=== PATIENT | female | born 1940 | race Caucasian/White ===

== ENCOUNTER → 2016-04-17 | Day surgery (SDC) | payer MEDICARE, MEDICAID ==
--- NOTE | 2016-03-28 07:34 | HP ---
PREOP HISTORY AND PHYSICAL: DATE OF ADMISSION/SURGERY: 04/17/16 - [facility] DATE OF OFFICE VISIT: 03/23/16 ATTENDING SURGEON: Dr. Andersen. PROCEDURE: Left wrist carpal tunnel release. CHIEF COMPLAINT: Left wrist numbness and tingling. HISTORY OF PRESENT ILLNESS: Ute is a 75-year-old female who presents to the clinic for numbness and tingling at the left wrist and fingers due to carpal tunnel syndrome. She also has carpal tunnel syndrome on the right that was recently fixed by Dr. Andersen. The patient has failed conservative treatment such as use of braces at night. She has elected to undergo a left wrist carpal tunnel release with Dr. Andersen. PAST MEDICAL HISTORY: 1. Left breast cancer. 2. Hypertension. 3. Hyperlipidemia. 4. Asthma. 5. GERD. 6. Diverticulitis. PAST SURGICAL HISTORY: Cholecystectomy, left mastectomy with lymph node removal , and D and C. MEDICATIONS: 1. Amlodipine 5 mg. 2. Ondansetron 4 mg. 3. Atorvastatin calcium 10 mg. 4. Letrozole 2.5 mg. 5. Lisinopril 10 mg. 6. Omeprazole 20 mg. 7. Advair Diskus 100/50 mcg per dose, inhaled 1 dose by mouth twice a day. 8. Furosemide 20 mg. 9. Prochlorperazine maleate 10 mg. ALLERGIES: CODEINE, VALIUM, LEVAQUIN, COUMADIN, and CONTRAST DYE. FAMILY HISTORY: Heart disease, colon cancer, and prostate cancer. SOCIAL HISTORY: Retired. Denies smoking history. Rare alcohol use. Denies illegal drug use. REVIEW OF SYSTEMS: A 14-point review of systems was reviewed with the patient. Positive for intermittent light-headedness, GERD, hypertension, nausea, edema , and history of blood clots, otherwise negative. PHYSICAL EXAMINATION GENERAL: A well-developed, well-nourished, 75-year-old female, in no acute distress. VITAL SIGNS: Height 58, weight 166, respiratory rate 18, BMI 34.7. HEENT: Normocephalic, atraumatic. PERRLA. NECK: Supple. Throat, clear. PULMONARY: Lungs are clear to auscultation bilaterally. No wheezing, rhonchi, or rales. CARDIO: Regular rate and rhythm. S1 and S2. No murmurs, rubs, or gallops. No edema. ABDOMEN: Positive bowel sounds. Soft and nontender. NEURO: Alert and oriented x3. Cranial nerves grossly intact. Sensation intact to light touch. MUSCULOSKELETAL: Left wrist skin is intact. No swelling. Able to flex and extend the digits. Sensation intact to light touch distally. Negative Tinel's and Phalen's. +5/5 dry transfer man strength, +2 radial pulse. DIAGNOSTIC STUDIES: X-rays revealed degenerative changes at the basilar joint of the thumb; otherwise, normal. EMG revealed evidence of left carpal tunnel syndrome. IMPRESSION: Left wrist carpal tunnel syndrome. PLAN: The patient is scheduled to undergo a left wrist carpal tunnel release with Dr. Andersen on 04/17/16. Complications and risks of the surgery were reviewed with the patient and the patient understood. The patient was instructed to see her primary care provider for preoperative clearance. The patient will follow up with Dr. Andersen in 10 to 14 days post-operative for followup and suture removal. Pain medications for postoperative pain management will be sent on the day of surgery. MICHELE SALINAS [id number]/[facility] [place] #: [id number] GABE
[~2016-04-17] MED LIST: Buffered Lidocaine 1% SYR 3ML* 3 ML/SYR SYRINGE INTRADERM ONE; Buffered Lidocaine 1% SYR 3ML* 3 ML/SYR SYRINGE ONE; Dexamethasone IV* 4 MG/ML 1 ML (4 MG) ONE; Famotidine IV* 10 MG/ML 2 ML (20 mg) IV ONE; Famotidine IV* 10 MG/ML 2 ML (20 mg) ONE; KETAMINE HCL* 50 MG/ML 10 ML VIAL ONE; Lidocaine 1% INJ* 10 MG/ML 30 ML SDV ONE; Lidocaine 2% PF * 5 ML VIAL ONE; Midazolam* 1 MG/ML 2 ML VIAL (2 MG) ONE; Ondansetron INJ* 2 MG/ML VIAL IV ONE; Ondansetron INJ* 2 MG/ML VIAL ONE; Propofol* 10 MG/ML 20 ML BTL IV PUSH ONE; Scopolamine 1.5 mg* PATCH ONE; Scopolamine PATCH Remove* 1 NOTE MISC PATCH OFF SCH; ceFAZolin 2 GM PREMIX (*) 2 GM/50 ML BAG IVPB ONE; fentaNYL* 50 MCG/ML 2 ML VIAL (100 MCG VIAL) ONE
[2016-04-17 09:33] VITALS: BP 118/51
--- NOTE | 2016-04-17 19:36 | OP ---
DATE OF OPERATION: 04/17/16 [facility] DATE OF : 44 SURGEON: Daly Andersen MD SALES REPRESENTATIVE UNIFORMS: MICHELE Patel. Etl Analyst was needed for the entirety of the case to help with positioning, retraction, and closure. ANESTHESIOLOGIST: Dr. Gandhi. ANESTHESIA: Local MAC. PRE-OP DIAGNOSIS: Left carpal tunnel syndrome. POST-OP DIAGNOSIS: Left carpal tunnel syndrome. OPERATIVE PROCEDURE: Left open carpal tunnel release. COMPLICATIONS: None. ESTIMATED BLOOD LOSS: Minimal. TOURNIQUET TIME: 14 minutes at 250 mmHg. INDICATIONS: Ute Pulido is a pleasant 75-year-old female with carpal tunnel syndrome that was bilateral. She had a previous right-sided carpal tunnel release approximately 2 to 3 months ago, which she tolerated without difficulty. She is interested in getting it done on her left side. She has EMG studies that confirmed the diagnosis as well as clinical symptoms. Risks and benefits were discussed at length. She has elected to proceed with surgery. DESCRIPTION OF PROCEDURE: The patient was greeted in the preoperative area by the attending surgeon. Correct extremity was marked and consent was confirmed. The patient was brought back to the operating suite. She was placed in the supine position, left on her OR stretcher. Hand table was brought up to the stretcher. A non-sterile tourniquet was placed high in the forearm. She does have history of breast cancer. We did discuss that this is a temporary tourniquet and that it should not interfere with her blood flow or her lymphedema. After a minute of surgical pause, the incision area was injected with approximately 10 cc of 1% lidocaine plain after which she underwent monitored anesthesia care. The left arm was then prepped and draped in the usual sterile fashion. The surgery was done under loupe magnification. After a surgical pause confirming the side, site of the procedure, administration of antibiotics, the Esmarch was used to exsanguinate the limb. The tourniquet was inflated to 250 mmHg. An incision centered over the carpal tunnel in line with 4th ray was then made that cheated somewhat ulnarly. The soft tissues were carefully dissected and the palmar fascia was dissected to expose carpal tunnel. A 15-blade was used to carefully release the tunnel. This was a very thick ligament. The carpal tunnel was then released beginning distally and then gradually carried proximally. Once it was confirmed to be released with a freer device, the carpal tunnel was inspected to make sure that there were no masses and no metastatic lesions that were present there. The wounds were then copiously irrigated. The skin was closed with 3-0 nylon. Sterile dressings were applied as well as volar splint. The tourniquet was deflated for a total time of 14 minutes. All extremities were pink and well perfused. She was then awoke from anesthesia and transferred to the PACU in stable condition. POST-OPERATIVE PLAN: She will be in the splint for approximately 10 to 14 days. She will be allowed to work on hand range of motion as well as her elbow. She will be discharged on pain medication. DVT prophylaxis considered but deferred due to no previous personal or family history. I will see the patient back in 10 to 14 days. [id number]/[facility] #: [id number] MTDD
== END | disposition home or self-care (01) ==
LOC: OREAST 07:04
PROVIDERS: ATTEND Orthopaedic Surgery
DX: G56.02 Carpal tunnel syndrome, left upper limb (principal); I10 Essential (primary) hypertension; J45.909 Unspecified asthma, uncomplicated; Z85.3 Personal history of malignant neoplasm of breast
CPT/HCPCS: A9270-GY; J0690; J1100; J2250; J2405; J2704; J3010

== ENCOUNTER 2016-08-28 07:23 | Day surgery (SDC) | payer MEDICARE, MEDICAID ==
--- NOTE | 2016-08-24 21:35 | HP ---
HISTORY AND PHYSICAL: DATE OF PLANNED ADMISSION AND SURGERY: 08/28/16 HISTORY OF PRESENT ILLNESS: Ms. Pulido is a 75-year-old white female who is admitted with a right renal calculus for shockwave lithotripsy and possible cystoscopy and placement of right ureteral stent. Ms. Pulido was followed in my office because of right renal calculus disease. The right renal calculus measured 5 mm 18 months ago and on recent evaluation had increased in size to 1 cm. It was asymptomatic, not associated with any flank pain or hematuria. Because of the increasing size of the stone and the unlikelihood that the stone will pass spontaneously if it drops into the ureter, the above procedure was advised and accepted. The patient was supposed to have this procedure scheduled earlier, but had to be canceled twice because of concern regarding cardiac disease and because of recurrent diarrhea and trish incontinence. Both of those conditions were worked up and no significant abnormalities were noted. PAST MEDICAL HISTORY AND SYSTEM REVIEW: The patient gives history of left breast carcinoma in 2011. This was treated with mastectomy followed by hormone therapy. She has done well without evidence of recurrent disease. She has history of pulmonary embolism in May 2012. She was on anticoagulation and this has been discontinued. She has hypertension, on treatment. She was recently worked up because of intermittent chest pain and had a cardiac work-up at [facility] including a dobutamine stress test and it was noted to have a low probability for significant coronary artery disease. The patient was cleared for her procedure by her him clerk. I am including a copy of the consultation note. The patient has had recurrent nausea and diarrhea with stool incontinence. She was worked up by Dr. Avalos and she had a negative colonoscopy and a negative workup. MEDICATIONS: The patient is maintained on the following medications: 1. Amlodipine 5 mg daily. 2. Lipitor 10 mg daily. 3. Calcium supplement. 4. Advair inhaler. 5. Furosemide 20 mg daily. 6. Lisinopril 10 mg daily. 7. Zofran 4 mg as needed. ALLERGIES: She reports being allergic or having intolerance to LEVAQUIN (GI symptoms), CODEINE, COUMADIN (skin rash and skin necrosis). IV CONTRAST which gave her GI symptoms and VALIUM which made her vomit. SOCIAL HISTORY: The patient is a nonsmoker. PHYSICAL EXAMINATION GENERAL: Slim white female, looks older than her age. VITAL SIGNS: Blood pressure 100/60, pulse of 70. LUNGS: Clear without any wheezing. HEART: Regular and rhythmic. No murmurs. ABDOMEN: Soft. No masses, no tenderness and no CVA tenderness. EXTREMITIES: No edema. IMPRESSION: Enlarging non-obstructing right renal calculus. Plan is for shockwave lithotripsy of the right renal calculus with possible cystoscopy and placement of right ureteral stent depending upon the adequate fragmentation of the stone. I discussed the above plans in detail with the patient. Some of the potential complications including hematuria, postoperative renal colic. All her questions were answered. She was asked to discontinue the preoperative aspirin before the procedure. CC: Dr. Hadley* [id number]/[facility] #: [id number] GABE
[~2016-08-28 07:23] MED LIST changes: -Buffered Lidocaine 1% SYR 3ML* 3 ML/SYR SYRINGE INTRADERM ONE; -Buffered Lidocaine 1% SYR 3ML* 3 ML/SYR SYRINGE ONE; +Buffered Lidocaine 1% SYRIN* 5 ML/SYR SYRINGE INTRADERM ONE; -Dexamethasone IV* 4 MG/ML 1 ML (4 MG) ONE; -Famotidine IV* 10 MG/ML 2 ML (20 mg) ONE; -KETAMINE HCL* 50 MG/ML 10 ML VIAL ONE; -Lidocaine 1% INJ* 10 MG/ML 30 ML SDV ONE; -Lidocaine 2% PF * 5 ML VIAL ONE; +Metoclopramide TAB* 10 MG PO ONE; -Midazolam* 1 MG/ML 2 ML VIAL (2 MG) ONE; -Ondansetron INJ* 2 MG/ML VIAL IV ONE; -Ondansetron INJ* 2 MG/ML VIAL ONE; -Propofol* 10 MG/ML 20 ML BTL IV PUSH ONE; -Scopolamine 1.5 mg* PATCH ONE; -Scopolamine PATCH Remove* 1 NOTE MISC PATCH OFF SCH; -ceFAZolin 2 GM PREMIX (*) 2 GM/50 ML BAG IVPB ONE; -fentaNYL* 50 MCG/ML 2 ML VIAL (100 MCG VIAL) ONE
[2016-08-28] MEDS ORDERED: Famotidine IV* 10 MG/ML 2 ML (20 mg) ONE (07:36)
[2016-08-28] MEDS ORDERED: cefTRIAXone(*) 2 GM ADDV.VIAL IVPB ONE (07:36)
[2016-08-28] MEDS ORDERED: Metoclopramide TAB* 10 MG ONE (07:36)
--- NOTE | 2016-08-28 08:17 | RAD ---
Indication: RIGHT nephrolithiasis; lithotripsy planned. Comparison: May 25, 2016 Technique: Supine view of the abdomen. Report: Unremarkable bowel gas pattern. Moderate stool in the colon without significant rectal distension. Typical partial obscuration of the renal fossa and course of the ureters by bowel contents 0.8 cm maximum dimension stone at the level of the upper pole of the RIGHT kidney is grossly unchanged. No definitive additional renal stones or suspicious calcifications along the course of the ureters. Pelvic phleboliths noted. Gallbladder fossa and LEFT superior pelvic surgical clips. 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 Unremarkable soft tissue contours. IMPRESSION: No significant change in RIGHT nephrolithiasis.
[2016-08-28] MEDS ORDERED: Midazolam* 1 MG/ML 5 ML VIAL (5 MG) ONE (08:22)
[2016-08-28] MEDS ORDERED: KETAMINE HCL* 50 MG/ML 10 ML VIAL ONE (08:22)
[2016-08-28] MEDS ORDERED: Ondansetron INJ* 2 MG/ML VIAL ONE (08:22)
[2016-08-28] MEDS ORDERED: Lidocaine 2% PF * 5 ML VIAL ONE (08:22)
[2016-08-28] MEDS ORDERED: Dexamethasone IV* 4 MG/ML 1 ML (4 MG) ONE (08:22)
[2016-08-28] MEDS ORDERED: Propofol* 10 MG/ML 20 ML BTL IV PUSH ONE ×2 (08:22→09:48)
[2016-08-28] MEDS ORDERED: fentaNYL* 50 MCG/ML 2 ML VIAL (100 MCG VIAL) ONE ×2 (08:22→10:18)
[2016-08-28] MEDS ORDERED: Ketorolac INJ* 30 MG/ML 1 ML VIAL ONE (08:22)
[2016-08-28] MEDS ORDERED: Iohexol 180 (CONTRAST) 10 ML SDV IV ONE (09:11)
[2016-08-28] MEDS ORDERED: DiMENhydriNATE IV* 50 MG/ML VIAL IV PUSH PRN (09:26)
[2016-08-28] MEDS ORDERED: fentaNYL* 50 MCG/ML 2 ML VIAL (100 MCG VIAL) IV PRN (09:26)
[2016-08-28] MEDS ORDERED: Phenylephrine IV* 40 MCG/ML 10 ML SYRINGE ONE (09:49)
[2016-08-28] MEDS ORDERED: EPHEDrine (Pressors)* 50 MG/ML VIAL ONE (10:01)
[2016-08-28 11:58] VITALS: BP 142/72
--- NOTE | 2016-08-29 06:22 | OP ---
DATE OF OPERATION: 08/28/16 [facility] DATE OF : 44 SURGEON: Josef Mattehws MD ANESTHESIOLOGIST: Dr. Devin Damico. ANESTHESIA: General. PRE-OP DIAGNOSIS: Right renal calculus (1 cm). POST-OP DIAGNOSIS: Right renal calculus (1 cm). OPERATIVE PROCEDURES: 1. Shockwave lithotripsy of right renal calculus. 2. Cystoscopy and placement of right ureteral stent (6-Maltese). INDICATION FOR PROCEDURE: Mrs. Pulido is a 75-year-old white female who is a know stone former and who was noted to have an enlarging nonobstructing right renal calculus going from 5 mm to 10 mm over an 18-months' period. Her metabolic workup was negative. Because of the increasing size of the stone and unlikelihood that it will pass spontaneously, the above procedure was advised and accepted. PATHOLOGY: Preoperative KUB confirmed the presence of a triangular 1-cm calculus located in the upper pole infundibulum of the right kidney. No other abnormal calcifications were noted. At cystoscopy, the bladder and mucosa looked normal. There were no suspicious bladder lesions seen. Right retrograde pyelography showed no hydronephrosis and no extravasation. DESCRIPTION OF PROCEDURE: After successful general anesthesia, the patient was placed in the supine position on the shockwave lithotripsy table. The right renal calculus was visualized in both of the PA and the oblique x-rays views and the position of the generator and of the patient were adjusted to have the stone of this in the focus of the shockwaves. A total of 1800 shocks were then delivered at the right of 90 shocks per minute. A 3 minutes break was taken after the initial 300 shocks. The proper positioning and fragmentation of the stone were monitored periodically. At the completion of the treatment, there seemed to be very good fragmentation of the stone with a change in its density, its shape, taking the shape of the infundibulum. Because of the size of the stone and to decrease the chances of having postoperative renal colic, a decision was made to proceed with ureteral stent placement. The patient was placed in the lithotomy position and prepped and draped for a cystoscopy. Cystoscopy was performed. The bladder was inspected, and the above findings were noted. A flexible tip guidewire was then introduced into the right orifice and positioned in the area of the renal pelvis. Retrograde pyelography was performed. A size 6- Maltese stent was then placed with the proximal end coiling in the renal pelvis and the distal end coiling inside the bladder. The patient tolerated the procedure well and left the operating room in good condition. The plan is to evaluate the patient in the office next week, and the stent will be removed. CC: Dr. Hadley * [id number]/[facility] #: [id number] MTDCristian
== END 2016-08-28 12:10 | disposition home or self-care (01) ==
LOC: OR 07:23
PROVIDERS: ATTEND Urology
DX: N20.0 Calculus of kidney (principal); I10 Essential (primary) hypertension; Z85.3 Personal history of malignant neoplasm of breast; Z86.711 Personal history of pulmonary embolism; J45.909 Unspecified asthma, uncomplicated
CPT/HCPCS: 74000; A9270-GY; C1876; J0696; J1100; J1885; J2250; J2405; J2704; J3010

== ENCOUNTER 2017-03-18 12:20 | Emergency (ER) | payer MEDICARE, MEDICAID ==
[2017-03-18 12:44] VITALS: BP 134/50
--- NOTE | 2017-03-18 13:24 | UC ---
Throat Pain/Nasal Carlos HPI - HPI Summary HPI Summary: Has been having congestion, cough, and frontal SANTOS with pressure on and off "since January." Most recent round started about 9 days ago. Denies fever or trouble breathing. Also has chronic swelling in legs, and is having periods of acute pain for minutes - 1 hour at a time, several times per day, starting about a week ago. Pain is in posterior thighs down to mid calves. Has had pain like it before, but this is more severe. No recent injuries. - History of Current Complaint Chief Complaint: UCGeneralIllness Stated Complaint: LEG PAIN CONGESTION Time Seen by Provider: 03/18/17 12:52 Hx Obtained From: Patient ?: No Onset/Duration: Gradual Onset, Lasting Days Severity: Moderate Cough: Productive Associated Signs & Symptoms: Positive: Sinus Discomfort, Nasal Discharge. Negative: Fever, Vomiting, Rash - Allergies/Home Medications Allergies/Adverse Reactions: Allergies Allergy/AdvReac Type Severity Reaction Status Date / Time Levofloxacin [From Levaquin] Allergy Severe "I GET Verified 03/18/17 12:44 REAL SICK" Codeine Allergy Mild Nausea Verified 03/18/17 12:44 Diazepam [From Valium] Allergy Unknown Unknown Verified 03/18/17 12:44 Reaction Details Warfarin [From Coumadin] Allergy Unknown caused Verified 03/18/17 12:44 bleeding IV DYE CONTRAST Allergy Severe "PEED OUT Uncoded 03/18/17 12:44 ORANGE AFTER HAVING THIS" PMH/Surg Hx/FS Hx/Imm Hx Cardiovascular History: Hypertension Other Cardiovascular History: peripheral edema Respiratory History: Asthma Cancer History: Breast Cancer Other History Of: Negative For: Anticoagulant Therapy - Surgical History Surgical History: Yes Surgery Procedure, Year, and Place: 3 SINUS SURGERIES IN THE 1970s. 1992- cholecystectomy,. D&C- IN THE PAST. 2011- LEFT MASTECTOMY. carpel tunnel & 04/25 - Family History Known Family History: Positive: Cardiac Disease, Hypertension Negative: Blood Disorder - Social History Occupation: Retired Lives: Alone Alcohol Use: Rare Alcohol Amount: 1 PER WEEK Substance Use Type: None Smoking Status (MU): Never Smoked Tobacco - Immunization History Most Recent Influenza Vaccination: 02/2016 Most Recent Tetanus Shot: unknown Review of Systems Constitutional: Negative Skin: Negative Eyes: Negative ENT: Sore Throat, Nasal Discharge Respiratory: Cough Cardiovascular: Negative Gastrointestinal: Negative Genitourinary: Negative Motor: Negative Neurovascular: Negative Musculoskeletal: Myalgia Neurological: Negative Psychological: Negative Is Patient Immunocompromised?: No All Other Systems Reviewed And Are Negative: Yes Physical Exam Triage Information Reviewed: Yes Appearance: Well-Appearing, Well-Nourished Vital Signs: Initial Vital Signs Temp 97.7 F 03/18/17 12:39 Pulse 57 03/18/17 12:39 Resp 17 03/18/17 12:39 BP 134/50 03/18/17 12:39 Pulse Ox 99 03/18/17 12:39 Vital Signs Reviewed: Yes Eye Exam: Normal Eyes: Positive: Conjunctiva Clear ENT: Positive: Hearing grossly normal, Nasal drainage, Sinus tenderness - diffuse. Negative: TM bulging, TM dull, TM red, Tonsillar swelling, Tonsillar exudate Dental Exam: Other - dentures Neck exam: Normal Neck: Positive: Supple, Nontender, No Lymphadenopathy Respiratory Exam: Normal Respiratory: Positive: Chest non-tender, Lungs clear, Normal breath sounds, No respiratory distress, No accessory muscle use Cardiovascular Exam: Normal Cardiovascular: Positive: RRR, No Murmur Musculoskeletal Exam: Other - marked symmetric non-pitting edema on BLE, from thighs down. No focal tenderness. Varicosities noted. Musculoskeletal: Positive: Strength Intact, ROM Intact Neurological Exam: Normal Neurological: Positive: Alert Psychological Exam: Normal Skin Exam: Normal Throat Pain/Nasal Course/Dx - Differential Dx/Diagnosis Provider Diagnoses: acute bacterial rhinosinusitis. peripheral edema Discharge - Discharge Plan Condition: Stable Disposition: HOME Prescriptions: Cefuroxime Axetil [Ceftin 500 MG TAB] 500 mg PO BID #14 tab Patient Education Materials: Rhinosinusitis (ED), Leg Edema (ED) Referrals: Tatum Hadley MD [Primary Care Provider] - 3 Days Additional Instructions: Today, tomorrow, and Sunday please double your dose of lasix (furosemide). See Dr. Hadley's office for a recheck early this week.
== END 2017-03-18 13:20 | disposition home or self-care (01) ==
LOC: UCEAST 12:20
DX: J01.90 Acute sinusitis, unspecified (principal); B96.89 Other specified bacterial agents as the cause of diseases classified elsewhere; R60.9 Edema, unspecified; I10 Essential (primary) hypertension
CPT/HCPCS: 99212; G0463

== ENCOUNTER 2017-03-20 01:07 | Emergency (ER) | payer MEDICARE, MEDICAID ==
[2017-03-20] MEDS ORDERED: Morphine INJ* 4 MG/ML 1 ML CARPUJECT IM ONE (02:23)
[2017-03-20] MEDS ORDERED: Promethazine INJ(RESTRICTED)* 25 MG/ML 1 ML VIAL IM ONE (02:25)
[2017-03-20] MEDS ORDERED: PROCHLORPERAZINE INJ 5 MG/ML 2 ML VIAL IM ONE (03:00)
--- NOTE | 2017-03-20 03:34 | ED ---
Rosa Ovalles Rebecca, scribed for Zuleima Kiser MD on 03/20/17 at 0223 . Lower Extremity - HPI Summary HPI Summary: Pt is a 76 y/o F who presents to ED c/o posterior bilateral LE pain. Sx began about 1 week ago, gradually worsening over the last 4 days ago. Associated pain is currently severe, ranked 10/10 and has been treated with Tylenol and heating pads. Sx aggravated by laying down, alleviated by nothing. Additionally c/o lumbar back pain and acute on chronic bilateral LE edema. Denies fever. Pt was evaluated by [facility] yesterday and has an appointment with her PCP tomorrow. No PMHx DM. - History of Current Complaint Chief Complaint: EDExtremityLower Stated Complaint: LEG PAINS Time Seen by Provider: 03/20/17 02:03 Hx Obtained From: Patient Onset/Duration: Worse Since - 4 days ago Severity Currently: Severe Pain Intensity: 10 Pain Scale Used: 0-10 Numeric Location: Is Diffuse - Bilateral posterior LE Associated Signs And Symptoms: Positive: Swelling Aggravating Factor(s): Other - Laying down Alleviating Factor(s): Nothing - Allergies/Home Medications Allergies/Adverse Reactions: Allergies Allergy/AdvReac Type Severity Reaction Status Date / Time Levofloxacin [From Levaquin] Allergy Severe "I GET Verified 03/20/17 01:16 REAL SICK" Codeine Allergy Mild Nausea Verified 03/20/17 01:16 Diazepam [From Valium] Allergy Unknown Unknown Verified 03/20/17 01:16 Reaction Details Warfarin [From Coumadin] Allergy Unknown caused Verified 03/20/17 01:16 bleeding IV DYE CONTRAST Allergy Severe "PEED OUT Uncoded 03/20/17 01:16 ORANGE AFTER HAVING THIS" PMH/Surg Hx/FS Hx/Imm Hx Endocrine/Hematology History: Denies: Hx Anticoagulant Therapy, Hx Diabetes, Hx Thyroid Disease Cardiovascular History: Reports: Hx Hypercholesterolemia, Hx Hypertension - ON MEDICATION FOR, Other Cardiovascular Problems/Disorders - BLOOD CLOT IN 2011- UNKNOWN LOCATION Denies: Hx Pacemaker/ICD Respiratory History: Reports: Hx Asthma - ROUTINE MEDICATION FOR Denies: Hx Chronic Obstructive Pulmonary Disease (COPD) GI History: Reports: Hx Diverticulosis, Hx Gastroesophageal Reflux Disease - no longer taking medication, Hx Irritable Bowel - POSSIBLY, Other GI Disorders - HISTORY OF DIVERTICULITIS, having loose stools for past year Denies: Hx Ulcer History: Reports: Hx Kidney Infection - HX OF, Hx Kidney Stones, Other Problems/Disorders - BLOOD IN URINE Musculoskeletal History: Reports: Hx Arthritis - BACK, RIGHT THUMB, NECK, Other Musculoskeletal History - abdominal hernia, improved since weight loss Sensory History: Reports: Hx Contacts or Glasses - reading Denies: Hx Hearing Aid Opthamlomology History: Reports: Hx Contacts or Glasses - reading Neurological History: Reports: Other Neuro Impairments/Disorders - numb fingers dt carpel tunnel - Cancer History Cancer Type, Location and Year: BREAST-2011 Hx Chemotherapy: Yes - left breast 2012 Hx Radiation Therapy: No - Surgical History Surgery Procedure, Year, and Place: 3 SINUS SURGERIES IN THE 1970s. 1992- cholecystectomy,. D&C- IN THE PAST. 2011- LEFT MASTECTOMY. carpel tunnel & 04/25 Hx Anesthesia Reactions: No Infectious Disease History: No Infectious Disease History: Denies: Hx Clostridium Difficile, Hx Hepatitis, Hx Human Immunodeficiency Virus (HIV), Hx of Known/Suspected MRSA, Hx Shingles, Hx Tuberculosis, Hx Known/ Suspected VRE, Hx Known/Suspected VRSA, History Other Infectious Disease, Traveled Outside the [place] in Last 30 Days - Family History Known Family History: Positive: Cardiac Disease, Hypertension Negative: Blood Disorder - Social History Alcohol Use: Rare Alcohol Amount: 1 PER WEEK Substance Use Type: Reports: None Smoking Status (MU): Never Smoked Tobacco Review of Systems Negative: Fever Positive: Edema - acute on chronic, Other - Bilateral LE pain, lumbar back pain All Other Systems Reviewed And Are Negative: Yes Physical Exam - Summary Physical Exam Summary: VITAL SIGNS: Reviewed. GENERAL: ~Patient is a morbidly obese female who is in her wheelchair, refusing to exit. Patient is not in any acute respiratory distress. HEAD AND FACE: No signs of trauma. No ecchymosis, hematomas or skull depressions. No sinus tenderness. EYES: PERRLA, EOMI x 2, No injected conjunctiva, no nystagmus. EARS: Hearing grossly intact. Ear canals and tympanic membranes are within normal limits. MOUTH: Oropharynx within normal limits. NECK: Supple, trachea is midline, no adenopathy, no JVD, no carotid bruit, no c- spine tenderness, neck with full ROM. CHEST: Symmetric, no tenderness at palpation LUNGS: Clear to auscultation bilaterally. No wheezing or crackles. CVS: Regular rate and rhythm, S1 and S2 present, no murmurs or gallops appreciated. EXTREMITIES: FROM in all major joints, no edema, no cyanosis or clubbing. Bilateral tenderness of the LE with hyperesthesia. NEURO: Alert and oriented x 3. No acute neurological deficits. Speech is normal and follows commands. SKIN: Dry and warm Triage Information Reviewed: Yes Vital Signs On Initial Exam: Initial Vitals Temp Pulse Resp BP Pulse Ox 98.2 F 88 18 144/56 99 03/20/17 01:11 03/20/17 01:11 03/20/17 01:11 03/20/17 01:11 03/20/17 01:11 Vital Signs Reviewed: Yes Diagnostics - Vital Signs Vital Signs Temp Pulse Resp BP Pulse Ox 03/20/17 01:11 98.2 F 88 18 144/56 99 - Laboratory Lab Statement: Any lab studies that have been ordered have been reviewed, and results considered in the medical decision making process. Re-Evaluation - Re-Evaluation First Eval Re-Evaluation Time: 03:26 Change: Improved Comment: Pt is now able to ambulate. Lower Extremity Course/Dx - Course Assessment/Plan: Pt is a 76 y/o F who presents to ED c/o posterior bilateral LE pain for 1 week, gradually worsening over the last 4 days ago. Associated pain is currently severe, ranked 10/10 and has been treated with Tylenol and heating pads. Sx aggravated by laying down. Additionally c/o lumbar back pain and acute on chronic bilateral LE edema. Denies fever. Pt was evaluated by [facility] yesterday and has an appointment with her PCP tomorrow. In the ED course, she received morphine, compazine and phenergan which improved her sx. Pt is able to ambulate and will be D/C to home with Dx of bilateral LE pain and instrucitons to follow-up with her PCP tomorrow as scheduled. Allergies noted. Elevated BP noted and medications reviewed. - Diagnoses Provider Diagnoses: Bilateral leg pain Discharge - Discharge Plan Condition: Stable Disposition: HOME Patient Education Materials: Leg Pain (ED) Referrals: Tatum Hadley MD [Primary Care Provider] - Additional Instructions: RETURN TO EMERGENCY DEPARTMENT FOR ANY NEW OR WORSENING SYMPTOMS Follow-up with your doctor tomorrow as scheduled. The documentation as recorded by the scribeRosa Rebecca accurately reflects the service I personally performed and the decisions made by me, Zuleima Kiser MD.
[2017-03-20 03:49] VITALS: BP 121/55
== END 2017-03-20 03:48 | disposition home or self-care (01) ==
LOC: ED 01:07
DX: M79.605 Pain in left leg (principal); M79.604 Pain in right leg; I10 Essential (primary) hypertension; E78.00 Pure hypercholesterolemia, unspecified; J45.909 Unspecified asthma, uncomplicated; E66.01 Morbid (severe) obesity due to excess calories
CPT/HCPCS: 96372; 99282; J0780; J2270; J2550

== ENCOUNTER 2017-07-18 10:48 | Inpatient (IN) | payer MEDICARE, MEDICAID ==
[2017-07-18] MEDS ORDERED: NS 0.9% 1000 ML* 1,000 ML IV SCH (11:45)
[2017-07-18 11:58] LABS: ABS Basophils 0 10^3/ul (0-0.2); ABS Eosinophils 0.2 10^3/ul (0-0.6); ABS Lymphocytes 1.4 10^3/ul (1.0-4.8); ABS Monocytes 0.5 10^3/ul (0-0.8); ABS Neutrophils 3.1 10^3/ul (1.5-7.7); ABS Nucleated RBC 0 10^3/ul; Hematocrit 41 % (35-47); Mean Corpuscular HGB Conc 34 g/dl (31-36); Mean Corpuscular Hemoglobin 30 pg (27-31); Mean Corpuscular Volume 86 fL (80-97); Mean Platelet Volume 8.2 um3 (7.4-10.4); Nucleated Red Blood Cells % 0.1; Platelet Count 234 10^3/ul (150-450); Red Blood Count 4.75 10^6/ul (4.0-5.4); Red Cell Distribution Width 14 % (10.5-15); White Blood Count 5.3 10^3/ul (3.5-10.8)
[2017-07-18 12:07] LABS: INR 0.98 (0.77-1.02)
[2017-07-18 12:15] LABS: EGFR Non-African American 70.1 (>60)
[2017-07-18 13:24] LABS: Urine Appearance Cloudy; Urine Blood 2+ (Negative); Urine Color Yellow; Urine Ketones Negative (Negative); Urine Protein Negative (Negative); Urine Specific Gravity 1.006 (1.010-1.030); Urine Urobilinogen Negative (Negative)
--- NOTE | 2017-07-18 14:28 | RAD ---
INDICATION: LEFT side abdominal pain. Blood in stool. History of diverticulosis. Post cholecystectomy. COMPARISON: June 25, 2017 TECHNIQUE: Multidetector CT images were obtained from the lung bases to the ischial tuberosities. Evaluation of the viscera is limited without IV contrast. Multiplanar reformation. REPORT: Images through the inferior thorax are remarkable for mild cardiomegaly. Post cholecystectomy. Calcified granuloma at the dome of the liver. No suspicious focal hepatic lesions or biliary dilatation. Moderately atrophic pancreas. Unremarkable spleen. Negative for CT abnormality of the upper GI, small bowel, or infra cecal appendix. Small volume of hyperdense material in the colon most consistent with ingested food stuff or pharmaceutical. Severe diverticulosis of the sigmoid colon. Very mild perienteric inflammatory change at the proximal sigmoid colon similar to the June 25, 2017 exam consistent with mild diverticulitis. Negative for perienteric abscess. Only trace free fluid along the LEFT pelvic sidewall. Negative for free air. Small fat-containing infraumbilical midline ventral hernia without suggestion of inflammatory change. Normal adrenal glands. Nonobstructing stones at the lower pole calyces of the RIGHT kidney measuring up to 5 mm maximum dimension. Negative for hydronephrosis. No suspicious finding along the course of the nondilated ureters. Phleboliths noted at the bilateral gonadal veins. Largely decompressed urinary bladder limiting assessment without conspicuous abnormality. Unremarkable anteverted uterus and adnexal regions. Negative for lymphadenopathy. Mild atherosclerotic plaque of normal diameter abdominal aorta and iliac arteries. Physiologic distention of the IVC. Multilevel degenerative spondylosis and facet joint osteoarthritis. L1-L2 dorsal spondylitic ridging disc complex and posterior element hypertrophic arthropathy results in moderate acquired central canal stenosis without significant change. Mild acquired central canal stenosis at L2-L3. Negative for suspicious focal osseous lesions. IMPRESSION: 1. Mild diverticulitis at the proximal sigmoid colon similar to the findings on the June 25, 2017 exam. Negative for perienteric abscess. 2. Persistent finding of nonobstructive RIGHT renal stones.
[2017-07-18] MEDS ORDERED: Al Hydrox/Mg Hydrox/Simet LIQ* 30 ML UDC PO PRN (15:58)
[2017-07-18] MEDS ORDERED: Zosyn per Pharmacy* NOTE FOLLOW UP SCH (16:00)
[2017-07-18] MEDS ORDERED: Piperacillin/Tazobac ADVAN(*) 3.375 GM in NS 0.9% 100 ML* 100 ML IVPB ONE (16:00)
[2017-07-18] MEDS ORDERED: Albuterol HFA INHALER* 8 gm MDI INH PRN (16:01)
--- NOTE | 2017-07-18 17:56 | RAD ---
INDICATION: Swollen legs. Orthopnea. Intermittent shortness of breath. COMPARISON: July 18, [address] TECHNIQUE: Dual energy PA and routine lateral views of the chest were obtained. REPORT: Elevated lung volumes and both diffuse mild prominence of the interstitial markings and patchy rarefaction of the mid to upper lung zone interstitial markings. No focal pulmonary lesion, compelling alveolar consolidation, pleural effusion, pneumothorax. Upper normal heart size. Unremarkable central pulmonary vasculature. IMPRESSION: Stigmata of obstructive lung disease. No acute pulmonary or cardiac process evident.
[2017-07-18] MEDS: NS 0.9% 1000 ML* 1,000 ML IV SCH (18:20)
[2017-07-18] MEDS: Mometasone/Formoter 200/5 MDI INH SCH (20:08)
[2017-07-18 20:46] LABS: Hematocrit 43 % (35-47); Hemoglobin 14.4 g/dl (12.0-16.0)
--- NOTE | 2017-07-18 21:50 | ED ---
Jenn Ovalles Thomas, scribed for Aris Morris MD on 07/18/17 at 1204 . GI/ HPI - HPI Summary HPI Summary: The patient is a 76 year old female who presents with two episodes of stools with bloody streaks that began today. She complains of some lightheadedness, although she denies any pain in the emergency department. The patient was diagnosed with diverticulitis eight days ago and she has been dealing with intermittent abdominal pain since then. She was put on ciprofloxacin and metronidazole on 07/10/17. The patient has been following up with [facility] and she was instructed to stop taking antibiotics two days ago. The patient has been dealing with episodes of diarrhea. Three days ago, she had dry heaves and nausea. She has a history of diverticulitis. Past surgical history includes cholecystectomy. She is not on blood thinners. - History of Current Complaint Chief Complaint: EDGIBleed Time Seen by Provider: 07/18/17 11:12 Stated Complaint: GI PROBLEM Hx Obtained From: Patient Onset/Duration: Started Hours Ago, Still Present Timing: Intermittent Severity: Moderate Pain Intensity: 0 Associated Signs and Symptoms: Positive: Other: - Bloody stools, diarrhea, nausea, dry heaves Additional Signs & Symptoms: Positive: Other: - Lightheadednesss Aggravating Factor(s): Nothing Alleviating Factor(s): Nothing - Allergy/Home Medications Allergies/Adverse Reactions: Allergies Allergy/AdvReac Type Severity Reaction Status Date / Time codeine Allergy GI Upset Verified 07/18/17 10:58 diazepam Allergy GI Upset Verified 07/18/17 10:58 levofloxacin Allergy GI Upset Verified 07/18/17 10:58 warfarin Allergy Bleeding Verified 07/18/17 10:58 IV Dye Allergy See Comment Uncoded 07/18/17 10:58 Home Medications: Home Medications Acetaminophen [Acetaminophen Extra Strength] 1,000 mg PO TID PRN 07/18/17 [ History Confirmed 07/18/17] Calcium Carbonate/Vitamin D3 [Calcium 600 + Vit D Tablet] 1 tab PO DAILY [History Confirmed 07/18/17] Ciprofloxacin TAB* [Cipro 500 MG TAB*] 500 mg PO BID 07/18/17 [History Confirmed 07/18/17] Famotidine TAB* [Pepcid 20 MG TAB*] 20 mg PO DAILY 07/18/17 [History Confirmed 07/18/17] Furosemide TAB* [Lasix TAB*] 20 mg PO DAILY 07/18/17 [History Confirmed 07/18/17 ] Lisinopril TAB* [Prinivil TAB*] 5 mg PO DAILY 07/18/17 [History Confirmed ] Multivitamins/Minerals TAB* [Theragran/minerals TAB*] 1 tab PO DAILY 07/18/17 [ History Confirmed 07/18/17] Omeprazole CAP* [Prilosec CAP* 20 MG] 40 mg PO DAILY 07/18/17 [History Confirmed 07/18/17] metroNIDAZOLE TAB* [Flagyl 250 mg TAB*] 500 mg PO TID 07/18/17 [History Confirmed 07/18/17] PMH/Surg Hx/FS Hx/Imm Hx Endocrine/Hematology History: Denies: Hx Anticoagulant Therapy, Hx Diabetes, Hx Thyroid Disease Cardiovascular History: Reports: Hx Hypercholesterolemia, Hx Hypertension - ON MEDICATION FOR, Other Cardiovascular Problems/Disorders - BLOOD CLOT IN 2011- UNKNOWN LOCATION Denies: Hx Pacemaker/ICD Respiratory History: Reports: Hx Asthma - ROUTINE MEDICATION FOR Denies: Hx Chronic Obstructive Pulmonary Disease (COPD) GI History: Reports: Hx Diverticulosis, Hx Gastroesophageal Reflux Disease - no longer taking medication, Hx Irritable Bowel - POSSIBLY, Other GI Disorders - HISTORY OF DIVERTICULITIS, having loose stools for past year Denies: Hx Ulcer History: Reports: Hx Kidney Infection - HX OF, Hx Kidney Stones, Other Problems/Disorders - BLOOD IN URINE Musculoskeletal History: Reports: Hx Arthritis - BACK, RIGHT THUMB, NECK, Other Musculoskeletal History - abdominal hernia, improved since weight loss Sensory History: Reports: Hx Contacts or Glasses - reading Denies: Hx Hearing Aid Opthamlomology History: Reports: Hx Contacts or Glasses - reading Neurological History: Reports: Other Neuro Impairments/Disorders - numb fingers dt carpel tunnel - Cancer History Cancer Type, Location and Year: BREAST-2011 Hx Chemotherapy: Yes - left breast 2011 Hx Radiation Therapy: No - Surgical History Surgery Procedure, Year, and Place: 3 SINUS SURGERIES IN THE 1970s. 1992- cholecystectomy,. D&C- IN THE PAST. 2011- LEFT MASTECTOMY. carpel tunnel & 04/25 Hx Anesthesia Reactions: No Infectious Disease History: No Infectious Disease History: Denies: Hx Clostridium Difficile, Hx Hepatitis, Hx Human Immunodeficiency Virus (HIV), Hx of Known/Suspected MRSA, Hx Shingles, Hx Tuberculosis, Hx Known/ Suspected VRE, Hx Known/Suspected VRSA, History Other Infectious Disease, Traveled Outside the [place] in Last 30 Days - Family History Known Family History: Positive: Cardiac Disease, Hypertension Negative: Blood Disorder - Social History Alcohol Use: Rare Alcohol Amount: 1 PER WEEK Substance Use Type: Reports: None Smoking Status (MU): Never Smoked Tobacco Review of Systems Negative: Fever Positive: Vomiting, Nausea, Other - Bloody stools, dry heaves. Negative: Abdominal Pain - no pain in ED Neurological: Other - Lightheadedness All Other Systems Reviewed And Are Negative: Yes Physical Exam - Summary Physical Exam Summary: General: well-appearing, no pain distress Skin: warm, color reflects adequate perfusion, dry Head: normal Eyes: EOMI, JHONNY ENT: normal Neck: supple, nontender Respiratory: CTA, breath sounds present Cardiovascular: RRR Abdomen: Soft. She has tenderness to her left abdomen. Bowel: present Musculoskeletal: Strength/ROM intact. Bilateral pedal edema. Neurological: normal, sensory/motor intact, A&O x3 Psychological: affect/mood appropriate Triage Information Reviewed: Yes Vital Signs On Initial Exam: Initial Vitals Temp Pulse Resp BP Pulse Ox 98.5 F 70 16 111/51 96 07/18/17 10:50 07/18/17 10:50 07/18/17 10:50 07/18/17 10:50 07/18/17 10:50 Vital Signs Reviewed: Yes Diagnostics - Vital Signs Vital Signs Temp Pulse Resp BP Pulse Ox 07/18/17 10:50 98.5 F 70 16 111/51 96 - Laboratory Lab Results: Lab Results 07/18/17 Range/Units 11:48 WBC 5.3 (3.5-10.8) 10^3/ul RBC 4.75 (4.0-5.4) 10^6/ul Hgb 14.0 (12.0-16.0) g/dl Hct 41 (35-47) % MCV 86 (80-97) fL MCH 30 (27-31) pg MCHC 34 (31-36) g/dl RDW 14 (10.5-15) % Plt Count 234 (150-450) 10^3/ul MPV 8.2 (7.4-10.4) um3 Neut % (Auto) 58.7 (38-83) % Lymph % (Auto) 27.0 (25-47) % [place] % (Auto) 9.6 H (0-7) % Eos % (Auto) 4.0 (0-6) % Baso % (Auto) 0.7 (0-2) % Absolute Neuts (auto) 3.1 (1.5-7.7) 10^3/ul Absolute Lymphs (auto) 1.4 (1.0-4.8) 10^3/ul Absolute Monos (auto) 0.5 (0-0.8) 10^3/ul Absolute Eos (auto) 0.2 (0-0.6) 10^3/ul Absolute Basos (auto) 0 (0-0.2) 10^3/ul Absolute Nucleated RBC 0 10^3/ul Nucleated RBC % 0.1 Result Diagrams: 07/18/17 20:09 07/18/17 11:48 Lab Statement: Any lab studies that have been ordered have been reviewed, and results considered in the medical decision making process. - CT CT Abdomen/Pelvis CT Interpretation: Positive (See Comments) - IMPRESSION: 1. Mild diverticulitis at the proximal sigmoid colon similar to the findings on the June 25, 2017 exam. Negative for perienteric abscess. 2. Persistent finding of nonobstructive RIGHT renal stones. Dr. Morris has reviewed this report. CT Interpretation Completed By: Radiologist - EKG 11:57 Cardiac Rate: Bradycardia EKG Rhythm: Sinus Bradycardia - at [address] Segment: Normal Ectopy: None GIGU Course/Dx - Course Course Of Treatment: Medications reviewed. Allergies noted. 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 Juárez. - Discharge Plan Condition: Stable Disposition: ADMITTED TO [facility] - Billing Disposition and Condition Condition: STABLE Disposition: HOSP-[facility] The documentation as recorded by the Jenn stout Thomas accurately reflects the service I personally performed and the decisions made by , Aris Morris MD.
[2017-07-18] MEDS: Ondansetron INJ* 2 MG/ML VIAL IV PRN (22:45)
[2017-07-18] MEDS: Piperacillin/Tazobactam 13.5 GM IV 24 hour continuous infusion IVPB SCH ×2 (22:45)
--- NOTE | 2017-07-19 | HP ---
CC: Dr. Heller; Dr. Fabiano Avalos * ADMISSION HISTORY AND PHYSICAL: DATE OF ADMISSION: 07/18/17 PRIMARY CARE PROVIDER: Dr. Heller. PRIMARY ELECTRICIAN: Dr. Fabiano Avalos. MY ATTENDING WHILE IN THE HOSPITAL: Dr. Dez Juárez.* (DICTATED BY MICHELE HERNANDEZ) CHIEF COMPLAINT: Bright red blood per rectum x2 this morning, abdominal pain. HISTORY OF PRESENT ILLNESS: Ms. Pulido is a 76-year-old female with past medical history significant for left breast carcinoma, status post mastectomy, chemotherapy; PE in 2012, now off anticoagulation; diverticulosis with diverticulitis; GERD; and nephrolithiasis, who was diagnosed with diverticulitis on 06/25/17. The patient states that she had significant left lower quadrant pain. She called Dr. Matthews, who referred her to this institution for a CT scan, which showed diverticulitis and non-obstructing kidney stones. The patient states that she was started on Flagyl and Cipro. She states it was on 07/10/17 and she stopped taking them after couple of days of taking this regimen as Cipro caused chest discomfort and the Flagyl caused nausea. The patient has had been nauseated for months according to her having poor oral intake. This is helped with eating bland foods and somewhat with omeprazole and is worse in the morning than at night. The patient had an EGD in 2015 to evaluate a similar complaint, though showed no gastric or duodenal ulcers. The patient has been having diarrhea, which has increased since she started taking the Cipro and Flagyl, but she states that she generally has approximately 3 soft stools a day and this has been going on for a long period. The patient used to take Imodium for this, but has not taken since she has had diverticulitis. The patient has not had any stools since she has been in the emergency department for 4 hours. The patient has never had blood in her stool before. The patient had negative biopsies for microscopic colitis and this was believed to be functional diarrhea in 2017. The patient also states that she has a paraumbilical hernia and that she had some pain in her belly button overnight, but that this has resolved. The patient denies changes in her urine, changes in the frequency of her urine or pain with urination. The patient has had some abdominal pain, which is relieved with defecation and this is generally her pattern. The patient has had swelling of her legs. The patient states that this is stable, had no dyspnea on exertion. No chest pain. The patient does have difficulty breathing when lying down. The patient also has pain in her back frequently, which feels like kidney stones and has had previous lithotripsies. The patient also had a cough, nonproductive recently that she attributes to feeling like things go down the wrong pipe. The patient due to GI bleeding and dehydration with low blood pressure, we were asked to evaluate this patient for admission. PAST MEDICAL HISTORY: Left breast carcinoma, status post mastectomy with chemo of an unknown agent for 6 weeks; PE in 2013, treated with Lovenox; hypertension ; nephrolithiasis; GERD; diverticulosis; asthma; hyperlipidemia; and functional diarrhea. PAST SURGICAL HISTORY: Left side mastectomy with lymph node dissection, cholecystectomy, carpal tunnel release, D and C, colonoscopy, and endoscopy. MEDICATIONS: 1. Lipitor 10 mg p.o. daily. 2. Ventolin q.4 hours 1 puff as needed for shortness of breath. 3. Advair 250/50 one puff inhalation b.i.d. 4. Vitamin B supplement. 5. Omeprazole 40 mg p.o. daily. 6. MVI. 7. Tylenol 1000 mg p.o. t.i.d. 8. Lisinopril 5 mg p.o. daily. 9. Famotidine 20 mg p.o. daily. 10. Calcium 600. 11. Vitamin D. 12. Flagyl 500 mg p.o. b.i.d. 13. Cipro 500 mg p.o. b.i.d. The patient has not been taking these antibiotics. 14. Lasix 20 mg p.o. daily. 15. Imodium as needed. ALLERGIES: IV CONTRAST, VALIUM, COUMADIN, LEVOFLOXACIN, CODEINE. FAMILY HISTORY: The patient's father of [place] at 54. The patient's mother of stroke and had open heart surgery. The patient's brother had open heart surgery. The patient had a sister, who of colon cancer in her 70s. SOCIAL HISTORY: The patient never smoked tobacco. The patient drinks wine occasionally. The patient does not use illicit drugs. 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 The patient is , but and has 3 children, all whom are in good health. The patient would like her health-care proxy to be her daughter, Fior Boudreaux, or her friend, Sushila Joya, who accompanied her today. REVIEW OF SYSTEMS: A 14-point review of systems was reviewed and is negative except as above. PHYSICAL EXAMINATION GENERAL: The patient is a 76-year-old female, who appears stated age and is sitting comfortably in bed, in no acute distress. VITAL SIGNS: Temperature 98.5, heart rate 70, respiratory rate 16, oxygen saturation 96% on room air, blood pressure 100/47, lowest 87/36. HEENT: Head normocephalic, atraumatic. Sclerae anicteric. No conjunctival injection. Oral mucosa dry, chapped lips. No oropharyngeal erythema, discharge , or exudate. NECK: Supple, nontender. No lymphadenopathy. No carotid bruit auscultated. No JVD. RESPIRATORY: Clear to auscultation bilaterally. No wheezes, rales, or rhonchi. Good air exchange bilaterally. CARDIAC: Regular rate and rhythm. No clicks, murmurs, gallops, or rubs. Pulses 2+ in bilateral dorsalis pedis areas, posterior tibialis, and radial areas. 2+ pitting lower extremity edema. No bilateral calf tenderness. ABDOMEN: Soft, tenderness to palpation in the bilateral lower quadrants without rebound or guarding, left greater than right. No mass. No hernia. No hepatosplenomegaly. No abdominal bruits auscultated. RECTAL EXAM: Shows good tone. No masses. No fissures. No perianal excoriations. There is stool in the rectal vault with john red blood. GENITOURINARY: No suprapubic or CVA tenderness. NEURO: Cranial nerves II through XII intact. No focal deficits. Alert and oriented x3. PSYCHIATRIC: Pleasant and cooperative, somewhat anxious. SKIN: Clean, dry, and intact. No rash. DIAGNOSTIC STUDIES/LAB DATA: White blood cell count 5.3, hemoglobin 14.0, RDW 14, MCH 30, MCV 86, platelet count 234. INR 0.98, aPTT 31. Sodium 138, potassium 3.6, chloride 103, carbon dioxide 27, anion gap 8, BUN 13, creatinine 0.8, glucose 97, lactic acid 0.8, calcium 8.7, total bilirubin 0.4, AST 21, ALT 23, CRP 86.9, total protein 6.2, albumin 3.5, globulin 2.3, lipase 29. Urine shows specific gravity of 1.006, 2+ blood, trace leukocyte esterase, squamous epithelial cells, transitional epithelial cells, hyaline casts, negative for bacteria. Studies: Echocardiogram shows normal sinus rhythm. No ST segment changes. Normal axis. Rate of 57, QTc is 389, no other abnormalities. Unchanged from previous exams. Abdomen and pelvis CT read as mild diverticulitis of the proximal sigmoid colon, similar to findings on 07/26/17, negative for perienteric abscess. Persistent finding of nonobstructive right renal stones. ASSESSMENT AND PLAN: Ms. Pulido is a 76-year-old female with a past medical history significant for functional diarrhea, diverticulitis, left breast carcinoma, pulmonary embolism, and nephrolithiasis, who presents with recurrent left lower abdominal pain consistent with previous diverticulitis before completing her course as well as increased diarrhea and blood in her stool x2. The patient will be admitted to the hospital for observation, serial hemoglobin and hematocrit and fluids. 1. Diverticulitis. The patient was diagnosed with diverticulitis on 06/25/17. The patient states that she did not get antibiotics until 07/10/17. It is unclear why this delay happened. The patient is unable to relay this information. The patient was unable to tolerate the antibiotics and stopped taking them. The patient felt better on the several days where she was taking antibiotics with regards to her abdominal pain, but this has recurred, but is not as severe as it was previously. The patient had a repeat abdominal CT, which showed persistent diverticulitis. The patient was started on Zosyn. The patient has no fevers. The patient had one hypotensive ranged blood pressure. The patient will be given fluids for this. The patient will have her Lasix held. The patient has no other systemic inflammatory response syndrome criteria. 2. Hematochezia. The patient's hemoglobin and hematocrit are stable. These will be repeated q.8 hours while she is in the hospital. Orthostatic vital signs taken. The patient had bright red blood in her rectal vault on exam; however, she had a negative stool occult blood. We will hold the patient's aspirin and chemical DVT prophylaxis. 3. Diarrhea. The patient has had increased diarrhea since she has been taking her antibiotics. This is only a slight increase. The patient generally has 3 loose bowel movements a day. The patient has stool studies pending including a C. diff, this unlikely represents C. diff. We will not treat the patient for C. diff at this time. Stool culture, stool lactoferrin pending. The patient had a colonoscopy in 2017, which showed no microscopic colitis or colon cancer. 4. Nephrolithiasis. The patient has recurrent back pain consistent with her previous history of nephrolithiasis. The patient has nonobstructing kidney stones on her CT scan. The patient has blood in her urine with no red blood cells. This is of unknown etiology and has not been present previously. This could be contaminant from her GI bleed. We will monitor her hemoglobin and hematocrit as well as urine output. 5. Lower extremity edema, orthopnea. The patient has lower extremity edema and orthopnea, which have been stable. The patient do not have a transthoracic echocardiogram on record since 2012, which was unremarkable except for mild pulmonary hypertension. We will repeat this due to worsening symptoms. 6. Asthma. Continue home inhalers. No wheezing or signs of exacerbation at this time. 7. Gastroesophageal reflux disease. Continue omeprazole, this may be partially the cause of patient's nausea and cough. Maalox will also be available. 8. Hyperlipidemia. Continue Lipitor. 9. Breast cancer. No sign of recurrence. No longer on hormonal prophylaxis. 10. Hypertension. Continue lisinopril, hold Lasix. 11. FEN: The patient will have a soft diet and fluids at 100 mL an hour. 12. DVT prophylaxis. The patient will have SCDs and frequent ambulation in the setting of high risk, but chemical prophylaxis will be held in the setting of GI bleed. 13. Code status. The patient would like to be a full code. The patient would like her healthcare proxy to be her daughter, Fior Boudreaux. TIME SPENT: Approximately 60 minutes were spent on this admission, 30 of which was spent [id number] with the patient obtaining history and physical and discussing the treatment plan. MICHELE HERNANDEZ [id number]/[facility] #: [id number] GABE
[2017-07-19 06:09] LABS: ABS Basophils 0 10^3/ul (0-0.2); ABS Eosinophils 0.3 10^3/ul (0-0.6); ABS Lymphocytes 1.1 10^3/ul (1.0-4.8); ABS Monocytes 0.5 10^3/ul (0-0.8); ABS Neutrophils 2.7 10^3/ul (1.5-7.7); ABS Nucleated RBC 0 10^3/ul; Eosinophil % 5.9 % (0-6); Hematocrit 38 % (35-47); Hemoglobin 12.9 g/dl (12.0-16.0); Lymphocyte % 24.2 % (25-47); Mean Corpuscular HGB Conc 34 g/dl (31-36); Mean Corpuscular Hemoglobin 30 pg (27-31); Mean Corpuscular Volume 87 fL (80-97); Mean Platelet Volume 8.3 um3 (7.4-10.4); Nucleated Red Blood Cells % 0.1; Platelet Count 202 10^3/ul (150-450); Red Blood Count 4.37 10^6/ul (4.0-5.4); Red Cell Distribution Width 14 % (10.5-15); White Blood Count 4.6 10^3/ul (3.5-10.8)
[2017-07-19 06:36] LABS: EGFR Non-African American 80.5 (>60)
[2017-07-19] MEDS: NS 0.9% 1000 ML* 1,000 ML IV SCH ×2 (08:03→19:58)
[2017-07-19] MEDS: Mometasone/Formoter 200/5 MDI INH SCH ×2 (09:00→20:21)
[2017-07-19] MEDS: Omeprazole CAP* 20 MG PO SCH (09:11)
[2017-07-19] MEDS: Famotidine TAB* 20 MG PO SCH (09:11)
[2017-07-19] MEDS: Multivitamins/Minerals TAB PO SCH (09:12)
[2017-07-19] MEDS: Atorvastatin* 10 MG TAB PO SCH (09:12)
[2017-07-19] MEDS: Lisinopril TAB* 5 MG PO SCH (09:15)
--- NOTE | 2017-07-19 10:20 | PN ---
Subjective Date of Service: 07/19/17 Interval History: Patient was seen and examined at bedside. Reports doing much better today. Minimal LLQ abdominal pain, improving with time. Denies nausea, vomiting, fever or chills. Tolerating soft diet. Planning to walk down the chun this AM. Also notes mild bilateral calf pain, thinks because she's been sitting for too long. Has hx DVT and PE treated with anticoagulants in the remote past. Denies any rectal bleeding, stool occult blood and C-diff were negative. Otherwise, she has no other complaints today. Family History: Unchanged from Admission Social History: Unchanged from Admission Past Medical History: Unchanged from Admission Objective Active Medications: Acetaminophen (Tylenol Tab*) 650 mg PO Q6H PRN PRN Reason: FEVER/PAIN Al Hydrox/Mg Hydrox/Simethicone (Maalox Plus*) 30 ml PO Q4H PRN PRN Reason: INDIGESTION Albuterol (Ventolin Hfa Inhaler*) 1 puff INH Q4H PRN PRN Reason: DYSPNEA Atorvastatin Calcium (Lipitor*) 10 mg PO DAILY [facility] Last Admin: 07/19/17 09:12 Dose: 10 mg Famotidine (Pepcid Tab*) 20 mg PO DAILY [facility] Last Admin: 07/19/17 09:11 Dose: 20 mg Heparin Sodium (Porcine) (Heparin Vial(*)) 5,000 units SUBCUT Q8HR [facility] Sodium Chloride (Ns 0.9% 1000 Ml*) 1,000 mls @ 100 mls/hr IV PER RATE [facility] Last Admin: 07/19/17 08:03 Dose: 100 mls/hr Piperacillin Sod/Tazobactam (Sod 13.5 gm/ Sodium Chloride) 500 mls @ 20.833 mls /hr IVPB Q24H [facility] Last Admin: 07/18/17 22:45 Dose: 20.833 mls/hr Lisinopril (Prinivil Tab*) 5 mg PO DAILY [facility] Last Admin: 07/19/17 09:15 Dose: Not Given Mometasone Furoate/Formoterol Fumar (Dulera 200/5 Mdi*) 2 puff INH BID [facility] Last Admin: 07/19/17 09:00 Dose: 2 puff Multivitamins/Minerals (Theragran/Minerals Tab*) 1 tab PO DAILY [facility] Last Admin: 07/19/17 09:12 Dose: 1 tab Omeprazole (Prilosec Cap*) 40 mg PO DAILY [facility] Last Admin: 07/19/17 09:11 Dose: 40 mg Ondansetron HCl (Zofran Inj*) 4 mg IV Q6H PRN PRN Reason: NAUSEA Last Admin: 07/18/17 22:45 Dose: 4 mg Pharmacy Consult (Zosyn Per Pharmacy*) 1 note FOLLOW UP .ZOSYN PER PHARMACY [facility] Vital Signs - 8 hr 07/19/17 07/19/17 07/19/17 04:33 07:47 08:00 Temperature 97.9 F 97.3 F Pulse Rate 66 50 Respiratory 16 14 16 Rate Blood Pressure 125/65 129/52 (mmHg) O2 Sat by Pulse 97 100 Oximetry 07/19/17 07/19/17 09:01 09:04 Temperature Pulse Rate 52 70 Respiratory 16 Rate Blood Pressure 126/70 (mmHg) O2 Sat by Pulse 96 Oximetry Oxygen Devices in Use Now: None Appearance: Alert and oriented, siiting on her chair, appears comfortable and in NAD. Eyes: No Scleral Icterus, PERRLA Ears/Nose/Mouth/Throat: Mucous Membranes Moist Neck: NL Appearance and Movements; NL JVP, Trachea Midline Respiratory: Symmetrical Chest Expansion and Respiratory Effort, Clear to Auscultation Cardiovascular: NL Sounds; No Murmurs; No JVD, RRR Abdominal: No Hepatosplenomegaly, - - Abdomen soft and non-distended. Mild LLQ tenderness, without guarding, rigidity or rebound. No hernias or masses noted. Extremities: - - Bilateral 2+ edema noted, chronic per patient. Mild bilateral calf tenderness noted, no masses or nodules on palpation. No erythema or induration. No ulcers or rashes. Pedal pulse difficult to assess due to edema. Skin: No Rash or Ulcers Neurological: Alert and Oriented x 3, NL Muscle Strength and Tone Nutrition: Taking PO's Result Diagrams: 07/19/17 05:59 07/19/17 05:59 Additional Lab and Data: Lab Results 07/18/17 Range/Units 11:48 WBC 5.3 (3.5-10.8) 10^3/ul RBC 4.75 (4.0-5.4) 10^6/ul Hgb 14.0 (12.0-16.0) g/dl Hct 41 (35-47) % MCV 86 (80-97) fL MCH 30 (27-31) pg MCHC 34 (31-36) g/dl RDW 14 (10.5-15) % Plt Count 234 (150-450) 10^3/ul MPV 8.2 (7.4-10.4) um3 Neut % (Auto) 58.7 (38-83) % Lymph % (Auto) 27.0 (25-47) % Kleberg % (Auto) 9.6 H (0-7) % Eos % (Auto) 4.0 (0-6) % Baso % (Auto) 0.7 (0-2) % Absolute Neuts (auto) 3.1 (1.5-7.7) 10^3/ul Absolute Lymphs (auto) 1.4 (1.0-4.8) 10^3/ul Absolute Monos (auto) 0.5 (0-0.8) 10^3/ul Absolute Eos (auto) 0.2 (0-0.6) 10^3/ul Absolute Basos (auto) 0 (0-0.2) 10^3/ul Absolute Nucleated RBC 0 10^3/ul Nucleated RBC % 0.1 Microbiology and Other Data: Microbiology 07/18/17 21:20 Stool Gross Appearance - Final Stool C. difficile DNA Amplification - Final 027 Presumptive NEGATIVE Toxigenic C.diff NEGATIVE Stool Lactoferrin - Final Stools for occult blood negative. Diagnostic Imaging: Patient Name: QASIM DOWD Medical Record#: [id number] Ordering Physician: Aris Morris MD Acct.#: [id number] : 1940 Age: 76 Sex: F Location: EMERGENCY DEPARTMENT Exam Date: 07/18/17 1140 ADM Status: REG ER Order Information: CT ABD/PEL W/O Accession Number: [id number] CPT: 62765 INDICATION: LEFT side abdominal pain. Blood in stool. History of diverticulosis. Post cholecystectomy. IMPRESSION: 1. Mild diverticulitis at the proximal sigmoid colon similar to the findings on the June 25, 2017 exam. Negative for perienteric abscess. 2. Persistent finding of nonobstructive RIGHT renal stones. Patient Name: QASIM DOWD Medical Record#: [id number] Ordering Physician: Aris BAUTISTA Acct.#: [id number] : 1940 Age: 76 Sex: F Location: [address] [place] [address] - MEDICAL Exam Date: 07/18/17 1606 ADM Status: ADM Ayde Order Information: CHEST PA & LAT 2 VWS Accession Number: [id number] CPT: 90185 INDICATION: Swollen legs. Orthopnea. Intermittent shortness of breath. IMPRESSION: Stigmata of obstructive lung disease. No acute pulmonary or cardiac process evident. TTE Conclusions There is normal left ventricular systolic function. The estimated ejection fraction is 60-65%. There is a trace of mitral regurgitation. There is mild to moderate tricuspid regurgitation. Unable to estimate the right ventricular systolic pressure. There is a trace pulmonic regurgitation. Compared to report of prior study from 05/06/2012 there are no significant changes. Measurements Name Value Normal Range RVIDd (AP) 2D 3.2 cm (0.9 - 2.6) RVDdMajor (2D) 2 cm (2.2 - 4.4) RAd ISD 4CH 4.5 cm (3.4 - 4.9) RA (A4C)W 3.4 cm (2.9 - 4.6) IVSd (2D) 0.9 cm (0.6 - 1) Assess/Plan/Problems-Billing Assessment: A 76 y/o female with Hx HTN, Hyperlipidemia, GERD, PE and breast CA, who presented to ED with worsening left lower quadrant abdominal pain and BRBPR x2 days, found to have persistent mild sigmoid diverticulitis on CT with negative stool occult blood, improving with IV antibiotics. - Patient Problems (1) Diverticulitis of sigmoid colon Current Visit: Yes Status: Acute Code(s): K57.32 - DVTRCLI OF LG INT W/O PERFORATION OR ABSCESS W/O BLEEDING SNOMED Code(s): 512450825 Comment: - Patient was treated with Cipro/Flagyl as an outpatient, was unable to tolerate PO due to increased nausea and metalic taste. CT with sigmoid diverticulitis, unchanged from prior study last month. - Continue IV Zosyn, her abdominal pain already improved. - Her last colonoscopy by Dr. Warner in 08/2016, hold off GI or surgical consult giving symptomatic improvement. (2) Hypertension Current Visit: Yes Comment: - Lisinopril has been on hold since her pressure still running soft - Asymptomatic - Encourage fluid intake and running NS 0.9% at 100 ml/hr (3) GERD (gastroesophageal reflux disease) Current Visit: Yes Comment: Continue Omeprazole (4) History of pulmonary embolus (PE) Current Visit: No Status: Resolved Comment: - SubQ Heparin resumed giving her history and c/o bilateral calf pain - Obtained a bilateral lower extremities duplex, was negative for DVT - Guiac negative stool, suspect her BRBPR in accounts to hemorrhoids since she has been having multiple loose BMs at home. (5) Rectal bleeding Current Visit: Yes Status: Acute Comment: - Again, I suspect hemorrhoidal bleed. Her H/H has been stable. - No recurrent rectal bleed since admission - Negative occult blood in stools - Stools also negative for C-diff (6) History of breast cancer Current Visit: No Comment: Resolved (7) Hyperlipidemia Current Visit: Yes Comment: Continue Lipitor (8) Bilateral nephrolithiasis Current Visit: Yes Comment: - Non-obstructive nephrolithiasis bilaterally - UA normal - Stable (9) Lower extremity edema Current Visit: Yes Comment: - Elevate legs while sitting up - Chronic issues - Ruled out DVT, resumed prophylactic SubQ Heparin (10) DVT prophylaxis Current Visit: Yes Comment: on subQ Heparin (11) Full code status Current Visit: Yes Status and Disposition: Inpatient for IV antibiotics. She is stable and likely to go home tomorrow on PO antibiotics.
--- NOTE | 2017-07-19 11:30 | RAD ---
INDICATION: Pain and swelling. COMPARISON: May 05, 2012 TECHNIQUE: Duplex interrogation of the both lower extremities were performed. FINDINGS: Deep veins: The common femoral, great saphenous, profunda femoris, proximal, mid, and distal deep femoral, popliteal, posterior tibial, and peroneal veins are patent bilaterally. There is normal compressibility, augmentation, and phasic flow. Superficial veins: There are no findings of superficial thrombophlebitis of either leg. Popliteal fossa:There is a right-sided popliteal cyst measuring 2.9 x 0.8 x 4.6 cm. There is no evidence of left-sided popliteal cyst. Soft tissues: There is edema of both calves. IMPRESSION: RIGHT-SIDED POPLITEAL CYST. NO EVIDENCE OF DEEP VENOUS THROMBOSIS
--- NOTE | 2017-07-19 12:06 | ECHO ---
Patient: QASIM DOWD [facility] Rec#: [id number] : 1940 Date: 07/19/2017 Age: 76y Height: 147.32 cm / 58.0 in Weight: 68.04 kg / 150.0 lbs Sex: F BSA: 1.61 Room#: 414 2 Admit Date#: 07/18/2017 Type: Inpatient Referring: Aris Arrington Reading: Demar Gruber MD Web Coordinator: Farheen Orta,CATALINOCS,RDMS CC: Moisés Heller MD Transthoracic Echocardiogram Indication: Edema, Orthopnea BP: 125/65 HR: 64 Rhythm: NSR Findings History: Edema, breast cancer, chemotherapy, PE, HTN, HLD Technical Comments: The study quality is good. Left Ventricle: The left ventricular chamber size is normal. There is no left ventricular hypertrophy. Global left ventricular wall motion and contractility are within normal limits. There is normal left ventricular systolic function. The estimated ejection fraction is 60-65%. There is no consistent Doppler evidence of clinically significant diastolic dysfunction. Left Atrium: The left atrium is mildly dilated. Right Ventricle: The right ventricle is mildly dilated. The right ventricular global systolic function is hyperdynamic. Right Atrium: The right atrial cavity size is normal. Aortic Valve: The aortic valve is trileaflet. Systolic excursion of the aortic valve is normal. There is no evidence of aortic regurgitation. There is no evidence of aortic stenosis. Mitral Valve: The mitral valve leaflets appear normal. There is a trace of mitral regurgitation. There is no evidence of mitral stenosis. Tricuspid Valve: The tricuspid valve leaflets are normal. There is mild to moderate tricuspid regurgitation. Unable to estimate the right ventricular systolic pressure. Pulmonic Valve: There is no evidence of pulmonic valve thickening. There is a trace pulmonic regurgitation. Pericardium: There is no significant pericardial effusion. Aorta: The aortic root appears normal. The aortic arch is not well visualized. Pulmonary Artery: The main pulmonary artery is not well visualized. Venous: The inferior vena cava is dilated. There is less than 50% respiratory change in the inferior vena cava dimension. Conclusions There is normal left ventricular systolic function. The estimated ejection fraction is 60-65%. There is a trace of mitral regurgitation. There is mild to moderate tricuspid regurgitation. Unable to estimate the right ventricular systolic pressure. There is a trace pulmonic regurgitation. Compared to report of prior study from 05/06/2012 there are no significant changes. Measurements Name Value Normal Range RVIDd (AP) 2D 3.2 cm (0.9 - 2.6) RVDdMajor (2D) 2 cm (2.2 - 4.4) RAd ISD 4CH 4.5 cm (3.4 - 4.9) RA (A4C)W 3.4 cm (2.9 - 4.6) IVSd (2D) 0.9 cm (0.6 - 1) LVPWd (2D) 1 cm (0.6 - 1) LVIDd (2D) 4.5 cm (3.6 - 5.4) LVIDs (2D) 2.6 cm - LV FS (2D) 43 % (25 - 45) Aortic Annulus 1.9 cm (1.4 - 2.6) Ao root diameter (2D) 2.2 cm (2.1 - 3.5) Ascending Ao 2 cm (2.1 - 3.4) LA dimension (AP) 2D 4.3 cm (2.3 - 3.8) LAd ISD 4CH 4.9 cm (2.9 - 5.3) LA ISD 4CH W 4.1 cm (2.5 - 4.5) Name Value Normal Range LA ESV SP 4CH (A/L) 37.6 ml - LA ESV SP 2CH (A/L) 63.13 ml - LA ESV BP (A/L) 52.17 ml - LA ESV BP (A/L) index 32.4 ml/m2 - LA ESV SP 4CH (MOD) 33.66 ml - LA ESV SP 2CH (MOD) 58.98 ml - Name Value Normal Range MV E-wave Vmax 1.1 m/sec - MV deceleration time 230 msec - MV A-wave Vmax 0.6 m/sec - MV E:A ratio 1.8 ratio - P. vein S-wave Vmax 0.7 m/sec - P. vein D-wave Vmax 0.5 m/sec - P. vein S:D Vmax ratio 1.4 ratio - P. vein A-wave duration 100 msec - LV septal e' Vmax 0.1 m/sec - LV lateral e' Vmax 0.1 m/sec - LV E:e' septal ratio 11 ratio - LV E:e' lateral ratio 11 ratio - Name Value Normal Range AV Vmax 1.5 m/sec - AV VTI 32 cm - AV peak gradient 9 mmHg - AV mean gradient 3.8 mmHg - LVOT Vmax 1.4 m/sec - LVOT VTI 31.3 cm - LVOT peak gradient 8 mmHg - LVOT mean gradient 4 mmHg - Name Value Normal Range RAP 8 mmHg - IVC diameter 2.2 cm - Name Value Normal Range PV Vmax 0.9 m/sec - PV peak gradient 3.2 mmHg -
[2017-07-19] MEDS: Heparin VIAL(*) 5000 UNITS/ML VIAL (FIVE THOUSAND) SUBCUT SCH ×2 (14:20→22:34)
[2017-07-19] MEDS: Piperacillin/Tazobactam 13.5 GM IV 24 hour continuous infusion IVPB SCH ×2 (22:35)
[2017-07-19] MEDS: Ondansetron INJ* 2 MG/ML VIAL IV PRN (23:49)
[2017-07-20] MEDS: Heparin VIAL(*) 5000 UNITS/ML VIAL (FIVE THOUSAND) SUBCUT SCH ×3 (05:30→21:03)
[2017-07-20] MEDS: NS 0.9% 1000 ML* 1,000 ML IV SCH (05:34)
[2017-07-20 06:21] LABS: ABS Basophils 0 10^3/ul (0-0.2); ABS Eosinophils 0.3 10^3/ul (0-0.6); ABS Monocytes 0.5 10^3/ul (0-0.8); ABS Neutrophils 3.4 10^3/ul (1.5-7.7); ABS Nucleated RBC 0 10^3/ul; Eosinophil % 5.5 % (0-6); Hematocrit 37 % (35-47); Hemoglobin 12.5 g/dl (12.0-16.0); Lymphocyte % 19.6 % (25-47); Mean Corpuscular HGB Conc 34 g/dl (31-36); Mean Corpuscular Hemoglobin 30 pg (27-31); Mean Corpuscular Volume 87 fL (80-97); Mean Platelet Volume 8.2 um3 (7.4-10.4); Nucleated Red Blood Cells % 0; Platelet Count 196 10^3/ul (150-450); Red Cell Distribution Width 14 % (10.5-15); White Blood Count 5.3 10^3/ul (3.5-10.8)
[2017-07-20 06:39] LABS: EGFR Non-African American 89.1 (>60)
[2017-07-20] MEDS: Mometasone/Formoter 200/5 MDI INH SCH ×2 (08:05→19:48)
[2017-07-20] MEDS: Famotidine TAB* 20 MG PO SCH (08:47)
[2017-07-20] MEDS: Lisinopril TAB* 5 MG PO SCH (08:47)
[2017-07-20] MEDS: Omeprazole CAP* 20 MG PO SCH (08:47)
[2017-07-20] MEDS: Multivitamins/Minerals TAB PO SCH (08:47)
[2017-07-20] MEDS: Atorvastatin* 10 MG TAB PO SCH (08:47)
[2017-07-20] MEDS ORDERED: Loperamide CAP* 2 MG PO ONE (12:25)
--- NOTE | 2017-07-20 12:32 | PN ---
Subjective Date of Service: 07/20/17 Interval History: Mrs. Tess acuñarts doing better today. Still has frequent loose stools, but denies BRBPR. Events noted from last night. Chest discomfort with negative Troponin set and no acute changes on EKG. Denies any chest pain or abdominal pain now. Tolerating diet, no nausea or vomiting. Family History: Unchanged from Admission Social History: Unchanged from Admission Past Medical History: Unchanged from Admission Objective Active Medications: Acetaminophen (Tylenol Tab*) 650 mg PO Q6H PRN PRN Reason: FEVER/PAIN Al Hydrox/Mg Hydrox/Simethicone (Maalox Plus*) 30 ml PO Q4H PRN PRN Reason: INDIGESTION Albuterol (Ventolin Hfa Inhaler*) 1 puff INH Q4H PRN PRN Reason: DYSPNEA Atorvastatin Calcium (Lipitor*) 10 mg PO DAILY [facility] Last Admin: 07/20/17 08:47 Dose: 10 mg Famotidine (Pepcid Tab*) 20 mg PO DAILY [facility] Last Admin: 07/20/17 08:47 Dose: 20 mg Furosemide (Lasix Tab*) 20 mg PO DAILY [facility] Heparin Sodium (Porcine) (Heparin Vial(*)) 5,000 units SUBCUT Q8HR [facility] Last Admin: 07/20/17 05:30 Dose: 5,000 units Sodium Chloride (Ns 0.9% 1000 Ml*) 1,000 mls @ 100 mls/hr IV PER RATE [facility] Last Admin: 07/20/17 05:34 Dose: 100 mls/hr Piperacillin Sod/Tazobactam (Sod 13.5 gm/ Sodium Chloride) 500 mls @ 20.833 mls /hr IVPB Q24H [facility] Last Admin: 07/19/17 22:35 Dose: 20.833 mls/hr Lisinopril (Prinivil Tab*) 5 mg PO DAILY [facility] Last Admin: 07/20/17 08:47 Dose: 5 mg Loperamide HCl (Imodium Cap*) 2 mg PO ONCE ONE Stop: 07/20/17 12:26 Mometasone Furoate/Formoterol Fumar (Dulera 200/5 Mdi*) 2 puff INH BID [facility] Last Admin: 07/20/17 08:05 Dose: 2 puff Multivitamins/Minerals (Theragran/Minerals Tab*) 1 tab PO DAILY [facility] Last Admin: 07/20/17 08:47 Dose: 1 tab Omeprazole (Prilosec Cap*) 40 mg PO DAILY [facility] Last Admin: 07/20/17 08:47 Dose: 40 mg Ondansetron HCl (Zofran Inj*) 4 mg IV Q6H PRN PRN Reason: NAUSEA Last Admin: 07/19/17 23:49 Dose: 4 mg Pharmacy Consult (Zosyn Per Pharmacy*) 1 note FOLLOW UP .ZOSYN PER PHARMACY [facility] Vital Signs - 8 hr 07/20/17 07/20/17 07/20/17 07:40 07:41 08:43 Temperature 98.1 F Pulse Rate 46 72 Respiratory 18 Rate Blood Pressure 149/45 (mmHg) O2 Sat by Pulse 100 Oximetry 07/20/17 07/20/17 09:00 11:45 Temperature 97.6 F Pulse Rate 48 Respiratory 18 22 Rate Blood Pressure 154/47 (mmHg) O2 Sat by Pulse 93 Oximetry Oxygen Devices in Use Now: None Appearance: Alert and oriented, sitting on her chair, comfortable and in NAD Eyes: No Scleral Icterus, PERRLA Ears/Nose/Mouth/Throat: Clear Oropharnyx, Mucous Membranes Moist Neck: NL Appearance and Movements; NL JVP, Trachea Midline Respiratory: Symmetrical Chest Expansion and Respiratory Effort, Clear to Auscultation Cardiovascular: NL Sounds; No Murmurs; No JVD, RRR Abdominal: No Hepatosplenomegaly, - - Abdomen soft and non-distended. Minimal LLQ tenderness, without guarding, rigidity or rebound tenderness. No hernias or masses. Extremities: No Edema Skin: No Rash or Ulcers Neurological: Alert and Oriented x 3, NL Sensation Lines/Tubes/Other Access: Clean, Dry and Intact Peripheral IV - Will safesite IV , d/c IVF Nutrition: Taking PO's Result Diagrams: 07/20/17 06:12 07/20/17 06:12 Additional Lab and Data: Microbiology and Other Data: Microbiology 07/18/17 21:20 Stool Gross Appearance - Final Stool C. difficile DNA Amplification - Final 027 Presumptive NEGATIVE Toxigenic C.diff NEGATIVE Stool Lactoferrin - Final Stools for occult blood negative. Negative for Salmonella or sheigela Diagnostic Imaging: . Assess/Plan/Problems-Billing Assessment: A 76 y/o female with Hx HTN, Hyperlipidemia, GERD, PE and breast CA, who presented to ED with worsening left lower quadrant abdominal pain and BRBPR x2 days, found to have persistent mild sigmoid diverticulitis on CT with negative stool occult blood, improving with IV antibiotics. - Patient Problems (1) Diverticulitis of sigmoid colon Current Visit: Yes Status: Acute Code(s): K57.32 - DVTRCLI OF LG INT W/O PERFORATION OR ABSCESS W/O BLEEDING SNOMED Code(s): 532406696 Comment: - Patient was treated with Cipro/Flagyl as an outpatient, was unable to tolerate PO due to increased nausea and metalic taste. CT with sigmoid diverticulitis, unchanged from prior study last month. - Continue IV Zosyn, her abdominal pain already improved. - Her last colonoscopy by Dr. Warner in 08/2016, hold off GI or surgical consult giving symptomatic improvement. (2) Hypertension Current Visit: Yes Comment: - Lisinopril has been on hold since her pressure still running soft, will resume now - Asymptomatic - Good PO intake, IVF stopped - Resumed Lasix (3) GERD (gastroesophageal reflux disease) Current Visit: Yes Comment: - Continue Omeprazole - Chest discofort and heartburn last night likely from GERD and known history of hiatal hernia. Patient notes episode of chest discomfort last night very simillar to her usual heartburn. (4) History of pulmonary embolus (PE) Current Visit: No Status: Resolved Comment: - SubQ Heparin resumed giving her history and c/o bilateral calf pain - Obtained a bilateral lower extremities duplex, was negative for DVT - Guiac negative stool, suspect her BRBPR in accounts to hemorrhoids since she has been having multiple loose BMs at home. (5) Rectal bleeding Current Visit: Yes Status: Acute Comment: - Again, I suspect hemorrhoidal bleed. Her H/H has been stable. - No recurrent rectal bleed since admission - Negative occult blood in stools - Stools also negative for C-diff and salmonella/sheigella (6) History of breast cancer Current Visit: No Comment: Resolved (7) Hyperlipidemia Current Visit: Yes Comment: Continue Lipitor (8) Bilateral nephrolithiasis Current Visit: Yes Comment: - Non-obstructive nephrolithiasis bilaterally - UA normal - Stable (9) Lower extremity edema Current Visit: Yes Comment: - Elevate legs while sitting up - Chronic issues - Ruled out DVT, resumed prophylactic SubQ Heparin - Lasix resumed (10) DVT prophylaxis Current Visit: Yes Comment: on subQ Heparin (11) Full code status Current Visit: Yes Status and Disposition: Inpatient for IV antibiotics. Anticipate discharge to home tomorrow.
[2017-07-20] MEDS: Furosemide TAB* 20 MG PO SCH (12:54)
[2017-07-20] MEDS: Piperacillin/Tazobactam 13.5 GM IV 24 hour continuous infusion IVPB SCH ×2 (21:03)
[2017-07-20] MEDS: Acetaminophen TAB* 325 MG PO PRN (21:21)
[2017-07-20] MEDS: Ondansetron INJ* 2 MG/ML VIAL IV PRN (22:44)
[2017-07-21] MEDS: Heparin VIAL(*) 5000 UNITS/ML VIAL (FIVE THOUSAND) SUBCUT SCH ×2 (05:59→13:31)
[2017-07-21] MEDS: Mometasone/Formoter 200/5 MDI INH SCH (07:33)
[2017-07-21] MEDS: Furosemide TAB* 20 MG PO SCH (08:56)
[2017-07-21] MEDS: Lisinopril TAB* 5 MG PO SCH (08:56)
[2017-07-21] MEDS: Multivitamins/Minerals TAB PO SCH (08:56)
[2017-07-21] MEDS: Famotidine TAB* 20 MG PO SCH (08:56)
[2017-07-21] MEDS: Omeprazole CAP* 20 MG PO SCH (08:57)
[2017-07-21] MEDS: Acetaminophen TAB* 325 MG PO PRN (08:57)
[2017-07-21] MEDS: Atorvastatin* 10 MG TAB PO SCH (08:57)
[2017-07-21 11:58] VITALS: BP 115/42
--- NOTE | 2017-07-21 14:07 | DCNOTE ---
Subjective Date of Service: 07/21/17 Interval History: Patient reports she is feeling much better today and would like to go home. Continues to have mild LLQ "tenderness" reporting her pain is much better. Bowel movements are back to her baseline, no blood noted. Denies fever and chills. No Nausea. Tolerating diet well. Family History: Unchanged from Admission Social History: Unchanged from Admission Past Medical History: Unchanged from Admission Objective Active Medications: Acetaminophen (Tylenol Tab*) 650 mg PO Q6H PRN PRN Reason: FEVER/PAIN Last Admin: 07/21/17 08:57 Dose: 650 mg Al Hydrox/Mg Hydrox/Simethicone (Maalox Plus*) 30 ml PO Q4H PRN PRN Reason: INDIGESTION Albuterol (Ventolin Hfa Inhaler*) 1 puff INH Q4H PRN PRN Reason: DYSPNEA Atorvastatin Calcium (Lipitor*) 10 mg PO DAILY [facility] Last Admin: 07/21/17 08:57 Dose: 10 mg Famotidine (Pepcid Tab*) 20 mg PO DAILY [facility] Last Admin: 07/21/17 08:56 Dose: 20 mg Furosemide (Lasix Tab*) 20 mg PO DAILY [facility] Last Admin: 07/21/17 08:56 Dose: 20 mg Heparin Sodium (Porcine) (Heparin Vial(*)) 5,000 units SUBCUT Q8HR [facility] Last Admin: 07/21/17 13:31 Dose: Not Given Piperacillin Sod/Tazobactam (Sod 13.5 gm/ Sodium Chloride) 500 mls @ 20.833 mls /hr IVPB Q24H [facility] Last Admin: 07/20/17 21:03 Dose: 20.833 mls/hr Lisinopril (Prinivil Tab*) 5 mg PO DAILY [facility] Last Admin: 07/21/17 08:56 Dose: 5 mg Mometasone Furoate/Formoterol Fumar (Dulera 200/5 Mdi*) 2 puff INH BID [facility] Last Admin: 07/21/17 07:33 Dose: 2 puff Multivitamins/Minerals (Theragran/Minerals Tab*) 1 tab PO DAILY [facility] Last Admin: 07/21/17 08:56 Dose: 1 tab Omeprazole (Prilosec Cap*) 40 mg PO DAILY [facility] Last Admin: 07/21/17 08:57 Dose: 40 mg Ondansetron HCl (Zofran Inj*) 4 mg IV Q6H PRN PRN Reason: NAUSEA Last Admin: 07/20/17 22:44 Dose: 4 mg Pharmacy Consult (Zosyn Per Pharmacy*) 1 note FOLLOW UP .ZOSYN PER PHARMACY [facility] Vital Signs - 8 hr 07/21/17 07/21/17 07/21/17 08:31 09:20 11:57 Temperature 97.3 F Pulse Rate 56 48 Respiratory 23 16 17 Rate Blood Pressure 138/90 115/42 (mmHg) O2 Sat by Pulse 100 100 Oximetry Oxygen Devices in Use Now: None Appearance: obese 76 yo female sitting up in a chair in NAD A+Ox3 Eyes: No Scleral Icterus, PERRLA Ears/Nose/Mouth/Throat: NL Teeth, Lips, Gums, Mucous Membranes Moist Neck: NL Appearance and Movements; NL JVP Respiratory: Symmetrical Chest Expansion and Respiratory Effort, Clear to Auscultation Cardiovascular: NL Sounds; No Murmurs; No JVD, RRR Abdominal: - - LLQ tenderness, mild, no guarding Extremities: No Clubbing, Cyanosis, - - 1+ LE edema b/l Neurological: Alert and Oriented x 3, NL Sensation Lines/Tubes/Other Access: Clean, Dry and Intact Peripheral IV Nutrition: Taking PO's Result Diagrams: 07/20/17 06:12 07/20/17 06:12 Additional Lab and Data: Microbiology and Other Data: Microbiology 07/18/17 21:20 Stool Gross Appearance - Final Stool C. difficile DNA Amplification - Final 027 Presumptive NEGATIVE Toxigenic C.diff NEGATIVE Stool Lactoferrin - Final Stools for occult blood negative. Negative for Salmonella or sheigela Diagnostic Imaging: . Assess/Plan/Problems-Billing Assessment: A 76 y/o female with Hx HTN, Hyperlipidemia, GERD, PE and breast CA, who presented to ED with worsening left lower quadrant abdominal pain and BRBPR x2 days, found to have persistent mild sigmoid diverticulitis on CT with negative stool occult blood, improving with IV antibiotics. - Patient Problems (1) Diverticulitis of sigmoid colon Comment: - Patient was treated with Cipro/Flagyl as an outpatient, was unable to tolerate PO due to increased nausea and metalic taste. CT with sigmoid diverticulitis, unchanged from prior study last month. - Course of IV Zosyn, Plan to DC home on Augementin. - Being followed closely by her oupt GI Dr. Jean - f/u with PCP this week (2) Bilateral nephrolithiasis Comment: - Non-obstructive nephrolithiasis bilaterally - UA normal - Stable (3) GERD (gastroesophageal reflux disease) Comment: - Continue Omeprazole (4) Hyperlipidemia Comment: Continue Lipitor (5) Hypertension Comment: - controlled - Continue Lisinopril and lasix (6) Lower extremity edema Comment: - Elevate legs while sitting up - Chronic issues - Ruled out DVT, resumed prophylactic SubQ Heparin - Lasix resumed (7) DVT prophylaxis Comment: on subQ Heparin (8) Full code status Status and Disposition: Inpatient for IV antibiotics. DC home today
--- NOTE | 2017-07-21 19:48 | DS ---
CC: Dr. Heller; Dr. Jean * DISCHARGE SUMMARY: DATE OF ADMISSION: 07/19/17 DATE OF DISCHARGE: 07/21/17 PROVIDER: Hali Davis NP ATTENDING PHYSICIAN: Dr. Roman * (report dictated by Hali Davis NP) PRIMARY CARE PROVIDER: Dr. Heller. BLUNGER MACHINE OPERATOR: Dr. Jean at [place]. DISCHARGE DIAGNOSES: 1. Diverticulitis. 2. Right popliteal cyst. SECONDARY DIAGNOSES: 1. Hypertension. 2. Nephrolithiasis. 3. Gastroesophageal reflux disease. 4. Asthma. 5. Hyperlipidemia. 6. Functional diarrhea. 7. History of left breast carcinoma, status post mastectomy. 8. History of pulmonary embolism in 2013. 9. Breast cancer with history of mastectomy and chemo. DISCHARGE MEDICATIONS: 1. Pepcid 20 mg p.o. daily. 2. Calcium carbonate with vitamin D3 1 tab p.o. daily. 3. Acetaminophen extra strength 1000 mg p.o. t.i.d. p.r.n. 4. Albuterol HFA inhaler 1 puff INH q.4 hours p.r.n. 5. Vitamin B complex 1 tab p.o. daily. 6. Prilosec 40 mg p.o. daily. 7. Multivitamin with minerals 1 tab p.o. daily. 8. Lipitor 10 mg p.o. daily. 9. Lasix 20 mg p.o. daily. 10. Lisinopril 5 mg p.o. daily. 11. Advair Diskus 250/50 one puff INH b.i.d. New medications: 1. Augmentin 875 mg p.o. b.i.d. 2. Probiotic p.o. b.i.d. HISTORY OF PRESENT ILLNESS AND HOSPITAL COURSE: Please see history and physical by MICHELE Moran for full admission details, but in summary, this is a 76-year- old female with a past medical history of diverticulosis and other history as stated above who was diagnosed with diverticulitis on 06/25/17 , in which she has significant left lower quad pain and she was started on Flagyl and Cipro. She reported on 07/10/17, she stopped taking the antibiotics after a couple of days of having and which she felt was a reaction to the Cipro and Flagyl causing nausea. The patient on admission reported that she generally has approximately 3 soft stools a day, reporting history of functional diarrhea at her baseline, but had increased since she had started taking the Cipro and Flagyl. She spoke to her surveying crew stake runner over the phone who recommended she come to the emergency department to rule out C. diff. In the emergency department, she underwent an abdomen and pelvis CAT scan, which showed mild diverticulitis of the proximal sigmoid colon similar to the findings on exam. Negative for perienteric abscess as well as persistent finding of nonobstructive right renal stone. The patient was admitted to the hospitalist service for IV antibiotics for diagnosis of diverticulitis due to her continued left lower quad pain. She denied having any fevers, chills and was found to have no leukocytosis throughout admission. She was started on Zosyn and has done well throughout her hospitalization with reporting a reduction in her frequency of loose stools as well as an improvement in her left lower quadrant "tenderness." The patient denies any blood noted in her stools. Today, she feels that she could go home and be successful. She reports that she is tolerating soft p.o. diet well. The patient reports that she has been following closely with surveying crew stake runner , Dr. Jean, who she plans to follow up after this hospitalization. She was not seen by our surveying crew stake runner due to this is a mild diverticulitis and she responded well to the IV antibiotics. The plan will be for the patient to follow up with her surveying crew stake runner in the next week or 2. The patient had a stool culture, which was negative for C. diff and negative for cryptosporidium and giardia. There was no growth of enteric pathogens. The patient's stool for occult blood was negative. Urine culture negative for growth. Transthoracic echocardiogram was performed for edema and orthopnea, conclusion: "There is normal left ventricular systolic function. The estimated ejection fraction is 60% to 65%. There is a trace of mitral regurgitation. There is mild- to-moderate tricuspid regurgitation. Unable to estimate the right ventricular systolic pressure. There is a trace pulmonic regurgitation. Compared to report of prior studies from 05/06/12, there are no significant changes." Venous Doppler study, impression: "Right-sided popliteal cyst. No evidence of deep vein thrombosis." DISCHARGE PLAN: 1. The patient is stable for discharge to home. She has a followup appointment with Dr. Heller on 07/27/17 at 11:20 a.m. 2. Follow up with surveying crew stake runner, Dr. Jean, within 1 to 2 weeks. TIME SPENT: Approximately 60 minutes were spent on this discharge. HALI DAVIS, EVP CHIEF EXPLORATION OFFICER [id number]/[facility] #: [id number] GABE
== END 2017-07-21 15:50 | disposition home or self-care (01) | DRG 392 ==
LOC: ED 10:48 → MED 16:19 → OBSVTOIN 07-19 10:12
PROVIDERS: ADMIT Internal Medicine; ATTEND Internal Medicine
DX: K57.32 Diverticulitis of large intestine without perforation or abscess without bleeding (principal); K21.9 Gastro-esophageal reflux disease without esophagitis; E78.00 Pure hypercholesterolemia, unspecified; I10 Essential (primary) hypertension; J45.909 Unspecified asthma, uncomplicated; M47.892 Other spondylosis, cervical region; M19.041 Primary osteoarthritis, right hand; N20.0 Calculus of kidney; E78.5 Hyperlipidemia, unspecified; I27.20 Pulmonary hypertension, unspecified; R06.01 Orthopnea; I08.1 Rheumatic disorders of both mitral and tricuspid valves; K59.1 Functional diarrhea; M71.21 Synovial cyst of popliteal space [Baker], right knee; R60.0 Localized edema; Z85.3 Personal history of malignant neoplasm of breast; Z92.21 Personal history of antineoplastic chemotherapy; Z90.12 Acquired absence of left breast and nipple; Z90.49 Acquired absence of other specified parts of digestive tract; Z82.49 Family history of ischemic heart disease and other diseases of the circulatory system; Z88.5 Allergy status to narcotic agent; Z88.8 Allergy status to other drugs, medicaments and biological substances; Z88.1 Allergy status to other antibiotic agents; Z91.041 Radiographic dye allergy status; Z72.89 Other problems related to lifestyle; Z86.711 Personal history of pulmonary embolism; Z80.0 Family history of malignant neoplasm of digestive organs; Z86.718 Personal history of other venous thrombosis and embolism
CPT/HCPCS: 36415; 71046; 74176; 80048; 80053; 81003; 81015; 82270; 83605; 83630; 83690; 83735; 84484; 85014; 85018; 85025; 85610; 85730; 86140; 87045; 87046; 87077; 87086; 87328; 87329; 87493; 87899; 93005; 93306; 93970; 94640; 94760; 99284; A9270-GY; J1644; J2405; J2543

== ENCOUNTER 2018-07-14 14:32 | Observation (INO) | payer MEDICARE ==
[2018-07-14] MEDS ORDERED: Acetaminophen TAB* 325 MG PO ONE (14:53)
[2018-07-14 15:12] LABS: ABS Basophils 0 10^3/ul (0-0.2); ABS Eosinophils 0.1 10^3/ul (0-0.6); ABS Lymphocytes 0.6 10^3/ul (1.0-4.8); ABS Monocytes 1.3 10^3/ul (0-0.8); ABS Neutrophils 8.3 10^3/ul (1.5-7.7); ABS Nucleated RBC 0 10^3/ul; Eosinophil % 0.7 %; Hematocrit 40 % (33-41); Hemoglobin 13.8 g/dL (12.0-16.0); Lymphocyte % 5.8 %; Mean Corpuscular HGB Conc 35 g/dL (31-36); Mean Corpuscular Hemoglobin 30 pg (27-31); Mean Corpuscular Volume 87 fL (80-97); Nucleated Red Blood Cells % 0.1; Platelet Count 214 10^3/uL (150-450); Red Blood Count 4.59 10^6 /uL (3.70-4.87); Red Cell Distribution Width 14 % (10.5-15); White Blood Count 10.2 10^3/uL (3.5-10.8)
[2018-07-14 15:22] LABS: Activated Partial Thrombo Time 28.2 seconds (26.0-36.3); Fibrinogen 868.1 mg/dL (110.8-404.3); INR 1.12 (0.77-1.02)
[2018-07-14] MEDS: NS 0.9% 1000 ML** 1,000 ML IV SCH (15:23)
[2018-07-14 15:29] LABS: Albumin 3.7 g/dL (3.2-5.2); Albumin/Globulin Ratio 1.1 (1-3); BUN/Creatinine Ratio 19.2 (8-20); Calcium 9.1 mg/dL (8.6-10.3); EGFR African American 62.5 (>60); EGFR Non-African American 51.7 (>60); Globulin 3.3 g/dL (2-4); Potassium 3.7 mmol/L (3.5-5.0); Total Bilirubin 1.1 mg/dL (0.2-1.0)
[2018-07-14 15:31] LABS: Troponin I 0.01 ng/mL (<0.04)
--- OUTSIDE RECORDS SUMMARY | 2018-07-14 15:42 | XMS REPORT | Continuity of Care Document ---
:1940 External Reference #:[id number] Author Name Tesfaye Alcaraz MD Address [address] [place] [address] Care Team Providers Name Role Phone [place] Care Team Information Quantitative Associate Unavailable Moisés Heller MD Primary Care Physician Unavailable Payers Date Identification Numbers Payment Provider Subscriber Policy Number: [id number] [employer] [facility] PayID: [id number] [address] [address] [place] [address] Advance Directives Description No Information Available Problems Date Description Provider Status Onset: 07/12/2018 Essential hypertension Tesfaye Alcaraz MD Active Family History Date Family Member(s) Observation Comments General Asthma General Cancer Social History Type Date Description Comments Sex Unknown Occupation Retired Tobacco Use Start: Unknown Never Smoked Cigarettes Tobacco Use Start: Unknown Never Smoked Cigars Tobacco Use Start: Unknown Never Smoked A Pipe Smokeless Tobacco Never Used Smokeless Tobacco ETOH Use Currently occasionally consumes alcohol Tobacco Use Start: Unknown Patient has never smoked Smoking Status Reviewed: 07/12/18 Patient has never smoked Allergies, Adverse Reactions, Alerts Date Description Reaction Status Severity Comments 07/12/2018 Levaquin Active GI reaction 07/12/2018 Codeine Active 07/12/2018 Coumadin Active skin reaction 07/12/2018 Doxycycline Active GI reaction 07/12/2018 Contrast Dye Active GI reaction 07/12/2018 Valium Active GI reaction Medications Medication Date Status Form Strength Qnty SIG Indications Ordering Provider Famotidine Active Tablets 20mg Albina Jean 000 M.DRizwana Atorvastatin Active Tablets 10mg Arron CHERY Calcium 000 Moisés Ondansetron HCL Active Tablets 4mg Hoke MD, 000 Moisés Lisinopril Active Tablets 5mg Hoke , 000 Moisés Furosemide Active Tablets 20mg Unknown 000 Advair Diskus Active Aerosol 250-50mcg/D Hoke MD, 000 ose Moisés Cephalexin Active Capsules 500mg Raymond 000 P.A., Gogo Acetaminophen Active Tablets 500mg 2 tabs Unknown 000 PO tid prn B Complex Active Tablets daily Unknown 000 Calcium 600+D Active Tablets 600-200mg-U take Unknown 000 nit once daily Multiple Vitamin Active Tablets daily Unknown 000 Immunizations Description No Information Available Vital Signs Date Vital Result Comment 07/12/2018 11:32am Weight 186.00 lb Weight 84.370 kg Height 58 inches 4'10" Height in cm's 147.3 cm BMI (Body Mass Index) 38.9 kg/m2 Results Description No Information Available Procedures Date Code Description Status 07/12/2018 52371 Nasal Endoscopy, Diagnostic Completed Encounters Type Date Location Provider Dx Diagnosis Office Visit 07/12/2018 11:15a [place] 04/09/07 Tesfaye Alcaraz MD R05 Cough R09.81 Nasal congestion Plan of Treatment 07/12/2018 - Tesfaye Alcaraz, [id number] CoughNew Xrays:Chest X-ray PA & Lateral, Ordered: 07/12/18R09.81 Nasal congestion
--- NOTE | 2018-07-14 15:55 | ED ---
Skin Complaint - HPI Summary HPI Summary: This patient is a 77 year old F presenting to [facility] accompanied by a woman with a chief complaint of worsening cellulitis of BLEs since one month ago. The patient rates the pain 4/10 in severity. Patient reports difficulty ambulating, LE edema, weakness, cough, diarrhea, incontinence, SOB, diffuse myalgia, fever, chills, and fatigue. Patient denies dysuria. The patient went to the wound clinic for some care but she says that they havent been helping her. She was given antibiotics, which helped with the redness, but her pain has been getting much worse. She had a CXR two days ago but never heard the results. PMHX Cellulitis. Vitals in the room: HR 92 bpm, BP 153/60. - History of Current Complaint Chief Complaint: EDGeneral Time Seen by Provider: 07/14/18 14:43 Stated Complaint: CELLULITIS PER PT Hx Obtained From: Patient Onset/Duration: Started Weeks Ago Current Severity: Moderate Pain Intensity: 4 Pain Scale Used: 0-10 Numeric Skin Location: Leg - bilateral Character: Redness, Painful Aggravating Symptom(s): Exercise Associated Signs & Symptoms: Weakness, Fever, Chills, Cough - Additional Pertinent History Primary Care Physician: [id number] - Allergy/Home Medications Allergies/Adverse Reactions: Allergies Allergy/AdvReac Type Severity Reaction Status Date / Time warfarin Allergy Bleeding Verified 07/17/18 12:14 codeine AdvReac GI Upset Verified 07/17/18 12:14 diazepam AdvReac GI Upset Verified 07/17/18 12:14 Iodinated Contrast- Oral and AdvReac See Comment Verified 07/17/18 12:14 IV Dye levofloxacin AdvReac GI Upset Verified 07/17/18 12:14 PMH/Surg Hx/FS Hx/Imm Hx Endocrine/Hematology History: Denies: Hx Anticoagulant Therapy, Hx Diabetes, Hx Thyroid Disease Cardiovascular History: Reports: Hx Hypercholesterolemia, Hx Hypertension - ON MEDICATION FOR, Other Cardiovascular Problems/Disorders - BLOOD CLOT IN 2011- UNKNOWN LOCATION Denies: Hx Pacemaker/ICD Respiratory History: Reports: Hx Asthma - ROUTINE MEDICATION FOR Denies: Hx Chronic Obstructive Pulmonary Disease (COPD) GI History: Reports: Hx Diverticulosis, Hx Gastroesophageal Reflux Disease - no longer taking medication, Hx Irritable Bowel - POSSIBLY, Other GI Disorders - HISTORY OF DIVERTICULITIS, having loose stools for past year Denies: Hx Ulcer History: Reports: Hx Kidney Infection - HX OF, Hx Kidney Stones, Other Problems/Disorders - BLOOD IN URINE Musculoskeletal History: Reports: Hx Arthritis - BACK, RIGHT THUMB, NECK, Other Musculoskeletal History - abdominal hernia, improved since weight loss Sensory History: Reports: Hx Contacts or Glasses - reading Denies: Hx Hearing Aid Opthamlomology History: Reports: Hx Contacts or Glasses - reading Neurological History: Reports: Other Neuro Impairments/Disorders - numb fingers dt carpel tunnel - Cancer History Cancer Type, Location and Year: BREAST-2011 Hx Chemotherapy: Yes - left breast 2012 Hx Radiation Therapy: No - Surgical History Surgery Procedure, Year, and Place: 3 SINUS SURGERIES IN THE 1970s. 1992- cholecystectomy,. D&C- IN THE PAST. 2011- LEFT MASTECTOMY. carpel tunnel & 04/25 Hx Anesthesia Reactions: No - Immunization History Immunizations Up to Date: Unable to Obtain/Confirm Infectious Disease History: No Infectious Disease History: Denies: Hx Clostridium Difficile, Hx Hepatitis, Hx Human Immunodeficiency Virus (HIV), Hx of Known/Suspected MRSA, Hx Shingles, Hx Tuberculosis, Hx Known/ Suspected VRE, Hx Known/Suspected VRSA, History Other Infectious Disease, Traveled Outside the [place] in Last 30 Days - Family History Known Family History: Positive: Cardiac Disease, Hypertension Negative: Blood Disorder - Social History Alcohol Use: Rare Alcohol Amount: 1 PER WEEK Substance Use Type: Reports: None Smoking Status (MU): Never Smoked Tobacco Review of Systems Positive: Fever, Chills, Fatigue Positive: Shortness Of Breath, Cough Positive: Diarrhea Positive: incontinence. Negative: dysuria Positive: Myalgia, Decreased ROM - difficulty ambulating, Edema - LE Positive: Rash - LEs Positive: Weakness All Other Systems Reviewed And Are Negative: Yes Physical Exam - Summary Physical Exam Summary: VITAL SIGNS: Reviewed. GENERAL: Patient is an elderly female who is lying comfortable in the stretcher. Patient is not in any acute respiratory distress. Febrile. HEAD AND FACE: No signs of trauma. No ecchymosis, hematomas or skull depressions. No sinus tenderness. EYES: PERRLA, EOMI x 2, No injected conjunctiva, no nystagmus. EARS: Hearing grossly intact. Ear canals and tympanic membranes are within normal limits. MOUTH: Oropharynx within normal limits. NECK: Supple, trachea is midline, no adenopathy, no JVD, no carotid bruit, no c- spine tenderness, neck with full ROM. CHEST: Symmetric, no tenderness at palpation LUNGS: Clear to auscultation bilaterally. Crackle in both bases. CVS: Regular rate and rhythm, S1 and S2 present, no murmurs or gallops appreciated. ABDOMEN: Soft, non-tender. No signs of distention. No rebound no guarding, and no masses palpated. Bowel sounds are normal. EXTREMITIES: Bilateral extremity edema. NEURO: Alert and oriented x 3. No acute neurological deficits. Speech is normal and follows commands. SKIN: Dry and warm. Slight erythema bilateral lower extremities. Triage Information Reviewed: Yes Vital Signs On Initial Exam: Initial Vitals Temp Pulse Resp BP Pulse Ox 99.9 F 94 18 137/62 97 07/14/18 14:38 07/14/18 14:38 07/14/18 14:38 07/14/18 14:38 07/14/18 14:38 Vital Signs Reviewed: Yes Diagnostics - Vital Signs Vital Signs Temp Pulse Resp BP Pulse Ox 07/14/18 14:38 99.9 F 94 18 137/62 97 - Laboratory Lab Results: Lab Results 07/14/18 07/14/18 07/14/18 Range/Units 15:05 15:05 15:05 WBC 10.2 (3.5-10.8) 10^3/uL RBC 4.59 (3.70-4.87) 10^6 /uL Hgb 13.8 (12.0-16.0) g/dL Hct 40 (33-41) % MCV 87 (80-97) fL MCH 30 (27-31) pg MCHC 35 (31-36) g/dL RDW 14 (10.5-15) % Plt Count 214 (150-450) 10^3/uL MPV 8.0 (7.4-10.4) fL Neut % (Auto) 80.8 % Lymph % (Auto) 5.8 % Corson % (Auto) 12.4 % Eos % (Auto) 0.7 % Baso % (Auto) 0.3 % Absolute Neuts (auto) 8.3 H (1.5-7.7) 10^3/ul Absolute Lymphs (auto) 0.6 L (1.0-4.8) 10^3/ul Absolute Monos (auto) 1.3 H (0-0.8) 10^3/ul Absolute Eos (auto) 0.1 (0-0.6) 10^3/ul Absolute Basos (auto) 0 (0-0.2) 10^3/ul Absolute Nucleated RBC 0 10^3/ul Nucleated RBC % 0.1 INR (Anticoag Therapy) 1.12 H (0.77-1.02) APTT 28.2 (26.0-36.3) seconds Fibrinogen 868.1 H (110.8-404.3) mg/dL Sodium 131 L (135-145) mmol/L Potassium 3.7 (3.5-5.0) mmol/L Chloride 97 L (101-111) mmol/L Carbon Dioxide 25 (22-32) mmol/L Anion Gap 9 (2-11) mmol/L BUN 20 (6-24) mg/dL Creatinine 1.04 H (0.51-0.95) mg/dL Est GFR ( Amer) 62.5 (>60) Est GFR (Non-Af Amer) 51.7 (>60) BUN/Creatinine Ratio 19.2 (8-20) Glucose 112 H (70-100) mg/dL Lactic Acid (0.5-2.0) mmol/L Calcium 9.1 (8.6-10.3) mg/dL Total Bilirubin 1.10 H (0.2-1.0) mg/dL AST 30 (13-39) U/L ALT 37 (7-52) U/L Alkaline Phosphatase 207 H (34-104) U/L Total Creatine Kinase 54 (10-223) U/L Troponin I 0.01 (<0.04) ng/mL C-Reactive Protein Pending B-Natriuretic Peptide (<=100) pg/mL Total Protein 7.0 (6.4-8.9) g/dL Albumin 3.7 (3.2-5.2) g/dL Globulin 3.3 (2-4) g/dL Albumin/Globulin Ratio 1.1 (1-3) 07/14/18 07/14/18 Range/Units 15:05 15:05 WBC (3.5-10.8) 10^3/uL RBC (3.70-4.87) 10^6 /uL Hgb (12.0-16.0) g/dL Hct (33-41) % MCV (80-97) fL MCH (27-31) pg MCHC (31-36) g/dL RDW (10.5-15) % Plt Count (150-450) 10^3/uL MPV (7.4-10.4) fL Neut % (Auto) % Lymph % (Auto) % Corson % (Auto) % Eos % (Auto) % Baso % (Auto) % Absolute Neuts (auto) (1.5-7.7) 10^3/ul Absolute Lymphs (auto) (1.0-4.8) 10^3/ul Absolute Monos (auto) (0-0.8) 10^3/ul Absolute Eos (auto) (0-0.6) 10^3/ul Absolute Basos (auto) (0-0.2) 10^3/ul Absolute Nucleated RBC 10^3/ul Nucleated RBC % INR (Anticoag Therapy) (0.77-1.02) APTT (26.0-36.3) seconds Fibrinogen (110.8-404.3) mg/dL Sodium (135-145) mmol/L Potassium (3.5-5.0) mmol/L Chloride (101-111) mmol/L Carbon Dioxide (22-32) mmol/L Anion Gap (2-11) mmol/L BUN (6-24) mg/dL Creatinine (0.51-0.95) mg/dL Est GFR ( Amer) (>60) Est GFR (Non-Af Amer) (>60) BUN/Creatinine Ratio (8-20) Glucose (70-100) mg/dL Lactic Acid 1.1 (0.5-2.0) mmol/L Calcium (8.6-10.3) mg/dL Total Bilirubin (0.2-1.0) mg/dL AST (13-39) U/L ALT (7-52) U/L Alkaline Phosphatase (34-104) U/L Total Creatine Kinase (10-223) U/L Troponin I (<0.04) ng/mL C-Reactive Protein B-Natriuretic Peptide 31 (<=100) pg/mL Total Protein (6.4-8.9) g/dL Albumin (3.2-5.2) g/dL Globulin (2-4) g/dL Albumin/Globulin Ratio (1-3) Result Diagrams: 07/15/18 07:12 07/15/18 07:12 Lab Statement: Any lab studies that have been ordered have been reviewed, and results considered in the medical decision making process. - Ultrasound No standard instances Ultrasound Interpretation Completed By: Radiologist Summary of Ultrasound Findings: No sonographic evidence of deep vein thrombosis. ED physician has reviewed this report. - EKG 15:09 Cardiac Rate: NL - 84 bpm EKG Rhythm: Sinus Rhythm EKG Comparison: No Significant Change - 07/26/17 Summary of EKG Findings: No ST elevations, normal axis Course/Dx - Course Assessment/Plan: Patient is a 77-year-old female who presents to the emergency department with chief complaint of bilateral lower extremity pain, swelling to the point that the patient was unable to ambulate. The patient also has a fever and she thinks that she has worsening cellulitis in the legs. Test results without any significant abnormality except for INR 1.12, fibrinogen 868 , sodium 181, creatinine 1.04, glucose 112, alkaline phosphatase 2 7, troponin is 0.01. And the ED course the patient was given Tylenol for the fever and ibuprofen fluids. Chest x-ray impression: Stigmata of obstructive lung disease. No acute pulmonary or cardiac process evident. Blood tests without any significant abnormality except for INR 1.12, fibrinogen 868, sodium is 131, chloride 97, creatinine 1.04, alkaline phosphatase is 207, CRP is 244. Urinalysis is negative for UTI. Chest x-ray was done 2 days ago and she was negative for pneumonia. Bilateral lower extremity ultrasound is negative for DVT. I believe the patients fever and increased CRP possibly secondary to the bilateral lower extremity cellulitis. Therefore the patient was given Rocephin. And at this point the patient is feeling better. I discuss my physical exam, findings, and test results with Dr. Medellin from the hospitalist services and he agrees to admit patient to his services. Patient is hemodynamically stable alert and oriented x 3. - Diagnoses Provider Diagnoses: Cellulitis - Physician Notifications Discussed Care Of Patient With: Alexx Medellin Time Discussed With Above Provider: 17:55 Instructed by Provider To: Admit As Inpatient Discharge - Sign-Out/Discharge Documenting (check all that apply): Patient Departure - admission Patient Received Moderate/Deep Sedation with Procedure: No - Discharge Plan Condition: Fair Disposition: ADMITTED TO [facility] - Billing Disposition and Condition Condition: FAIR Disposition: Admitted to [facility] - Attestation Statements Document Initiated by Margarita: Yes Documenting Scribe: Vish Lopez Provider For Whom Scribe is Documenting (Include Credential): Salvador Rowan MD Scribe Attestation: Vish Ovalles, scribed for Salvador Rowan MD on 07/17/18 at 2113. Scribe Documentation Reviewed: Yes Provider Attestation: The documentation as recorded by the Vish stout accurately reflects the service I personally performed and the decisions made by , Salvador Rowan MD Status of Scribe Document: Viewed
[2018-07-14 17:07] LABS: C Reactive Protein 244.12 mg/L (<8.01)
[2018-07-14] MEDS ORDERED: cefTRIAXone(*) 1 GM in NS 0.9% 50 ML* 50 ML IVPB ONE (18:00)
[2018-07-14 18:01] LABS: Urine Appearance Clear; Urine Bilirubin Negative (Negative); Urine Blood Negative (Negative); Urine Color Yellow; Urine Glucose Negative (Negative); Urine Ketones Negative (Negative); Urine Nitrite Negative (Negative); Urine Protein Negative (Negative); Urine Specific Gravity 1.009 (1.010-1.030); Urine Urobilinogen Negative (Negative)
[2018-07-14] MEDS ORDERED: Albuterol HFA INHALER* 8 gm MDI INH PRN (19:01)
[2018-07-14] MEDS ORDERED: Acetaminophen TAB* 325 MG PO PRN (19:01)
[2018-07-14] MEDS: Mometasone/Formoter 200/5 MDI INH SCH (19:58)
[2018-07-14 20:15] LABS: Influenza A Molecular NEGATIVE (Negative); Influenza B Molecular NEGATIVE (Negative)
--- NOTE | 2018-07-14 21:36 | HP ---
HISTORY AND PHYSICAL: DATE OF ADMISSION: 07/14/18 PRIMARY CARE PROVIDER: Moisés Heller MD ATTENDING PHYSICIAN: Alexx Medellin MD * (dictated by MICHELE Schultz) CHIEF COMPLAINT: Cough, weakness, fever. HISTORY OF PRESENT ILLNESS: Ms. Pulido is a 77-year-old female with a past medical history of asthma, bilateral lower extremity cellulitis, edema and obesity who presents to the ER today with complaints of cough, weakness, and fever. The patient's past medical history includes outpatient treatment for cellulitis and sinus infection over the last 2 to 3 weeks. She states that she was on a 10-day course of amoxicillin. She finished this with no improvement of the lower extremity cellulitis or sinus infection and was switched to another 7-day course of antibiotics. She is unsure which antibiotic she was placed on. The patient states that she has had a cough for approximately 1 week. She states it is occasionally productive and has become nonproductive since yesterday. She was sent to an ENT by her PCP, who stated that her sinuses looked benign, but suggested a pulmonary source and ordered a chest x-ray. She states she had her chest x-ray on Sunday, but has not yet received results. Her primary care physician also sent her to the wound clinic for work up of lower extremity edema and cellulitis. At the wound clinic, her edema was treated with compression boots to the bilateral lower extremities twice weekly. She was also prescribed a salve to put on the lower extremities, she does not remember the name of the salve. Since her most recent treatment of lower extremity "fluid removal" 3 days ago, she complains of weakness. She states that she has decreased movement and ambulation as her legs are painful and feel weak. She also reports subjective fevers and states that she has not taken her temperature, but feels that she has chills and attributes this to fevers. Patient denies chest pain, shortness of breath, abdominal pain, vomiting, diarrhea, constipation, myalgias. She does complain of bilateral lower extremity swelling and pain. She states that the lower extremities feel hot and sore. She also complains of a slight wheeze on occasion and chills. She continues to have an occasional nonproductive cough. She received a full work up in the ER. The hospitalist team was asked to asses the patient for admission. PAST MEDICAL HISTORY: 1. Asthma. 2. Hypertension. 3. Hyperlipidemia. 4. GERD. 5. History of breast cancer in 2012. The patient had left-sided mastectomy and chemotherapy. The patient is now in remission. PAST SURGICAL HISTORY: 1. Left mastectomy. 2. D and C x2. 3. Cholecystectomy. 4. Sinus surgery x3. HOME MEDICATIONS: 1. Albuterol HFA inhaler 1 puff inhalation q.4 hours p.r.n. 2. Acetaminophen 1000 mg p.o. t.i.d. p.r.n. 3. Famotidine 20 mg p.o. daily. 4. Calcium carbonate/vitamin D3 one tab p.o. daily. 5. Atorvastatin 10 mg p.o. daily. 6. Furosemide 40 mg p.o. daily. 7. Fluticasone/salmeterol 250/50 one puff inhalation b.i.d. 8. Omeprazole 20 mg p.o. b.i.d. 9. Multivitamin/minerals 1 tab p.o. daily. 10. Lisinopril 5 mg p.o. daily. 11. Vitamin B complex 1 tab p.o. daily. ALLERGIES: WARFARIN, bleeding; DIAZEPAM, GI upset; LEVOFLOXACIN, GI upset; IODINATED CONTRAST, urinated orange. FAMILY HISTORY: The patient relays a family history of heart disease stating her dad at the age of 54 from heart disease. Her brother had an UT at the age of 40. Her mom also had a history of heart disease. Mom at the age of 83 from CVA. The patient denies a history of diabetes mellitus or cancer, although she was positive for breast cancer. SOCIAL HISTORY: The patient does not and has never smoked. The patient states that she occasionally uses alcohol. She denies use of illicit drugs. In the event that she is unable to make her own decisions, she appoints her daughter, Fior Boudreaux, phone number [phone], to make decisions on her behalf. REVIEW OF SYSTEMS: A 10-point review of systems was performed and all the pertinent positives and negatives are in the HPI, all other systems are negative. PHYSICAL EXAMINATION GENERAL: Ms. Pulido is a well-developed, well-nourished, obese, elderly white woman who is sitting up in bed. She appears to be in no acute distress. VITAL SIGNS: Temperature is 99.9 temporally, heart rate 80, respiratory rate 19 , oxygen saturation 92% on room air, blood pressure 124/53. HEENT: Visual sheppard are grossly intact. The pupils are equally round and reactive to light. Extraocular movements are intact. Sclerae is without icterus. Hearing is grossly intact. Oral mucous membranes are moist. There are 2 approximately 1 cm circular lesions on the left side of the tongue. Pharynx unable to be assessed, as tongue is obstructing view. NECK: No lymphadenopathy. RESPIRATORY: Symmetrical chest expansion. There is no use of accessory muscles. The lungs are clear to auscultation without rhonchi, wheezes or rubs. CARDIOVASCULAR: Regular rate and rhythm with S1, S2 present. No murmurs, rubs or gallops. No JVD. ABDOMEN: Bowel sounds in all quadrants. The abdomen is obese. It is soft and nontender to palpation. There is no hepatosplenomegaly. EXTREMITIES: Skin is warm and smooth bilaterally. There is no clubbing or cyanosis. Radial and pedal pulses are palpable. The patient has bilateral circumferential erythema that is just superior to the ankles. It measures approximately 6.5 cm in height and is circumferential. The right extremity in that area is warmer than the left. There is right pedal edema at 2+ pitting. The right lower extremity is edematous at 1+ pitting. There is tenderness to palpation. NEURO: The patient is awake. She is alert and oriented x3. She is able to move all other extremities. DIAGNOSTIC STUDIES/LABORATORY DATA: Venous Doppler study on 07/14/18, impression, no sonographic evidence of deep vein thrombosis. WBC 10.2, RBC 4.59, HGB 13.8, HCT 40, platelets 214. Sodium 131, potassium 3.7 , chloride 97, carbon dioxide 25, anion gap 9, BUN 20, creatinine 1.04. Lactic acid 1.1. Total bilirubin 1.10, AST 30, ALT 37, alk phos 207. Troponin 0.01. CRP 244.12. BNP 31. Urine negative except for a specific gravity of 1.009. ASSESSMENT AND PLAN: Ms. Pulido is a 77-year-old female with a past medical history as described above who presented to the ER today with complaints of cough, weakness and fever. She will be admitted for: 1. Cellulitis. It is likely that the patient's elevated CRP is due to cellulitis. She received ceftriaxone 1 g in the ER. We will continue ceftriaxone 1 q.24 hours for cellulitis treatment of the right leg. The patient 's Lasix 40 will be continued. Ultrasound is negative for DVT. 2. Cough. The patient's pulmonary exam was negative without wheeze, rhonchi, or rales. She appears to be in no respiratory distress. She does have history of acute sinusitis and it is questionable whether she has some postnasal drainage. The pharynx was not able to viewed on physical exam. We will continue to monitor for cough. Chest x-ray is pending at this point. Influenza test pending. 3. Hypertension. Continue lisinopril 5 daily. 4. Asthma. Continue the patient's home medications. 5. Hyperlipidemia. Continue atorvastatin. 6. Gastroesophageal reflux disease. Continue omeprazole and famotidine. 7. DVT prophylaxis. According to the DVT Risk Assessment, the patient scores 3 and is high risk. She will be placed on heparin subcu. 8. Code status. Full code. TIME SPENT: Approximately 60 minutes was spent on this admission, greater than half of that time was spent with the patient obtaining history, performing physical and reviewing the plan of care. This case has been reviewed with my attending, Dr. Medellin, who is in agreement with the plan of care. MICHELE SCHULTZ [id number]/[facility] #: [id number] GABE
[2018-07-14] MEDS: Pantoprazole TAB * 40 MG TAB PO SCH (22:41)
[2018-07-14] MEDS: Heparin VIAL(*) 5000 UNITS/ML VIAL (FIVE THOUSAND) SUBCUT SCH (22:42)
[2018-07-14] MEDS: Atorvastatin* 10 MG TAB PO SCH (23:21)
[2018-07-15] MEDS: Acetaminophen TAB* 325 MG PO PRN ×3 (02:32→20:52)
[2018-07-15] MEDS: Ondansetron INJ* 2 MG/ML VIAL IV PRN ×2 (02:34→12:51)
[2018-07-15] MEDS: Heparin VIAL(*) 5000 UNITS/ML VIAL (FIVE THOUSAND) SUBCUT SCH ×3 (06:31→20:56)
[2018-07-15 07:35] LABS: ABS Basophils 0 10^3/ul (0-0.2); ABS Eosinophils 0 10^3/ul (0-0.6); ABS Lymphocytes 0.8 10^3/ul (1.0-4.8); ABS Monocytes 1.1 10^3/ul (0-0.8); ABS Neutrophils 7.5 10^3/ul (1.5-7.7); ABS Nucleated RBC 0 10^3/ul; Eosinophil % 0.3 %; Hematocrit 39 % (33-41); Hemoglobin 13.1 g/dL (12.0-16.0); Lymphocyte % 8.8 %; Mean Corpuscular HGB Conc 34 g/dL (31-36); Mean Corpuscular Hemoglobin 30 pg (27-31); Mean Corpuscular Volume 88 fL (80-97); Mean Platelet Volume 8.3 fL (7.4-10.4); Nucleated Red Blood Cells % 0; Platelet Count 212 10^3/uL (150-450); Red Blood Count 4.43 10^6 /uL (3.70-4.87); Red Cell Distribution Width 14 % (10.5-15); White Blood Count 9.5 10^3/uL (3.5-10.8)
[2018-07-15] MEDS: Furosemide TAB* 40 MG PO SCH (07:39)
[2018-07-15] MEDS: NS 0.9% 1000 ML** 1,000 ML IV SCH (07:39)
[2018-07-15] MEDS: Vitamin B Complex TAB PO SCH (07:40)
[2018-07-15] MEDS: Famotidine TAB* 20 MG PO SCH (07:40)
[2018-07-15] MEDS: Lisinopril TAB* 5 MG PO SCH (07:40)
[2018-07-15] MEDS: Multivitamins/Minerals TAB PO SCH (07:41)
[2018-07-15] MEDS: Pantoprazole TAB * 40 MG TAB PO SCH ×2 (07:41→20:52)
[2018-07-15] MEDS: Calcium/Vitamin D TAB 250/125* TAB PO SCH (07:41)
[2018-07-15 07:42] LABS: BUN/Creatinine Ratio 21.1 (8-20); Calcium 8.7 mg/dL (8.6-10.3); EGFR African American 89.8 (>60); EGFR Non-African American 74.2 (>60); Potassium 3.6 mmol/L (3.5-5.0)
[2018-07-15] MEDS: Mometasone/Formoter 200/5 MDI INH SCH ×2 (07:42→19:19)
--- NOTE | 2018-07-15 10:14 | PN ---
Subjective Date of Service: 07/15/18 Interval History: HOSPITALIST PROGRESS NOTE Patient seen and examined at bedside. Care reviewed and d/w Maribell Crowley RN. She feels a little better today. Was able to ambulate with a walker with PT and did well. Family History: Unchanged from Admission Social History: Unchanged from Admission Past Medical History: Unchanged from Admission Objective Active Medications: Acetaminophen (Tylenol Tab*) 650 mg PO Q4H PRN PRN Reason: FEVER/PAIN Last Admin: 07/15/18 07:46 Dose: 650 mg Albuterol (Ventolin Hfa Inhaler*) 1 puff INH Q4H PRN PRN Reason: DYSPNEA Atorvastatin Calcium (Lipitor*) 10 mg PO BEDTIME [facility] Last Admin: 07/14/18 23:21 Dose: 10 mg Calcium/Vitamin D (Oscal D Tab 250/125*) 1 tab PO DAILY [facility] Last Admin: 07/15/18 07:41 Dose: 1 tab Famotidine (Pepcid Tab*) 20 mg PO DAILY [facility] Last Admin: 07/15/18 07:40 Dose: 20 mg Furosemide (Lasix Tab*) 40 mg PO DAILY [facility] Last Admin: 07/15/18 07:39 Dose: 40 mg Heparin Sodium (Porcine) (Heparin Vial(*)) 5,000 units SUBCUT Q8HR [facility] Last Admin: 07/15/18 06:31 Dose: 5,000 units Ceftriaxone Sodium 1 gm/ (Sodium Chloride) 50 mls @ 200 mls/hr IVPB Q24H [facility] Lisinopril (Prinivil Tab*) 5 mg PO DAILY [facility] Last Admin: 07/15/18 07:40 Dose: 5 mg Mometasone Furoate/Formoterol Fumar (Dulera 200/5 Mdi*) 2 puff INH BID [facility] Last Admin: 07/15/18 07:42 Dose: 2 puff Multivitamins/Minerals (Theragran/Minerals Tab*) 1 tab PO DAILY [facility] Last Admin: 07/15/18 07:41 Dose: 1 tab Ondansetron HCl (Zofran Inj*) 4 mg IV Q6H PRN PRN Reason: NAUSEA Last Admin: 07/15/18 02:34 Dose: 4 mg Pantoprazole Sodium (Protonix Tab*) 40 mg PO BID [facility] Last Admin: 07/15/18 07:41 Dose: 40 mg Vitamin B Complex/Vitamin E (B Complex-50*) 1 tab PO DAILY [facility] Last Admin: 07/15/18 07:40 Dose: 1 tab Vital Signs - 8 hr 07/15/18 07:46 Pulse Rate 60 Respiratory 16 Rate O2 Sat by Pulse 96 Oximetry Oxygen Devices in Use Now: None Appearance: Pleasant elderly lady sitting up in a recliner in NAD. Eyes: No Scleral Icterus Ears/Nose/Mouth/Throat: Mucous Membranes Moist Neck: Trachea Midline Respiratory: Symmetrical Chest Expansion and Respiratory Effort, Clear to Auscultation Cardiovascular: RRR - Normal S1 and S2 Abdominal: NL Sounds; No Tenderness; No Distention Extremities: - - Bilateral LE severe lymphedema with mild pitting edema. Erythema around right ankle is faint. Neurological: Alert and Oriented x 3, NL Muscle Strength and Tone Result Diagrams: 07/15/18 07:12 07/15/18 07:12 Assess/Plan/Problems-Billing Assessment: Mrs Pulido is a 77yo F with PMH of Asthma, HTN, HLD, GERD, breast CA, who presented to ED with c/o weakness, fever, found to have RLE cellulitis. - Patient Problems (1) Cellulitis Comment: - RLE cellulitis. - Associated with her chronic lymphedema. - Change Ceftriaxone to Cefazolin. - Continue to f/u at Wound clinic as outpatient. (2) Lower extremity edema Comment: - Keep legs elevated. - JENNIFER wrap and give Furosemide 40mg IV x 1 dose today. - LE doppler negative for DVT. (3) Cough Comment: - Has been on ACEI for "a long time". - Asthma seems to be controlled at this time. - CxR shows no acute disease. - Has c/o post nasal drip - suspect allergic in nature. - Start Fluticasone nasal spray and Tessalon perles. (4) Hypertension Comment: - Controlled. - Continue Lisinopril and Furosemide. (5) Hyperlipidemia Comment: - Continue Atorvastatin. (6) DVT prophylaxis Comment: - Heparin SQ. (7) Full code status Status and Disposition: OBV. Will continue diuresis and compression. Anticipate d/c in AM.
[2018-07-15] MEDS ORDERED: Furosemide IV* 10 MG/ML VIAL (40 MG) IV SLOW PU ONE (10:29)
[2018-07-15] MEDS: Benzonatate CAP* 100 MG PO SCH ×3 (11:31→20:52)
[2018-07-15] MEDS: ceFAZolin 1 GM ADVAN(*) 1 GM in NS 0.9% 50 ML* 50 ML IVPB SCH ×2 (11:31→18:13)
[2018-07-15] MEDS: Fluticasone NASAL SPRAY 50MCG* 16 gm SPRAY BTL BOTH NARES SCH (11:31)
[2018-07-15] MEDS ORDERED: cefTRIAXone(*) 1 GM in NS 0.9% 50 ML* 50 ML IVPB SCH (18:00)
[2018-07-15] MEDS: Atorvastatin* 10 MG TAB PO SCH (20:52)
[2018-07-16] MEDS: Acetaminophen TAB* 325 MG PO PRN ×2 (03:40→10:39)
[2018-07-16] MEDS: ceFAZolin 1 GM ADVAN(*) 1 GM in NS 0.9% 50 ML* 50 ML IVPB SCH ×2 (03:40→11:10)
[2018-07-16] MEDS: Heparin VIAL(*) 5000 UNITS/ML VIAL (FIVE THOUSAND) SUBCUT SCH ×2 (05:37→13:32)
[2018-07-16] MEDS: Mometasone/Formoter 200/5 MDI INH SCH (07:58)
[2018-07-16] MEDS: Calcium/Vitamin D TAB 250/125* TAB PO SCH (10:02)
[2018-07-16] MEDS: Fluticasone NASAL SPRAY 50MCG* 16 gm SPRAY BTL BOTH NARES SCH (10:02)
[2018-07-16] MEDS: Multivitamins/Minerals TAB PO SCH (10:03)
[2018-07-16] MEDS: Benzonatate CAP* 100 MG PO SCH ×2 (10:03→13:32)
[2018-07-16] MEDS: Famotidine TAB* 20 MG PO SCH (10:03)
[2018-07-16] MEDS: Furosemide TAB* 40 MG PO SCH (10:03)
[2018-07-16] MEDS: Lisinopril TAB* 5 MG PO SCH (10:03)
[2018-07-16] MEDS: Vitamin B Complex TAB PO SCH (10:03)
[2018-07-16] MEDS: Pantoprazole TAB * 40 MG TAB PO SCH (10:03)
[2018-07-16 11:39] VITALS: BP 125/41
--- NOTE | 2018-07-17 01:50 | DS ---
CC: Dr. Heller * DISCHARGE SUMMARY: DATE OF ADMISSION: 07/14/18 DATE OF DISCHARGE: 07/16/18 PRIMARY CARE PROVIDER: Dr. Heller. DISCHARGE DIAGNOSES: 1. Right lower extremity cellulitis. 2. Bilateral lower extremity chronic lymphedema. 3. Cough, likely secondary to postnasal drip and allergic rhinitis. SECONDARY DIAGNOSES: 1. Asthma. 2. Hypertension. 3. Hyperlipidemia. 4. Gastroesophageal reflux disease. 5. Breast cancer. MEDICATION LIST: 1. Albuterol HFA 1 puff inhaled q.4 hours p.r.n. shortness of breath. 2. Acetaminophen 1000 mg p.o. t.i.d. for pain. 3. Famotidine 20 mg p.o. daily. 4. Calcium plus vitamin D 1 tablet p.o. daily. 5. Atorvastatin 10 mg p.o. daily. 6. Furosemide 40 mg p.o. daily. 7. Fluticasone/salmeterol 250/50, one puff inhaled b.i.d. 8. Omeprazole 20 mg p.o. b.i.d. 9. Multivitamins 1 tablet p.o. daily. 10. Lisinopril 5 mg p.o. daily. 11. Vitamin B 1 tablet p.o. daily. New Medications: 1. Fluticasone nasal spray 50 mcg, 2 sprays to both nares daily. 2. Cephalexin 500 mg p.o. q.8 hours for 7 more days. 3. Benzonatate 100 mg p.o. t.i.d. as needed for cough. HOSPITAL COURSE: Mrs. Pulido is a 77 years old lady with a past medical history as stated above, who presented to the emergency room with complaints of weakness, cough, and fever. The patient had been treated as outpatient with amoxicillin for cellulitis and sinus infection. For more details about her presentation, I refer you to her history and physical. 1. Right lower extremity cellulitis: The patient has chronic lymphedema and actually follows with PT [facility] and wears a lymphedema pump during her session. She states that her edema improved a little, but her legs are still very sore and she has developed more erythema on the right lower extremity with some weeping. Her CRP was elevated at 244 and the impression was that the source was likely her cellulitis. She was started on ceftriaxone with good response and later on transitioned to cephalexin. As per the [facility], the patient has been discharged, but she can follow up if her wound opens again. She has a followup appointment at the [facility] on at 10:00 a.m., and she was encouraged to keep this appointment. 2. Cough: The patient has had this dry cough for more than 10 days at this point. She reports that she was seen by ENT and she was told that her sinuses were okay, and she actually had a chest x-ray done as an outpatient, but was not aware of the results. Chest x-ray done on 07/12/18 showed signs of obstructive lung disease, but no acute pulmonary or cardiac process, and a repeat one done on 07/14/18 showed similar findings. On further reviewing the patient's history, she does have a history of rhinorrhea and when she lays down she has postnasal drip and her cough gets worse. I believe her symptoms can be secondary to allergies with postnasal drip and the plan at this point is for her to be on a Flonase nasal spray and to take benzonatate as needed. Of course , if her symptoms persist, she may need further workup, but there are no signs of respiratory infection at this time. Please note that on the night prior to discharge, there was a documentation of a temperature of 102, but the number is not correct. The patient actually had a temperature of 100.2. She is medically stable to be discharged home today, to follow up with Dr. Heller as an outpatient. PHYSICAL EXAMINATION: Vital Signs: Temperature 98.0, heart rate is 76, respiratory rate is 20, oxygen saturation 92% on room air, blood pressure is 125 /41. General: The patient is a pleasant, obese lady, sitting up in a recliner , in no acute distress. CVS: S1 and S2. Regular rate and rhythm. Chest: Breath sounds bilaterally, with no added sounds. Extremities: The patient has bilateral chronic lymphedema with chronic skin changes, especially around the ankle area. There is mild erythema to the right ankle area, with no open areas, no drainage. The erythema has receded from the demarcation line and is fainter. Neuro: She is alert and oriented x3, able to move all 4 extremities. DIET: Heart-healthy diet. ACTIVITY: As tolerated. The patient was advised to keep her legs elevated while at home. DISPOSITION: To home. STATUS WHILE IN THE HOSPITAL: Observation. CONDITION AT THE TIME OF DISCHARGE: Fair. Please keep in mind, this is a summarized version of this patient's hospital stay. If you need more information, please free to call me at [phone] or please obtain the full medical record. TIME SPENT: Approximately 45 minutes were spent to complete this discharge. [id number]/[facility] #: [id number] GABE
== END 2018-07-16 14:30 | disposition home or self-care (01) ==
LOC: ED 14:32 → MED 18:51
PROVIDERS: ADMIT Internal Medicine; ATTEND Internal Medicine
DX: L03.115 Cellulitis of right lower limb (principal); I89.0 Lymphedema, not elsewhere classified; R05 Cough; J45.909 Unspecified asthma, uncomplicated; I10 Essential (primary) hypertension; R53.1 Weakness; R50.9 Fever, unspecified; Z88.6 Allergy status to analgesic agent; Z87.442 Personal history of urinary calculi; R53.83 Other fatigue; R19.7 Diarrhea, unspecified; E78.5 Hyperlipidemia, unspecified; K21.9 Gastro-esophageal reflux disease without esophagitis; Z85.3 Personal history of malignant neoplasm of breast; R60.0 Localized edema
CPT/HCPCS: 36415; 71045; 80048; 80053; 81003; 82550; 83605; 83880; 84484; 85025; 85384; 85610; 85730; 86140; 87040; 93005; 93970; 94640; 96365; 96366; 96372; 96375; 96376; 99284; A9270-GY; G0378; G8978-GP-CI; G8979-GP-CI; G8980-GP-CI; G8987-GO-CI; G8988-GO-CI; G8989-GO-CI; J0690; J0696; J1644; J1940; J2405

== ENCOUNTER 2018-07-21 12:48 | Inpatient (IN) | payer MEDICARE ==
--- NOTE | 2018-07-21 14:18 | ED ---
GI/ HPI - HPI Summary HPI Summary: This patient is a 77 year old F presenting to [facility] with a chief complaint of diarrhea x6 since 08:00. The patient rates the pain 0/10 in severity. Symptoms aggravated by nothing. Symptoms alleviated by nothing. Patient reports chills and tremors. Patient denies cramping abd pain. Patient has been taking Keflex since 07/14/18 for bilateral leg cellulitis. The patient uses a walker at home. - History of Current Complaint Chief Complaint: EDNauseaVomitDiarrh Time Seen by Provider: 07/21/18 14:06 Stated Complaint: DIARRHEA POSS DEHYDRATED PER PT Hx Obtained From: Patient Onset/Duration: Started Hours Ago, Atraumatic Timing: Intermittent, Lasting Hours Severity: Mild Current Severity: Mild Pain Intensity: 0 Associated Signs and Symptoms: Positive: Diarrhea, Chills, Other: - tremors Aggravating Factor(s): Nothing Alleviating Factor(s): Nothing - Additional Pertinent History Primary Care Physician: [id number] - Allergy/Home Medications Allergies/Adverse Reactions: Allergies Allergy/AdvReac Type Severity Reaction Status Date / Time warfarin Allergy Bleeding Verified 07/21/18 14:22 codeine AdvReac GI Upset Verified 07/21/18 14:22 diazepam AdvReac GI Upset Verified 07/21/18 14:22 Iodinated Contrast- Oral and AdvReac See Comment Verified 07/21/18 14:22 IV Dye levofloxacin AdvReac GI Upset Verified 07/21/18 14:22 PMH/Surg Hx/FS Hx/Imm Hx Endocrine/Hematology History: Denies: Hx Anticoagulant Therapy, Hx Diabetes, Hx Thyroid Disease Cardiovascular History: Reports: Hx Hypercholesterolemia, Hx Hypertension, Other Cardiovascular Problems/Disorders - BLOOD CLOT IN 2011- UNKNOWN LOCATION Denies: Hx Pacemaker/ICD Respiratory History: Reports: Hx Asthma - ROUTINE MEDICATION FOR Denies: Hx Chronic Obstructive Pulmonary Disease (COPD) GI History: Reports: Hx Diverticulosis, Hx Gastroesophageal Reflux Disease - no longer taking medication, Hx Irritable Bowel - POSSIBLY, Other GI Disorders - HISTORY OF DIVERTICULITIS, having loose stools for past year Denies: Hx Ulcer History: Reports: Hx Kidney Infection - HX OF, Hx Kidney Stones, Other Problems/Disorders - BLOOD IN URINE Musculoskeletal History: Reports: Hx Arthritis - BACK, RIGHT THUMB, NECK, Other Musculoskeletal History - abdominal hernia, improved since weight loss Sensory History: Reports: Hx Contacts or Glasses - reading Denies: Hx Hearing Aid Opthamlomology History: Reports: Hx Contacts or Glasses - reading Neurological History: Reports: Other Neuro Impairments/Disorders - numb fingers dt carpel tunnel - Cancer History Cancer Type, Location and Year: BREAST-2012 Hx Chemotherapy: Yes - left breast 2012 Hx Radiation Therapy: No - Surgical History Surgery Procedure, Year, and Place: 3 SINUS SURGERIES IN THE 1970s. 1992- cholecystectomy,. D&C- IN THE PAST. 2011- LEFT MASTECTOMY. carpel tunnel & 04/25 Hx Anesthesia Reactions: No Infectious Disease History: No Infectious Disease History: Denies: Hx Clostridium Difficile, Hx Hepatitis, Hx Human Immunodeficiency Virus (HIV), Hx of Known/Suspected MRSA, Hx Shingles, Hx Tuberculosis, Hx Known/ Suspected VRE, Hx Known/Suspected VRSA, History Other Infectious Disease, Traveled Outside the [place] in Last 30 Days - Family History Known Family History: Positive: Cardiac Disease, Hypertension Negative: Blood Disorder - Social History Alcohol Use: Rare Alcohol Amount: 1 PER WEEK Hx Substance Use: No Substance Use Type: Reports: None Hx Tobacco Use: No Smoking Status (MU): Never Smoked Tobacco Have You Smoked in the Last Year: No Review of Systems Positive: Chills Negative: Epistaxis Negative: Cough Positive: Diarrhea. Negative: Abdominal Pain Neurological: Other - tremors All Other Systems Reviewed And Are Negative: Yes Physical Exam - Summary Physical Exam Summary: Appearance: The patient is well-nourished in no acute distress and in no acute pain. Skin: The skin is warm and dry and skin color reflects adequate perfusion. HEENT: The head is normocephalic and atraumatic. The pupils are equal and reactive. The conjunctivae are clear and without drainage. Nares are patent and without drainage. Mouth reveals dry mucous membranes and the throat is without erythema and exudate. The external ears are intact. The ear canals are patent and without drainage. The tympanic membranes are intact. Neck: The neck is supple with full range of motion and non-tender. There are no carotid bruits. There is no neck vein distension. Respiratory: Chest is non-tender. Lungs are clear to auscultation and breath sounds are symmetrical and equal. Cardiovascular: Heart is regular rate and rhythm. There is no murmur or rub auscultated. There is peripheral edema and pulses are symmetrical and equal. Abdomen: The abdomen is soft and non-tender. There are normal bowel sounds heard in all four quadrants and there is no organomegaly palpated. Musculoskeletal: There is no back tenderness noted. Extremities are non-tender with full range of motion. There is good capillary refill. There is peripheral edema and no calf tenderness elicited. Neurological: Patient is alert and oriented to person, place and time. The patient has symmetrical motor strength in all four extremities. Cranial nerves are grossly intact. Deep tendon reflexes are symmetrical and equal in all four extremities. Psychiatric: The patient has an appropriate affect and does not exhibit any anxiety or depression Triage Information Reviewed: Yes Vital Signs On Initial Exam: Initial Vitals Temp Pulse Resp BP Pulse Ox 98 F 101 18 135/76 94 07/21/18 12:50 07/21/18 12:50 07/21/18 12:50 07/21/18 12:50 07/21/18 12:50 Vital Signs Reviewed: Yes Diagnostics - Vital Signs Vital Signs Temp Pulse Resp BP Pulse Ox 07/21/18 12:50 98 F 101 18 135/76 94 - Laboratory Result Diagrams: 07/21/18 14:36 07/21/18 14:36 Lab Statement: Any lab studies that have been ordered have been reviewed, and results considered in the medical decision making process. Re-Evaluation - Re-Evaluation First Eval Re-Evaluation Time: 17:24 Comment: Discussed dispo plan with patient and she is agreeable to admit [facility] Course/Dx - Course Course Of Treatment: Ms. Pulido presented about a week after a recent hospitalization for cellulitis. She has been on Keflex at home and her legs have improved. She has had loose bowel movements over since discharge. The last couple of days she's had increasing frequency of watery bowel movements. She denies much abdominal pain. She is not nauseated and has not vomited. She was nontoxic in appearance but obviously dehydrated. An IV was initiated and she was given IV fluids while labs were obtained. She was noted to have a leukocytosis of 17, a CRP in the 500s and elevation of her liver enzymes. I spoke with Dr. Rivero for the hospitalist who requested a CT scan prior to their admitting her. - Diagnoses Provider Diagnoses: Severe dehydration, C. difficile diarrhea - Physician Notifications Discussed Care Of Patient With: Anson Rivero Time Discussed With Above Provider: 17:20 Instructed by Provider To: Other - Dr. Rivero, hospitalist, agrees to admit patient - Critical Care Time Critical Care Time: 30-74 min Discharge - Sign-Out/Discharge Documenting (check all that apply): Patient Departure Patient Received Moderate/Deep Sedation with Procedure: No - Discharge Plan Condition: Stable Disposition: ADMITTED TO [facility] Referrals: Moisés Heller MD [Primary Care Provider] - - Billing Disposition and Condition Condition: STABLE Disposition: Admitted to [facility] - Attestation Statements Document Initiated by Scribe: Yes Documenting Scribe: Rimma Amaya Provider For Whom Scribe is Documenting (Include Credential): Reynaldo Rondon MD Scribe Attestation: Rimma Ovalles, scribed for Reynaldo Rondon MD on 07/21/18 at 2100. Scribe Documentation Reviewed: Yes Provider Attestation: The documentation as recorded by the scribeRimma accurately reflects the service I personally performed and the decisions made by Reynaldo velez MD Status of Scribe Document: Viewed
[2018-07-21] MEDS ORDERED: NS 0.9% 1000 ML** 1,000 ML IV ONE (14:22)
[2018-07-21 14:43] LABS: Hematocrit 38 % (33-41); Hemoglobin 12.8 g/dL (12.0-16.0); Mean Corpuscular HGB Conc 34 g/dL (31-36); Mean Corpuscular Hemoglobin 29 pg (27-31); Mean Corpuscular Volume 86 fL (80-97); Mean Platelet Volume 7.6 fL (7.4-10.4); Platelet Count 485 10^3/uL (150-450); Red Blood Count 4.39 10^6 /uL (3.70-4.87); Red Cell Distribution Width 14 % (10.5-15); White Blood Count 15.9 10^3/uL (3.5-10.8)
[2018-07-21 15:00] LABS: ALT 153 U/L (7-52); AST 110 U/L (13-39); Albumin 3.1 g/dL (3.2-5.2); Albumin/Globulin Ratio 0.8 (1-3); Alkaline Phosphatase 541 U/L (34-104); Blood Urea Nitrogen 31 mg/dL (6-24); Calcium 9.3 mg/dL (8.6-10.3); Chloride 90 mmol/L (101-111); Globulin 3.7 g/dL (2-4); Glucose 105 mg/dL (70-100); Potassium 3.1 mmol/L (3.5-5.0); Sodium 128 mmol/L (135-145); Total Protein 6.8 g/dL (6.4-8.9)
[2018-07-21 15:27] LABS: Lymphocytes % 4 %; Metamyelocytes % 1 % (0-2); Monocytes % 10 %; Myelocytes % 1 % (0-1); Neutrophil % 82 %
[2018-07-21 15:28] LABS: Immature Granulocytes 2 % (0-9)
[2018-07-21 15:32] LABS: ABS Eosinophils 0.32 10^3/ul (0-0.6); ABS Neutrophils 13.36 10^3/ul (1.5-7.7)
[2018-07-21 16:00] LABS: Anion Gap 12 mmol/L (2-11); CO2 Carbon Dioxide 26 mmol/L (22-32)
[2018-07-21 16:01] LABS: Urine Appearance Clear; Urine Bacteria Absent (Absent); Urine Bilirubin Negative (Negative); Urine Blood 1+ (Negative); Urine Color Yellow; Urine Glucose Negative (Negative); Urine Ketones Negative (Negative); Urine Nitrite Negative (Negative); Urine Protein Negative (Negative); Urine Red Blood Cell Trace(0-2/hpf) (Absent); Urine Specific Gravity 1.006 (1.010-1.030); Urine Squamous Epithelial Cell Present (Absent); Urine Urobilinogen Negative (Negative); Urine White Blood Cell Trace(0-5/hpf) (Absent)
[2018-07-21 16:06] LABS: BUN/Creatinine Ratio 34.4 (8-20); EGFR African American 73.9 (>60)
[2018-07-21 16:11] LABS: C Reactive Protein 539.78 mg/L (<8.01)
[2018-07-21] MEDS ORDERED: Acetaminophen TAB* 325 MG PO ONE (16:59)
[2018-07-21] MEDS ORDERED: Iohexol 300* (CONTRAST) 10 ML SDV IV ONE (17:29)
[2018-07-21] MEDS ORDERED: Albuterol HFA INHALER* 8 gm MDI INH PRN (22:11)
[2018-07-21] MEDS ORDERED: Ondansetron INJ* 2 MG/ML VIAL IV PRN (22:14)
[2018-07-21] MEDS ORDERED: NS 0.9% 1000 ML** 1,000 ML IV SCH (22:15)
[2018-07-21] MEDS: Enoxaparin(*) 40 MG/0.4 ML SYR SUBCUT SCH (23:37)
--- NOTE | 2018-07-22 00:25 | HP ---
HISTORY AND PHYSICAL: DATE OF ADMISSION: 07/21/18 CHIEF COMPLAINT: Diarrhea. PRIMARY CARE PROVIDER: Moisés Heller MD CODE STATUS: Full. BASKET HAND WEAVER: Fior Boudreaux, the patient's daughter. SOURCE OF INFORMATION: HPI is obtained from the patient, who is an adequate historian. HISTORY OF PRESENT ILLNESS: 77-year-old female with a past medical history of asthma, hypertension, hyperlipidemia, GERD, obesity, distant history of breast cancer, status post mastectomy and chemotherapy, bilateral lower extremity edema, and chronic venous stasis, who was recently hospitalized from 07/14/18 to 07/16/18 for cellulitis and placed on Keflex. Furthermore, prior to that was on amoxicillin for 10 days for a sinus infection. She presents to the emergency room today for diarrhea for 1 day, multiple episodes of loose watery diarrhea and poor p.o. intake. The patient reports that she was doing OK since getting out of the hospital, continuing her Keflex and complaint with her medications, although woke up this morning with upset stomach, felt off and then essentially has had several episodes of foul-smelling loose watery diarrhea, a total of 6 to 8 over the course of the day, she called her visiting nurse who advised her that she may be unable to keep up with her fluid intake and was concerned she would become dehydrated and recommended she come to the emergency room. On review of systems, the pertinent positives are for nausea, diarrhea, and mild abdominal cramping. Furthermore she notes that since she got out of the hospital on 07/16/18 she has been feeling sore and stiff and has been taking 500mg of Tylenol every 4 hours. EMERGENCY ROOM COURSE: The patient presented with blood pressure 93/65, temperature 98.9, heart rate 57, respiratory rate 18, satting 93% on room air. She had labs done, which were pertinent for a new leukocytosis to 15.9 with a left shift, platelets of 485,000. Sodium of 128, potassium of 3.1 with anion gap of 12. She has also new elevated liver enzymes with an alkaline phosphatase to 541, AST 110, ALT 153, and CRP elevated at 539. The liver enzymes and hyponatremia are new since last hospitalization. A CT scan was done and shows the patient is status post cholecystectomy with no pancreatic or liver pathology aside from stable hepatomegaly, which was unchanged from 2018. She received 650mg of Tylenol and 1 Liter of Normal Saline in the emergency room. The hospitalist team was called to evaluate the patient and accepted for admission for workup of diarrhea and new cholestatic liver injury pattern. PAST MEDICAL HISTORY: Asthma, hypertension, hyperlipidemia, GERD, history of breast cancer in 2011, status post left-sided mastectomy and chemotherapy. PAST SURGICAL HISTORY: Left mastectomy, D and C x2, cholecystectomy, and sinus surgery 3 times. MEDICATIONS: Home medications include: 1. Albuterol HFA inhaler 1 puff inhalation q.4 hours p.r.n. 2. Acetaminophen 1000 mg p.o. t.i.d. p.r.n. 3. Famotidine 20 mg p.o. daily. 4. Calcium carbonate, Vitamin D3 1 tab p.o. daily. 5. Atorvastatin 10 mg p.o. daily. 6. Furosemide 40 mg p.o. daily. 7. Fluticasone formoterol 250/50 1 puff inhalation b.i.d. 8. Omeprazole 20 mg p.o. b.i.d. 9. Multivitamins 1 tab p.o. daily. 10. Lisinopril 5 mg p.o. daily. 11. Vitamin B complex 1 tab p.o. daily. 12. Keflex 500 mg p.o. t.i.d., which was started on 07/16/18. ALLERGIES: Significant for WARFARIN, DIAZEPAM, LEVOFLOXACIN, and CONTRAST. FAMILY HISTORY: Father with heart disease, from heart disease; brother with heart disease; mom with heart disease, from stroke. SOCIAL HISTORY: She is a lifetime nontobacco user, social alcohol user, and a never illicit drug user. 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 REVIEW OF SYSTEMS: A 10-point review of systems was performed, pertinent positives in the HPI. Constitutional: Negative for fevers, chills, malaise. Eyes: Negative for vision changes or pain. ENT: Negative for sore throat. Cardiovascular: Negative for chest pain or palpitations. Respiratory: Negative for shortness of breath, cough, or pleuritic chest pain. : Negative for dysuria or hematuria. Musculoskeletal: Negative for myalgias, arthralgias, or weakness. Skin: Negative for rashes or lesions. Neurologic: Negative for focal weakness or numbness. Psychiatric: Negative for new depression or anxiety. Endocrine: Negative for polyuria or polydipsia. Heme: Negative for bruising, bleeding, or lymphadenopathy. PHYSICAL EXAMINATION GENERAL: This is an obese elderly white woman, who is in no acute distress, resting in bed. VITAL SIGNS: At the time of physical exam, blood pressure 107/51, heart rate 80 , temperature 98, respiratory rate 18, satting 94% on room air. HEENT: Pupils are equal and reactive to light with extraocular muscles intact. Oropharynx is clear without ulcers or lesions. She has moist mucous membranes. NECK: Supple with no cervical or supraclavicular lymphadenopathy. LUNGS: Lungs are with distant lung sounds, but clear to auscultation bilaterally with no work of breathing. CARDIAC: She has regular rate and rhythm with no murmurs, rubs, or gallops. ABDOMEN: Belly is obese, nondistended, soft, mildly tender to palpation in right lower and left lower quadrant with no rebound or guarding. No significant organomegaly is appreciated. She has a small umbilical to ventral hernia that is unchanged and nontender. SKIN: She has no rashes or ulcers. EXTREMITIES: She has bilateral 1+ nonpitting edema with chronic venous stasis with no appreciable erythema or warmth or exudate and 2+ palpable pulses bilaterally. NEUROLOGIC: Her cranial nerves II through XII are intact. She has no focal neurologic deficit or sensory deficit. She is A and O x3. DIAGNOSTIC STUDIES/LAB DATA: CBC shows white blood cell count of 15.9, hemoglobin of 12, hematocrit of 38, platelets of 485,000. CMP shows sodium of 128, potassium of 3.1, chloride of 90, carbon dioxide 26, BUN 31, creatinine 0.9 , glucose of 105, alkaline phosphatase of 541, ALT of 153, AST of 110, total bilirubin of 1.1, CRP at 539. UA was performed, which was unremarkable. CT scan was done, which showed stable nonobstructive right nephrolithiasis, stable fat-filled umbilical hernia without signs of incarceration and stable colonic diverticulosis without evidence of diverticulitis. Last EKG was performed on 07/14/18, reviewed, which shows normal sinus rhythm. EKG images and labs were reviewed by myself. ASSESSMENT AND PLAN: This is a 77-year-old female with a past medical history of asthma, hypertension, hyperlipidemia, gastroesophageal reflux disease, obesity, breast cancer in remission, bilateral lower extremity chronic venous stasis, who was recently on multiple antibiotics for cellulitis and sinus infection, who presented with acute onset diarrhea, leukocytosis, and a new cholestatic pattern liver injury. The differential for the diarrhea is most concerning for Clostridium difficile, though this would not explain her new liver injury, which given the circumstances, could possibly be DILI from tylenol or other drug. She has no evidence of pancreatitis or obstructive disease on CT scan. 1. Diarrhea. As above, leading differential is Clostridium difficile given frequent recent antibiotics. Also, considered antibiotic-related diarrhea. We will send fecal lactoferrin stool cultures and Clostridium difficile. We will place on Clostridium difficile precautions. If Clostridium difficile is to come back positive, we will place the patient on oral vancomycin as technically she would be a severe Clostridium difficile given leukocytosis to 15, although does not meet any other severe Clostridium difficile criteria. 2. Cholestatic liver injury. At this time, we will continue to monitor. We will order a hep panel, lipase, tylenol level, and GGT. Consider GI consult in the morning if liver enzymes continue to increase. We will currently hold Tylenol and hold statin. 3. Hyponatremia. This is presumed hypovolemic. We will continue normal saline at 125 cc/hour. Will replete potassium as well 4. Hypertension. We are going to hold lisinopril and Lasix in the setting of acute onset diarrhea and possible hypotension. Can resume as needed. 5. Chronic lower extremity edema. We will hold Lasix for now given hypovolemic and can resume as fluids have completed. 6. Hyperlipidemia. Holding statin. 7. Gastroesophageal reflux disease, continue famotidine and proton-pump inhibitor. 8. DVT prophylaxis, Lovenox. 9. FEN. The patient will be offered a full diet and can eat as tolerated. If symptoms progress, can downgrade diet. 10. Code status. Full. TIME SPENT: Forty minutes were spent on the planning of this admission with H and P with half of this spent directly at the bedside with the patient providing direct patient care. The patient is updated on the plan of care and agrees with no questions or concerns. DISPOSITION: Stable for admission to [address] [place] [address] without tele. [id number]/[facility] #: [id number] [facility]
[2018-07-22 01:14] LABS: Acetaminophen < 15 mcg/mL
[2018-07-22] MEDS: Mometasone/Formoter 200/5 MDI INH SCH ×2 (07:15→20:54)
[2018-07-22 07:21] LABS: ABS Basophils 0 10^3/ul (0-0.2); ABS Eosinophils 0 10^3/ul (0-0.6); ABS Lymphocytes 0.8 10^3/ul (1.0-4.8); ABS Monocytes 1.3 10^3/ul (0-0.8); ABS Neutrophils 11.2 10^3/ul (1.5-7.7); ABS Nucleated RBC 0 10^3/ul; Eosinophil % 0.2 %; Hematocrit 37 % (33-41); Hemoglobin 12.4 g/dL (12.0-16.0); Lymphocyte % 5.9 %; Mean Corpuscular HGB Conc 33 g/dL (31-36); Mean Corpuscular Hemoglobin 29 pg (27-31); Mean Corpuscular Volume 87 fL (80-97); Mean Platelet Volume 7.5 fL (7.4-10.4); Nucleated Red Blood Cells % 0.1; Platelet Count 464 10^3/uL (150-450); Red Cell Distribution Width 14 % (10.5-15); White Blood Count 13.4 10^3/uL (3.5-10.8)
[2018-07-22 07:45] LABS: Albumin 2.7 g/dL (3.2-5.2); Calcium 8.7 mg/dL (8.6-10.3); Potassium 2.9 mmol/L (3.5-5.0); Total Bilirubin 1.3 mg/dL (0.2-1.0)
[2018-07-22 07:51] LABS: Albumin/Globulin Ratio 0.8 (1-3); BUN/Creatinine Ratio 28.3 (8-20); EGFR African American 117.9 (>60); EGFR Non-African American 97.5 (>60); Globulin 3.4 g/dL (2-4); Total Protein 6.1 g/dL (6.4-8.9)
[2018-07-22] MEDS: Ibuprofen TAB* 400 MG PO PRN ×2 (09:10→19:47)
[2018-07-22] MEDS: Fluticasone NASAL SPRAY 50MCG* 16 gm SPRAY BTL BOTH NARES SCH (09:10)
[2018-07-22] MEDS: Famotidine TAB* 20 MG PO SCH (09:10)
[2018-07-22] MEDS: Pantoprazole TAB * 40 MG TAB PO SCH ×2 (09:10→19:48)
[2018-07-22] MEDS ORDERED: Potassium Chlor TAB* 20 MEQ TAB.ER PO STA (10:49)
--- NOTE | 2018-07-22 17:12 | PN ---
Subjective Date of Service: 07/22/18 Interval History: Pt seen and examined. Meds and labs reviewed. CC: Diarrhea improving ROS: Denied SANTOS/dizziness, F/C, N/V, CP, SOB, increased cough, sputum production , abd pain, constipation, dysuria, myalgias, arthralgias, throat pain, and new skin lesions. The rest of the 14 point ROS are unremarkable. PHYSICAL EXAM: GEN APPEARANCE: Awake, not in acute distress HEENT: NC/AT, PERRLA, moist oral mucosa, (-) throat erythema NECK: Soft, supple, (-) cervical LAD, (-)JVD HEART: S1S2 WNL, RRR, No MRG CHEST: CTA, BL, GAE, No W/R/R ABD: Soft, ND/LLQ tenderness, (-) rebound NABS 4x Q EXT: No C/C/E SKIN: Warm to touch PSYCH: No active psychosis, hallucinations, depression, SI/HI Objective Active Medications: Albuterol (Ventolin Hfa Inhaler*) 1 puff INH Q4H PRN PRN Reason: SHORTNESS OF BREATH Enoxaparin Sodium (Lovenox(*)) 40 mg SUBCUT Q24H [facility] Last Admin: 07/21/18 23:37 Dose: 40 mg Famotidine (Pepcid Tab*) 20 mg PO DAILY [facility] Last Admin: 07/22/18 09:10 Dose: 20 mg Fluticasone Propionate (Flonase Nasal [place] 50mcg*) 2 spray BOTH NARES DAILY [facility] Last Admin: 07/22/18 09:10 Dose: 2 spray Sodium Chloride (Ns 0.9% 1000 Ml) 1,000 mls @ 75 mls/hr IV PER RATE [facility] Stop: 07/23/18 06:34 Ibuprofen (Motrin Tab*) 400 mg PO Q6H PRN PRN Reason: PAIN or FEVER Last Admin: 07/22/18 09:10 Dose: 400 mg Mometasone Furoate/Formoterol Fumar (Dulera 200/5 Mdi*) 2 puff INH BID [facility] Last Admin: 07/22/18 07:15 Dose: 2 puff Ondansetron HCl (Zofran Inj*) 4 mg IV Q6H PRN PRN Reason: NAUSEA Pantoprazole Sodium (Protonix Tab*) 40 mg PO BID [facility] Last Admin: 07/22/18 09:10 Dose: 40 mg Vital Signs - 8 hr 07/22/18 11:49 Temperature 98.2 F Pulse Rate 78 Respiratory 16 Rate Blood Pressure 90/56 (mmHg) O2 Sat by Pulse 95 Oximetry Oxygen Devices in Use Now: None Result Diagrams: 07/22/18 06:59 07/22/18 06:59 Microbiology and Other Data: Microbiology 07/21/18 15:50 Urine Culture - Final Urine No Growth (<1,000 CFU/mL) Assess/Plan/Problems-Billing Assessment: - Patient Problems (1) Diarrhea Current Visit: Yes Status: Acute Code(s): R19.7 - DIARRHEA, UNSPECIFIED SNOMED Code(s): 64329345 Comment: -Awaiting for C. diff result -Unclear cause -LLQ tenderness on exam but no diverticulitis found on CT of abd---continue watchful waiting; possible that pt may have mild diverticulitis not seen on CT due to recent abx use? (2) Elevated LFTs Current Visit: Yes Status: Acute Code(s): R94.5 - ABNORMAL RESULTS OF LIVER FUNCTION STUDIES SNOMED Code(s): 983448919 Comment: -Possibly due to DILI w/Keflex? -Awaiting hepatitis viral screen, especially w/diarrhea, A&E in differential although pt has not had any hx of recent travels -Will await GI input (3) Hyponatremia Current Visit: Yes Status: Acute Code(s): E87.1 - HYPO-OSMOLALITY AND HYPONATREMIA SNOMED Code(s): 67110831 Comment: -Resolved -Likely due to hypovolemia that has been corrected -Continue watchful waiting (4) Hypertension Current Visit: No Status: Acute Code(s): I10 - ESSENTIAL (PRIMARY) HYPERTENSION SNOMED Code(s): 70414454 Comment: -Continue to hold Lisinopril and Lasix -Well-controlled and on low side of normal -Continue NS at 75 cc x 1 more liter until reassessed (5) Hypokalemia Current Visit: Yes Status: Acute Code(s): E87.6 - HYPOKALEMIA SNOMED Code( s): 58963133 Comment: -Corrected -Continue watchful waiting (6) Nephrolithiasis Current Visit: Yes Status: Acute Code(s): N20.0 - CALCULUS OF KIDNEY SNOMED Code(s): 21387225 Comment: #Stable non-obstructive R. nephrolithiasis: -Continue watchful waiting (7) DVT prophylaxis Current Visit: No Status: Acute Code(s): UFR3725 - SNOMED Code(s): 985156725 Comment: -Continue Lovenox Status and Disposition: -As above
[2018-07-22] MEDS ORDERED: NS 0.9% 1000 ML** 1,000 ML IV SCH (17:15)
--- NOTE | 2018-07-22 17:52 | CONS ---
CONSULTATION REPORT: DATE OF CONSULT: 07/22/18 INDICATION: Diarrhea and increased liver function tests. REQUESTING PHYSICIAN: Dr. Ana Woodson. NARRATIVE: Ms. Pulido is a very pleasant 77-year-old female who was recently discharged from the hospital. She had cellulitis and had been placed on Keflex for the cellulitis. She also had been on amoxicillin in the past 10 days for sinus infection. She came to the emergency room Sunday evening. She states on Sunday she developed profuse diarrhea, was nauseated, was having a difficult time staying hydrated. She thus came to the emergency room. She denies any abdominal pain. No fevers. No chills. No new medications other than 2 antibiotics. She has never had diarrhea like this before. PAST MEDICAL HISTORY: Significant for asthma, hyperlipidemia, hypertension, GERD, breast cancer. PAST SURGICAL HISTORY: Includes mastectomy, also surgery includes cholecystectomy. MEDICATIONS: Upon admission include Keflex, lisinopril, omeprazole, fluticasone , Lasix, atorvastatin, famotidine, acetaminophen, and albuterol. She does take upwards of 3 g of acetaminophen everyday. ALLERGIES: COUMADIN, DIAZEPAM, LEVOFLOXACIN, and IV CONTRAST. FAMILY HISTORY: Coronary artery disease. SOCIAL HISTORY: She has never smoked tobacco. Rare alcohol. REVIEW OF SYSTEMS: Twelve-systems were reviewed, other than that mentioned in the HPI were unremarkable. PHYSICAL EXAM: Temperature is 98.2, blood pressure is 90/56, pulse is 78, respiratory rate is 16, O2 sat is 95%. General: A well-appearing female, morbidly obese, alert, oriented, pleasant, fluent. HEENT: Mucous membranes are moist without lesions, ulcers, or exudate. Neck is supple. Trachea is midline. Head is normocephalic, atraumatic. Heart: Regular rate and rhythm. Lungs: Clear to auscultation. Abdomen: Obese. Positive bowel sounds. Soft, nontender, nondistended. No hepatosplenomegaly, masses, rebound, or guarding. Skin is warm and dry. Lower extremities are wrapped in Lorenzo bandages. Significant lower extremity edema. DIAGNOSTIC STUDIES/LAB DATA: Labs of note: White count went from 15.9 to 13.4 , platelets of 464, hemoglobin is 12.4. BUN is 17, creatinine is 0.6. Total bilirubin went from 1.1 to 1.3. Her AST went from 110 to 97, ALT went from 153 to 132, alk phos went from 541 to 568. CRP is 539. Lipase is 119. She has CT abdomen and pelvis which shows diverticulosis. No evidence of diverticulitis. ASSESSMENT AND PLAN: This is a pleasant 77-year-old female with 2 issues, the first is diarrhea. She is being ruled out for Clostridium difficile. She tells me that her stools have stopped. She is feeling much better. She has no symptoms at all at this point. Definitely, given her Keflex and amoxicillin, Clostridium difficile needs to be ruled out, however, less likely now that she is not having stools, other infections can be looked at. This simply could be just antibiotic-associated diarrhea. Second issue would be increased liver function tests, potentially related to her antibiotics. They are coming down a little bit at this point. I would recommend we follow the trend. If they do not come down nicely, the patient will need to be evaluated for viral hepatitis , autoimmune hepatitis, primary biliary cirrhosis, hemochromatosis. We will continue to follow along very closely. [id number]/[facility] #: [id number] [facility] CENTERCristian
[2018-07-22] MEDS: Enoxaparin(*) 40 MG/0.4 ML SYR SUBCUT SCH (23:45)
[2018-07-23 06:02] LABS: ABS Basophils 0.1 10^3/ul (0-0.2); ABS Eosinophils 0.2 10^3/ul (0-0.6); ABS Lymphocytes 0.7 10^3/ul (1.0-4.8); ABS Monocytes 1.2 10^3/ul (0-0.8); ABS Neutrophils 10.8 10^3/ul (1.5-7.7); ABS Nucleated RBC 0 10^3/ul; Eosinophil % 1.2 %; Hematocrit 34 % (33-41); Hemoglobin 11.3 g/dL (12.0-16.0); Lymphocyte % 5.7 %; Mean Corpuscular HGB Conc 34 g/dL (31-36); Mean Corpuscular Hemoglobin 29 pg (27-31); Mean Corpuscular Volume 87 fL (80-97); Mean Platelet Volume 7.3 fL (7.4-10.4); Nucleated Red Blood Cells % 0.1; Platelet Count 469 10^3/uL (150-450); Red Blood Count 3.86 10^6 /uL (3.70-4.87); Red Cell Distribution Width 14 % (10.5-15); White Blood Count 12.9 10^3/uL (3.5-10.8)
[2018-07-23 06:28] LABS: Albumin 2.6 g/dL (3.2-5.2); Albumin/Globulin Ratio 0.8 (1-3); BUN/Creatinine Ratio 23.6 (8-20); Calcium 8.6 mg/dL (8.6-10.3); EGFR African American 130.4 (>60); EGFR Non-African American 107.8 (>60); Globulin 3.2 g/dL (2-4); Magnesium 1.9 mg/dL (1.9-2.7); Phosphorus 1.9 mg/dL (2.5-5.0); Potassium 3.5 mmol/L (3.5-5.0); Total Bilirubin 1.2 mg/dL (0.2-1.0); Total Protein 5.8 g/dL (6.4-8.9)
[2018-07-23] MEDS: Famotidine TAB* 20 MG PO SCH (08:34)
[2018-07-23] MEDS: Pantoprazole TAB * 40 MG TAB PO SCH ×2 (08:35→21:15)
[2018-07-23] MEDS: Fluticasone NASAL SPRAY 50MCG* 16 gm SPRAY BTL BOTH NARES SCH (08:37)
[2018-07-23] MEDS: Mometasone/Formoter 200/5 MDI INH SCH ×2 (09:16→19:33)
[2018-07-23 11:43] LABS: Hepatitis B Surface Antigen Nonreactive (Nonreactive)
[2018-07-23 12:08] LABS: Hepatitis C Antibody Nonreactive (Nonreactive)
[2018-07-23] MEDS ORDERED: Acetaminophen TAB* 325 MG PO PRN (12:22)
[2018-07-23] MEDS ORDERED: oxyCODONE/Acetamin 5/325 MG* TAB PO PRN (12:23)
[2018-07-23] MEDS ORDERED: Potassium Phosphate IV* 10 MMOLE in NS 0.9% 250 ML* 250 ML IVPB ONE (13:00)
[2018-07-23] MEDS: Ibuprofen TAB* 400 MG PO PRN (13:24)
[2018-07-23 15:00] LABS: Total Iron Binding Capacity 183 mcg/dL (250-450); Transferrin 131 mg/dL (203-362)
[2018-07-23 15:20] LABS: Ferritin 1446.4 ng/mL (11-307)
[2018-07-23 15:30] LABS: % Iron Saturation 9 % (15-55); Iron < 17 ug/dL (50-212)
--- NOTE | 2018-07-23 19:48 | PN ---
Subjective Date of Service: 07/23/18 Interval History: Pt seen and examined. Meds and labs reviewed. CC: R. shoulder pain ROS: Denied SANTOS/dizziness, F/C, N/V, CP, SOB, increased cough, sputum production , abd pain, diarrhea, constipation, dysuria, , throat pain, and new skin lesions. The rest of the 14 point ROS are unremarkable. PHYSICAL EXAM: GEN APPEARANCE: Awake, not in acute distress HEENT: NC/AT, PERRLA, moist oral mucosa, (-) throat erythema NECK: Soft, supple, (-) cervical LAD, (-)JVD HEART: S1S2 WNL, RRR, No MRG CHEST: CTA, BL, GAE, No W/R/R ABD: Soft, ND/NT, NABS 4x Q EXT: No C/C/E, FROM, both passive and active on R. shoulder SKIN: Warm to touch PSYCH: No active psychosis, hallucinations, depression, SI/HI Objective Active Medications: Acetaminophen (Tylenol Tab*) 650 mg PO Q6H PRN PRN Reason: Pain/Fever Last Admin: 07/23/18 13:22 Dose: 650 mg Albuterol (Ventolin Hfa Inhaler*) 1 puff INH Q4H PRN PRN Reason: SHORTNESS OF BREATH Enoxaparin Sodium (Lovenox(*)) 40 mg SUBCUT Q24H [facility] Last Admin: 07/22/18 23:45 Dose: 40 mg Famotidine (Pepcid Tab*) 20 mg PO DAILY [facility] Last Admin: 07/23/18 08:34 Dose: 20 mg Fluticasone Propionate (Flonase Nasal [place] 50mcg*) 2 spray BOTH NARES DAILY [facility] Last Admin: 07/23/18 08:37 Dose: 2 spray Ibuprofen (Motrin Tab*) 400 mg PO Q6H PRN PRN Reason: PAIN or FEVER Last Admin: 07/23/18 13:24 Dose: 400 mg Mometasone Furoate/Formoterol Fumar (Dulera 200/5 Mdi*) 2 puff INH BID [facility] Last Admin: 07/23/18 19:33 Dose: 2 puff Ondansetron HCl (Zofran Inj*) 4 mg IV Q6H PRN PRN Reason: NAUSEA Oxycodone/Acetaminophen (Percocet 5/325 Tab*) 1 tab PO Q4H PRN PRN Reason: PAIN Pantoprazole Sodium (Protonix Tab*) 40 mg PO BID [facility] Last Admin: 07/23/18 08:35 Dose: 40 mg Vital Signs - 8 hr 07/23/18 07/23/18 12:37 19:36 Temperature 98.0 F Pulse Rate 88 88 Respiratory 22 16 Rate Blood Pressure 136/65 (mmHg) O2 Sat by Pulse 99 99 Oximetry Oxygen Devices in Use Now: None Result Diagrams: 07/23/18 05:39 07/23/18 05:39 Microbiology and Other Data: Microbiology 07/21/18 15:50 Urine Culture - Final Urine No Growth (<1,000 CFU/mL) Assess/Plan/Problems-Billing Assessment: - Patient Problems (1) Shoulder pain, right Current Visit: Yes Status: Acute Code(s): M25.511 - PAIN IN RIGHT SHOULDER SNOMED Code(s): 36873886 Comment: -Claims intermittent pain for several years consistent with OA -X-ray: Osteopenia, OA, no acute osseous injury -Continue PRN Tylenol, Ibuprofen, and Percocet (2) Diarrhea Current Visit: Yes Status: Acute Code(s): R19.7 - DIARRHEA, UNSPECIFIED SNOMED Code(s): 41692653 Comment: -Resolved -Awaiting C. diff result -Unclear cause (3) Elevated LFTs Current Visit: Yes Status: Acute Code(s): R94.5 - ABNORMAL RESULTS OF LIVER FUNCTION STUDIES SNOMED Code(s): 642661647 Comment: -Possibly due to DILI w/Keflex? -Awaiting hepatitis viral screen, especially w/diarrhea, A&E in differential although pt has not had any hx of recent travels -Appreciate GI input and sent for CLEM, Anti-dsDNA, Anti Cross, Iron studies, and AMA to evaluate for other less common differentials (4) Hypertension Current Visit: No Status: Acute Code(s): I10 - ESSENTIAL (PRIMARY) HYPERTENSION SNOMED Code(s): 12774212 Comment: -Well controlled -Consider placing pt slowly back on Lisinopril and Lasix when necessary (5) Nephrolithiasis Current Visit: Yes Status: Acute Code(s): N20.0 - CALCULUS OF KIDNEY SNOMED Code(s): 54093604 Comment: #Stable non-obstructive R. nephrolithiasis: -Continue watchful waiting (6) DVT prophylaxis Current Visit: No Status: Acute Code(s): OHD7356 - SNOMED Code(s): 493006711 Comment: -Continue Lovenox Status and Disposition: -As above
[2018-07-24] MEDS: Enoxaparin(*) 40 MG/0.4 ML SYR SUBCUT SCH ×2 (01:31→21:24)
[2018-07-24] MEDS: Ibuprofen TAB* 400 MG PO PRN ×3 (01:31→21:24)
[2018-07-24 07:01] LABS: ABS Basophils 0 10^3/ul (0-0.2); ABS Eosinophils 0.3 10^3/ul (0-0.6); ABS Lymphocytes 0.8 10^3/ul (1.0-4.8); ABS Monocytes 1.1 10^3/ul (0-0.8); ABS Neutrophils 10.6 10^3/ul (1.5-7.7); ABS Nucleated RBC 0 10^3/ul; Eosinophil % 2.4 %; Hematocrit 32 % (33-41); Hemoglobin 10.9 g/dL (12.0-16.0); Lymphocyte % 6.5 %; Mean Corpuscular HGB Conc 34 g/dL (31-36); Mean Corpuscular Hemoglobin 29 pg (27-31); Mean Corpuscular Volume 86 fL (80-97); Mean Platelet Volume 7.4 fL (7.4-10.4); Nucleated Red Blood Cells % 0; Platelet Count 456 10^3/uL (150-450); Red Blood Count 3.71 10^6 /uL (3.70-4.87); Red Cell Distribution Width 14 % (10.5-15); White Blood Count 12.9 10^3/uL (3.5-10.8)
[2018-07-24 07:18] LABS: BUN/Creatinine Ratio 22.4 (8-20); Calcium 8.7 mg/dL (8.6-10.3); EGFR Non-African American 123.1 (>60); Phosphorus 2.8 mg/dL (2.5-5.0); Potassium 3.3 mmol/L (3.5-5.0)
[2018-07-24] MEDS ORDERED: NS 0.9% 1000 ML** 1,000 ML IV ONE (09:07)
[2018-07-24] MEDS: Mometasone/Formoter 200/5 MDI INH SCH ×2 (09:42→19:15)
[2018-07-24] MEDS: Pantoprazole TAB * 40 MG TAB PO SCH ×2 (10:25→19:28)
[2018-07-24] MEDS: Fluticasone NASAL SPRAY 50MCG* 16 gm SPRAY BTL BOTH NARES SCH (10:25)
[2018-07-24] MEDS: Famotidine TAB* 20 MG PO SCH (10:25)
[2018-07-24] MEDS: KCL 20 MEQ/100 ML IVPREMIX* 20 MEQ/100 ML BAG IV SCH ×4 (13:50→22:32)
[2018-07-24 14:20] LABS: Calcium 8.5 mg/dL (8.6-10.3); EGFR African American 145.5 (>60); EGFR Non-African American 120.3 (>60); Magnesium 1.9 mg/dL (1.9-2.7); Potassium 3.4 mmol/L (3.5-5.0)
--- NOTE | 2018-07-24 18:08 | PN ---
Subjective Interval History: Patient still requiring aggressive potassium repletion. BPs still well-controlled off lisinopril, furosemide. Still holding atorvastatin due to liver injury. No longer on antibiotics (prior admission for cellulitis) or acetaminophen. Autoimmune panel pending for rheum causes of liver injury, although leading diagnosis is DILI from abx. C. diff not tested in stool because stool was formed. Objective Active Medications: Acetaminophen (Tylenol Tab*) 650 mg PO Q6H PRN PRN Reason: Pain/Fever Last Admin: 07/23/18 13:22 Dose: 650 mg Albuterol (Ventolin Hfa Inhaler*) 1 puff INH Q4H PRN PRN Reason: SHORTNESS OF BREATH Enoxaparin Sodium (Lovenox(*)) 40 mg SUBCUT Q24H [facility] Last Admin: 07/24/18 01:31 Dose: 40 mg Famotidine (Pepcid Tab*) 20 mg PO DAILY [facility] Last Admin: 07/24/18 10:25 Dose: 20 mg Fluticasone Propionate (Flonase Nasal [place] 50mcg*) 2 spray BOTH NARES DAILY [facility] Last Admin: 07/24/18 10:25 Dose: 2 spray Potassium Chloride (Potassium Chloride 20 Meq/100 Ml Ivpremix*) 20 meq in 100 mls @ 50 mls/hr IV Q2H [facility] Stop: 07/24/18 21:59 Ibuprofen (Motrin Tab*) 400 mg PO Q6H PRN PRN Reason: PAIN or FEVER Last Admin: 07/24/18 15:11 Dose: 400 mg Mometasone Furoate/Formoterol Fumar (Dulera 200/5 Mdi*) 2 puff INH BID [facility] Last Admin: 07/24/18 09:42 Dose: 2 puff Pantoprazole Sodium (Protonix Tab*) 40 mg PO BID [facility] Last Admin: 07/24/18 10:25 Dose: 40 mg Vital Signs - 8 hr 07/24/18 14:36 Temperature 98.5 F Pulse Rate 75 Respiratory 18 Rate Blood Pressure 114/69 (mmHg) O2 Sat by Pulse 16 Oximetry Oxygen Devices in Use Now: None Appearance: chronically ill appearing woman in no acute distress, alert and interactive Respiratory: Clear to Auscultation Cardiovascular: RRR Extremities: - - significant LE edema, b/l distal LE wrapped in clean bandages Result Diagrams: 07/24/18 06:49 07/24/18 13:25 Microbiology and Other Data: Microbiology 07/21/18 15:50 Urine Culture - Final Urine No Growth (<1,000 CFU/mL) Assess/Plan/Problems-Billing Assessment: 77W with asthma, HTN, GERD, obesity, breast cancer in remission, b/l LE chronic venous stasis, with recent admission for LE cellulitis on abx for that and a sinus infection, who presented with diarrhea and newly elevated LFTs. - Patient Problems (1) Elevated LFTs Comment: Possibly due to DILI with Keflex. Hepatitis screening negative. -appreciate GI input and sent for CLEM, Anti-dsDNA, Anti Cross, Iron studies, and AMA to evaluate for other less common differentials -holding statin, tylenol (2) Diarrhea Comment: Resolved without intervention, other than stopping antibiotics. (3) Hypertension Comment: Very dry on presentation so meds held and BPs remain normal. -Consider placing pt slowly back on Lisinopril and Lasix when necessary (4) Hypokalemia Comment: In setting of diarrhea and Lasix. - check BMP/Mg and replete prn (5) GERD (gastroesophageal reflux disease) Comment: on PPI and H2 krystle Status and Disposition: Home when LFTs improve. Will have VNS visit to [facility] for home PT.
[2018-07-24 18:28] LABS: Albumin 2.6 g/dL (3.2-5.2); Albumin/Globulin Ratio 0.7 (1-3); Globulin 3.5 g/dL (2-4); Indirect Bilirubin 0.4 mg/dL (0.3-1.0); Total Bilirubin 1.1 mg/dL (0.2-1.0); Total Protein 6.1 g/dL (6.4-8.9)
[2018-07-24] MEDS: Lactobacillus Acidophilus* 1 TAB PO SCH (19:28)
[2018-07-25 06:13] LABS: Albumin 2.2 g/dL (3.2-5.2); Calcium 8.2 mg/dL (8.6-10.3); Magnesium 1.9 mg/dL (1.9-2.7); Potassium 4.6 mmol/L (3.5-5.0); Total Bilirubin 1.3 mg/dL (0.2-1.0)
[2018-07-25 06:19] LABS: Albumin/Globulin Ratio 0.9 (1-3); BUN/Creatinine Ratio 19.6 (8-20); EGFR African American 142.3 (>60); EGFR Non-African American 117.6 (>60); Globulin 2.4 g/dL (2-4); Total Protein 4.6 g/dL (6.4-8.9)
[2018-07-25] MEDS: Mometasone/Formoter 200/5 MDI INH SCH ×2 (08:09→20:41)
[2018-07-25] MEDS: Lactobacillus Acidophilus* 1 TAB PO SCH (08:50)
[2018-07-25] MEDS: Ibuprofen TAB* 400 MG PO PRN (08:50)
[2018-07-25] MEDS: Pantoprazole TAB * 40 MG TAB PO SCH ×2 (08:50→20:45)
[2018-07-25] MEDS: Famotidine TAB* 20 MG PO SCH (08:51)
[2018-07-25] MEDS: Fluticasone NASAL SPRAY 50MCG* 16 gm SPRAY BTL BOTH NARES SCH (08:52)
[2018-07-25 15:55] LABS: Smooth Muscle Antibody Negative (Negative)
--- NOTE | 2018-07-25 18:38 | PN ---
Subjective Date of Service: 07/25/18 Interval History: LFTs not improving as expected. Dr. Jacobson recommended MRCP, which was unremarkable. Pt continues to deny symptoms. As MRCP happened so late in day, will plan to discharge in the morning. Objective Active Medications: Albuterol (Ventolin Hfa Inhaler*) 1 puff INH Q4H PRN PRN Reason: SHORTNESS OF BREATH Enoxaparin Sodium (Lovenox(*)) 40 mg SUBCUT Q24H [facility] Last Admin: 07/24/18 21:24 Dose: 40 mg Famotidine (Pepcid Tab*) 20 mg PO DAILY [facility] Last Admin: 07/25/18 08:51 Dose: 20 mg Fluticasone Propionate (Flonase Nasal [place] 50mcg*) 2 spray BOTH NARES DAILY [facility] Last Admin: 07/25/18 08:52 Dose: 2 spray Lactobacillus Rhamnosus (Lactobacillus Acidophilus*) 1 tab PO DAILY [facility] Last Admin: 07/25/18 08:50 Dose: 1 tab Mometasone Furoate/Formoterol Fumar (Dulera 200/5 Mdi*) 2 puff INH BID [facility] Last Admin: 07/25/18 08:09 Dose: 2 puff Pantoprazole Sodium (Protonix Tab*) 40 mg PO BID [facility] Last Admin: 07/25/18 08:50 Dose: 40 mg Tramadol HCl (Ultram*) 50 mg PO Q12H PRN PRN Reason: PAIN Vital Signs - 8 hr 07/25/18 11:53 Temperature 98.2 F Pulse Rate 74 Respiratory 16 Rate Blood Pressure 129/48 (mmHg) O2 Sat by Pulse 97 Oximetry Oxygen Devices in Use Now: None Abdominal: NL Sounds; No Tenderness; No Distention Extremities: - - edematous legs wrapped in clean bandage Result Diagrams: 07/24/18 06:49 07/25/18 05:15 Microbiology and Other Data: Microbiology 07/21/18 15:50 Urine Culture - Final Urine No Growth (<1,000 CFU/mL) Assess/Plan/Problems-Billing 77W with asthma, HTN, GERD, obesity, breast cancer in remission, b/l LE chronic venous stasis, with recent admission for LE cellulitis on abx for that and a sinus infection, who presented with diarrhea and newly elevated LFTs. Thought to be DILI from Keflex. - Patient Problems (1) Elevated LFTs Comment: Possibly due to DILI with Keflex. Hepatitis screening negative. Autoimmune/iron work up negative. MRCP normal. -holding statin, tylenol (2) Diarrhea Comment: Resolved without intervention, other than stopping antibiotics. (3) Hypertension Comment: Very dry on presentation so meds held and BPs remain normal. -Consider placing pt slowly back on Lisinopril and Lasix when necessary (4) Hypokalemia Comment: In setting of diarrhea and Lasix. - check BMP/Mg and replete prn (5) GERD (gastroesophageal reflux disease) Comment: on PPI and H2 krystle Status and Disposition: Likely home 07/26 in morning. 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 Will have VNS visit to [facility] for home PT.
[2018-07-25] MEDS: traMADol TAB* 50 MG PO PRN (22:16)
[2018-07-25] MEDS: Enoxaparin(*) 40 MG/0.4 ML SYR SUBCUT SCH (22:27)
[2018-07-26 06:44] LABS: Albumin 2.4 g/dL (3.2-5.2); Albumin/Globulin Ratio 0.8 (1-3); BUN/Creatinine Ratio 20.7 (8-20); Calcium 8.4 mg/dL (8.6-10.3); EGFR African American 122.6 (>60); EGFR Non-African American 101.3 (>60); Globulin 3.1 g/dL (2-4); Indirect Bilirubin 0.5 mg/dL (0.3-1.0); Potassium 4.3 mmol/L (3.5-5.0); Total Bilirubin 0.9 mg/dL (0.2-1.0); Total Protein 5.5 g/dL (6.4-8.9)
[2018-07-26] MEDS: Fluticasone NASAL SPRAY 50MCG* 16 gm SPRAY BTL BOTH NARES SCH (08:17)
[2018-07-26] MEDS: Pantoprazole TAB * 40 MG TAB PO SCH (08:17)
[2018-07-26] MEDS: Famotidine TAB* 20 MG PO SCH (08:17)
[2018-07-26] MEDS: Lactobacillus Acidophilus* 1 TAB PO SCH (08:17)
[2018-07-26] MEDS: Mometasone/Formoter 200/5 MDI INH SCH (08:28)
[2018-07-26 11:40] VITALS: BP 136/55
--- NOTE | 2018-07-26 13:55 | DS ---
CC: Moisés Heller MD; Dr. Santiago Johnson* DISCHARGE SUMMARY: DATE OF ADMISSION: 07/21/18 DATE OF DISCHARGE: 07/26/18 PRIMARY CARE PHYSICIAN: Moisés Heller MD. PRIMARY DIAGNOSES: Drug-induced liver injury and diarrhea. SECONDARY DIAGNOSES: 1. Asthma. 2. Hypertension. 3. Hyperlipidemia. 4. Gastroesophageal reflux disease. 5. Chronic lower extremity edema. CONSULTS: GI, Dr. Santiago Johnson. DISCHARGE MEDICATIONS: 1. Furosemide 40 mg p.o. daily. 2. Advair 1 puff inhaled twice a day. 3. Albuterol 1 puff q.4 hours as needed for wheezing. 4. Omeprazole 20 mg twice a day. 5. Vitamin D and calcium. 6. Famotidine 20 mg daily. 7. Fluticasone nasal spray. HISTORY OF PRESENT ILLNESS: This 77-year-old woman with history of chronic lower extremity edema, asthma, high blood pressure, GERD, obesity and distant history of breast cancer, status post mastectomy and chemotherapy, who had a recent hospitalization from 07/14/18 to 07/16/18 for cellulitis and was placed on Keflex. Prior to that, she was on amoxicillin for sinus infection. She is presenting to the emergency room now for 1 day of acute diarrhea with multiple episodes of loose watery stool and poor p.o. intake. She reports that she was doing okay since getting out of the hospital for her cellulitis admission, continuing her Keflex and compliant with her medications. When she had woken up on the day of presentation with an upset stomach, felt off and then had several episodes of foul smelling, loose watery diarrhea, a total of 6 to 8 over the course of the day. She called her visiting nurse who advised her that she may be unable to keep up with her fluid intake and was concerned she may become dehydrated and recommended that she come to the emergency room. The patient also had nausea, mild abdominal cramping and feeling very sore and stiff , requiring frequent doses of Tylenol. HOSPITAL COURSE: The patient's blood pressure on presentation was 93/65 and was afebrile. Her labs are pertinent for new leukocytosis to 16 with platelets of 485, a sodium of 128, potassium of 3.1. She also had newly elevated liver enzymes to the few 100s with an alkaline phosphatase to 541 and CRP at 539. The elevated liver enzymes and hyponatremia were new since her prior hospitalization. A CT was done and showed that she had no pancreatic or liver pathology aside from stable hepatomegaly, and she was admitted under the hospitalist service. By the next day, the patient had resolution of her diarrhea and therefore, we are unable to test solid stools for Clostridium difficile. For her liver injury, we held Tylenol, atorvastatin, and Keflex. Throughout admission, she denied right upper quadrant pain, nausea or vomiting. Given her low blood pressures, hypovolemia on exam and low potassium, her lisinopril and furosemide were held. After reaching euvolemia, her blood pressures had stayed at goal off of lisinopril. She states that now only she takes furosemide twice a day to prevent her lower extremity edema. Throughout admission, her lower extremity edema did not worsen. GI was consulted and was most concerned for drug-induced liver injury. Her diarrhea was thought to be antibiotic- associated diarrhea. She was screened for viral and autoimmune hepatitis and hemochromatosis, and her laboratory test came back largely unremarkable, so she was ordered for an MRCP which also was unremarkable. By the day of discharge, she had no complaints. REVIEW OF SYSTEMS: A 10-point review of systems was negative. PHYSICAL EXAMINATION: Vital Signs: Afebrile. Heart rate in the 80s, respiratory rate 12, blood pressure 136/55, oxygen saturation 99% on room air. HEENT: Moist mucous membranes. Neck: Without cervical lymphadenopathy. Lungs : Clear to auscultation bilaterally. Heart: Regular rate and rhythm. No murmurs, gallops or rubs. Abdomen: Obese, soft, nondistended, nontender. No fluid wave. Lower Extremities: Bilateral 1+ nonpitting edema with chronic venous stasis changes throughout lower extremities wrapped in clean bandages. No weeping or exudate. Skin: Without jaundice. DIAGNOSTIC STUDIES AND LABS: On day of discharge, hepatic panel with AFT/ALT 115/118, alk phos upper 600s with prior GGT of 782. Total bilirubin decreased to normal by the end of her hospitalization. C-reactive protein 539. Iron less than 17. TIBC 183. Ferritin 1446. Antinuclear antibody 1.5, which is normal. Antimitochondrial antibodies negative. Anti-smooth muscle antibody negative. Anti- double stranded DNA pending. Hepatitis A, B and C screen negative. Abdominal/pelvis CT: Stable nonobstructive right nephrolithiasis. Stable fat- filled umbilical hernia measuring 6.3 cm without signs of incarceration. Stable colonic diverticulosis is without evidence for acute diverticulitis. Liver with stable calcified hepatic granuloma, stable hepatomegaly. MRCP on 07/25/18, liver and spleen are normal in size with no significant focal abnormalities seen. DISCHARGE PLAN: The patient is to return home with her friend later today. She is to avoid hepatotoxic medications such as her home statin and Tylenol and she is to remain off Keflex. Given her well controlled blood pressure while admitted without lisinopril, she is instructed to stay off of lisinopril, but we will restart her home furosemide given her good volume status and desire to prevent lower extremity swelling. She states that she previously took furosemide twice a day but for now, we will start with furosemide once daily. She should followup with her primary care physician in approximately 1 week for further blood pressure and volume status monitoring, and she will also followup with GI, Dr. Johnson in 1 to 2 weeks for further hepatic panel monitoring and workup for her liver injury. She is to resume a healthy diet, low in processed foods and her activity as tolerated. She will have visiting nurse services set up for evaluation and likely home physical therapy as well. TIME SPENT: Approximately 25 minutes spent on discharge of this patient, more than half of which was spent with care coordination at bedside for physical and exam. [id number]/[facility] #: [id number] GABE
[2018-07-26] MEDS: traMADol TAB* 50 MG PO PRN (14:40)
[2018-07-26] MEDS ORDERED: Enoxaparin(*) 40 MG/0.4 ML SYR SUBCUT SCH (21:00)
== END 2018-07-26 15:40 | disposition home or self-care (01) | DRG 442 ==
LOC: ED 12:48 → MED 22:01
PROVIDERS: ADMIT Internal Medicine; ATTEND Internal Medicine
DX: K71.0 Toxic liver disease with cholestasis (principal); E87.1 Hypo-osmolality and hyponatremia; R19.7 Diarrhea, unspecified; E78.00 Pure hypercholesterolemia, unspecified; I10 Essential (primary) hypertension; J45.909 Unspecified asthma, uncomplicated; K21.9 Gastro-esophageal reflux disease without esophagitis; K57.90 Diverticulosis of intestine, part unspecified, without perforation or abscess without bleeding; K58.9 Irritable bowel syndrome, unspecified; M46.90 Unspecified inflammatory spondylopathy, site unspecified; M19.041 Primary osteoarthritis, right hand; M46.82 Other specified inflammatory spondylopathies, cervical region; E86.0 Dehydration; D72.829 Elevated white blood cell count, unspecified; E78.5 Hyperlipidemia, unspecified; E66.9 Obesity, unspecified; I87.8 Other specified disorders of veins; R60.0 Localized edema; E87.6 Hypokalemia; N20.0 Calculus of kidney; M19.011 Primary osteoarthritis, right shoulder; R16.0 Hepatomegaly, not elsewhere classified; K42.9 Umbilical hernia without obstruction or gangrene; K57.30 Diverticulosis of large intestine without perforation or abscess without bleeding; T39.1X5A Adverse effect of 4-Aminophenol derivatives, initial encounter; T36.1X5A Adverse effect of cephalosporins and other beta-lactam antibiotics, initial encounter; T46.6X5A Adverse effect of antihyperlipidemic and antiarteriosclerotic drugs, initial encounter; Z88.5 Allergy status to narcotic agent; Z88.8 Allergy status to other drugs, medicaments and biological substances; Z91.041 Radiographic dye allergy status; Y92.9 Unspecified place or not applicable; Z92.21 Personal history of antineoplastic chemotherapy; Z87.442 Personal history of urinary calculi; Z85.3 Personal history of malignant neoplasm of breast; Z90.49 Acquired absence of other specified parts of digestive tract; Z82.49 Family history of ischemic heart disease and other diseases of the circulatory system; Z90.12 Acquired absence of left breast and nipple; Z68.39 Body mass index [BMI] 39.0-39.9, adult
CPT/HCPCS: 36415; 74177; 74181; 76376; 80048; 80053; 80074; 80076; 80329; 81003; 81015; 82728; 82977; 83516; 83540; 83550; 83605; 83630; 83690; 83735; 84100; 85025; 86038; 86140; 86225; 86255; 87045; 87046; 87077; 87086; 87899; 94640; 99284; A9270-GY; G0480; G8978-GP-CK; G8979-GP-CJ; G8987-GO-CJ; G8988-GO-CI; J1650; J3480; Q9967

== ENCOUNTER 2018-08-05 12:54 | Observation (INO) | payer MEDICARE ==
--- NOTE | 2018-08-05 13:31 | ED ---
Lower Extremity - HPI Summary HPI Summary: Patient is a 77 y/o F presenting to ED with complaints of bilateral leg redness , swelling and weeping. Patient had been previously admitted to [facility] for BLE cellulitis and had been discharged to home after the patient's Sx had improved. Today, patient had experienced increased swelling and redness of BLE. The patient notes that the erythema has been travelling up her legs. She went to her PCP today who recommended that the patient come to the ED for further evaluation. She additionally notes BLE pain and difficulty with ambulation secondary to pain. On triage, pain is rated 3/10, nothing is noted to aggravate/ alleviate Sx. Home medications and allergies are reviewed. - History of Current Complaint Chief Complaint: EDExtremityLower Stated Complaint: INFECTION IN BOTH LEGS Hx Obtained From: Patient Mechanism Of Injury: Other - no EARNESTINE Onset of Pain: Hours - Sx onset today, Prior to Arrival Onset/Duration: Days - Sx onset today Severity Currently: Mild - 3/10 Pain Intensity: 3 Pain Scale Used: 0-10 Numeric - 3/10 Timing: Constant, Lasting Hours - Sx onset today Location: Is Discrete @ - BLE Associated Signs And Symptoms: Positive: Swelling, Redness, Other - BLE pain, difficulty ambulating secondary to pain Aggravating Factor(s): Nothing Alleviating Factor(s): Nothing - Allergies/Home Medications Allergies/Adverse Reactions: Allergies Allergy/AdvReac Type Severity Reaction Status Date / Time warfarin Allergy Bleeding Verified 08/05/18 12:59 codeine AdvReac GI Upset Verified 08/05/18 12:59 diazepam AdvReac GI Upset Verified 08/05/18 12:59 Iodinated Contrast- Oral and AdvReac See Comment Verified 08/05/18 12:59 IV Dye levofloxacin AdvReac GI Upset Verified 08/05/18 12:59 Home Medications: Home Medications Ondansetron TAB* [Zofran 4 MG Tab*] 4 mg PO BID PRN 08/05/18 [History Confirmed 08/05/18] PMH/Surg Hx/FS Hx/Imm Hx Endocrine/Hematology History: Denies: Hx Anticoagulant Therapy, Hx Diabetes, Hx Thyroid Disease Cardiovascular History: Reports: Hx Hypercholesterolemia, Hx Hypertension, Other Cardiovascular Problems/Disorders - BLOOD CLOT IN 2011- UNKNOWN LOCATION Denies: Hx Pacemaker/ICD Respiratory History: Reports: Hx Asthma - ROUTINE MEDICATION FOR Denies: Hx Chronic Obstructive Pulmonary Disease (COPD) GI History: Reports: Hx Diverticulosis, Hx Gastroesophageal Reflux Disease - no longer taking medication, Hx Irritable Bowel - POSSIBLY, Other GI Disorders - HISTORY OF DIVERTICULITIS, having loose stools for past year Denies: Hx Ulcer History: Reports: Hx Kidney Infection - HX OF, Hx Kidney Stones, Other Problems/Disorders - BLOOD IN URINE Musculoskeletal History: Reports: Hx Arthritis - BACK, RIGHT THUMB, NECK, Other Musculoskeletal History - abdominal hernia, improved since weight loss Sensory History: Reports: Hx Contacts or Glasses Denies: Hx Hearing Aid Opthamlomology History: Reports: Hx Contacts or Glasses Neurological History: Reports: Other Neuro Impairments/Disorders - numb fingers dt carpel tunnel Psychiatric History: Denies: Hx Panic Disorder - Cancer History Cancer Type, Location and Year: BREAST-2011 Hx Chemotherapy: Yes - left breast 2011 Hx Radiation Therapy: No - Surgical History Surgery Procedure, Year, and Place: LEFT MASTECTOMY; LYMPH NODES REMOVED; SINUS SURGERY X 3; CHOLECYSECTOMY; D&C; CARPAL TUNNEL X 2 Hx Anesthesia Reactions: No Infectious Disease History: No Infectious Disease History: Denies: Hx Clostridium Difficile, Hx Hepatitis, Hx Human Immunodeficiency Virus (HIV), Hx of Known/Suspected MRSA, Hx Shingles, Hx Tuberculosis, Hx Known/ Suspected VRE, Hx Known/Suspected VRSA, History Other Infectious Disease, Traveled Outside the [place] in Last 30 Days - Family History Known Family History: Positive: Cardiac Disease, Hypertension Negative: Blood Disorder - Social History Alcohol Use: None Alcohol Amount: 1 PER WEEK Hx Substance Use: No Substance Use Type: Reports: None Hx Tobacco Use: No Smoking Status (MU): Never Smoked Tobacco Have You Smoked in the Last Year: No Review of Systems Negative: Fever - on vitals, temp is 98.5 F Musculoskeletal: Other - POSITIVE - BLE PAIN, WEEPING OF BLE, DIFFICULTY AMBULATING SECONDARY TO BLE PAIN Positive: Edema - BLE Skin: Other - POSITIVE - ERYTHEMA OF BLE All Other Systems Reviewed And Are Negative: Yes Physical Exam - Summary Physical Exam Summary: VITAL SIGNS: Reviewed. GENERAL: Patient is a well-developed and nourished female who is lying comfortable in the stretcher. Patient is not in any acute respiratory distress. HEAD AND FACE: No signs of trauma. No ecchymosis, hematomas or skull depressions. No sinus tenderness. EYES: PERRLA, EOMI x 2, No injected conjunctiva, no nystagmus. EARS: Hearing grossly intact. Ear canals and tympanic membranes are within normal limits. MOUTH: Oropharynx within normal limits. NECK: Supple, trachea is midline, no adenopathy, no JVD, no carotid bruit, no c- spine tenderness, neck with full ROM. CHEST: Symmetric, no tenderness at palpation LUNGS: Clear to auscultation bilaterally. No wheezing or crackles. CVS: Regular rate and rhythm, S1 and S2 present, no murmurs or gallops appreciated. ABDOMEN: Soft, non-tender. No signs of distention. No rebound no guarding, and no masses palpated. Bowel sounds are normal. EXTREMITIES: FROM in all major joints, no cyanosis or clubbing. BLE edema, some weeping from both extremities NEURO: Alert and oriented x 3. No acute neurological deficits. Speech is normal and follows commands. SKIN: Dry and warm; erythema at BLE from ankles to mid lower extremities Triage Information Reviewed: Yes Vital Signs On Initial Exam: Initial Vitals Temp Pulse Resp BP Pulse Ox 98.5 F 82 18 144/83 98 08/05/18 12:58 08/05/18 12:58 08/05/18 12:58 08/05/18 12:58 08/05/18 12:58 Vital Signs Reviewed: Yes Diagnostics - Vital Signs Vital Signs Temp Pulse Resp BP Pulse Ox 08/05/18 12:58 98.5 F 82 18 144/83 98 - Laboratory Result Diagrams: 08/05/18 13:47 08/05/18 13:47 Lab Statement: Any lab studies that have been ordered have been reviewed, and results considered in the medical decision making process. - Radiology CHEST X-RAY Radiology Interpretation Completed By: Radiologist Summary of Radiographic Findings: IMPRESSION: NO ACTIVE CARDIOPULMONARY DISEASE. THIS REPORT WAS REVIEWED BY DR. PEREZ. - Ultrasound No standard instances Ultrasound Interpretation Completed By: Radiologist Summary of Ultrasound Findings: VENOUS DOPPLER STUDY IMPRESSION: #. No evidence for RIGHT or LEFT lower extremity DVT. THIS REPORT WAS REVIEWED BY DR. PEREZ. Lower Extremity Course/Dx - Course Assessment/Plan: This patient is a 77-year-old female who presents to the emergency department with a chief complaint of worsening bilateral lower extremity cellulitis. Patient was seen by the primary care physician office, since the patient is complaining of pain, swelling and unable to ambulate secondary to the cellulitis and pain in the legs, he sent the patient to the emergency for the workup and management. Blood work without any significant abnormality except for potassium level of 3.1 for which the patient was given potassium chloride. Patients ALT 54, alkaline phosphatase 297, CRP is 373.79. Bilateral lower extremity ultrasound impression: No evidence for right or left lower extremity DVT. Chest x-ray impression: No active cardiopulmonary disease. In the ED course the patient was given Rocephin for the bilateral lower extremity cellulitis. The patient was sent by Dr. Heller the primary care physician and he reports that the patient is unable to care for herself. The patient lives alone and she reports that the patient is unsafe for independent living due to the risk of falls. Therefore he recommends for the patient to be sent to a week have the stay in a penitentiary facility. I discussed the test results and plan with Dr. Villavicencio who accepted the patient for admission. Patient is hemodynamically stable alert and oriented 3. - Diagnoses Provider Diagnoses: Cellulitis, leg - Physician Notifications Discussed Care Of Patient With: Madelaine Villavicencio Time Discussed With Above Provider: 15:08 Instructed by Provider To: Other - Patient's case was discussed with Dr. Villavicencio , Dr. Villavicencio accepts for admission. Discharge - Sign-Out/Discharge Documenting (check all that apply): Patient Departure - admit Patient Received Moderate/Deep Sedation with Procedure: No - Discharge Plan Condition: Good Disposition: ADMITTED TO [facility] - Billing Disposition and Condition Condition: GOOD Disposition: Admitted to [facility] - Attestation Statements Document Initiated by Margarita: Yes Documenting Scribe: SKYE THOMPSON Provider For Whom Margarita is Documenting (Include Credential): BENITEZ PEREZ MD Scribe Attestation: SKYE Ovalles, scribed for BENITEZ PEREZ MD on 08/05/18 at 2112. Scribe Documentation Reviewed: Yes Provider Attestation: The documentation as recorded by the SKYE stout accurately reflects the service I personally performed and the decisions made by me, BENITEZ PEREZ MD Status of Scribe Document: Viewed
[2018-08-05 14:02] LABS: ABS Basophils 0.1 10^3/ul (0-0.2); ABS Eosinophils 0.2 10^3/ul (0-0.6); ABS Lymphocytes 1.2 10^3/ul (1.0-4.8); ABS Monocytes 0.8 10^3/ul (0-0.8); ABS Neutrophils 6.1 10^3/ul (1.5-7.7); ABS Nucleated RBC 0 10^3/ul; Eosinophil % 1.9 %; Hematocrit 36 % (33-41); Hemoglobin 11.9 g/dL (12.0-16.0); Lymphocyte % 14.1 %; Mean Corpuscular HGB Conc 33 g/dL (31-36); Mean Corpuscular Hemoglobin 29 pg (27-31); Mean Corpuscular Volume 87 fL (80-97); Mean Platelet Volume 7.2 fL (7.4-10.4); Nucleated Red Blood Cells % 0; Platelet Count 444 10^3/uL (150-450); Red Blood Count 4.12 10^6 /uL (3.70-4.87); Red Cell Distribution Width 15 % (10.5-15); White Blood Count 8.2 10^3/uL (3.5-10.8)
[2018-08-05 14:15] LABS: INR 1.23 (0.82-1.09)
[2018-08-05 14:20] LABS: Albumin 2.9 g/dL (3.2-5.2); Albumin/Globulin Ratio 0.8 (1-3); BUN/Creatinine Ratio 13.1 (8-20); C Reactive Protein 373.79 mg/L (<8.01); Calcium 8.9 mg/dL (8.6-10.3); EGFR African American 115.7 (>60); EGFR Non-African American 95.6 (>60); Globulin 3.6 g/dL (2-4); Potassium 3.1 mmol/L (3.5-5.0); Total Bilirubin 0.6 mg/dL (0.2-1.0); Total Protein 6.5 g/dL (6.4-8.9)
[2018-08-05] MEDS ORDERED: cefTRIAXone(*) 1 GM in NS 0.9% 50 ML* 50 ML IVPB ONE (15:02)
[2018-08-05] MEDS ORDERED: Potassium Chlor TAB* 20 MEQ TAB.ER PO ONE (15:19)
[2018-08-05 15:42] LABS: Erythrocyte Sed Rate > 120 mm/Hr (0-29)
[2018-08-05] MEDS ORDERED: Acetaminophen TAB* 325 MG PO PRN (15:51)
[2018-08-05] MEDS ORDERED: Al Hydrox/Mg Hydrox/Simet LIQ* 30 ML UDC PO PRN (15:51)
[2018-08-05] MEDS ORDERED: Magnesium Hydroxide LIQ* 30 ML UDC PO PRN (15:51)
[2018-08-05] MEDS ORDERED: Potassium Chloride LIQUID* 20 MEQ PACKET PO ONE (16:04)
[2018-08-05] MEDS ORDERED: Furosemide IV* 10 MG/ML VIAL (40 MG) IV ONE (17:13)
--- NOTE | 2018-08-05 17:20 | HP ---
CC: Dr. Heller * HISTORY AND PHYSICAL: DATE OF ADMISSION: 08/05/18 PRIMARY CARE PROVIDER: Dr. Heller. ATTENDING PHYSICIAN: Dr. Madelaine Villavicencio * (dictated by Destiny Neri NP). CHIEF COMPLAINT: 1. Bilateral leg redness and weeping. 2. Unsafe at home. HISTORY OF PRESENT ILLNESS: Ms. Pulido is a 77-year-old female with a past medical history significant for asthma, hypertension, hyperlipidemia; who presented to the emergency room today with her friend after seeing her primary care provider, Dr. Heller, who had concern for bilateral leg swelling, redness and weeping; therefore, sent her to the emergency department. In addition, she reports that Dr. Heller would like her to be placed in a rehab facility as she does not believe she is safe at home currently as she is unstable on her feet given her leg swelling. The patient and friend report that her legs have increased in size since her discharge from this facility on 07/26/18. She reports her swelling has increased, in addition redness in the lower part of her shins has also increased. Her friend is at bedside, who supports these statements. The friend also reports that her legs have been "weeping" and also having small blisters. While in the emergency room, the patient had a CBC, which was unremarkable besides an elevated ESR at 120. In addition, she had a CMP, which revealed mild hypokalemia at 3.1. She also was noted to have an elevated alk phos at 279 , but it should be mentioned that this is lower than her previous results in July, which were in the 600s. She also had a slightly elevated ALT at 54, but again once, this is lower than the patient's previous of 180. Finally, the patient also had a CRP, which was 373.79, but once again, this is lower from the patient's previous admission, which was 539.78. Given the patient's presentation and failure to be successful at home, the hospitalists were asked to consult for admission. PAST MEDICAL HISTORY: 1. Asthma. 2. Hypertension. 3. Hyperlipidemia. 4. GERD. 5. History of breast cancer in 2011, status post left-sided mastectomy and chemotherapy. PAST SURGICAL HISTORY: 1. Left mastectomy. 2. D and C x2. 3. Cholecystectomy. 4. Sinus surgery x3. ALLERGIES: WARFARIN, CODEINE, DIAZEPAM, IODINE CONTRAST, LEVOFLOXACIN. FAMILY HISTORY: Father with heart disease, from heart disease; brother with heart disease; mother with heart disease, due to stroke. SOCIAL HISTORY: She is a lifetime nontobacco user, social alcohol user, denies drug use. 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 She does have VNA services and PT at home. Her surrogate decision maker will be her daughter, Fior Boudreaux, in the event that she cannot make decisions for herself. REVIEW OF SYSTEMS: The patient reports bilateral leg swelling, redness and stiffness. A 14-point review of systems was completed and all others were negative. PHYSICAL EXAMINATION GENERAL: Ms. Pulido is well developed, slightly obese. She is sitting in the ED stretcher. She appears stated age. She appears to be in no acute distress. VITAL SIGNS: Temp 98.5, HR 82, RR 18, O2 saturation 98% on room air, BP 144/83. HEENT: EOMs intact. PERRLA. Oral mucosa is moist without lesions. Posterior pharynx is clear. NECK: Full range of motion. No lymphadenopathy. RESPIRATORY: Symmetrical chest expansion. No accessory muscle use. Lungs are clear to auscultation. No rhonchi, wheezes, or rales. CV: Regular rate and rhythm. S1, S2 present. No murmurs, rubs, or gallops. ABDOMEN: Soft, nontender to palpation. Bowel sounds are normoactive throughout. EXTREMITIES: Skin is warm and smooth bilaterally. The patient has 2+ pitting edema on bilateral lower extremities. No clubbing or cyanosis. Pedal pulses 2 + bilaterally. MUSCULOSKELETAL: The patient has no pain or deformities. NEURO: The patient is awake, alert, and oriented x4. Motor strength is 5/5 in the upper and lower extremities. SKIN: The patient has redness to the anterior jackson of bilateral lower extremities starting at ankle and extending to mid jackson. Area is dry and cracked. It has no warmth, drainage, or demarcation. No blisters noted. Otherwise, skin is grossly intact. DIAGNOSTIC STUDIES/LAB DATA: WBC 8.2, hemoglobin 11.9, hematocrit 36, platelets 444. Sodium 139, potassium 3.1, chloride 100, carbon dioxide 32, BUN 8, creatinine 0.61, glucose 39, lactic 1.2, calcium 8.9. Total bilirubin 0.60, AST 28, ALT 54, alk phosphatase 297. CRP 373.79. Total protein 6.5, albumin 2.9, globulin 3.6. Chest x-ray, impression: No active cardiopulmonary disease. Venous Doppler study, impression: No evidence of right or left lower extremity DVT. ASSESSMENT AND PLAN: Ms. Pulido is a 77-year-old female with a past medical history significant for asthma, hypertension, hyperlipidemia; who presented to the emergency department today with complaints of lower extremity swelling, erythema, weeping. The patient will be admitted OBV. 1. Lower extremity edema. I suspect the patient's lower extremity edema is multifactorial including a recent decrease in her Lasix. It should be mentioned the patient was on Lasix 40 mg p.o. b.i.d. until 07/26/18 when she was discharged with Lasix 40 p.o. daily. In addition, I believe that her edema is also exacerbated by the fact that her albumin is 2.9. Therefore, I will order the patient an additional dose of Lasix and monitor her I's and O's and daily weights. I will also order the patient to have her bilateral legs wrapped with Lorenzo bandages to promote decrease in swelling. 2. Cellulitis. There was concern for cellulitis from the patient's primary care provider. In addition, the patient was started on Rocephin here in the emergency department. It should be noted that the patient has no leukocytosis, no fever, no tachycardia, no warmth to these areas. Since the area is noted to be red bilaterally, I suspect this is more secondary to the patient's fluid retention. Therefore, I believe the patient would benefit from diuresis. I do not believe IV antibiotics are necessary at this point. We will continue to monitor. 3. Asthma. We will continue the patient's home medication of albuterol. 4. Hypertension. On the patient's previous admission, her lisinopril was stopped given her liver injury. She is currently normotensive. I will continue the patient's Lasix as mentioned above. I will also give her IV Lasix. I would consider discharging the patient on higher dose of Lasix given her recurrent edema. 5. Hyperlipidemia. The patient was previously on a statin, but this was stopped given her previous possible liver injury. Please see her previous H and P. I will order a fasting lipid panel. 6. Gastroesophageal reflux disease. I will continue the patient's famotidine and omeprazole. 7. History of breast cancer, status post left-sided mastectomy and chemotherapy. I will encourage the patient to follow up with her primary care for routine exams. 8. FEN: The patient will be provided with a low-sodium diet given her edema. 9. Code status: The patient is a full code. 10. DVT prophylaxis: Based on DVT Risk Assessment, the patient is high risk. I will order subcu heparin. TIME SPENT: Approximately 65 minutes was spent on this admission, greater than half the time was spent with the patient and friend obtaining my history, performing my physical exam, and reviewing my plan of care. This case has also been reviewed with my attending, Dr. Villavicencio, who is in agreement with my plan of care. Reviewed by DESTINY NERI NP 08/06/18 @ 1419 [id number]/CPS #: [id number] MTDCristian
[2018-08-05 18:24] LABS: Urine Appearance Cloudy; Urine Bilirubin Negative (Negative); Urine Blood Negative (Negative); Urine Color Yellow; Urine Glucose Negative (Negative); Urine Ketones Negative (Negative); Urine Nitrite Negative (Negative); Urine Protein Negative (Negative); Urine Specific Gravity 1.008 (1.010-1.030); Urine Urobilinogen Negative (Negative)
[2018-08-05] MEDS: Mometasone/Formoter 200/5 MDI INH SCH (19:25)
[2018-08-05] MEDS: Ibuprofen TAB* 400 MG PO PRN (21:20)
[2018-08-05] MEDS: Famotidine TAB* 20 MG PO SCH (21:20)
[2018-08-05] MEDS: Heparin VIAL(*) 5000 UNITS/ML VIAL (FIVE THOUSAND) SUBCUT SCH (21:20)
[2018-08-05] MEDS ORDERED: Analgesic BALM* 114 GM TOPICAL PRN (23:22)
[2018-08-06] MEDS: Heparin VIAL(*) 5000 UNITS/ML VIAL (FIVE THOUSAND) SUBCUT SCH ×3 (06:04→20:13)
[2018-08-06 06:26] LABS: ABS Basophils 0 10^3/ul (0-0.2); ABS Eosinophils 0.3 10^3/ul (0-0.6); ABS Lymphocytes 1.1 10^3/ul (1.0-4.8); ABS Monocytes 0.7 10^3/ul (0-0.8); ABS Neutrophils 4.2 10^3/ul (1.5-7.7); ABS Nucleated RBC 0 10^3/ul; Eosinophil % 4.1 %; Hematocrit 33 % (33-41); Hemoglobin 11.2 g/dL (12.0-16.0); Lymphocyte % 17.2 %; Mean Corpuscular HGB Conc 34 g/dL (31-36); Mean Corpuscular Hemoglobin 30 pg (27-31); Mean Corpuscular Volume 87 fL (80-97); Mean Platelet Volume 7.4 fL (7.4-10.4); Nucleated Red Blood Cells % 0; Platelet Count 398 10^3/uL (150-450); Red Blood Count 3.77 10^6 /uL (3.70-4.87); Red Cell Distribution Width 14 % (10.5-15); White Blood Count 6.3 10^3/uL (3.5-10.8)
[2018-08-06 06:54] LABS: Albumin 2.5 g/dL (3.2-5.2); Albumin/Globulin Ratio 0.8 (1-3); BUN/Creatinine Ratio 12.5 (8-20); Calcium 8.7 mg/dL (8.6-10.3); EGFR African American 109.5 (>60); EGFR Non-African American 90.5 (>60); Globulin 3.2 g/dL (2-4); HDL Cholesterol 37.5 mg/dL; Indirect Bilirubin 0.4 mg/dL (0.3-1.0); Potassium 3.5 mmol/L (3.5-5.0); Total Bilirubin 0.6 mg/dL (0.2-1.0); Total Protein 5.7 g/dL (6.4-8.9)
[2018-08-06] MEDS: Furosemide TAB* 20 MG PO SCH (08:13)
[2018-08-06] MEDS: Famotidine TAB* 20 MG PO SCH ×2 (08:13→20:13)
[2018-08-06] MEDS: Mometasone/Formoter 200/5 MDI INH SCH ×2 (08:23→19:26)
--- NOTE | 2018-08-06 17:09 | CONSULT ---
Subjective Date of Service: 08/06/18 Interval History: Ms. Pulido is a 77 yo female with PMH significant for Patient seen and examined at bedside. Family History: Unchanged from Admission Social History: Unchanged from Admission Past Medical History: Unchanged from Admission Review of Systems - Measurements Intake and Output: Intake and Output Last 24 Hours 08/04/18 08/05/18 08/06/18 08/07/18 06:59 06:59 06:59 06:59 Intake Total 1010 740 Output Total 1750 1800 Balance -740 -1060 Weight 185 lb 3.2 oz Intake: Oral 1010 740 Output: Urine 1450 1800 Lutz 300 Other: Estimated Void Large Large Date of Last Bowel 07/04/18 Movement # Bowel Movements 0 0 # Voids 1 3 - Review of Systems Constitutional Symptoms: Negative: Fever, Other - Chills Dermatology: Positive: Other - Bilateral LE erythema Cardiology: Positive: Edema Objective Active Medications: Acetaminophen (Tylenol Tab*) 650 mg PO Q4H PRN Reason: FEVER/PAIN Al Hydrox/Mg Hydrox/Simethicone (Maalox Plus*) 30 ml PO Q6H PRN Reason: INDIGESTION Famotidine (Pepcid Tab*) 20 mg PO BID ERINN Furosemide (Lasix Tab*) 40 mg PO DAILY ERINN Heparin Sodium (Porcine) (Heparin Vial(*)) 5,000 units SUBCUT Q8HR ERINN Ibuprofen (Motrin Tab*) 400 mg PO Q6H PRN Reason: PAIN Magnesium Hydroxide (Milk Of Magnesia Liq*) 30 ml PO Q4H PRN Reason: CONSTIPATION Mometasone Furoate/Formoterol Fumar (Dulera 200/5 Mdi*) 2 puff INH BID ERINN Multi-Ingredient Liniment/Rub (Faisal Hope*) 1 applic TOPICAL BID PRN Reason: PAIN - MILD Vital Signs - 8 hr 08/06/18 08/06/18 11:50 15:51 Temperature 97.5 F 97.6 F Pulse Rate 70 75 Respiratory 18 20 Rate Blood Pressure 139/87 111/41 (mmHg) O2 Sat by Pulse 100 98 Oximetry Oxygen Devices in Use Now: None Appearance: NAD, laying in bed Ears/Nose/Mouth/Throat: Mucous Membranes Moist Respiratory: Symmetrical Chest Expansion and Respiratory Effort Extremities: - - Bilateral LE lymphedema Skin: - - See skin note below Neurological: Alert and Oriented x 3 Nutrition: Taking PO's Result Diagrams: 08/06/18 06:08 08/06/18 06:08 Microbiology and Other Data: Microbiology 08/05/18 13:51 Aerobic Blood Culture - Preliminary Blood Venous No Growth Day 1 Anaerobic Blood Culture - Preliminary No Growth Day 1 08/05/18 13:47 Aerobic Blood Culture - Preliminary Blood Venous No Growth Day 1 Anaerobic Blood Culture - Preliminary No Growth Day 1 Skin Deviation Note - Skin Deviation Findings Recommendations: Elevated LEs, JENNIFER wraps. Consider ABIs and wound clinic referral. Wound Problem/Plan Is Patient a Wound Clinic Patient: No Attending: Maine Roberson
--- NOTE | 2018-08-06 18:06 | PN ---
Subjective Family History: Unchanged from Admission Social History: Unchanged from Admission Past Medical History: Unchanged from Admission Objective Active Medications: Acetaminophen (Tylenol Tab*) 650 mg PO Q4H PRN PRN Reason: FEVER/PAIN Al Hydrox/Mg Hydrox/Simethicone (Maalox Plus*) 30 ml PO Q6H PRN PRN Reason: INDIGESTION Famotidine (Pepcid Tab*) 20 mg PO BID [facility] Last Admin: 08/06/18 08:13 Dose: 20 mg Furosemide (Lasix Tab*) 40 mg PO DAILY [facility] Last Admin: 08/06/18 08:13 Dose: 40 mg Heparin Sodium (Porcine) (Heparin Vial(*)) 5,000 units SUBCUT Q8HR [facility] Last Admin: 08/06/18 13:53 Dose: 5,000 units Ibuprofen (Motrin Tab*) 400 mg PO Q6H PRN PRN Reason: PAIN Last Admin: 08/05/18 21:20 Dose: 400 mg Magnesium Hydroxide (Milk Of Magnesia Liq*) 30 ml PO Q4H PRN PRN Reason: CONSTIPATION Mometasone Furoate/Formoterol Fumar (Dulera 200/5 Mdi*) 2 puff INH BID [facility] Last Admin: 08/06/18 08:23 Dose: 2 puff Multi-Ingredient Liniment/Rub (Faisal Hope*) 1 applic TOPICAL BID PRN PRN Reason: PAIN - MILD Vital Signs - 8 hr 08/06/18 08/06/18 11:50 15:51 Temperature 97.5 F 97.6 F Pulse Rate 70 75 Respiratory 18 20 Rate Blood Pressure 139/87 111/41 (mmHg) O2 Sat by Pulse 100 98 Oximetry Oxygen Devices in Use Now: None Result Diagrams: 08/06/18 06:08 08/06/18 06:08 Microbiology and Other Data: Microbiology 08/05/18 13:51 Aerobic Blood Culture - Preliminary Blood Venous No Growth Day 1 Anaerobic Blood Culture - Preliminary No Growth Day 1 08/05/18 13:47 Aerobic Blood Culture - Preliminary Blood Venous No Growth Day 1 Anaerobic Blood Culture - Preliminary No Growth Day 1 Assess/Plan/Problems-Billing Assessment: This is a 77 year old female with recent hospitalization that presents after being sent in by her PCP yesterday for weakness and difficulty ambulating. - Patient Problems (1) Lymphedema of both lower extremities Code(s): I89.0 - LYMPHEDEMA, NOT ELSEWHERE CLASSIFIED SNOMED Code(s): 46348848697188344 Comment: - Wound care consult appreciated - Recommends soap and water wash, lotion and mild compression with JENNIFER wraps - Should follow with lymphedema clinic as an outpatient - No leukocytosis or fever, does not appear to be cellulitis, no need to continue atbx - continue daily lasix PO (2) Weakness Code(s): R53.1 - WEAKNESS SNOMED Code(s): 01088517 Comment: - PT eval complete, recommending rehab, pending OT eval - Referrals for STR made (3) DVT prophylaxis Code(s): LQE5349 - SNOMED Code(s): 014679722 Comment: - HSQ (4) Hypertension Code(s): I10 - ESSENTIAL (PRIMARY) HYPERTENSION SNOMED Code(s): 95162969 Comment: - Stable on lasix daily (5) Full code status Code(s): Z78.9 - OTHER SPECIFIED HEALTH STATUS SNOMED Code(s): 990448863 Status and Disposition: Plan for STR
[2018-08-06] MEDS: Ibuprofen TAB* 400 MG PO PRN (20:13)
[2018-08-07] MEDS: Heparin VIAL(*) 5000 UNITS/ML VIAL (FIVE THOUSAND) SUBCUT SCH ×2 (06:32→13:52)
[2018-08-07] MEDS: Mometasone/Formoter 200/5 MDI INH SCH (07:40)
[2018-08-07] MEDS: Furosemide TAB* 20 MG PO SCH (10:20)
[2018-08-07] MEDS: Famotidine TAB* 20 MG PO SCH (10:20)
[2018-08-07 11:08] VITALS: BP 114/78
--- NOTE | 2018-08-07 14:55 | DS ---
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 Bui; Dr. Heller * DATE OF ADMISSION: 08/05/2018. DATE OF DISCHARGE: 08/07/2018. CHIEF COMPLAINT: Weakness and gait disturbance. PRIMARY CARE PHYSICIAN: Dr. Moisés Heller. MY ATTENDING PHYSICIAN FOR TODAY: Dr. Bui * (dictated by Jack Chowdhury NP). HOSPITAL COURSE: Please refer to admitting history and physical on the . In short, Ms. Pulido is a 77-year-old female patient who had a recent hospitalization for cellulitis and weakness who was discharged to home. The patient did have some VNS services in the house and went to see her primary care provider for follow-up. The patient had a great difficulty ambulating and there was some concern that she had some persistent cellulitis. She had some weeping edema bilaterally to the lower extremities and again some difficulty ambulating. Also, there was report that there was concern for falls. The patient was sent to the emergency department for re-evaluation. At that time, there was concern for additional cellulitis. The patient received Ceftriaxone in the emergency department and was admitted to observation and also for a physical therapy evaluation. The patient does have a history of chronic bilateral lymphedema of the lower extremities. She did have a wound care consult with Kendra Finney NP who noted that her weeping extremities did not appear to be infectious. They are discolored and red; however, this is secondary to her chronic lymphedema and swelling and not because of cellulitic changes. Her recommendations at that time were soap and water wash, applying lotion and mild compression JENNIFER wraps, and elevation when possible. It should be noted that the patient had no leukocytosis, had no fever , and no other symptoms to correlate with acute infectious process. She did receive Lasix IV for some diuresis and was continued on p.o. Lasix daily. For her general weakness, she did have evaluation with Physical Therapy who recommended subacute rehab for gait training and stability. On the day of discharge, the patient denies any fever, fatigue or chills, no headache, no visual disturbances, no shortness of breath, no chest pain, no nausea, no vomiting, no abdominal pain, no urinary complaints, no bowel complaints, no arthralgias or myalgias. She does have some generalized weakness , some sensitivity to the lower extremities, and some heaviness in the lower extremities, but otherwise no further constitutional complaints. PHYSICAL EXAMINATION TODAY: General: Well-nourished, well-appearing, older female in no acute distress. Vital Signs: Blood pressure 114/78, heart rate 81 , respiratory rate 16, O2 saturation 100 percent on room air with a temperature of 97.8. HEENT: The patient is atraumatic, normocephalic. PERRLA. Nonicteric sclerae. Oral mucosa is moist. Tongue is midline. Neck: Supple, nontender. No JVD noted. No carotid bruit auscultated. Cardiovascular: S1, S2 present. No murmurs, gallops or rubs noted. Rate and rhythm are regular. Lungs: Clear bilaterally to auscultation with no wheezing, rhonchi or rales. Abdomen: Soft, nontender, nondistended. Positive bowel sounds all four quadrants. : Deferred. Musculoskeletal: There is no clubbing and no cyanosis. She does have severe edema bilaterally of the lower extremities and is nonpitting in nature. She does have erythema from about the mid jackson to the ankle with some weeping noted which is improved. There are no blisters or open areas of the skin noted. There was no purulent drainage. She does have palpable pulses distal to these erythematous changes. Full range of motion is noted. Gross motor and sensation are intact. Neurologic: She is grossly intact with no focal deficits. Psychiatric: She is cooperative and appropriate. LABORATORY DATA: WBC 6.3, RBC 3.77, hemoglobin 11.2, hematocrit 33, platelets 398; sodium 139, potassium 3.5, chloride 101, BUN 8, creatinine 0.64, GFR 90.5, lactic acid 1.2, calcium 8.7, bilirubin 0.60, AST 24, ALT 48, alk phos 268, total protein 5.7, albumin 2.5, globulin 3.2, triglycerides 75, cholesterol 127 , LDL 75, HDL 37.5. Urinalysis is negative for any acute infectious process. INR was 1.23. IMAGING: Venous Doppler of the bilateral lower extremities dated 08/05/2018 shows no evidence of DVT. Chest x-ray dated 08/05/2018 shows no active cardiopulmonary disease. DISCHARGE DIAGNOSES: 1. Lymphedema bilaterally of the lower extremities. 2. General weakness secondary to number 1. 3. Physical deconditioning. 4. History of hypertension. MEDICATIONS FOR DISCHARGE: 1. Zofran 4 mg one tab p.o. b.i.d. as needed. 2. Lasix 40 mg p.o. daily. 3. Advair 250/50 one puff inhaled 2 times a day. 4. Famotidine 20 mg p.o. b.i.d. 5. Calcium with vitamin D3 supplement one tab p.o. daily. DISPOSITION: Patient will be discharged to [facility] via ambulance transport in stable condition. DIET: Heart-healthy, low sodium as tolerated. ACTIVITY: Progress as tolerated. FOLLOW-UP: The patient was instructed to follow-up with her primary care provider after discharge as needed and also instructed to follow-up with the lymphedema clinic as needed. TIME SPENT: Approximately 35 minutes interviewing the patient, developing discharge plan of care, and discussing medications for discharge. JACK CHOWDHURY NP [id number]/[id number] #: [id number] [id number]
== END 2018-08-07 16:45 ==
LOC: ED 12:54 → MED 15:51
PROVIDERS: ADMIT Hospitalist; ATTEND Internal Medicine
DX: I89.0 Lymphedema, not elsewhere classified (principal); R53.1 Weakness; I10 Essential (primary) hypertension; J45.909 Unspecified asthma, uncomplicated; Z85.3 Personal history of malignant neoplasm of breast; K21.9 Gastro-esophageal reflux disease without esophagitis; Z88.6 Allergy status to analgesic agent; R60.9 Edema, unspecified; E66.9 Obesity, unspecified; Z86.711 Personal history of pulmonary embolism; Z87.442 Personal history of urinary calculi
CPT/HCPCS: 36415; 71045; 80053; 80061; 81003; 82248; 83605; 85025; 85610; 85652; 85730; 86140; 87040; 93970; 94640; 96365; 96375; 99285; A9270-GY; G0378; G8978-GP-CK; G8979-GP-CH; G8987-GO-CK; G8988-GO-CI; J0696; J1644; J1940

== ENCOUNTER 2019-03-21 13:29 | Emergency (ER) | payer MEDICARE, OTHER ==
--- OUTSIDE RECORDS SUMMARY | 2019-03-21 14:29 | XMS REPORT | Summary of Care ---
:1940 Author Organization [facility] Address [address] [facility] [place] [address] Care Team Providers Name Role Phone Moisés Heller Primary Care Provider Isabel Baldwin Early Interventionist Unavailable Pihl Mueller MD Unavailable Reason for Referral MRI/CAT/PET Scan (Routine) Status Reason Specialty Diagnoses / Referred By Referred To Procedures Contact Contact Authorized Diagnoses Breast signs and symptoms Phil Mueller Procedures US BREAST LIMITED RIGHT MD Fátima [address] [facility] [place] [address] Reason for Visit Reason Comments Follow Up Has had tenderness and soreness in R breast for approx. a month / has had some yellowish discharge coming from nipple area on and off also Encounter Details Date Type Department Care Team Description 03/03/2019 Office Visit [facility] Phil Mueller Breast signs and Surgery MD Fátima symptoms (Primary Dx) [address] [place] [address] [place] [address] Allergies Active Allergy Reactions Severity Noted Date Comments Codeine 07/13/2003 Coumadin Dermatologic Reaction 05/14/2012 necrosis Doxycycline GI Reaction 11/28/2017 Dye Intravenous Radiographic GI Reaction 08/26/2015 Imaging Contrast Dye Oral Radiographic Imaging GI Reaction 11/13/2011 Contrast Environmental Respiratory Reaction 04/15/2018 Levaquin GI Reaction Medium 06/08/2010 Valium GI Reaction 07/13/2003 vomitting documented as of this encounter (statuses as of 03/05/2019) Medications Medication Sig Dispensed Refills Start Date End Date Status CALCIUM 600 + D Take by mouth 0 Active 600-200 MG-UNIT Oral DAILY. Tab furosemide (LASIX) 80 Take 1 Tab by 30 Tab 5 12/17/2018 Active MG Oral Tab mouth DAILY. Spironolactone 50 MG Take 1 Tab by 30 Tab 5 12/17/2018 Active Oral Tab mouth DAILY. famotidine (PEPCID) 20 Take 1 Tab by 60 Tab 5 12/17/2018 Active MG Oral Tab mouth TWICE DAILY. Multiple Vitamin Take by mouth. 0 Active (MULTI-VITAMIN DAILY PO) B Complex Vitamins (B Take by mouth. 0 Active COMPLEX PO) Probiotic Product Take by mouth. 0 Active (PRO-BIOTIC BLEND PO) fluticasone-salmeterol Take 1 INHL by 3 Inhaler 5 02/12/2019 Active diskus (ADVAIR DISKUS) inhalation TWICE 250-50 MCG/DOSE DAILY. Inhalation AEROSOL POWDER, BREATH ACTIVATEDIndications: Moderate intermittent asthma without complication documented as of this encounter (statuses as of 03/05/2019) Active Problems Problem Noted Date BMI 37.0-37.9, adult 08/29/2018 Lymphedema of both lower extremities 08/29/2018 Osteopenia 07/27/2017 Nephrolithiasis 04/05/2017 Overview: Urology MD Dr Dey Tubular adenoma of colon 08/16/2016 Overview: Colonoscopy 08/2016 History of pulmonary embolism 05/13/2012 Cancer of left breast 12/20/2011 Overview: 2 lymph nodes involved S/p chemotherapy S/p left MRM [address] Rico Moderate intermittent asthma without complication 12/29/2009 Esophageal reflux 03/25/2007 Essential hypertension Hyperlipidemia Obesity documented as of this encounter (statuses as of 03/05/2019) Resolved Problems Problem Noted Date Resolved Date Bilateral leg weakness 08/29/2018 12/31/2018 Chronic nausea 04/05/2017 10/18/2018 Dysphasia 09/08/2013 04/05/2017 Abnormal MRI of head 09/08/2013 10/18/2018 THERAPEUTIC DRUG MONITORING 05/13/2012 03/18/2013 Overview: [facility] Referred by Date anticoagulation started- 05/07/12 INR Goal- 2.0-3.0 Indication for anticoagulation- PE Duration- indefinite [facility] is requesting permission to treat from the [facility]. Please advise. Author: Carolina Hyde LPN 05/13/2012 14:06 05/14/12 Patient was seen today she had several lesions around right breast that were weeping blood, she had an appointment with oncology after [facility]'s appointment she w as diagnosed with vasculitis DrMarline stopped her coumadin she is to continue on lovenox 100 mg sc Q12H , per PCP this may be a temporary situation and to keep this patient enrolled in the coumadin clinic, Carolina Hyde LPN 07/18/13 Pt had a reaction to coumadin continues on lovenox injections daily per orders PCP she can be discharged from the [facility] Clinic if in the future she needs to [facility] the patient. Carolina Hyde LPN Diverticulosis 04/05/2017 documented as of this encounter (statuses as of 03/05/2019) Immunizations Name Administration Dates Next Due Cosyntropin 0.25 Mg 07/31/2017 (Deferred: Physician order: Patient to follow-up with PCP) Influenza (IM) Preservative Free 12/31/2018, 01/08/2013, 01/26/2010, 01/12/2009 Influenza Vaccine High Dose 04/20/2017, 12/24/2014, 12/10/2013 Influenza Vaccine Whole 02/13/2016, 01/21/2008, 02/13/2007 Influenza Virus Vaccine Pres Free 6-35 01/15/2012, 01/27/2011 Months Neulasta (6 mg) 04/10/2012, 03/12/2012, 02/20/2012, 01/30/2012 PNEUMOCOCCAL POLYSACCHARIDE VACCINE 11/14/2010 Pneumococcal Conjugate(13 Valent) 02/03/2015 TDAP Vaccine 02/17/2011 ZOSTER (ZOSTAVAX) VACCINE 08/17/2014 documented as of this encounter Social History Tobacco Use Types Packs/Day Years Used Date Never Smoker Smokeless Tobacco: Never Used Alcohol Use Drinks/Week oz/Week Comments Yes 0 Standard drinks or equivalent 0.0 occ Social Isolation Answer Date Recorded In a typical week, how many times do you More than three times a week 2018 talk on the phone with family, friends, or neighbors? How often do you get together with friends Twice a week 01/27/2019 or relatives? How often do you attend latter day or More than 4 times per year 01/27/2019 voodoo services? Do you belong to any clubs or Yes 01/27/2019 organizations such as latter day groups, unions, fraternal or athletic groups, or school groups? How often do you attend meetings of the 1 to 4 times per year 01/27/2019 clubs or organizations you belong to? Are you now , , , 01/27/2019 , never or living with a partner? Physical Activity Answer Date Recorded On average, how many days per week do you engage in moderate to 2 days 2018 strenuous exercise (like walking fast, running, jogging, dancing, swimming, biking, or other activities that cause a light or heavy sweat)? On average, how many minutes do you engage in exercise at this 40 min 2018 level? Stress Answer Date Recorded Do you feel stress - tense, restless, nervous, or Only a little 01/27/2019 anxious, or unable to sleep at night because your mind is troubled all the time - these days? Financial Resource Strain Answer Date Recorded How hard is it for you to pay for the very basics like Not very hard 2018 food, housing, medical care, and heating? Intimate Partner Violence Answer Date Recorded Within the last year, have you been afraid of your partner or No 01/27/2019 ex-partner? Within the last year, have you been humiliated or emotionally No 01/27/2019 abused in other ways by your partner or ex-partner? Within the last year, have you been kicked, hit, slapped, or No 01/27/2019 otherwise physically hurt by your partner or ex-partner? Within the last year, have you been raped or forced to have any No 01/27/2019 kind of sexual activity by your partner or ex-partner? Food Insecurity Answer Date Recorded Within the past 12 months, you worried that your food would Never true 2018 run out before you got money to buy more. Within the past 12 months, the food you bought just didn't Never true 2018 last and you didn't have money to get more. Transportation Needs Answer Date Recorded In the past 12 months, has lack of transportation kept you from No 01/27/2019 medical appointments or from getting medications? In the past 12 months, has lack of transportation kept you from No 01/27/2019 meetings, work, or getting things needed for daily living? Sex Assigned at Date Recorded Not on file Job Start Date Occupation Industry Not on file Not on file Not on file Travel History Travel Start Travel End No recent travel history available. documented as of this encounter Last Filed Vital Signs Vital Sign Reading Time Taken Comments Blood Pressure 140/70 03/03/2019 1:11 PM EST Pulse 72 03/03/2019 1:11 PM EST Temperature - - Respiratory Rate - - Oxygen Saturation - - Inhaled Oxygen Concentration - - Weight 81.6 kg (180 lb) 03/03/2019 1:11 PM EST Height 147.3 cm (4' 10") 03/03/2019 1:11 PM EST Body Mass Index 37.62 03/03/2019 1:11 PM EST documented in this encounter Progress Notes Phil Mueller MD - 03/03/2019 1:00 PM EST PATIENT: Ute Pulido : 1940 DATE OF SERVICE: 03/03/2019 PRIMARY CARE PROVIDER: Moisés Heller CHIEF COMPLAINT: Chief Complaint Patient presents with Follow Up Has had tenderness and soreness in R breast for approx. a month / has had some yellowish discharge coming from nipple area on and off also HISTORY OF PRESENT ILLNESS: Ute Pulido is a 78-y.o. female who presents for evaluation of right breast periareolar redness and soreness. She says she had a little drainage from her right areolar or periareolar skin which looklike pus. She says the redness and tenderness have been resolving. She has a personal history of left breast cancer. 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 On 12/15/2011, left mastectomy and left axillary sentinel lymph node biopsy 2. On 12/22/2011, level 1 and 2 left axillary lymph node dissection 3. Adjuvant chemotherapy4 cycles of docetaxel and cyclophosphamide, chemotherapy began on 01/29/2012 and was completed on 04/08/2012. She required dose reduction of her chemotherapy due to severe skin toxicity. 4. Adjuvant endocrine therapy letrozole was initiated in 05/2012 and discontinued in 06/2016 Gynecologic history: OB History Para AB Living 4 3 1 2 SAB 1 Obstetric Comments Age at first live 26 Family history: Family History Problem Relation Age of Onset Cancer Sister colon Heart Brother 40 open heart surgery Heart Father 54 cardiac arrest Heart Mother Arthritis Mother Stroke Mother High Cholesterol Son Prostate Cancer Brother Alcohol/Drug No family history Allergies No family history Asthma No family history Blood Disease No family history Diabetes No family history Genetic No family history GI No family history Genitourinary () No family history Hypertension No family history Psychiatry No family history Seizures No family history Thyroid No family history Respiratory No family history Past Medical History: Diagnosis Date Asthma Breast cancer (HCC) Chemo-, L Mastectomy Cancer (HCC) 2011 breast ca with mastectomy Closed fracture of right humerus Diverticulosis Esophageal reflux 03/25/2007 History of breast surgery left mastectomy History of chemotherapy History of mastectomy HTN (hypertension) Hyperlipidemia Kidney stone Obesity Postmenopausal Pulmonary embolism and infarction (HCC) 05/13/2012 Tubular adenoma of colon 08/16/2016 Past Surgical History: Procedure Laterality Date BREAST OPERATION NEC 04/08/2018 Re-excision of Left breast for clear margins CARPAL TUNNEL RELEASE 01/2016 First one done in Jan 2016 and / wrist done in Apr 2016 CHOLECYSTECTOMY COLONOSCOPY 2006 pending Jan 03 D&C US BREAST BIOPSY 11/2011 LAPAROSCOPIC TUBAL LIGATION LITHOTRIPSY 2017 done in July or August .she can't remembert NASAL/SINUS ENDOS SURGERY W/ BIOPSY TN LIGATE FALLOPIAN TUBE TN MASTECTOMY, SIMPLE, COMPLETE 12/2011 left UNLISTED PROCEDURE,MUSCULOSKELE Current Outpatient Medications Medication Sig B Complex Vitamins (B COMPLEX PO) Take by mouth. CALCIUM 600 + D 600-200 MG-UNIT Oral Tab Take by mouth DAILY. famotidine (PEPCID) 20 MG Oral Tab Take 1 Tab by mouth TWICE DAILY. fluticasone-salmeterol diskus (ADVAIR DISKUS) 250-50 MCG/DOSE Inhalation AEROSOL POWDER, BREATH ACTIVATED Take 1 INHL by inhalation TWICE DAILY. furosemide (LASIX) 80 MG Oral Tab Take 1 Tab by mouth DAILY. Multiple Vitamin (MULTI-VITAMIN DAILY PO) Take by mouth. Probiotic Product (PRO-BIOTIC BLEND PO) Take by mouth. Spironolactone 50 MG Oral Tab Take 1 Tab by mouth DAILY. No current facility-administered medications for this visit. Allergies Allergen Reactions Levaquin GI Reaction Codeine Coumadin Dermatologic Reaction necrosis Doxycycline GI Reaction Dye Intravenous Radiographic Imaging Contrast GI Reaction Dye Oral Radiographic Imaging Contrast GI Reaction Environmental Respiratory Reaction Valium GI Reaction vomitting Social History Tobacco Use Smoking status: Never Smoker Smokeless tobacco: Never Used Substance Use Topics Alcohol use: Yes Alcohol/week: 0.0 standard drinks Comment: occ Drug use: No Social History Patient does not qualify to have social determinant information on file (likely too young). Social History Narrative Lives alone in senior apartment 3 adult children, daughter in [place], son in [place], son [facility] Still driving Receives [employer] PHYSICAL EXAMINATION: VITALS: There were no vitals taken for this visit. There is no height or weight on file to calculate BMI. GENERAL: alert, no distress LUNGS: Nonlabored respirations. BREASTS: Her right nipple is everted. She has no right nipple rash, crusting, or discharge. She has mild right breast periareolar tenderness. There is a palpable induration in her retroareolar rightbreast. Impression: Ute Pulido presents for evaluation of right breast periareolar tenderness and erythema. The symptoms have been resolving. There are no clear signs of infection or mass on physical examination. She does have mild periareolar induration and tenderness in her right breast. Symptoms may be consistent with a resolving infection. She says she had some drainage of pus. She has not taken any antibiotics. Plan: I recommend a right breast ultrasound for evaluation of her retroareolar right breast. I plan to follow-up the results and to make further recommendations. If there are no suspicious findings on her right breast ultrasound, I would recommend follow-up for reevaluation of her symptoms and right breast exam in 1 to 2 months. She expressed understanding and agreement with these recommendations. I spent a total of 15 minutes with Ms. Pulido, over 75 % of which was spent in counseling/coordination of care. All of her questions were answered to her satisfaction. Author: Phil Mueller MD 03/03/2019 13:14 cc: Moisés Heller documented in this encounter Plan of Treatment Date Type Specialty Care Team Description 03/10/2019 Ancillary Procedure Radiology 11/04/2019 Ancillary Procedure Radiology 11/10/2019 Office Visit General Surgery Phil Mueller MD [address] [place] [id number] [phone] 02/02/2020 Chronic Care Management Family Practice Name Type Priority Associated Diagnoses Order Schedule US BREAST LIMITED Imaging Routine Breast signs and Expected: 03/03/2019, RIGHT symptoms Expires: 06/03/2020 Health Maintenance Due Date Last Done Comments ZOSTER IMMUNIZATION SERIES 10/12/2014 08/17/2014 (2 of 3) OSTEOPOROSIS SCREENING 08/22/2019 08/21/2017, 12/12/2011, 11/15/2005 DEPRESSION SCREENING 01/28/2020 01/27/2019 FALL RISK ASSESSMENT 01/28/2020 01/27/2019, 01/27/2019 MEDICARE ANNUAL WELLNESS 01/28/2020 01/27/2019, 10/24/2016, VISIT 02/03/2015, Additional history exists PNEUMOCOCCAL 65+YRS Completed 02/03/2015, 11/14/2010 INFLUENZA VACCINE Completed 12/31/2018, 04/20/2017, 02/13/2016, Additional history exists HPV IMMUNIZATION SERIES Aged Out No longer eligible based on patient's age to complete this topic MENINGOCOCCAL VACCINE IMM Aged Out No longer eligible based on patient's age to complete this topic documented as of this encounter Goals Goal Patient Goal Associated Recent Patient-Stated? Author Type Problems Progress Blood Pressure Blood Pressure Essential 140/70 No Galzachary, < 140/90 hypertension (03/03/2019 Tatum, 1:11 PM EST) Note: Hypertension Care Plan Based on the patient's clinical history and according to JNC 8 guidelines target blood pressure goal is less than 140/90. Based on the patient's last blood pressure of BP: 109/60 mmHg the patient is at at goal. As your provider, it is important that I advise you regarding: your current medications and help you with any challenges you may face taking your medications as directed (ex. instructions, cost, side effects, and interactions). Important lifestyle changes: exercise, weight reduction and dietary sodium reduction your clinical goals and how you can achieve success: weight reduction and exercise plan medication management: adjusted medications as appropriate patient education/self-management tools provided: Yes To successfully manage my Hypertension I will: monitor my blood pressure daily, understanding that my goal is less than 140/ 90 per my healthcare provider's recommendation. I will schedule an appointment with my provider if consistent abnormal readings greater than 160/100. take medications every day as prescribed by my healthcare provider and if unable to take them I will discuss with my provider. monitor for symptoms of chest pain, chest tightness/pressure, irregular heartbeat, persistent dizziness, radiating arm pain, and neck or jaw pain. If any of these symptoms are noticed I will seek medical attention immediately by calling 911 exercise/walk 30 minutes 5 day(s) per week. If I experience chest pain, chest tightness, or shortness of breath, I will seek medical attention immediately. follow a diet rich in fruits, vegetables, and low-fat dairy products with reduced content of saturated & total fat. I will reduce my sodium intake daily. An example is the DASH diet. To obtain more information please refer to the DASH Eating Plan listed in Educational Resources. record my blood pressure results. [employer] is safe and secure way for you to do this in your medical record online. try to obtain an ideal body weight. My recent weight was Weight: 185 lb ( 83.915 kg). My weight loss goal for my next office visit is 180. limit alcohol consumption. For men two drinks per day and women one drink per day. if currently smoking, will discuss how to quit smoking with my healthcare provider and work towards quitting. Educational Resources: National Heart, Lung, & Blood [place] http://nhlbi.nih.gov/hbp/index.html The DASH Diet Eating Plan http://www.nhlbi.nih.gov/health/health-topics/ topics/dash/ Academy of Nutrition & DIetetics http://eatright.org National Smoking Cessation Site http://smokefree.gov Blood Pressure < Blood Pressure 140/70 (03/03/2019 Tatum Agrawal 150/90 1:11 PM EST) Note: This is an individualized treatment (blood pressure) goal for Ute Pulido: Displayed above (on the left) is your goal for blood pressure control. Your most recent blood pressure is also shown above, on the right. You should try to achieve blood pressures that are lower than your goal listed above (on the left). Weight loss vs. 18 mo Lifestyle 8 (03/03/2019 1:11 PM No Tatum Hadley MD max (lbs) >= 10 EST) Note: This is an individualized lifestyle goal for Ute Pulido: Your body mass index (BMI) is more than 30. You should lose weight. A reasonable starting goal is to lose 10 pounds. Displayed above is how many pounds you have lost thus far towards your 10 pound weight loss goal. Take all prescribed medications as Self-management No Tatum Hadley MD directed Note: This is an individualized self-management goal for Ute Pulido: Please take all prescribed medications as directed. 1. Do not skip doses. If you cannot afford your medications, talk with your doctor. 2. Use a pill reminder system such as a pill box if needed. Your pharmacist can help you with this. 3. Contact your Pharmacy 5 days before your medication runs out. If you cannot take your medications for any reasons, talk with your doctor. 4. Please bring all of your medication bottles and inhalers (or a list of all your medications/inhalers) with you to every visit. Potential barriers to meeting all of your care plan goals will continue to be addressed on an ongoing basis. documented as of this encounter Implants Implanted Type Area Cut Off Saw Set Up Operator Device Shelf Model / Identifier Expiration Serial / Date Lot Single Port A Cath - [id number] Right: [facility] [id number] / Implanted: Qty: 1 on 01/22/2012 at [facility] [employer] / [id number] documented as of this encounter Results Not on filedocumented in this encounter Visit Diagnoses Diagnosis Breast signs and symptoms - Primary Other sign and symptom in breast documented in this encounter Insurance Payer Benefit Plan / Subscriber ID Effective Dates Phone Address Type Group [employer] MEDICARE EXCELL xxxxxxxxxxxx 2017-Present [employer] AD[employer] MEDICARE BLUE PPO ([phone]) Guarantor Name Account Type Relation to Date of Phone Billing Patient Address Ute Pulido Leanne Personal/Family 1940 [address] (Home) [address] [place], [place] (Work) [address] documented as of this encounter Advance Directives Type Date Recorded Patient Sound Cutter Explanation VIRY 10/02/2018 12:21 PM
[2019-03-21] MEDS ORDERED: Orphenadrine Citrate IV* 30 MG/ML 2 ML VIAL IM ONE (15:16)
[2019-03-21] MEDS ORDERED: Ketorolac *IM* INJ* 60 MG/2 ML VIAL IM ONE (15:17)
[2019-03-21] MEDS ORDERED: oxyCODONE/Acetamin 5/325 MG* TAB PO ONE (15:19)
--- NOTE | 2019-03-21 15:23 | ED ---
Back Pain - HPI Summary HPI Summary: Patient is a 78 y/o F presenting to the ED for a chief complaint of lower back pain that began 2 weeks ago. Patient admits nausea, but denies fever, dysuria, urinary incontinence, or bowel incontinence. On triage, she rates the back pain as 7/10 in severity. She denies a fall or trauma to the back. She denies any aggravating or alleviating factors. Patient uses a walker at home. PMHx is significant for cellulitis for which she is taking antibiotics and lymphedema. She takes diuretics daily. - History of Current Complaint Chief Complaint: EDBackInjuryPain Stated Complaint: BACK AND BOTTOM PAIN/HARD TO MOVE PER PT Time Seen by Provider: 03/21/19 15:09 Hx Obtained From: Patient Onset/Duration: Sudden Onset, Lasting Weeks - 2 weeks, Still Present Onset/Duration: Started Weeks Ago - 2 weeks, Atraumatic, Still Present Timing: Constant Back Pain Location: Is Diffuse - Lower back Severity Initially: Severe Severity Currently: Severe Pain Intensity: 7 Pain Scale Used: 0-10 Numeric Character: Unable to Describe Aggravating Symptom(s): Nothing Alleviating Symptom(s): Nothing Associated Signs And Symptoms: Negative: Fever, Bladder Incontinence, Bowel Incontinence - Allergies/Home Medications Allergies/Adverse Reactions: Allergies Allergy/AdvReac Type Severity Reaction Status Date / Time warfarin Allergy Bleeding Verified 03/21/19 13:43 codeine AdvReac GI Upset Verified 03/21/19 13:43 diazepam AdvReac GI Upset Verified 03/21/19 13:43 Iodinated Contrast Media AdvReac See Comment Verified 03/21/19 13:43 [Iodinated Contrast- Oral and IV Dye] levofloxacin AdvReac GI Upset Verified 03/21/19 13:43 PMH/Surg Hx/FS Hx/Imm Hx Previously Healthy: Yes Endocrine/Hematology History: Denies: Hx Anticoagulant Therapy, Hx Diabetes, Hx Thyroid Disease Cardiovascular History: Reports: Hx Hypercholesterolemia, Hx Hypertension, Other Cardiovascular Problems/Disorders - BLOOD CLOT IN 2011- UNKNOWN LOCATION Denies: Hx Pacemaker/ICD Respiratory History: Reports: Hx Asthma - ROUTINE MEDICATION FOR Denies: Hx Chronic Obstructive Pulmonary Disease (COPD) GI History: Reports: Hx Diverticulosis, Hx Gastroesophageal Reflux Disease - no longer taking medication, Hx Irritable Bowel - POSSIBLY, Other GI Disorders - HISTORY OF DIVERTICULITIS, having loose stools for past year Denies: Hx Ulcer History: Reports: Hx Kidney Infection - HX OF, Hx Kidney Stones, Other Problems/Disorders - BLOOD IN URINE Musculoskeletal History: Reports: Hx Arthritis - BACK, RIGHT THUMB, NECK, Other Musculoskeletal History - abdominal hernia, improved since weight loss Sensory History: Reports: Hx Contacts or Glasses Denies: Hx Legally Blind, Hx Deafness, Hx Hearing Aid Opthamlomology History: Reports: Hx Contacts or Glasses Denies: Hx Legally Blind EENT History: Denies: Hx Deafness Neurological History: Reports: Other Neuro Impairments/Disorders - numb fingers dt carpel tunnel Psychiatric History: Denies: Hx Panic Disorder - Cancer History Cancer Type, Location and Year: BREAST-2011 Hx Chemotherapy: Yes - left breast 2012 Hx Radiation Therapy: No - Surgical History Surgical History: Yes Surgery Procedure, Year, and Place: LEFT MASTECTOMY; LYMPH NODES REMOVED; SINUS SURGERY X 3; CHOLECYSECTOMY; D&C; CARPAL TUNNEL X 2 Hx Anesthesia Reactions: No Infectious Disease History: No Infectious Disease History: Denies: Hx Clostridium Difficile, Hx Hepatitis, Hx Human Immunodeficiency Virus (HIV), Hx of Known/Suspected MRSA, Hx Shingles, Hx Tuberculosis, Hx Known/ Suspected VRE, Hx Known/Suspected VRSA, History Other Infectious Disease, Traveled Outside the [place] in Last 30 Days - Family History Known Family History: Positive: Cardiac Disease, Hypertension Negative: Blood Disorder - Social History Occupation: Retired Lives: Alone Alcohol Use: Rare Alcohol Amount: 1 PER WEEK Hx Substance Use: No Substance Use Type: Reports: None Hx Tobacco Use: No Smoking Status (MU): Never Smoked Tobacco Have You Smoked in the Last Year: No Review of Systems Negative: Fever Positive: Nausea, Other - Negative bowel incontinence Negative: dysuria, incontinence - Urinary Positive: Myalgia - Lower back All Other Systems Reviewed And Are Negative: Yes Physical Exam - Summary Physical Exam Summary: VITAL SIGNS: Reviewed. GENERAL: Patient is a well-developed and nourished FEMALE who is lying comfortable in the stretcher. Patient is not in any acute respiratory distress. HEAD AND FACE: No signs of trauma. No ecchymosis, hematomas or skull depressions. No sinus tenderness. EYES: PERRLA, EOMI x 2, No injected conjunctiva, no nystagmus. EARS: Hearing grossly intact. Ear canals and tympanic membranes are within normal limits. MOUTH: Oropharynx within normal limits. NECK: Supple, trachea is midline, no adenopathy, no JVD, no carotid bruit, no c- spine tenderness, neck with full ROM. CHEST: Symmetric, no tenderness at palpation. LUNGS: Clear to auscultation bilaterally. No wheezing or crackles. CVS: Regular rate and rhythm, S1 and S2 present, no murmurs or gallops appreciated. ABDOMEN: Soft, non-tender. No signs of distention. No rebound, no guarding, and no masses palpated. Bowel sounds are normal. EXTREMITIES: FROM in all major joints, no edema, no cyanosis or clubbing. Cellulitis of the bilateral LE. BACK: tenderness in the lumbar spine. NEURO: Alert and oriented x 3. No acute neurological deficits. Speech is normal and follows commands. SKIN: Dry and warm. Triage Information Reviewed: Yes Vital Signs On Initial Exam: Initial Vitals Temp Pulse Resp BP Pulse Ox 98.3 F 65 16 149/63 97 03/21/19 13:37 03/21/19 13:37 03/21/19 13:37 03/21/19 13:37 03/21/19 13:37 Vital Signs Reviewed: Yes Procedures - Sedation Patient Received Moderate/Deep Sedation with Procedure: No Diagnostics - Vital Signs Vital Signs Temp Pulse Resp BP Pulse Ox 03/21/19 13:37 98.3 F 65 16 149/63 97 - Laboratory Result Diagrams: 03/21/19 15:28 03/21/19 15:28 Lab Statement: Any lab studies that have been ordered have been reviewed, and results considered in the medical decision making process. - Radiology Chest X-ray Radiology Interpretation Completed By: Radiologist Summary of Radiographic Findings: Chest X-ray IMPRESSION: Questionable density overlying the right lower lobe which may simply be a rib end. The patient is exhibiting any respiratory symptoms superior characterization could be made with at least a dedicated nonportable PA and lateral chest x-ray or CT of the chest. Reviewed by Dr. Rowan. - CT Lumbar Spine CT CT Interpretation Completed By: Radiologist Summary of CT Findings: Lumbar Spine CT IMPRESSION: Multilevel degenerative disc disease most severe at L1-L2 and L2-L3. At L3-L4 broad-based protrusion with facet and ligamentous hypertrophy results in mild spinal stenosis. No fracture of the lumbar spine is noted. Reviewed by Dr. Rowan. Re-Evaluation - Re-Evaluation First Eval Re-Evaluation Time: 18:53 Change: Improved Comment: At 18:53, patient is feeling much better after being given muscle relaxants. She is able to ambulate to the bathroom and back with a good and steady gait. She is ready for discharge. Back Pain Course/Dx - Course Assessment/Plan: Patient is a 78 y/o F presenting to the ED for a chief complaint of lower back pain that began 2 weeks ago. Patient admits nausea, but denies fever, dysuria, urinary incontinence, or bowel incontinence. On triage, she rates the back pain as 7/10 in severity. She denies a fall or trauma to the back. She denies any aggravating or alleviating factors. Patient uses a walker at home. PMHx is significant for cellulitis and lymphedema. She takes diuretics daily. Blood work without any significant abnormality except for ESR 49 and CRP 282. Urinalysis negative for UTI. The patient would have an increased ESR and CRP since the patient has cellulitis in both lower extremities. The patient is taking antibiotics. Lumbar CT IMPRESSION: Multilevel degenerative disc disease most severe at L1-L2 and L2-L3. At L3-L4 broad-based protrusion with facet and ligamentous hypertrophy results in mild spinal stenosis. No fracture of the lumbar spine is noted. In the ED course the patient was given Tylenol and Norflex. She declined any type of narcotics. After these medications were given the patient reports that she feels better. She reports that the pain is significantly improved and she is able to ambulate. She has been ambulating to the bathroom without any significant pain. The patient increase in ESR and CRP is probably secondary to cellulitis. Since the patients pain is improved and she is ambulating the patient will be discharged home to follow-up with her primary care physician. I have no suspicion for discitis or osteomyelitis. Patient is hemodynamically stable. - Diagnoses Differential Diagnosis/HQI/PQRI: Positive: Epidural Abscess, Fracture, Herniated Disc, Osteomyelitis, Septic Arthritis, Strain, Sprain Provider Diagnoses: Back pain Discharge ED - Sign-Out/Discharge Documenting (check all that apply): Patient Departure - Discharge - Discharge Plan Condition: Stable Disposition: HOME Prescriptions: Methocarbamol TAB* [Robaxin 500 MG TAB*] 500 mg PO TID PRN #12 tab PRN Reason: Spasms - Muscle Patient Education Materials: Back Pain (ED) Referrals: Moisés Heller MD [Primary Care Provider] - Additional Instructions: FOLLOW UP WITH YOUR PRIMARY CARE PROVIDER WITHIN 2-3 DAYS. RETURN TO THE ED FOR ANY WORSENING OR NEW SYMPTOMS. - Billing Disposition and Condition Condition: STABLE Disposition: Home - Attestation Statements Document Initiated by Scribe: Yes Documenting Scribe: Farheen Sahni Provider For Whom Scribe is Documenting (Include Credential): Salvador Rowan MD Scribe Attestation: Farheen Ovalles, scribed for Salvador Rowan MD on 03/21/19 at 2126. Scribe Documentation Reviewed: Yes Provider Attestation: The documentation as recorded by the Farheen stout accurately reflects the service I personally performed and the decisions made by Salvador velez MD Status of Scribe Document: Viewed
[2019-03-21 15:35] LABS: ABS Eosinophils 0.2 10^3/ul (0-0.6); ABS Lymphocytes 1.3 10^3/ul (1.0-4.8); ABS Monocytes 0.8 10^3/ul (0-0.8); Eosinophil % 2.9 %; Hematocrit 45 % (35-47); Hemoglobin 15.3 g/dL (12.0-16.0); Lymphocyte % 17.8 %; Mean Corpuscular HGB Conc 34 g/dL (31-36); Mean Corpuscular Hemoglobin 30 pg (27-31); Mean Corpuscular Volume 87 fL (80-97); Mean Platelet Volume 8.1 fL (7.4-10.4); Platelet Count 246 10^3/uL (150-450); Red Blood Count 5.13 10^6 /uL (3.70-4.87); Red Cell Distribution Width 16 % (10-15); White Blood Count 7.3 10^3/uL (3.5-10.8)
[2019-03-21] MEDS ORDERED: Ondansetron ODT TAB* 4 MG PO ONE (15:35)
[2019-03-21 15:57] LABS: C Reactive Protein 282.74 mg/L (<8.01); Uric Acid 6.5 mg/dL (2.3-6.6)
[2019-03-21] MEDS ORDERED: Acetaminophen TAB* 325 MG PO ONE (16:03)
[2019-03-21 16:42] LABS: Erythrocyte Sed Rate 49 mm/Hr (0-29)
[2019-03-21 17:58] LABS: Urine Appearance Clear; Urine Bilirubin Negative (Negative); Urine Blood Negative (Negative); Urine Color Yellow; Urine Glucose Negative (Negative); Urine Ketones Negative (Negative); Urine Nitrite Negative (Negative); Urine Protein Negative (Negative); Urine Specific Gravity 1.009 (1.010-1.030); Urine Urobilinogen Negative (Negative)
[2019-03-21 19:10] LABS: Albumin 3.8 g/dL (3.2-5.2); Calcium 9.7 mg/dL (8.6-10.3); Potassium 3.6 mmol/L (3.5-5.0); Total Bilirubin 0.3 mg/dL (0.2-1.0)
[2019-03-21 19:16] LABS: Albumin/Globulin Ratio 1.3 (1-3); BUN/Creatinine Ratio 17.9 (8-20); EGFR Non-African American 50.4 (>60); Total Protein 6.8 g/dL (6.4-8.9)
[2019-03-21 19:35] VITALS: BP 93/58
== END 2019-03-21 19:34 | disposition home or self-care (01) ==
LOC: ED 13:29
DX: M54.5 Low back pain (principal); E78.00 Pure hypercholesterolemia, unspecified; I10 Essential (primary) hypertension; J45.909 Unspecified asthma, uncomplicated; K21.9 Gastro-esophageal reflux disease without esophagitis; Z90.49 Acquired absence of other specified parts of digestive tract; Z87.442 Personal history of urinary calculi; Z85.3 Personal history of malignant neoplasm of breast; Z88.5 Allergy status to narcotic agent; Z88.8 Allergy status to other drugs, medicaments and biological substances; Z88.1 Allergy status to other antibiotic agents; Z91.041 Radiographic dye allergy status
CPT/HCPCS: 36415; 71045; 72131; 80053; 81003; 83605; 84550; 85025; 85652; 86140; 96372; 99283; A9270-GY; J2360

== ENCOUNTER 2021-04-09 19:42 | Observation (INO) ==
[2021-04-09 21:06] LABS: ABS Eosinophils 0.2 10^3/ul (0-0.6); ABS Monocytes 0.9 10^3/ul (0-0.8); ABS Neutrophils 7.4 10^3/ul (1.5-7.7); Eosinophil % 1.6 %; Hematocrit 43 % (35-47); Hemoglobin 14.5 g/dL (12.0-16.0); Lymphocyte % 10.7 %; Mean Corpuscular HGB Conc 34 g/dL (31-36); Mean Corpuscular Hemoglobin 30 pg (27-31); Mean Corpuscular Volume 87 fL (80-97); Mean Platelet Volume 8.2 fL (7.4-10.4); Nucleated Red Blood Cells % 0.1; Platelet Count 254 10^3/uL (150-450); Red Blood Count 4.88 10^6 /uL (3.70-4.87); Red Cell Distribution Width 14 % (10-15); White Blood Count 9.5 10^3/uL (3.5-10.8)
[2021-04-09 21:14] LABS: Urine Appearance Clear; Urine Bilirubin Negative (Negative); Urine Blood Negative (Negative); Urine Color Colorless; Urine Glucose Negative (Negative); Urine Ketones Negative (Negative); Urine Nitrite Negative (Negative); Urine Protein Negative (Negative); Urine Specific Gravity 1.004 (1.002-1.030); Urine Urobilinogen Negative (Negative)
[2021-04-09 21:34] LABS: Albumin 4.1 g/dL (3.2-5.2); Albumin/Globulin Ratio 1.3 (1-3); C Reactive Protein 471.41 mg/L (<8.01); Calcium 10.1 mg/dL (8.6-10.3); Globulin 3.2 g/dL (2-4); Total Bilirubin 0.5 mg/dL (0.2-1.0); Total Protein 7.3 g/dL (6.4-8.9); eGFR CKD-EPI 42.9 (>60)
[2021-04-09 22:06] LABS: Troponin I 0.01 ng/mL (<0.03)
[2021-04-09] MEDS ORDERED: Potassium Chlor 20 meq TAB.ER PO ONE (23:13)
[2021-04-09] MEDS ORDERED: Piperacillin/Tazobac ADVAN 3.375 GM in NS 0.9% 100 ml BAG 100 ML IV ONE (23:13)
[2021-04-09] MEDS ORDERED: Albuterol HFA INHALER 8 gm MDI INH PRN (23:50)
[2021-04-09] MEDS ORDERED: Furosemide 40 mg/4 ml IV VIAL IV SLOW PU ONE (23:51)
[2021-04-10] MEDS: Enoxaparin 30 MG/0.3 ML SYR SUBCUT SCH ×2 (00:06→22:25)
[2021-04-10] MEDS: Ondansetron 4 mg VIAL 2 MG/ML 2 ml VIAL IV PRN ×2 (00:06→15:22)
[2021-04-10] MEDS: Mometasone/Formoter 200/5 MDI INH SCH ×2 (07:15→20:22)
[2021-04-10 07:43] LABS: ABS Eosinophils 0.1 10^3/ul (0-0.6); ABS Lymphocytes 1.3 10^3/ul (1.0-4.8); ABS Monocytes 0.8 10^3/ul (0-0.8); ABS Neutrophils 4.3 10^3/ul (1.5-7.7); Hematocrit 36 % (35-47); Hemoglobin 12.3 g/dL (12.0-16.0); Lymphocyte % 19.7 %; Mean Corpuscular HGB Conc 35 g/dL (31-36); Mean Corpuscular Hemoglobin 30 pg (27-31); Mean Corpuscular Volume 87 fL (80-97); Mean Platelet Volume 8.3 fL (7.4-10.4); Platelet Count 204 10^3/uL (150-450); Red Blood Count 4.12 10^6 /uL (3.70-4.87); Red Cell Distribution Width 14 % (10-15); White Blood Count 6.5 10^3/uL (3.5-10.8)
[2021-04-10 08:04] LABS: eGFR CKD-EPI 54.4 (>60)
[2021-04-10] MEDS ORDERED: Furosemide 40 mg/4 ml IV VIAL IV SLOW PU ONE (09:00)
[2021-04-10] MEDS ORDERED: Potassium Chlor 20 meq TAB.ER PO ONE ×2 (09:07→14:26)
[2021-04-10 12:55] LABS: Calcium 9.5 mg/dL (8.6-10.3); Potassium 3.3 mmol/L (3.5-5.0); eGFR CKD-EPI 56.3 (>60)
[2021-04-10] MEDS ORDERED: Furosemide 100 mg/10 ml IV VIAL IV ONE (15:45)
[2021-04-11] MEDS ORDERED: Furosemide 40 mg/4 ml IV VIAL IV ONE (06:00)
[2021-04-11 06:43] LABS: Calcium 9.2 mg/dL (8.6-10.3); Magnesium 2.1 mg/dL (1.9-2.7); Potassium 3.6 mmol/L (3.5-5.0); eGFR CKD-EPI 52.6 (>60)
[2021-04-11] MEDS: Mometasone/Formoter 200/5 MDI INH SCH (07:09)
[2021-04-11 14:50] VITALS: BP 122/47
== END 2021-04-11 16:08 | disposition home or self-care (01) ==
LOC: EDHOLD 19:42 → ED 19:42 → SUATTDRO 23:48 → MEDTELE 04-10 01:37
PROVIDERS: ADMIT Student in an Organized Health Care Education/Training Program; ATTEND Internal Medicine

== ENCOUNTER 2021-06-30 18:45 | Inpatient (IN) ==
[2021-06-30] MEDS ORDERED: Lidocaine PATCH 5% PATCH TRANSDERM ONE (19:27)
[2021-06-30 20:06] LABS: ABS Lymphocytes 0.9 10^3/ul (1.0-4.8); ABS Monocytes 0.8 10^3/ul (0-0.8); ABS Neutrophils 5.5 10^3/ul (1.5-7.7); Eosinophil % 0.6 %; Hematocrit 43 % (35-47); Hemoglobin 14.7 g/dL (12.0-16.0); Lymphocyte % 12.3 %; Mean Corpuscular HGB Conc 34 g/dL (31-36); Mean Corpuscular Hemoglobin 30 pg (27-31); Mean Corpuscular Volume 86 fL (80-97); Nucleated Red Blood Cells % 0.1; Platelet Count 256 10^3/uL (150-450); Red Blood Count 4.94 10^6 /uL (3.70-4.87); Red Cell Distribution Width 15 % (10-15); White Blood Count 7.2 10^3/uL (3.5-10.8)
[2021-06-30 20:19] LABS: INR 1.12 (0.86-1.15)
[2021-06-30 20:37] LABS: Albumin 3.7 g/dL (3.2-5.2); Albumin/Globulin Ratio 1.4 (1-3); C Reactive Protein 441.8 mg/L (<8.01); Calcium 9.2 mg/dL (8.6-10.3); Globulin 2.6 g/dL (2-4); Potassium 2.8 mmol/L (3.5-5.0); Total Bilirubin 0.7 mg/dL (0.2-1.0); Total Protein 6.3 g/dL (6.4-8.9)
[2021-06-30] MEDS ORDERED: Potassium Chlor 20 meq TAB.ER PO ONE (21:17)
[2021-06-30] MEDS ORDERED: cefTRIAXone 1 gm/50 mL D5W 1 GM/50 ML BAG IV ONE (21:28)
[2021-07-01] MEDS ORDERED: CAMPHOR TOPICAL PRN (00:05)
[2021-07-01] MEDS ORDERED: MENTHOL TOPICAL PRN (00:05)
[2021-07-01] MEDS ORDERED: METHYL SALICYLATE TOPICAL PRN (00:05)
[2021-07-01] MEDS ORDERED: Albuterol HFA INHALER 8 gm MDI INH PRN (00:05)
[2021-07-01] MEDS ORDERED: Potassium Chlor 20 meq TAB.ER PO ONE (00:13)
[2021-07-01 02:40] LABS: Activated Partial Thrombo Time 31.3 seconds (26.0-38.0); INR 1.11 (0.86-1.15)
[2021-07-01 05:45] LABS: INR 1.15 (0.86-1.15)
[2021-07-01] MEDS: Heparin 5000 UNITS/ML 1 mL VIAL SUBCUT SCH ×3 (06:02→22:38)
[2021-07-01 06:08] LABS: CO2 Carbon Dioxide 35 mmol/L (22-32); Calcium 8.5 mg/dL (8.6-10.3); Chloride 93 mmol/L (101-111); Sodium 137 mmol/L (135-145)
[2021-07-01 06:12] LABS: Anion Gap 9 mmol/L (2-11)
[2021-07-01 06:14] LABS: Blood Urea Nitrogen 26 mg/dL (6-24); Glucose 114 mg/dL (70-100); eGFR CKD-EPI 59.1 (>60)
[2021-07-01 06:51] LABS: ABS Eosinophils 0.1 10^3/ul (0-0.6); ABS Lymphocytes 0.9 10^3/ul (1.0-4.8); ABS Monocytes 0.5 10^3/ul (0-0.8); ABS Neutrophils 3.4 10^3/ul (1.5-7.7); Eosinophil % 1.3 %; Hematocrit 36 % (35-47); Hemoglobin 12.4 g/dL (12.0-16.0); Lymphocyte % 19.2 %; Mean Corpuscular HGB Conc 35 g/dL (31-36); Mean Corpuscular Hemoglobin 30 pg (27-31); Mean Corpuscular Volume 87 fL (80-97); Mean Platelet Volume 8.4 fL (7.4-10.4); Nucleated Red Blood Cells % 0.1; Platelet Count 217 10^3/uL (150-450); Red Blood Count 4.15 10^6 /uL (3.70-4.87); Red Cell Distribution Width 15 % (10-15); White Blood Count 4.9 10^3/uL (3.5-10.8)
[2021-07-01 07:35] LABS: Potassium Redraw 2.6 mmol/L (3.5-5.0)
[2021-07-01] MEDS ORDERED: Potassium Chloride LIQUID 20 MEQ/15 ML LIQUID PO ONE (07:47)
[2021-07-01 08:24] LABS: Magnesium 1.9 mg/dL (1.9-2.7)
[2021-07-01] MEDS: Mometasone/Formoter 200/5 MDI INH SCH ×2 (09:14→19:44)
[2021-07-01] MEDS: Lidocaine PATCH 5% PATCH TRANSDERM SCH (10:14)
[2021-07-01] MEDS: KCL 20 MEQ/100 ML IVPREMIX 20 MEQ/100 ML BAG IV SCH ×2 (10:19→13:15)
[2021-07-01 14:05] LABS: Calcium 9.3 mg/dL (8.6-10.3); Potassium 3.6 mmol/L (3.5-5.0)
[2021-07-01 14:11] LABS: eGFR CKD-EPI 59.8 (>60)
[2021-07-01 15:27] LABS: Urine Appearance Cloudy; Urine Bilirubin Negative (Negative); Urine Blood 1+ (Negative); Urine Color Yellow; Urine Glucose Negative (Negative); Urine Ketones Negative (Negative); Urine Nitrite Negative (Negative); Urine Protein Negative (Negative); Urine Specific Gravity 1.009 (1.002-1.030); Urine Urobilinogen Negative (Negative)
[2021-07-01 15:32] LABS: Urine Bacteria Absent (Absent); Urine Red Blood Cell 2+(6-10/hpf) (Absent); Urine Squamous Epithelial Cell Present (Absent); Urine Transitional Epithelial Present (Absent); Urine White Blood Cell 3+(>20/hpf) (Absent)
[2021-07-01 17:16] LABS: Erythrocyte Sed Rate 32 mm/Hr (0-29)
[2021-07-02] MEDS: Heparin 5000 UNITS/ML 1 mL VIAL SUBCUT SCH ×3 (06:38→21:45)
[2021-07-02] MEDS: Mometasone/Formoter 200/5 MDI INH SCH ×2 (08:07→22:26)
[2021-07-02] MEDS ORDERED: Iodixanol (CONTRAST) 320 MG/ML 100 ML SDV IV ONE (12:25)
[2021-07-02] MEDS: Lidocaine PATCH 5% PATCH TRANSDERM SCH (14:23)
[2021-07-03] MEDS: Heparin 5000 UNITS/ML 1 mL VIAL SUBCUT SCH ×3 (05:33→22:59)
[2021-07-03 07:51] LABS: Hematocrit 42 % (35-47); Hemoglobin 14.4 g/dL (12.0-16.0); Mean Corpuscular HGB Conc 35 g/dL (31-36); Mean Corpuscular Hemoglobin 30 pg (27-31); Mean Corpuscular Volume 87 fL (80-97); Platelet Count 258 10^3/uL (150-450); Red Cell Distribution Width 15 % (10-15); White Blood Count 6.5 10^3/uL (3.5-10.8)
[2021-07-03 08:52] LABS: Calcium 8.9 mg/dL (8.6-10.3); Magnesium 1.9 mg/dL (1.9-2.7); Potassium 3.4 mmol/L (3.5-5.0); eGFR CKD-EPI 61.3 (>60)
[2021-07-03] MEDS: Lidocaine PATCH 5% PATCH TRANSDERM SCH (09:05)
[2021-07-03] MEDS: Mometasone/Formoter 200/5 MDI INH SCH ×2 (10:40→20:12)
[2021-07-03] MEDS: Nystatin TOP POWDER 15 GM BTL TOPICAL SCH ×2 (14:13→22:59)
[2021-07-03] MEDS ORDERED: Potassium Chlor 20 meq TAB.ER PO ONE (18:48)
[2021-07-03] MEDS: Ondansetron 4 mg VIAL 2 MG/ML 2 ml VIAL IV PRN (22:31)
[2021-07-04 06:02] LABS: ABS Eosinophils 0.1 10^3/ul (0-0.6); ABS Lymphocytes 0.9 10^3/ul (1.0-4.8); ABS Monocytes 0.6 10^3/ul (0-0.8); ABS Neutrophils 3.6 10^3/ul (1.5-7.7); Eosinophil % 2.1 %; Hematocrit 42 % (35-47); Lymphocyte % 16.3 %; Mean Corpuscular HGB Conc 33 g/dL (31-36); Mean Corpuscular Hemoglobin 30 pg (27-31); Mean Corpuscular Volume 90 fL (80-97); Mean Platelet Volume 8.2 fL (7.4-10.4); Nucleated Red Blood Cells % 0.1; Platelet Count 226 10^3/uL (150-450); Red Blood Count 4.64 10^6 /uL (3.70-4.87); Red Cell Distribution Width 15 % (10-15); White Blood Count 5.2 10^3/uL (3.5-10.8)
[2021-07-04] MEDS: Heparin 5000 UNITS/ML 1 mL VIAL SUBCUT SCH ×2 (06:22→14:19)
[2021-07-04 07:42] LABS: Calcium 8.7 mg/dL (8.6-10.3); Potassium 3.2 mmol/L (3.5-5.0)
[2021-07-04] MEDS: Mometasone/Formoter 200/5 MDI INH SCH ×2 (07:46→19:35)
[2021-07-04 07:48] LABS: eGFR CKD-EPI 55.7 (>60)
[2021-07-04] MEDS: Lidocaine PATCH 5% PATCH TRANSDERM SCH (08:07)
[2021-07-04] MEDS: Nystatin TOP POWDER 15 GM BTL TOPICAL SCH ×2 (08:32→21:49)
[2021-07-04] MEDS ORDERED: Potassium Chlor 20 meq TAB.ER PO ONE (10:26)
[2021-07-05] MEDS: Mometasone/Formoter 200/5 MDI INH SCH ×2 (07:07→20:07)
[2021-07-05] MEDS: Lidocaine PATCH 5% PATCH TRANSDERM SCH (07:57)
[2021-07-05] MEDS: Nystatin TOP POWDER 15 GM BTL TOPICAL SCH ×2 (07:59→20:35)
[2021-07-05] MEDS ORDERED: fentaNYL 100 mcg/2 ml 50 MCG/ML VIAL ONE ×2 (12:20→13:38)
[2021-07-05] MEDS ORDERED: Midazolam 2 mg/2 ml VIAL 1 mg/ml 2 ml VIAL (2 mg) ONE (12:20)
[2021-07-05 12:55] LABS: ALP Intestine 3.3 IU/L (0.0-11.0); ALP Liver 1 117.1 IU/L (16.2-70.2); ALP Liver 2 41.1 IU/L (0.0-5.8); ALP Liver 2% 17.2 % (0.0-8.0); ALP Placental NotPresent; Alkaline Phosphate 239 U/L (35 - 104)
[2021-07-05] MEDS: Potassium Chloride LIQUID 20 MEQ/15 ML LIQUID PO SCH ×2 (18:04→18:11)
[2021-07-06 07:25] LABS: Calcium 8.9 mg/dL (8.6-10.3); Magnesium 2.2 mg/dL (1.9-2.7); Potassium 4.3 mmol/L (3.5-5.0); eGFR CKD-EPI 54.4 (>60)
[2021-07-06] MEDS: Mometasone/Formoter 200/5 MDI INH SCH ×2 (07:30→19:50)
[2021-07-06] MEDS: Nystatin TOP POWDER 15 GM BTL TOPICAL SCH ×2 (08:08→21:01)
[2021-07-06] MEDS: Lidocaine PATCH 5% PATCH TRANSDERM SCH (09:36)
[2021-07-06] MEDS ORDERED: Enoxaparin 40 MG/0.4 ML SYR SUBCUT ONE (11:47)
[2021-07-06] MEDS ORDERED: Heparin 5000 UNITS/ML 1 mL VIAL SUBCUT ONE ×2 (12:30→20:00)
[2021-07-06 16:36] LABS: Albumin 2.2 g/dL (3.4-4.7); Albumin/Globulin Ratio 0.78; Gamma Globulin 0.8 g/dL (0.6-1.6); Total Protein(PEP) 5.1 g/dL (6.3 - 7.9)
[2021-07-06] MEDS: Ondansetron 4 mg VIAL 2 MG/ML 2 ml VIAL IV PRN (18:08)
[2021-07-07 05:44] LABS: ABS Eosinophils 0.1 10^3/ul (0-0.6); ABS Lymphocytes 0.8 10^3/ul (1.0-4.8); ABS Monocytes 0.4 10^3/ul (0-0.8); ABS Neutrophils 2.4 10^3/ul (1.5-7.7); Eosinophil % 3.4 %; Hematocrit 38 % (35-47); Hemoglobin 12.9 g/dL (12.0-16.0); Lymphocyte % 22.6 %; Mean Corpuscular HGB Conc 34 g/dL (31-36); Mean Corpuscular Hemoglobin 30 pg (27-31); Mean Corpuscular Volume 88 fL (80-97); Mean Platelet Volume 7.9 fL (7.4-10.4); Nucleated Red Blood Cells % 0.1; Platelet Count 212 10^3/uL (150-450); Red Blood Count 4.28 10^6 /uL (3.70-4.87); Red Cell Distribution Width 16 % (10-15); White Blood Count 3.8 10^3/uL (3.5-10.8)
[2021-07-07] MEDS: Ondansetron 4 mg VIAL 2 MG/ML 2 ml VIAL IV PRN ×2 (06:06→21:31)
[2021-07-07 06:09] LABS: Calcium 8.4 mg/dL (8.6-10.3); Potassium 3.8 mmol/L (3.5-5.0); eGFR CKD-EPI 64.6 (>60)
[2021-07-07] MEDS: Mometasone/Formoter 200/5 MDI INH SCH ×2 (09:12→21:19)
[2021-07-07] MEDS: Lidocaine PATCH 5% PATCH TRANSDERM SCH (09:55)
[2021-07-07] MEDS: Nystatin TOP POWDER 15 GM BTL TOPICAL SCH ×2 (09:55→23:02)
[2021-07-07 21:13] LABS: Albumin 0.8 mg/dL; Albumin/Globulin Ratio 0.19; Gamma Globulin 1.2 mg/dL; Protein,Total, Random Urine 5 mg/dL
[2021-07-08] MEDS: Mometasone/Formoter 200/5 MDI INH SCH ×2 (08:25→20:45)
[2021-07-08 08:37] LABS: Flag, M-protein Isotype Negative (Negative)
[2021-07-08] MEDS: Lidocaine PATCH 5% PATCH TRANSDERM SCH (09:19)
[2021-07-08] MEDS: Nystatin TOP POWDER 15 GM BTL TOPICAL SCH ×2 (10:00→22:00)
[2021-07-08] MEDS: Ondansetron 4 mg VIAL 2 MG/ML 2 ml VIAL IV PRN (22:13)
[2021-07-09] MEDS: Mometasone/Formoter 200/5 MDI INH SCH ×2 (07:39→19:42)
[2021-07-09] MEDS: Lidocaine PATCH 5% PATCH TRANSDERM SCH (09:16)
[2021-07-09] MEDS: Nystatin TOP POWDER 15 GM BTL TOPICAL SCH ×2 (11:21→21:30)
[2021-07-09] MEDS: Ondansetron 4 mg VIAL 2 MG/ML 2 ml VIAL IV PRN (21:32)
[2021-07-10] MEDS: Nystatin TOP POWDER 15 GM BTL TOPICAL SCH ×2 (08:32→21:25)
[2021-07-10] MEDS: Lidocaine PATCH 5% PATCH TRANSDERM SCH (08:32)
[2021-07-10] MEDS: Mometasone/Formoter 200/5 MDI INH SCH ×2 (08:33→21:11)
[2021-07-10] MEDS: Ondansetron 4 mg VIAL 2 MG/ML 2 ml VIAL IV PRN (17:30)
[2021-07-11] MEDS: Mometasone/Formoter 200/5 MDI INH SCH ×2 (09:19→21:17)
[2021-07-11 09:25] LABS: INR 1.04 (0.86-1.15)
[2021-07-11] MEDS: Lidocaine PATCH 5% PATCH TRANSDERM SCH (09:51)
[2021-07-11] MEDS: Nystatin TOP POWDER 15 GM BTL TOPICAL SCH ×2 (09:57→21:51)
[2021-07-11] MEDS ORDERED: Midazolam 2 mg/2 ml VIAL 1 mg/ml 2 ml VIAL (2 mg) ONE (14:02)
[2021-07-11] MEDS ORDERED: fentaNYL 100 mcg/2 ml 50 MCG/ML VIAL ONE ×2 (14:02→14:30)
[2021-07-11] MEDS: Ondansetron 4 mg VIAL 2 MG/ML 2 ml VIAL IV PRN (21:52)
[2021-07-12] MEDS: Polyethylene Glycol 3350 17 GM PACKET PO PRN (07:58)
[2021-07-12] MEDS: Nystatin TOP POWDER 15 GM BTL TOPICAL SCH ×2 (08:01→21:20)
[2021-07-12] MEDS: Lidocaine PATCH 5% PATCH TRANSDERM SCH (08:02)
[2021-07-12] MEDS: Mometasone/Formoter 200/5 MDI INH SCH ×2 (10:08→19:26)
[2021-07-12] MEDS: Ondansetron 4 mg VIAL 2 MG/ML 2 ml VIAL IV PRN (21:19)
[2021-07-13] MEDS: Mometasone/Formoter 200/5 MDI INH SCH ×2 (08:57→20:09)
[2021-07-13] MEDS: Lidocaine PATCH 5% PATCH TRANSDERM SCH (08:59)
[2021-07-13] MEDS: Nystatin TOP POWDER 15 GM BTL TOPICAL SCH ×2 (09:50→20:40)
[2021-07-13] MEDS: Polyethylene Glycol 3350 17 GM PACKET PO PRN (11:35)
[2021-07-13] MEDS: Ondansetron 4 mg VIAL 2 MG/ML 2 ml VIAL IV PRN (20:26)
[2021-07-13] MEDS ORDERED: Gadoteridol (CONTRAST) 279.3 MG/ML 10 ML IV ONE (21:39)
[2021-07-14 05:45] LABS: ABS Eosinophils 0.1 10^3/ul (0-0.6); ABS Lymphocytes 0.8 10^3/ul (1.0-4.8); ABS Monocytes 0.5 10^3/ul (0-0.8); ABS Neutrophils 2.9 10^3/ul (1.5-7.7); Eosinophil % 2.8 %; Hematocrit 40 % (35-47); Hemoglobin 13.7 g/dL (12.0-16.0); Mean Corpuscular HGB Conc 34 g/dL (31-36); Mean Corpuscular Hemoglobin 30 pg (27-31); Mean Corpuscular Volume 87 fL (80-97); Mean Platelet Volume 8.1 fL (7.4-10.4); Platelet Count 227 10^3/uL (150-450); Red Blood Count 4.57 10^6 /uL (3.70-4.87); Red Cell Distribution Width 15 % (10-15); White Blood Count 4.3 10^3/uL (3.5-10.8)
[2021-07-14 06:08] LABS: Magnesium 2.1 mg/dL (1.9-2.7); Potassium 3.2 mmol/L (3.5-5.0); eGFR CKD-EPI 68.2 (>60)
[2021-07-14] MEDS ORDERED: Potassium Chlor 20 meq TAB.ER PO ONE (07:04)
[2021-07-14] MEDS: Lidocaine PATCH 5% PATCH TRANSDERM SCH (07:45)
[2021-07-14] MEDS: Mometasone/Formoter 200/5 MDI INH SCH (09:16)
[2021-07-14] MEDS: Nystatin TOP POWDER 15 GM BTL TOPICAL SCH (09:29)
[2021-07-14 10:58] VITALS: BP 135/70
[2021-07-14] MEDS ORDERED: Zoledronic Acid 3 MG in NS 0.9% 100 ml BAG 100 ML IVPB ONE (11:00)
[2021-07-15] MEDS ORDERED: CMCS: Letrozole 2.5 MG TAB (NF) PO SCH (09:00)
== END 2021-07-14 15:56 | disposition swing bed (61) | DRG 478 ==
LOC: ED 18:45 → EDHOLD 18:45 → SUATTDRO 23:55 → SSU 07-01 01:28 → SUATTDRO 07-01 16:00
PROVIDERS: ADMIT Internal Medicine; ATTEND Internal Medicine

== ENCOUNTER 2021-07-14 15:36 | Inpatient (IN) ==
[2021-07-14] MEDS ORDERED: Albuterol HFA INHALER 8 gm MDI INH PRN (15:52)
[2021-07-14] MEDS: Mometasone/Formoter 200/5 MDI INH SCH (20:48)
[2021-07-14] MEDS: CMCS: Letrozole 2.5 MG TAB (NF) PO SCH (20:48)
[2021-07-14] MEDS: Ondansetron ODT 4 mg TAB 4 MG TAB SL PRN (23:57)
[2021-07-15] MEDS: Mometasone/Formoter 200/5 MDI INH SCH ×2 (08:21→19:55)
[2021-07-15] MEDS: Fluticasone NASAL SPRAY 50MCG 16 gm SPRAY BTL INTRANASAL SCH (09:18)
[2021-07-15] MEDS: Nystatin TOP POWDER 15 GM BTL TOPICAL SCH ×2 (11:20→21:05)
[2021-07-15] MEDS: Lidocaine PATCH 5% PATCH TRANSDERM SCH (14:30)
[2021-07-15] MEDS: CMCS: Letrozole 2.5 MG TAB (NF) PO SCH (21:07)
[2021-07-16] MEDS: Ondansetron ODT 4 mg TAB 4 MG TAB SL PRN ×2 (02:31→22:10)
[2021-07-16] MEDS: Mometasone/Formoter 200/5 MDI INH SCH ×2 (08:01→22:03)
[2021-07-16] MEDS: Lidocaine PATCH 5% PATCH TRANSDERM SCH (09:03)
[2021-07-16] MEDS: Fluticasone NASAL SPRAY 50MCG 16 gm SPRAY BTL INTRANASAL SCH (09:04)
[2021-07-16] MEDS: Nystatin TOP POWDER 15 GM BTL TOPICAL SCH ×2 (09:06→22:03)
[2021-07-16] MEDS: Enoxaparin 40 MG/0.4 ML SYR SUBCUT SCH (13:33)
[2021-07-16] MEDS: CMCS: Letrozole 2.5 MG TAB (NF) PO SCH (21:59)
[2021-07-17] MEDS: Lidocaine PATCH 5% PATCH TRANSDERM SCH (07:50)
[2021-07-17] MEDS: Fluticasone NASAL SPRAY 50MCG 16 gm SPRAY BTL INTRANASAL SCH (08:28)
[2021-07-17] MEDS: Mometasone/Formoter 200/5 MDI INH SCH ×2 (08:29→18:45)
[2021-07-17] MEDS: Nystatin TOP POWDER 15 GM BTL TOPICAL SCH ×2 (08:30→21:43)
[2021-07-17] MEDS: Enoxaparin 40 MG/0.4 ML SYR SUBCUT SCH (13:33)
[2021-07-17] MEDS: Ondansetron ODT 4 mg TAB 4 MG TAB SL PRN ×2 (16:06→21:43)
[2021-07-17] MEDS: CMCS: Letrozole 2.5 MG TAB (NF) PO SCH (21:43)
[2021-07-18] MEDS: Mometasone/Formoter 200/5 MDI INH SCH ×2 (09:00→21:14)
[2021-07-18] MEDS: Lidocaine PATCH 5% PATCH TRANSDERM SCH (09:23)
[2021-07-18] MEDS: Fluticasone NASAL SPRAY 50MCG 16 gm SPRAY BTL INTRANASAL SCH (09:25)
[2021-07-18] MEDS: Nystatin TOP POWDER 15 GM BTL TOPICAL SCH ×2 (09:26→22:24)
[2021-07-18] MEDS: Enoxaparin 40 MG/0.4 ML SYR SUBCUT SCH (13:35)
[2021-07-18] MEDS: Ondansetron ODT 4 mg TAB 4 MG TAB SL PRN (19:34)
[2021-07-18] MEDS: CMCS: Letrozole 2.5 MG TAB (NF) PO SCH (22:23)
[2021-07-19] MEDS: Mometasone/Formoter 200/5 MDI INH SCH ×2 (07:56→19:36)
[2021-07-19] MEDS: Nystatin TOP POWDER 15 GM BTL TOPICAL SCH ×2 (08:41→20:46)
[2021-07-19] MEDS: Fluticasone NASAL SPRAY 50MCG 16 gm SPRAY BTL INTRANASAL SCH (08:41)
[2021-07-19] MEDS: Lidocaine PATCH 5% PATCH TRANSDERM SCH (08:42)
[2021-07-19] MEDS: Enoxaparin 40 MG/0.4 ML SYR SUBCUT SCH (14:22)
[2021-07-19] MEDS: Ondansetron ODT 4 mg TAB 4 MG TAB SL PRN (14:22)
[2021-07-19] MEDS: CMCS: Letrozole 2.5 MG TAB (NF) PO SCH (20:44)
[2021-07-20] MEDS: Ondansetron ODT 4 mg TAB 4 MG TAB SL PRN ×3 (04:00→19:01)
[2021-07-20] MEDS: Mometasone/Formoter 200/5 MDI INH SCH ×2 (09:18→20:57)
[2021-07-20] MEDS: Fluticasone NASAL SPRAY 50MCG 16 gm SPRAY BTL INTRANASAL SCH (10:52)
[2021-07-20] MEDS: Lidocaine PATCH 5% PATCH TRANSDERM SCH (10:54)
[2021-07-20] MEDS: Nystatin TOP POWDER 15 GM BTL TOPICAL SCH ×2 (10:58→22:07)
[2021-07-20] MEDS ORDERED: Psyllium PAK PO ONE (11:45)
[2021-07-20] MEDS: Enoxaparin 40 MG/0.4 ML SYR SUBCUT SCH (12:39)
[2021-07-20] MEDS: CMCS: Letrozole 2.5 MG TAB (NF) PO SCH (22:05)
[2021-07-21] MEDS: Ondansetron ODT 4 mg TAB 4 MG TAB SL PRN ×2 (06:07→17:46)
[2021-07-21] MEDS: Mometasone/Formoter 200/5 MDI INH SCH ×2 (08:43→19:50)
[2021-07-21] MEDS: Fluticasone NASAL SPRAY 50MCG 16 gm SPRAY BTL INTRANASAL SCH (08:45)
[2021-07-21] MEDS: Lidocaine PATCH 5% PATCH TRANSDERM SCH (08:45)
[2021-07-21] MEDS: Nystatin TOP POWDER 15 GM BTL TOPICAL SCH ×2 (08:46→22:27)
[2021-07-21] MEDS: Enoxaparin 40 MG/0.4 ML SYR SUBCUT SCH (13:24)
[2021-07-21] MEDS: CMCS: Letrozole 2.5 MG TAB (NF) PO SCH (22:24)
[2021-07-22] MEDS: Mometasone/Formoter 200/5 MDI INH SCH ×2 (07:03→20:24)
[2021-07-22] MEDS: Lidocaine PATCH 5% PATCH TRANSDERM SCH (09:46)
[2021-07-22] MEDS: Fluticasone NASAL SPRAY 50MCG 16 gm SPRAY BTL INTRANASAL SCH (09:46)
[2021-07-22] MEDS: Ondansetron ODT 4 mg TAB 4 MG TAB SL PRN ×2 (09:46→17:37)
[2021-07-22] MEDS: Nystatin TOP POWDER 15 GM BTL TOPICAL SCH ×2 (09:48→22:40)
[2021-07-22] MEDS: Psyllium PAK PO PRN (11:46)
[2021-07-22 12:15] LABS: Hematocrit 45 % (35-47); Hemoglobin 15.7 g/dL (12.0-16.0); Mean Corpuscular HGB Conc 35 g/dL (31-36); Mean Corpuscular Hemoglobin 30 pg (27-31); Mean Corpuscular Volume 85 fL (80-97); Mean Platelet Volume 7.7 fL (7.4-10.4); Platelet Count 237 10^3/uL (150-450); Red Blood Count 5.23 10^6 /uL (3.70-4.87); Red Cell Distribution Width 15 % (10-15); White Blood Count 4.8 10^3/uL (3.5-10.8)
[2021-07-22 12:36] LABS: Calcium 7.6 mg/dL (8.6-10.3); eGFR CKD-EPI 71.1 (>60)
[2021-07-22 12:46] LABS: Potassium 2.6 mmol/L (3.5-5.0)
[2021-07-22] MEDS: Potassium Chlor 20 meq TAB.ER PO SCH ×2 (13:16→17:39)
[2021-07-22] MEDS: Enoxaparin 40 MG/0.4 ML SYR SUBCUT SCH (13:16)
[2021-07-22] MEDS: CMCS: Letrozole 2.5 MG TAB (NF) PO SCH (22:39)
[2021-07-23 06:26] LABS: Calcium 7.3 mg/dL (8.6-10.3); eGFR CKD-EPI 74.3 (>60)
[2021-07-23 06:31] LABS: Potassium 2.5 mmol/L (3.5-5.0)
[2021-07-23] MEDS: Psyllium PAK PO PRN (08:06)
[2021-07-23] MEDS: Lidocaine PATCH 5% PATCH TRANSDERM SCH (08:08)
[2021-07-23] MEDS: Fluticasone NASAL SPRAY 50MCG 16 gm SPRAY BTL INTRANASAL SCH (08:08)
[2021-07-23] MEDS: Nystatin TOP POWDER 15 GM BTL TOPICAL SCH ×2 (08:09→20:50)
[2021-07-23] MEDS: Mometasone/Formoter 200/5 MDI INH SCH ×2 (08:32→20:45)
[2021-07-23] MEDS ORDERED: KCL 20 MEQ/100 ML IVPREMIX 20 MEQ/100 ML BAG IV SCH (10:00)
[2021-07-23] MEDS: Potassium Chlor 20 meq TAB.ER PO SCH ×2 (11:10→14:33)
[2021-07-23] MEDS: KCL premix 10 MEQ/50 ML x 6 RUNS IV SCH ×6 (11:12→20:22)
[2021-07-23] MEDS: Enoxaparin 40 MG/0.4 ML SYR SUBCUT SCH (14:37)
[2021-07-23 18:18] LABS: CO2 Carbon Dioxide 28 mmol/L (22-32); Chloride 93 mmol/L (101-111); Sodium 131 mmol/L (135-145)
[2021-07-23 18:22] LABS: Anion Gap 10 mmol/L (2-11)
[2021-07-23] MEDS: Ondansetron ODT 4 mg TAB 4 MG TAB SL PRN (19:18)
[2021-07-23] MEDS: CMCS: Letrozole 2.5 MG TAB (NF) PO SCH (20:50)
[2021-07-24] MEDS ORDERED: Potassium Chlor 20 meq TAB.ER PO ONE (07:13)
[2021-07-24] MEDS: Lidocaine PATCH 5% PATCH TRANSDERM SCH (08:24)
[2021-07-24] MEDS: Nystatin TOP POWDER 15 GM BTL TOPICAL SCH ×2 (08:26→21:13)
[2021-07-24] MEDS: Fluticasone NASAL SPRAY 50MCG 16 gm SPRAY BTL INTRANASAL SCH (08:26)
[2021-07-24] MEDS: Mometasone/Formoter 200/5 MDI INH SCH ×2 (08:30→20:00)
[2021-07-24 08:54] LABS: Calcium 8.2 mg/dL (8.6-10.3); Potassium 4.1 mmol/L (3.5-5.0); eGFR CKD-EPI 84.1 (>60)
[2021-07-24] MEDS: Enoxaparin 40 MG/0.4 ML SYR SUBCUT SCH (12:33)
[2021-07-24] MEDS: CMCS: Letrozole 2.5 MG TAB (NF) PO SCH (21:12)
[2021-07-24] MEDS: Calcium Carb (TUMS) 500 mg CHEW TAB PO SCH (21:41)
[2021-07-25] MEDS: Mometasone/Formoter 200/5 MDI INH SCH ×2 (07:50→21:26)
[2021-07-25] MEDS: Calcium Carb (TUMS) 500 mg CHEW TAB PO SCH ×2 (08:03→23:14)
[2021-07-25] MEDS: Lidocaine PATCH 5% PATCH TRANSDERM SCH (08:04)
[2021-07-25] MEDS: Fluticasone NASAL SPRAY 50MCG 16 gm SPRAY BTL INTRANASAL SCH (08:04)
[2021-07-25] MEDS: Nystatin TOP POWDER 15 GM BTL TOPICAL SCH ×2 (11:43→23:17)
[2021-07-25] MEDS: Enoxaparin 40 MG/0.4 ML SYR SUBCUT SCH (13:27)
[2021-07-25] MEDS: Ondansetron ODT 4 mg TAB 4 MG TAB SL PRN (23:14)
[2021-07-25] MEDS: CMCS: Letrozole 2.5 MG TAB (NF) PO SCH (23:15)
[2021-07-26] MEDS: Calcium Carb (TUMS) 500 mg CHEW TAB PO SCH ×2 (09:07→21:13)
[2021-07-26] MEDS: Lidocaine PATCH 5% PATCH TRANSDERM SCH (09:07)
[2021-07-26] MEDS: Ondansetron ODT 4 mg TAB 4 MG TAB SL PRN (09:07)
[2021-07-26] MEDS: Fluticasone NASAL SPRAY 50MCG 16 gm SPRAY BTL INTRANASAL SCH (09:08)
[2021-07-26] MEDS: Nystatin TOP POWDER 15 GM BTL TOPICAL SCH ×2 (09:08→21:18)
[2021-07-26] MEDS: Mometasone/Formoter 200/5 MDI INH SCH ×2 (09:15→21:13)
[2021-07-26] MEDS: Enoxaparin 40 MG/0.4 ML SYR SUBCUT SCH (12:25)
[2021-07-26] MEDS: CMCS: Letrozole 2.5 MG TAB (NF) PO SCH (21:18)
[2021-07-27] MEDS: Mometasone/Formoter 200/5 MDI INH SCH (07:11)
[2021-07-27] MEDS: Lidocaine PATCH 5% PATCH TRANSDERM SCH (08:57)
[2021-07-27] MEDS: Calcium Carb (TUMS) 500 mg CHEW TAB PO SCH (08:57)
[2021-07-27] MEDS: Fluticasone NASAL SPRAY 50MCG 16 gm SPRAY BTL INTRANASAL SCH (08:57)
[2021-07-27] MEDS: Nystatin TOP POWDER 15 GM BTL TOPICAL SCH (09:01)
[2021-07-27 11:24] VITALS: BP 119/64
[2021-07-27 12:24] LABS: Calcium 8.1 mg/dL (8.6-10.3); Potassium 3.6 mmol/L (3.5-5.0); eGFR CKD-EPI 77.7 (>60)
== END 2021-07-27 13:10 | disposition home or self-care (01) | DRG 544 ==
LOC: SUATTDRO 16:00 → SSU 16:00
PROVIDERS: ADMIT Internal Medicine; ATTEND Hospitalist

== ENCOUNTER 2021-07-30 16:21 | Observation (INO) ==
[2021-07-30] MEDS ORDERED: Ondansetron 4 mg VIAL 2 MG/ML 2 ml VIAL IV ONE (17:06)
[2021-07-30 17:55] LABS: ABS Lymphocytes 0.2 10^3/ul (1.0-4.8); ABS Monocytes 0.6 10^3/ul (0-0.8); ABS Neutrophils 2.8 10^3/ul (1.5-7.7); Eosinophil % 1.1 %; Hematocrit 44 % (35-47); Hemoglobin 10.1 g/dL (12.0-16.0); Mean Corpuscular HGB Conc 23 g/dL (31-36); Mean Corpuscular Hemoglobin 20 pg (27-31); Mean Corpuscular Volume 86 fL (80-97); Mean Platelet Volume 8.2 fL (7.4-10.4); Nucleated Red Blood Cells % 0.1; Platelet Count 218 10^3/uL (150-450); Red Blood Count 5.07 10^6 /uL (3.70-4.87); Red Cell Distribution Width 15 % (10-15); White Blood Count 3.7 10^3/uL (3.5-10.8)
[2021-07-30 18:02] LABS: High Sens Troponin Baseline 27 pg/mL (<15)
[2021-07-30 18:15] LABS: Urine Appearance Clear; Urine Bilirubin Negative (Negative); Urine Blood Negative (Negative); Urine Color Straw; Urine Glucose Negative (Negative); Urine Ketones Negative (Negative); Urine Nitrite Negative (Negative); Urine Protein Negative (Negative); Urine Specific Gravity 1.004 (1.002-1.030); Urine Urobilinogen Negative (Negative)
[2021-07-30 18:17] LABS: ALT 119 U/L (7-52); Albumin 3.3 g/dL (3.2-5.2); Albumin/Globulin Ratio 1.1 (1-3); Alkaline Phosphatase 426 U/L (35-149); Blood Urea Nitrogen 19 mg/dL (6-24); CO2 Carbon Dioxide 30 mmol/L (22-32); Calcium 7.8 mg/dL (8.6-10.3); Chloride 88 mmol/L (101-111); Globulin 3.1 g/dL (2-4); Glucose 125 mg/dL (70-100); Sodium 130 mmol/L (135-145); Total Protein 6.4 g/dL (6.4-8.9); eGFR CKD-EPI 73.2 (>60)
[2021-07-30 18:20] LABS: Urine Bacteria 1+ (Absent); Urine Red Blood Cell Trace(0-2/hpf) (Absent); Urine Squamous Epithelial Cell Present (Absent); Urine White Blood Cell 1+(6-10/hpf) (Absent)
[2021-07-30 18:20] LABS: Anion Gap 12 mmol/L (2-11)
[2021-07-30 20:00] LABS: High Sensitivity Troponin 1 Hr 33 pg/mL (<15)
[2021-07-30 20:41] LABS: Potassium Redraw 3.1 mmol/L (3.5-5.0)
[2021-07-30] MEDS ORDERED: Potassium Chlor 20 meq TAB.ER PO ONE (21:11)
[2021-07-30] MEDS ORDERED: Potassium Chloride LIQUID 20 MEQ/15 ML LIQUID PO ONE (22:06)
[2021-07-30] MEDS ORDERED: Psyllium PAK PO PRN (22:57)
[2021-07-30] MEDS ORDERED: Albuterol HFA INHALER 8 gm MDI INH PRN (22:57)
[2021-07-30 23:28] LABS: Hepatitis B Surface Antigen Nonreactive (Nonreactive)
[2021-07-31] MEDS ORDERED: PAIN RELIEVING RUB (MENTHOL/SALICYLATE) 1 APPLIC TUBE TOPICAL PRN (00:50)
[2021-07-31 01:12] LABS: Hepatitis A Ab IgM Negative (Negative)
[2021-07-31 01:13] LABS: Hepatitis B Core IgM Nonreactive (Nonreactive)
[2021-07-31] MEDS: CMCS: Letrozole 2.5 MG TAB (NF) PO SCH ×2 (01:22→21:07)
[2021-07-31 01:25] LABS: Hepatitis C Antibody Negative (Negative)
[2021-07-31] MEDS: Enoxaparin 40 MG/0.4 ML SYR SUBCUT SCH ×2 (01:29→21:07)
[2021-07-31] MEDS: Ondansetron 4 mg VIAL 2 MG/ML 2 ml VIAL IV PRN ×2 (01:54→21:07)
[2021-07-31 06:30] LABS: Hematocrit 39 % (35-47); Hemoglobin 13.6 g/dL (12.0-16.0); Mean Corpuscular HGB Conc 35 g/dL (31-36); Mean Corpuscular Hemoglobin 30 pg (27-31); Mean Corpuscular Volume 85 fL (80-97); Mean Platelet Volume 7.8 fL (7.4-10.4); Platelet Count 204 10^3/uL (150-450); Red Blood Count 4.55 10^6 /uL (3.70-4.87); Red Cell Distribution Width 15 % (10-15); White Blood Count 4.6 10^3/uL (3.5-10.8)
[2021-07-31 06:52] LABS: Potassium 3.3 mmol/L (3.5-5.0)
[2021-07-31 06:53] LABS: Albumin 2.7 g/dL (3.2-5.2); Albumin/Globulin Ratio 1.2 (1-3); Calcium 7.3 mg/dL (8.6-10.3); Direct Bilirubin 0.3 mg/dL (0.03-0.18); Globulin 2.3 g/dL (2-4); Indirect Bilirubin 0.5 mg/dL (0.3-1.0); Total Bilirubin 0.8 mg/dL (0.2-1.0); eGFR CKD-EPI 81.4 (>60)
[2021-07-31] MEDS: Mometasone/Formoter 200/5 MDI INH SCH ×2 (06:57→18:58)
[2021-07-31 07:28] LABS: ABS Eosinophils 0.1 10^3/ul (0-0.6); ABS Lymphocytes 0.4 10^3/ul (1.0-4.8); ABS Monocytes 0.8 10^3/ul (0-0.8); ABS Neutrophils 3.3 10^3/ul (1.5-7.7); Eosinophil % 2.4 %; Lymphocyte % 8.3 %; Nucleated Red Blood Cells % 0.1
[2021-07-31] MEDS ORDERED: Potassium Chlor 20 meq TAB.ER PO ONE (07:54)
[2021-07-31] MEDS ORDERED: Potassium Chloride LIQUID 20 MEQ/15 ML LIQUID PO ONE (11:00)
[2021-07-31] MEDS: Calcium/Vitamin D TAB 250/125 TAB PO SCH (11:02)
[2021-07-31] MEDS: Fluticasone NASAL SPRAY 50MCG 16 gm SPRAY BTL INTRANASAL SCH (11:02)
[2021-07-31] MEDS: Potassium Chloride LIQUID 20 MEQ/15 ML LIQUID PO SCH (11:03)
[2021-08-01 06:31] LABS: Albumin 2.6 g/dL (3.2-5.2); Calcium 7.5 mg/dL (8.6-10.3); Potassium 3.5 mmol/L (3.5-5.0); Total Bilirubin 0.7 mg/dL (0.2-1.0)
[2021-08-01 06:37] LABS: Globulin 2.5 g/dL (2-4); Total Protein 5.1 g/dL (6.4-8.9); eGFR CKD-EPI 69.1 (>60)
[2021-08-01] MEDS: Mometasone/Formoter 200/5 MDI INH SCH (07:20)
[2021-08-01] MEDS: Calcium/Vitamin D TAB 250/125 TAB PO SCH (09:49)
[2021-08-01] MEDS: Potassium Chloride LIQUID 20 MEQ/15 ML LIQUID PO SCH (09:49)
[2021-08-01] MEDS: Fluticasone NASAL SPRAY 50MCG 16 gm SPRAY BTL INTRANASAL SCH (09:50)
[2021-08-01 11:38] VITALS: BP 158/107
== END 2021-08-01 12:55 | disposition swing bed (61) ==
LOC: ED 16:21 → INTOOBSV 21:12 → EDHOLD 21:12 → SUATTDRO 21:12 → MED 07-31 00:32
PROVIDERS: ADMIT Internal Medicine; ATTEND Internal Medicine

== ENCOUNTER 2021-08-01 14:34 | Inpatient (IN) ==
[2021-08-01] MEDS ORDERED: Magnesium Hydroxide LIQ 30 ML UDC PO PRN (16:08)
[2021-08-01] MEDS ORDERED: Al Hydrox/Mg Hydrox/Simet LIQ 30 ML UDC PO PRN (16:08)
[2021-08-01] MEDS ORDERED: Albuterol HFA INHALER 8 gm MDI INH PRN (16:11)
[2021-08-01] MEDS: Mometasone/Formoter 200/5 MDI INH SCH (20:09)
[2021-08-01] MEDS: CMCS:Letrozole 2.5 MG TAB (NF) PO SCH (20:21)
[2021-08-02] MEDS: Mometasone/Formoter 200/5 MDI INH SCH ×2 (07:56→20:37)
[2021-08-02] MEDS ORDERED: Remdesivir 100 mg Vial 200 MG in NS 0.9% 250 ml 210 ML IV ONE (08:00)
[2021-08-02 08:36] LABS: INR 1.12 (0.86-1.15)
[2021-08-02 08:55] LABS: Albumin 2.6 g/dL (3.2-5.2); Calcium 7.5 mg/dL (8.6-10.3); Globulin 2.5 g/dL (2-4); Potassium 3.3 mmol/L (3.5-5.0); Total Bilirubin 0.8 mg/dL (0.2-1.0); Total Protein 5.1 g/dL (6.4-8.9); eGFR CKD-EPI 78.9 (>60)
[2021-08-02] MEDS ORDERED: Potassium Chlor 20 meq TAB.ER PO SCH (09:00)
[2021-08-02] MEDS: Fluticasone NASAL SPRAY 50MCG 16 gm SPRAY BTL INTRANASAL SCH (09:19)
[2021-08-02] MEDS: Potassium Chloride LIQUID 20 MEQ/15 ML LIQUID PO SCH (09:33)
[2021-08-02] MEDS: CMCS:Letrozole 2.5 MG TAB (NF) PO SCH (21:02)
[2021-08-02] MEDS: Magic MouthWash2-BEN/MAAL/LIDO/NYST 240 ML BTL (alt formulation) SWISH SPIT PRN (21:26)
[2021-08-03] MEDS: Prochlorperazine 5 mg/ml 2 ml VIAL (10 mg) IV PRN ×2 (00:44→16:32)
[2021-08-03 05:14] LABS: INR 1.07 (0.86-1.15)
[2021-08-03 05:30] LABS: Albumin 2.6 g/dL (3.2-5.2); Calcium 7.9 mg/dL (8.6-10.3); Globulin 2.6 g/dL (2-4); Potassium 3.5 mmol/L (3.5-5.0); Total Bilirubin 0.7 mg/dL (0.2-1.0); Total Protein 5.2 g/dL (6.4-8.9); eGFR CKD-EPI 75.4 (>60)
[2021-08-03] MEDS: Mometasone/Formoter 200/5 MDI INH SCH ×2 (09:45→19:41)
[2021-08-03] MEDS: Fluticasone NASAL SPRAY 50MCG 16 gm SPRAY BTL INTRANASAL SCH (10:17)
[2021-08-03] MEDS: Potassium Chloride LIQUID 20 MEQ/15 ML LIQUID PO SCH (10:17)
[2021-08-03] MEDS: Remdesivir 100 mg Vial 100 MG in NS 0.9% 250 ml 230 ML IV SCH (10:18)
[2021-08-03] MEDS ORDERED: guaiFENesin 100 mg/5 ml LIQ unit dose cup PO PRN (18:36)
[2021-08-03] MEDS: CMCS:Letrozole 2.5 MG TAB (NF) PO SCH (20:33)
[2021-08-03] MEDS: Magic MouthWash2-BEN/MAAL/LIDO/NYST 240 ML BTL (alt formulation) SWISH SPIT PRN (20:34)
[2021-08-04 06:18] LABS: INR 1.06 (0.86-1.15)
[2021-08-04 06:39] LABS: Albumin 2.6 g/dL (3.2-5.2); Calcium 8.1 mg/dL (8.6-10.3); Globulin 2.5 g/dL (2-4); Potassium 3.9 mmol/L (3.5-5.0); Total Bilirubin 0.6 mg/dL (0.2-1.0); Total Protein 5.1 g/dL (6.4-8.9); eGFR CKD-EPI 92.2 (>60)
[2021-08-04] MEDS: Mometasone/Formoter 200/5 MDI INH SCH ×2 (07:23→19:08)
[2021-08-04] MEDS: Potassium Chloride LIQUID 20 MEQ/15 ML LIQUID PO SCH (08:18)
[2021-08-04] MEDS: Fluticasone NASAL SPRAY 50MCG 16 gm SPRAY BTL INTRANASAL SCH (08:18)
[2021-08-04] MEDS: Remdesivir 100 mg Vial 100 MG in NS 0.9% 250 ml 230 ML IV SCH (08:19)
[2021-08-04] MEDS: Prochlorperazine 5 mg/ml 2 ml VIAL (10 mg) IV PRN (10:45)
[2021-08-04] MEDS: CMCS:Letrozole 2.5 MG TAB (NF) PO SCH (21:29)
[2021-08-04] MEDS: Magic MouthWash2-BEN/MAAL/LIDO/NYST 240 ML BTL (alt formulation) SWISH SPIT PRN (22:16)
[2021-08-05 07:42] LABS: INR 1.04 (0.86-1.15)
[2021-08-05 07:47] LABS: Albumin 2.5 g/dL (3.2-5.2); Albumin/Globulin Ratio 1.1 (1-3); Calcium 7.9 mg/dL (8.6-10.3); Globulin 2.3 g/dL (2-4); Potassium 3.7 mmol/L (3.5-5.0); Total Bilirubin 0.6 mg/dL (0.2-1.0); Total Protein 4.8 g/dL (6.4-8.9)
[2021-08-05] MEDS: Mometasone/Formoter 200/5 MDI INH SCH ×2 (08:12→17:24)
[2021-08-05] MEDS: Potassium Chloride LIQUID 20 MEQ/15 ML LIQUID PO SCH (09:59)
[2021-08-05] MEDS: Remdesivir 100 mg Vial 100 MG in NS 0.9% 250 ml 230 ML IV SCH (10:00)
[2021-08-05] MEDS: Fluticasone NASAL SPRAY 50MCG 16 gm SPRAY BTL INTRANASAL SCH (10:02)
[2021-08-05] MEDS: CMCS:Letrozole 2.5 MG TAB (NF) PO SCH (19:50)
[2021-08-06 06:22] LABS: INR 1.03 (0.86-1.15)
[2021-08-06 06:32] LABS: Albumin 2.8 g/dL (3.2-5.2); Calcium 7.9 mg/dL (8.6-10.3); Globulin 2.8 g/dL (2-4); Potassium 4.3 mmol/L (3.5-5.0); Total Bilirubin 0.7 mg/dL (0.2-1.0); Total Protein 5.6 g/dL (6.4-8.9); eGFR CKD-EPI 84.1 (>60)
[2021-08-06] MEDS: Mometasone/Formoter 200/5 MDI INH SCH ×2 (08:01→20:46)
[2021-08-06] MEDS: Potassium Chloride LIQUID 20 MEQ/15 ML LIQUID PO SCH (10:08)
[2021-08-06] MEDS: Fluticasone NASAL SPRAY 50MCG 16 gm SPRAY BTL INTRANASAL SCH (10:09)
[2021-08-06] MEDS: Remdesivir 100 mg Vial 100 MG in NS 0.9% 250 ml 230 ML IV SCH (10:09)
[2021-08-06] MEDS: CMCS:Letrozole 2.5 MG TAB (NF) PO SCH (20:19)
[2021-08-07 06:19] LABS: INR 1.05 (0.86-1.15)
[2021-08-07 06:25] LABS: Albumin 2.5 g/dL (3.2-5.2); Calcium 7.3 mg/dL (8.6-10.3); Globulin 2.4 g/dL (2-4); Potassium 3.5 mmol/L (3.5-5.0); Total Bilirubin 0.7 mg/dL (0.2-1.0); Total Protein 4.9 g/dL (6.4-8.9); eGFR CKD-EPI 91.1 (>60)
[2021-08-07] MEDS: Mometasone/Formoter 200/5 MDI INH SCH ×2 (08:32→21:28)
[2021-08-07] MEDS: Potassium Chloride LIQUID 20 MEQ/15 ML LIQUID PO SCH (10:35)
[2021-08-07] MEDS: Fluticasone NASAL SPRAY 50MCG 16 gm SPRAY BTL INTRANASAL SCH (10:35)
[2021-08-07] MEDS: CMCS:Letrozole 2.5 MG TAB (NF) PO SCH (19:43)
[2021-08-08 05:13] LABS: Magnesium 2.1 mg/dL (1.9-2.7); Potassium 3.2 mmol/L (3.5-5.0); eGFR CKD-EPI 90.1 (>60)
[2021-08-08] MEDS: Mometasone/Formoter 200/5 MDI INH SCH ×2 (07:13→20:07)
[2021-08-08] MEDS: Potassium Chloride LIQUID 20 MEQ/15 ML LIQUID PO SCH ×3 (09:29→14:20)
[2021-08-08] MEDS: Fluticasone NASAL SPRAY 50MCG 16 gm SPRAY BTL INTRANASAL SCH (09:29)
[2021-08-08] MEDS: Enoxaparin 40 MG/0.4 ML SYR SUBCUT SCH (18:08)
[2021-08-08] MEDS: CMCS:Letrozole 2.5 MG TAB (NF) PO SCH (21:19)
[2021-08-09 07:31] LABS: Calcium 7.7 mg/dL (8.6-10.3); Potassium 4.1 mmol/L (3.5-5.0)
[2021-08-09] MEDS: Mometasone/Formoter 200/5 MDI INH SCH ×2 (08:50→18:28)
[2021-08-09] MEDS: Potassium Chloride LIQUID 20 MEQ/15 ML LIQUID PO SCH (09:19)
[2021-08-09] MEDS: Fluticasone NASAL SPRAY 50MCG 16 gm SPRAY BTL INTRANASAL SCH (09:20)
[2021-08-09] MEDS: Enoxaparin 40 MG/0.4 ML SYR SUBCUT SCH (17:11)
[2021-08-09] MEDS: CMCS:Letrozole 2.5 MG TAB (NF) PO SCH (20:56)
[2021-08-10] MEDS: Mometasone/Formoter 200/5 MDI INH SCH (07:53)
[2021-08-10] MEDS: Potassium Chloride LIQUID 20 MEQ/15 ML LIQUID PO SCH (08:40)
[2021-08-10] MEDS: Fluticasone NASAL SPRAY 50MCG 16 gm SPRAY BTL INTRANASAL SCH (08:40)
[2021-08-10 09:14] VITALS: BP 147/93
== END 2021-08-10 12:50 | DRG 177 ==
LOC: SUATTDRO 14:34 → MED 14:34
PROVIDERS: ADMIT Internal Medicine; ATTEND Internal Medicine

== ENCOUNTER 2021-11-21 19:35 | Inpatient (IN) ==
[2021-11-21] MEDS ORDERED: Ondansetron 4 mg VIAL 2 MG/ML 2 ml VIAL IV ONE (20:29)
[2021-11-21 20:35] LABS: ABS Lymphocytes 0.2 10^3/ul (1.0-4.8); ABS Monocytes 0.1 10^3/ul (0-0.8); ABS Neutrophils 3.4 10^3/ul (1.5-7.7); Hematocrit 33 % (35-47); Hemoglobin 11.1 g/dL (12.0-16.0); Lymphocyte % 4.4 %; Mean Corpuscular HGB Conc 34 g/dL (31-36); Mean Corpuscular Hemoglobin 32 pg (27-31); Mean Corpuscular Volume 95 fL (80-97); Mean Platelet Volume 7.2 fL (7.4-10.4); Nucleated Red Blood Cells % 0.1; Platelet Count 262 10^3/uL (150-450); Red Blood Count 3.45 10^6 /uL (3.70-4.87); Red Cell Distribution Width 19 % (10-15); White Blood Count 3.6 10^3/uL (3.5-10.8)
[2021-11-21 21:09] LABS: Albumin 3.4 g/dL (3.2-5.2); Albumin/Globulin Ratio 1.4 (1-3); Calcium 8.9 mg/dL (8.6-10.3); Globulin 2.5 g/dL (2-4); Magnesium 1.6 mg/dL (1.9-2.7); Potassium 4.2 mmol/L (3.5-5.0); Total Bilirubin 0.8 mg/dL (0.2-1.0); Total Protein 5.9 g/dL (6.4-8.9); eGFR CKD-EPI 60.2 (>60)
[2021-11-21 22:08] LABS: C Reactive Protein 415.27 mg/L (<8.01)
[2021-11-22 00:07] LABS: ABS Lymphocytes 0.4 10^3/ul (1.0-4.8); ABS Monocytes 0.1 10^3/ul (0-0.8); ABS Neutrophils 2.6 10^3/ul (1.5-7.7); Eosinophil % 0.1 %; Hematocrit 29 % (35-47); Hemoglobin 9.9 g/dL (12.0-16.0); Lymphocyte % 11.5 %; Mean Corpuscular HGB Conc 34 g/dL (31-36); Mean Corpuscular Hemoglobin 32 pg (27-31); Mean Corpuscular Volume 94 fL (80-97); Mean Platelet Volume 6.9 fL (7.4-10.4); Platelet Count 219 10^3/uL (150-450); Red Blood Count 3.13 10^6 /uL (3.70-4.87); Red Cell Distribution Width 19 % (10-15); White Blood Count 3.1 10^3/uL (3.5-10.8)
[2021-11-22] MEDS: Heparin DRIP 25,000 UNITS BAG 25,000 UNITS/500 ML BAG IV SCH (00:16)
[2021-11-22] MEDS ORDERED: Heparin 5000 UNITS/ML 1 mL VIAL ONE (00:18)
[2021-11-22] MEDS ORDERED: Heparin 5000 UNITS/ML 1 mL VIAL IV ONE (00:19)
[2021-11-22 00:21] LABS: Activated Partial Thrombo Time 29.9 seconds (26.0-38.0); INR 1.29 (0.89-1.11)
[2021-11-22 00:50] LABS: eGFR CKD-EPI 60.9 (>60)
[2021-11-22] MEDS ORDERED: Albuterol HFA INHALER 8 gm MDI INH PRN (02:43)
[2021-11-22] MEDS: ceFAZolin 2 GM in NS PREMIX 2 GM/100 ML BAG IVPB SCH ×3 (03:10→19:54)
[2021-11-22 06:27] LABS: Hematocrit 28 % (35-47); Hemoglobin 9.3 g/dL (12.0-16.0); Mean Corpuscular HGB Conc 33 g/dL (31-36); Mean Corpuscular Hemoglobin 32 pg (27-31); Mean Corpuscular Volume 97 fL (80-97); Mean Platelet Volume 7.3 fL (7.4-10.4); Platelet Count 205 10^3/uL (150-450); Red Blood Count 2.87 10^6 /uL (3.70-4.87); Red Cell Distribution Width 19 % (10-15); White Blood Count 1.9 10^3/uL (3.5-10.8)
[2021-11-22 07:36] LABS: ABS Lymphocytes 0.2 10^3/ul (1.0-4.8); ABS Monocytes 0.1 10^3/ul (0-0.8); ABS Neutrophils 1.7 10^3/ul (1.5-7.7); Eosinophil % 0.2 %; Lymphocyte % 10.5 %; Nucleated Red Blood Cells % 0.1
[2021-11-22 08:14] LABS: CO2 Carbon Dioxide 22 mmol/L (22-32); Calcium 8.1 mg/dL (8.6-10.3); Chloride 105 mmol/L (101-111); Sodium 137 mmol/L (135-145)
[2021-11-22 08:17] LABS: Anion Gap 10 mmol/L (2-11)
[2021-11-22 08:20] LABS: Blood Urea Nitrogen 17 mg/dL (6-24); Glucose 156 mg/dL (70-100); eGFR CKD-EPI 64.2 (>60)
[2021-11-22] MEDS: Fluticasone NASAL SPRAY 50MCG 16 gm SPRAY BTL INTRANASAL SCH (08:48)
[2021-11-22 09:06] LABS: Ferritin 481.8 ng/mL (11-307)
[2021-11-22 09:09] LABS: Folate 19.58 ng/mL (5.90-24.80)
[2021-11-22 09:10] LABS: Vitamin B12 454 pg/mL (180-914)
[2021-11-22 09:22] LABS: Transferrin 149 mg/dL (203-362)
[2021-11-22] MEDS: Albuterol HFA INHALER 8 gm MDI INH SCH ×4 (09:46→19:26)
[2021-11-22 13:16] LABS: Potassium Redraw 4.2 mmol/L (3.5-5.0)
[2021-11-22 13:19] LABS: Iron < 20 ug/dL (50-212)
[2021-11-22] MEDS: Mometasone/Formoter 200/5 MDI INH SCH (19:25)
[2021-11-22] MEDS: CMCS: Letrozole 2.5 MG TAB (NF) PO SCH (19:53)
[2021-11-22 20:12] LABS: Hematocrit 31 % (35-47); Hemoglobin 10.6 g/dL (12.0-16.0)
[2021-11-22] MEDS ORDERED: Heparin 5000 UNITS/ML 1 mL VIAL IV SCH (21:00)
[2021-11-23] MEDS: ceFAZolin 2 GM in NS PREMIX 2 GM/100 ML BAG IVPB SCH ×3 (01:42→17:22)
[2021-11-23] MEDS: Heparin DRIP 25,000 UNITS BAG 25,000 UNITS/500 ML BAG IV SCH (02:33)
[2021-11-23] MEDS: Mometasone/Formoter 200/5 MDI INH SCH ×2 (08:29→19:32)
[2021-11-23 08:31] LABS: Hematocrit 31 % (35-47); Hemoglobin 10.4 g/dL (12.0-16.0); Mean Corpuscular HGB Conc 34 g/dL (31-36); Mean Corpuscular Hemoglobin 33 pg (27-31); Mean Corpuscular Volume 96 fL (80-97); Mean Platelet Volume 7.2 fL (7.4-10.4); Platelet Count 251 10^3/uL (150-450); Red Blood Count 3.17 10^6 /uL (3.70-4.87); Red Cell Distribution Width 19 % (10-15); White Blood Count 4.4 10^3/uL (3.5-10.8)
[2021-11-23 08:41] LABS: Activated Partial Thrombo Time 55.9 seconds (26.0-38.0); INR 1.25 (0.89-1.11)
[2021-11-23 09:07] LABS: Calcium 8.4 mg/dL (8.6-10.3); Magnesium 1.8 mg/dL (1.9-2.7); Phosphorus 2.7 mg/dL (2.5-5.0); Potassium 3.5 mmol/L (3.5-5.0); eGFR CKD-EPI 79.7 (>60)
[2021-11-23 09:19] LABS: ABS Eosinophils 0.1 10^3/ul (0-0.6); ABS Lymphocytes 0.4 10^3/ul (1.0-4.8); ABS Monocytes 0.1 10^3/ul (0-0.8); ABS Neutrophils 3.8 10^3/ul (1.5-7.7); Anisocytosis 1+; Eosinophil % 1.2 %; Lymphocyte % 10.1 %; Microcytosis 1+
[2021-11-23] MEDS ORDERED: Calcium Carb (TUMS) 500 mg CHEW TAB PO ONE (11:05)
[2021-11-23] MEDS: Fluticasone NASAL SPRAY 50MCG 16 gm SPRAY BTL INTRANASAL SCH (12:38)
[2021-11-23] MEDS ORDERED: Magnesium Sulfate IV 1GM/100ML 1 GM/100 ML BAG IV ONE (13:18)
[2021-11-23] MEDS: Albuterol HFA INHALER 8 gm MDI INH PRN (19:32)
[2021-11-23] MEDS: CMCS: Letrozole 2.5 MG TAB (NF) PO SCH (22:14)
[2021-11-24] MEDS: ceFAZolin 2 GM in NS PREMIX 2 GM/100 ML BAG IVPB SCH ×3 (01:49→21:35)
[2021-11-24] MEDS: Heparin DRIP 25,000 UNITS BAG 25,000 UNITS/500 ML BAG IV SCH (05:25)
[2021-11-24 07:19] LABS: Hematocrit 25 % (35-47); Hemoglobin 8.9 g/dL (12.0-16.0); Mean Corpuscular HGB Conc 35 g/dL (31-36); Mean Corpuscular Hemoglobin 35 pg (27-31); Mean Corpuscular Volume 98 fL (80-97); Mean Platelet Volume 7.4 fL (7.4-10.4); Platelet Count 222 10^3/uL (150-450); Red Blood Count 2.58 10^6 /uL (3.70-4.87); Red Cell Distribution Width 19 % (10-15); White Blood Count 3.3 10^3/uL (3.5-10.8)
[2021-11-24 07:23] LABS: INR 1.29 (0.89-1.11)
[2021-11-24 07:32] LABS: Calcium 7.5 mg/dL (8.6-10.3); Magnesium 1.8 mg/dL (1.9-2.7); Phosphorus 2.9 mg/dL (2.5-5.0); Potassium 3.1 mmol/L (3.5-5.0); eGFR CKD-EPI 77.2 (>60)
[2021-11-24] MEDS: Mometasone/Formoter 200/5 MDI INH SCH ×2 (07:33→18:48)
[2021-11-24] MEDS ORDERED: Potassium Chloride LIQUID 20 MEQ/15 ML LIQUID PO ONE ×2 (08:08→15:00)
[2021-11-24] MEDS ORDERED: Magnesium Sulfate IV 1GM/100ML 1 GM/100 ML BAG IV ONE (08:09)
[2021-11-24] MEDS ORDERED: Magnesium Sulfate 2 gm BAG 2 GM/50 ML BAG IVPB ONE (08:12)
[2021-11-24 08:27] LABS: ABS Lymphocytes 0.4 10^3/ul (1.0-4.8); ABS Monocytes 0.1 10^3/ul (0-0.8); ABS Neutrophils 2.6 10^3/ul (1.5-7.7); Eosinophil % 1.1 %; Lymphocyte % 13.7 %; Nucleated Red Blood Cells % 0.1
[2021-11-24] MEDS: Fluticasone NASAL SPRAY 50MCG 16 gm SPRAY BTL INTRANASAL SCH (09:52)
[2021-11-24 12:01] LABS: ABS Lymphocytes 0.4 10^3/ul (1.0-4.8); ABS Monocytes 0.1 10^3/ul (0-0.8); Hematocrit 32 % (35-47); Hemoglobin 10.9 g/dL (12.0-16.0); Lymphocyte % 11.2 %; Mean Corpuscular HGB Conc 34 g/dL (31-36); Mean Corpuscular Hemoglobin 32 pg (27-31); Mean Corpuscular Volume 95 fL (80-97); Mean Platelet Volume 7.2 fL (7.4-10.4); Platelet Count 278 10^3/uL (150-450); Red Blood Count 3.38 10^6 /uL (3.70-4.87); Red Cell Distribution Width 19 % (10-15); White Blood Count 3.6 10^3/uL (3.5-10.8)
[2021-11-24] MEDS: CMCS: Letrozole 2.5 MG TAB (NF) PO SCH (21:28)
[2021-11-25] MEDS: ceFAZolin 2 GM in NS PREMIX 2 GM/100 ML BAG IVPB SCH (06:14)
[2021-11-25 06:52] LABS: Hematocrit 26 % (35-47); Hemoglobin 9.6 g/dL (12.0-16.0); Mean Corpuscular HGB Conc 37 g/dL (31-36); Mean Corpuscular Hemoglobin 36 pg (27-31); Mean Corpuscular Volume 99 fL (80-97); Mean Platelet Volume 7.6 fL (7.4-10.4); Platelet Count 233 10^3/uL (150-450); Red Blood Count 2.64 10^6 /uL (3.70-4.87); Red Cell Distribution Width 19 % (10-15); White Blood Count 2.9 10^3/uL (3.5-10.8)
[2021-11-25 07:13] LABS: Calcium 7.6 mg/dL (8.6-10.3); Magnesium 1.9 mg/dL (1.9-2.7); Phosphorus 2.6 mg/dL (2.5-5.0); Potassium 3.6 mmol/L (3.5-5.0); eGFR CKD-EPI 72.7 (>60)
[2021-11-25] MEDS: Mometasone/Formoter 200/5 MDI INH SCH ×2 (09:11→19:17)
[2021-11-25 09:12] LABS: ABS Lymphocytes 0.4 10^3/ul (1.0-4.8); ABS Monocytes 0.2 10^3/ul (0-0.8); ABS Neutrophils 2.2 10^3/ul (1.5-7.7); Eosinophil % 1.6 %; Lymphocyte % 15.2 %; Nucleated Red Blood Cells % 0.1
[2021-11-25] MEDS: Fluticasone NASAL SPRAY 50MCG 16 gm SPRAY BTL INTRANASAL SCH (09:15)
[2021-11-25] MEDS ORDERED: Magnesium Hydroxide LIQ 30 ML UDC PO ONE (09:43)
[2021-11-25] MEDS: Potassium Chloride LIQUID 20 MEQ/15 ML LIQUID PO SCH (11:06)
[2021-11-25] MEDS: CMCS: Letrozole 2.5 MG TAB (NF) PO SCH (20:37)
[2021-11-26 06:04] LABS: Hematocrit 28 % (35-47); Hemoglobin 9.8 g/dL (12.0-16.0); Mean Corpuscular HGB Conc 35 g/dL (31-36); Mean Corpuscular Hemoglobin 35 pg (27-31); Mean Corpuscular Volume 98 fL (80-97); Mean Platelet Volume 7.6 fL (7.4-10.4); Platelet Count 249 10^3/uL (150-450); Red Blood Count 2.83 10^6 /uL (3.70-4.87); Red Cell Distribution Width 19 % (10-15); White Blood Count 2.5 10^3/uL (3.5-10.8)
[2021-11-26 06:24] LABS: ABS Lymphocytes 0.4 10^3/ul (1.0-4.8); ABS Monocytes 0.2 10^3/ul (0-0.8); ABS Neutrophils 1.9 10^3/ul (1.5-7.7); Eosinophil % 1.2 %
[2021-11-26 06:31] LABS: Calcium 8.1 mg/dL (8.6-10.3); Potassium 4.1 mmol/L (3.5-5.0)
[2021-11-26] MEDS: Mometasone/Formoter 200/5 MDI INH SCH ×2 (07:09→17:55)
[2021-11-26] MEDS: Potassium Chloride LIQUID 20 MEQ/15 ML LIQUID PO SCH (09:46)
[2021-11-26] MEDS: Fluticasone NASAL SPRAY 50MCG 16 gm SPRAY BTL INTRANASAL SCH (09:47)
[2021-11-26] MEDS: Albuterol HFA INHALER 8 gm MDI INH PRN (13:40)
[2021-11-26] MEDS ORDERED: Polyethylene Glycol 3350 17 GM PACKET PO ONE (15:08)
[2021-11-26] MEDS ORDERED: Lactulose 30 ml UDC PO PRN (17:44)
[2021-11-26] MEDS: CMCS: Letrozole 2.5 MG TAB (NF) PO SCH (21:35)
[2021-11-27 06:31] LABS: Hematocrit 26 % (35-47); Hemoglobin 9.1 g/dL (12.0-16.0); Mean Corpuscular HGB Conc 35 g/dL (31-36); Mean Corpuscular Hemoglobin 34 pg (27-31); Mean Corpuscular Volume 96 fL (80-97); Mean Platelet Volume 7.6 fL (7.4-10.4); Platelet Count 237 10^3/uL (150-450); Red Blood Count 2.71 10^6 /uL (3.70-4.87); Red Cell Distribution Width 18 % (10-15); White Blood Count 2.9 10^3/uL (3.5-10.8)
[2021-11-27 06:50] LABS: ABS Lymphocytes 0.4 10^3/ul (1.0-4.8); ABS Monocytes 0.3 10^3/ul (0-0.8); ABS Neutrophils 2.2 10^3/ul (1.5-7.7); Eosinophil % 1.3 %; Lymphocyte % 13.5 %
[2021-11-27 07:02] LABS: Potassium 3.7 mmol/L (3.5-5.0); eGFR CKD-EPI 89.2 (>60)
[2021-11-27] MEDS: Mometasone/Formoter 200/5 MDI INH SCH ×2 (07:36→21:06)
[2021-11-27] MEDS: Potassium Chloride LIQUID 20 MEQ/15 ML LIQUID PO SCH ×2 (08:44→17:10)
[2021-11-27] MEDS: Fluticasone NASAL SPRAY 50MCG 16 gm SPRAY BTL INTRANASAL SCH (08:46)
[2021-11-27] MEDS: CMCS: Letrozole 2.5 MG TAB (NF) PO SCH (21:59)
[2021-11-28 06:15] LABS: Hematocrit 29 % (35-47); Red Blood Count 2.67 10^6 /uL (3.70-4.87); White Blood Count 2.9 10^3/uL (3.5-10.8)
[2021-11-28 06:16] LABS: ABS Lymphocytes 0.4 10^3/ul (1.0-4.8); ABS Monocytes 0.2 10^3/ul (0-0.8); ABS Neutrophils 2.2 10^3/ul (1.5-7.7); Eosinophil % 1.2 %; Lymphocyte % 14.2 %; Mean Platelet Volume 7.9 fL (7.4-10.4); Nucleated Red Blood Cells % 0.2; Platelet Count 246 10^3/uL (150-450)
[2021-11-28 06:37] LABS: Calcium 8.1 mg/dL (8.6-10.3); Potassium 3.7 mmol/L (3.5-5.0); eGFR CKD-EPI 87.9 (>60)
[2021-11-28] MEDS: Mometasone/Formoter 200/5 MDI INH SCH ×2 (07:45→19:43)
[2021-11-28 07:57] LABS: Mean Corpuscular HGB Conc 34 g/dL (31-36); Mean Corpuscular Hemoglobin 37 pg (27-31); Mean Corpuscular Volume 108 fL (80-97); Red Cell Distribution Width 20 % (10-15)
[2021-11-28] MEDS: Potassium Chloride LIQUID 20 MEQ/15 ML LIQUID PO SCH ×2 (08:42→18:06)
[2021-11-28] MEDS: Fluticasone NASAL SPRAY 50MCG 16 gm SPRAY BTL INTRANASAL SCH (08:43)
[2021-11-28] MEDS ORDERED: Dexamethasone IV 4 MG/ML VIAL 1 ml VIAL IV SLOW PU ONE (10:22)
[2021-11-28] MEDS ORDERED: fentaNYL PATCH 12 MCG/HR 1 PATCH TRANSDERM SCH (14:00)
[2021-11-28] MEDS: CMCS: Letrozole 2.5 MG TAB (NF) PO SCH (20:35)
[2021-11-28] MEDS ORDERED: Gadoteridol (CONTRAST) 279.3 MG/ML 10 ML IV ONE (21:47)
[2021-11-29 05:32] LABS: ABS Lymphocytes 0.4 10^3/ul (1.0-4.8); ABS Monocytes 0.1 10^3/ul (0-0.8); ABS Neutrophils 4.4 10^3/ul (1.5-7.7); Hematocrit 30 % (35-47); Hemoglobin 10.4 g/dL (12.0-16.0); Lymphocyte % 8.4 %; Mean Corpuscular HGB Conc 35 g/dL (31-36); Mean Corpuscular Hemoglobin 33 pg (27-31); Mean Corpuscular Volume 96 fL (80-97); Mean Platelet Volume 7.8 fL (7.4-10.4); Platelet Count 245 10^3/uL (150-450); Red Blood Count 3.13 10^6 /uL (3.70-4.87); Red Cell Distribution Width 19 % (10-15)
[2021-11-29 05:59] LABS: Calcium 8.3 mg/dL (8.6-10.3); Potassium 3.7 mmol/L (3.5-5.0); eGFR CKD-EPI 88.9 (>60)
[2021-11-29] MEDS: Mometasone/Formoter 200/5 MDI INH SCH (07:57)
[2021-11-29] MEDS: Fluticasone NASAL SPRAY 50MCG 16 gm SPRAY BTL INTRANASAL SCH (09:19)
[2021-11-29] MEDS: Potassium Chloride LIQUID 20 MEQ/15 ML LIQUID PO SCH (10:20)
[2021-11-29 12:15] VITALS: BP 119/59
== END 2021-11-29 12:30 | DRG 299 ==
LOC: EDHOLD 19:35 → ED 19:35 → SUATTDRO 23:19 → EDHOLD 11-22 16:20 → MED 11-22 16:43 → SUATTDRO 11-23 11:26 → MED 11-26 21:38
PROVIDERS: ADMIT Internal Medicine; ATTEND Internal Medicine

== ENCOUNTER 2022-01-12 13:24 | Inpatient (IN) ==
[2022-01-12] MEDS ORDERED: Ondansetron 4 mg VIAL 2 MG/ML 2 ml VIAL IV ONE (14:57)
[2022-01-12 15:03] LABS: ABS Eosinophils 0.1 10^3/ul (0-0.6); ABS Lymphocytes 0.7 10^3/ul (1.0-4.8); ABS Monocytes 0.1 10^3/ul (0-0.8); ABS Neutrophils 4.1 10^3/ul (1.5-7.7); Eosinophil % 1.9 %; Hematocrit 42 % (35-47); Lymphocyte % 14.3 %; Mean Corpuscular HGB Conc 33 g/dL (31-36); Mean Corpuscular Hemoglobin 31 pg (27-31); Mean Corpuscular Volume 93 fL (80-97); Mean Platelet Volume 7.8 fL (7.4-10.4); Nucleated Red Blood Cells % 0.2; Platelet Count 259 10^3/uL (150-450); Red Blood Count 4.57 10^6 /uL (3.70-4.87); Red Cell Distribution Width 19 % (10-15)
[2022-01-12 15:52] LABS: Albumin 3.4 g/dL (3.2-5.2); Albumin/Globulin Ratio 1.2 (1-3); Calcium 9.3 mg/dL (8.6-10.3); Globulin 2.9 g/dL (2-4); Magnesium 2.1 mg/dL (1.9-2.7); Total Bilirubin 0.7 mg/dL (0.2-1.0); Total Protein 6.3 g/dL (6.4-8.9); eGFR CKD-EPI 39.3 (>60)
[2022-01-12 15:53] LABS: Potassium 5.3 mmol/L (3.5-5.0)
[2022-01-12 16:04] LABS: TSH Ultra Thyroid Stim Horm 2.95 mcIU/mL (0.34-5.60)
[2022-01-12] MEDS ORDERED: Iodixanol (CONTRAST) 320 MG/ML 100 ML SDV IV ONE (16:14)
[2022-01-12 16:34] LABS: High Sensitivity Troponin 1 Hr 16 pg/mL (<15)
[2022-01-12] MEDS ORDERED: NS 0.9% 1000 ml BAG 1,000 ML IV ONE (16:45)
[2022-01-12 18:40] LABS: Urine Appearance Turbid; Urine Bilirubin Negative (Negative); Urine Blood 3+ (Negative); Urine Color Yellow; Urine Glucose Negative (Negative); Urine Ketones Negative (Negative); Urine Nitrite Negative (Negative); Urine Protein 1+(30 mg/dL) (Negative); Urine Urobilinogen Negative (Negative)
[2022-01-12 19:00] LABS: Urine Bacteria 1+ (Absent); Urine Red Blood Cell 3+(>10/hpf) (Absent); Urine Squamous Epithelial Cell Present (Absent); Urine White Blood Cell 3+(>20/hpf) (Absent)
[2022-01-12] MEDS ORDERED: cefTRIAXone 1 gm/50 mL D5W 1 GM/50 ML BAG IV ONE (21:18)
[2022-01-12] MEDS ORDERED: Lactated Ringers 1000 ml BAG 1,000 ML IV SCH (22:00)
[2022-01-12 22:52] LABS: C Reactive Protein 567.62 mg/L (<8.01)
[2022-01-13] MEDS ORDERED: Albuterol HFA INHALER 8 gm MDI INH PRN (00:08)
[2022-01-13] MEDS ORDERED: Magnesium Hydroxide LIQ 30 ML UDC PO PRN (00:08)
[2022-01-13] MEDS ORDERED: Sodium Phosphate ADULT ENEMA 133 ML BTL PR PRN (00:08)
[2022-01-13] MEDS: cefTRIAXone 1 gm/50 mL D5W 1 GM/50 ML BAG IV SCH ×2 (00:15→22:21)
[2022-01-13] MEDS: Mometasone/Formoter 200/5 MDI INH SCH ×2 (07:00→20:17)
[2022-01-13 07:54] LABS: ABS Eosinophils 0.1 10^3/ul (0-0.6); ABS Lymphocytes 0.4 10^3/ul (1.0-4.8); ABS Monocytes 0.1 10^3/ul (0-0.8); ABS Neutrophils 2.8 10^3/ul (1.5-7.7); Eosinophil % 1.5 %; Hematocrit 37 % (35-47); Hemoglobin 12.5 g/dL (12.0-16.0); Mean Corpuscular HGB Conc 33 g/dL (31-36); Mean Corpuscular Hemoglobin 31 pg (27-31); Mean Corpuscular Volume 94 fL (80-97); Mean Platelet Volume 7.8 fL (7.4-10.4); Nucleated Red Blood Cells % 0.1; Platelet Count 200 10^3/uL (150-450); Red Blood Count 3.98 10^6 /uL (3.70-4.87); Red Cell Distribution Width 18 % (10-15); White Blood Count 3.4 10^3/uL (3.5-10.8)
[2022-01-13 08:14] LABS: Calcium 8.6 mg/dL (8.6-10.3); Potassium 4.1 mmol/L (3.5-5.0); eGFR CKD-EPI 52.3 (>60)
[2022-01-13] MEDS: Polyethylene Glycol 3350 17 GM PACKET PO SCH (09:52)
[2022-01-13] MEDS: NS 0.9% 1000 ml BAG 1,000 ML IV SCH ×2 (09:55→22:22)
[2022-01-13] MEDS: CMCS: Letrozole 2.5 MG TAB (NF) PO SCH (22:21)
[2022-01-14 06:26] LABS: Hematocrit 30 % (35-47); Mean Corpuscular HGB Conc 34 g/dL (31-36); Mean Corpuscular Hemoglobin 31 pg (27-31); Mean Corpuscular Volume 92 fL (80-97); Mean Platelet Volume 7.7 fL (7.4-10.4); Platelet Count 135 10^3/uL (150-450); Red Blood Count 3.23 10^6 /uL (3.70-4.87); Red Cell Distribution Width 18 % (10-15); White Blood Count 2.5 10^3/uL (3.5-10.8)
[2022-01-14] MEDS: Mometasone/Formoter 200/5 MDI INH SCH ×2 (06:58→19:28)
[2022-01-14 07:18] LABS: Magnesium 1.7 mg/dL (1.9-2.7); Potassium 3.1 mmol/L (3.5-5.0); eGFR CKD-EPI 88.5 (>60)
[2022-01-14 07:49] LABS: Phosphorus 2.2 mg/dL (2.5-5.0)
[2022-01-14] MEDS ORDERED: Magnesium Sulfate 2 gm BAG 2 GM/50 ML BAG IVPB ONE (08:03)
[2022-01-14 08:33] LABS: ABS Lymphocytes 0.5 10^3/ul (1.0-4.8); ABS Monocytes 0.1 10^3/ul (0-0.8); ABS Neutrophils 1.9 10^3/ul (1.5-7.7); Eosinophil % 1.4 %; Lymphocyte % 21.7 %
[2022-01-14] MEDS: Polyethylene Glycol 3350 17 GM PACKET PO SCH (09:18)
[2022-01-14] MEDS: Potassium Chlor 20 meq TAB.ER PO SCH ×3 (10:21→15:02)
[2022-01-14] MEDS: cefTRIAXone 1 gm/50 mL D5W 1 GM/50 ML BAG IV SCH (21:37)
[2022-01-14] MEDS: CMCS: Letrozole 2.5 MG TAB (NF) PO SCH (21:37)
[2022-01-15 06:02] LABS: ABS Lymphocytes 0.4 10^3/ul (1.0-4.8); ABS Monocytes 0.1 10^3/ul (0-0.8); ABS Neutrophils 1.4 10^3/ul (1.5-7.7); Eosinophil % 1.2 %; Hematocrit 30 % (35-47); Hemoglobin 10.3 g/dL (12.0-16.0); Mean Corpuscular HGB Conc 34 g/dL (31-36); Mean Corpuscular Hemoglobin 31 pg (27-31); Mean Corpuscular Volume 92 fL (80-97); Mean Platelet Volume 7.7 fL (7.4-10.4); Nucleated Red Blood Cells % 0.1; Platelet Count 116 10^3/uL (150-450); Red Blood Count 3.29 10^6 /uL (3.70-4.87); Red Cell Distribution Width 18 % (10-15); White Blood Count 1.9 10^3/uL (3.5-10.8)
[2022-01-15 06:43] LABS: Calcium 8.1 mg/dL (8.6-10.3); Magnesium 2.2 mg/dL (1.9-2.7); Phosphorus 2.1 mg/dL (2.5-5.0); Potassium 3.6 mmol/L (3.5-5.0); eGFR CKD-EPI 94.5 (>60)
[2022-01-15] MEDS: Mometasone/Formoter 200/5 MDI INH SCH ×2 (08:37→20:33)
[2022-01-15] MEDS: Polyethylene Glycol 3350 17 GM PACKET PO SCH (08:46)
[2022-01-15] MEDS: DOXYcycline 100 MG in NS 0.9% 250 ml 250 ML IVPB SCH (13:41)
[2022-01-15] MEDS ORDERED: Sodium Phosphate IV 15 MMOLE in NS 0.9% 250 ml 250 ML IV ONE (14:23)
[2022-01-15 14:51] LABS: C Reactive Protein 304.95 mg/L (<8.01)
[2022-01-15] MEDS: CMCS: Letrozole 2.5 MG TAB (NF) PO SCH (23:20)
[2022-01-16] MEDS: DOXYcycline 100 MG in NS 0.9% 250 ml 250 ML IVPB SCH ×2 (02:34→21:06)
[2022-01-16 06:41] LABS: ABS Neutrophils 0.7 10^3/ul (1.5-7.7)
[2022-01-16 06:44] LABS: Hematocrit 25 % (35-47); Hemoglobin 8.3 g/dL (12.0-16.0); Mean Corpuscular HGB Conc 33 g/dL (31-36); Mean Corpuscular Hemoglobin 30 pg (27-31); Mean Corpuscular Volume 92 fL (80-97); Red Blood Count 2.77 10^6 /uL (3.70-4.87); Red Cell Distribution Width 18 % (10-15); White Blood Count 1.2 10^3/uL (3.5-10.8)
[2022-01-16] MEDS: Mometasone/Formoter 200/5 MDI INH SCH ×2 (07:08→19:06)
[2022-01-16 07:35] LABS: Calcium 7.5 mg/dL (8.6-10.3); Magnesium 1.8 mg/dL (1.9-2.7); Phosphorus 2.7 mg/dL (2.5-5.0); Potassium 3.3 mmol/L (3.5-5.0); eGFR CKD-EPI 100.6 (>60)
[2022-01-16 08:41] LABS: ABS Lymphocytes 0.4 10^3/ul (1.0-4.8); ABS Monocytes 0.1 10^3/ul (0-0.8); Eosinophil % 1.1 %; Lymphocyte % 32.8 %; Mean Platelet Volume 7.3 fL (7.4-10.4); Nucleated Red Blood Cells % 0.1; Platelet Count 89 10^3/uL (150-450)
[2022-01-16] MEDS: Potassium Chlor 20 meq TAB.ER PO SCH ×2 (09:35→20:43)
[2022-01-16] MEDS: Polyethylene Glycol 3350 17 GM PACKET PO SCH (09:36)
[2022-01-16] MEDS: CMCS: Letrozole 2.5 MG TAB (NF) PO SCH (20:43)
[2022-01-17] MEDS: DOXYcycline 100 MG in NS 0.9% 250 ml 250 ML IVPB SCH ×3 (01:04→03:28)
[2022-01-17 05:16] LABS: ABS Lymphocytes 0.4 10^3/ul (1.0-4.8); ABS Monocytes 0.1 10^3/ul (0-0.8); ABS Neutrophils 0.8 10^3/ul (1.5-7.7); Eosinophil % 1.4 %; Hematocrit 29 % (35-47); Hemoglobin 9.7 g/dL (12.0-16.0); Mean Corpuscular HGB Conc 33 g/dL (31-36); Mean Corpuscular Hemoglobin 31 pg (27-31); Mean Corpuscular Volume 92 fL (80-97); Mean Platelet Volume 7.3 fL (7.4-10.4); Platelet Count 86 10^3/uL (150-450); Red Blood Count 3.15 10^6 /uL (3.70-4.87); Red Cell Distribution Width 19 % (10-15); White Blood Count 1.4 10^3/uL (3.5-10.8)
[2022-01-17 05:37] LABS: Calcium 7.9 mg/dL (8.6-10.3); Magnesium 1.7 mg/dL (1.9-2.7); Potassium 3.8 mmol/L (3.5-5.0)
[2022-01-17 05:43] LABS: eGFR CKD-EPI 101.9 (>60)
[2022-01-17] MEDS: Mometasone/Formoter 200/5 MDI INH SCH ×2 (07:47→19:27)
[2022-01-17] MEDS ORDERED: DOXYcycline 100 MG in NS 0.9% 250 ml 250 ML IVPB SCH (09:00)
[2022-01-17] MEDS: Polyethylene Glycol 3350 17 GM PACKET PO SCH (10:00)
[2022-01-17] MEDS: CMCS: Letrozole 2.5 MG TAB (NF) PO SCH (22:26)
[2022-01-18 05:38] LABS: Hematocrit 27 % (35-47); Hemoglobin 8.8 g/dL (12.0-16.0); Mean Corpuscular HGB Conc 32 g/dL (31-36); Mean Corpuscular Hemoglobin 30 pg (27-31); Mean Corpuscular Volume 93 fL (80-97); Mean Platelet Volume 7.8 fL (7.4-10.4); Platelet Count 86 10^3/uL (150-450); Red Blood Count 2.93 10^6 /uL (3.70-4.87); Red Cell Distribution Width 19 % (10-15); White Blood Count 1.5 10^3/uL (3.5-10.8)
[2022-01-18 05:40] LABS: ABS Lymphocytes 0.5 10^3/ul (1.0-4.8); ABS Monocytes 0.1 10^3/ul (0-0.8); ABS Neutrophils 0.8 10^3/ul (1.5-7.7); Eosinophil % 1.4 %; Lymphocyte % 34.9 %; Nucleated Red Blood Cells % 0.1
[2022-01-18 05:45] LABS: CO2 Carbon Dioxide 19 mmol/L (22-32); Chloride 104 mmol/L (101-111); Sodium 129 mmol/L (135-145)
[2022-01-18 05:48] LABS: Anion Gap 6 mmol/L (2-11)
[2022-01-18 05:51] LABS: Blood Urea Nitrogen 6 mg/dL (6-24); Glucose 75 mg/dL (70-100); eGFR CKD-EPI 97.3 (>60)
[2022-01-18] MEDS: Mometasone/Formoter 200/5 MDI INH SCH ×2 (07:28→19:43)
[2022-01-18 16:54] LABS: Calcium 8.2 mg/dL (8.6-10.3); Potassium 3.8 mmol/L (3.5-5.0); eGFR CKD-EPI 101.9 (>60)
[2022-01-18] MEDS: CMCS: Letrozole 2.5 MG TAB (NF) PO SCH (20:34)
[2022-01-19 01:47] LABS: Urine Osmo 242 mOsm/kg (150-1150)
[2022-01-19] MEDS: Mometasone/Formoter 200/5 MDI INH SCH ×2 (07:07→20:39)
[2022-01-19 07:13] LABS: ABS Neutrophils 0.9 10^3/ul (1.5-7.7)
[2022-01-19 07:15] LABS: Hematocrit 28 % (35-47); Hemoglobin 9.5 g/dL (12.0-16.0); Mean Corpuscular HGB Conc 34 g/dL (31-36); Mean Corpuscular Hemoglobin 31 pg (27-31); Mean Corpuscular Volume 93 fL (80-97); Mean Platelet Volume 7.9 fL (7.4-10.4); Platelet Count 87 10^3/uL (150-450); Red Blood Count 3.04 10^6 /uL (3.70-4.87); Red Cell Distribution Width 19 % (10-15); White Blood Count 1.7 10^3/uL (3.5-10.8)
[2022-01-19 08:00] LABS: ABS Lymphocytes 0.6 10^3/ul (1.0-4.8); ABS Monocytes 0.2 10^3/ul (0-0.8); Eosinophil % 1.2 %; Lymphocyte % 36.9 %; Nucleated Red Blood Cells % 0.3
[2022-01-19 08:03] LABS: Calcium 8.4 mg/dL (8.6-10.3); Potassium 3.7 mmol/L (3.5-5.0); eGFR CKD-EPI 102.5 (>60)
[2022-01-19] MEDS ORDERED: Iodixanol (CONTRAST) 320 MG/ML 100 ML SDV IV ONE (12:20)
[2022-01-19] MEDS ORDERED: NS 0.9% 500 ml BAG 500 ML IV ONE (13:25)
[2022-01-19] MEDS: CMCS: Letrozole 2.5 MG TAB (NF) PO SCH (20:29)
[2022-01-20 07:01] LABS: Calcium 8.3 mg/dL (8.6-10.3); Potassium 3.4 mmol/L (3.5-5.0); eGFR CKD-EPI 101.2 (>60)
[2022-01-20 07:07] LABS: ABS Lymphocytes 0.7 10^3/ul (1.0-4.8); ABS Monocytes 0.2 10^3/ul (0-0.8); ABS Neutrophils 0.8 10^3/ul (1.5-7.7); Hematocrit 28 % (35-47); Hemoglobin 9.6 g/dL (12.0-16.0); Lymphocyte % 41.5 %; Mean Corpuscular HGB Conc 34 g/dL (31-36); Mean Corpuscular Hemoglobin 32 pg (27-31); Mean Corpuscular Volume 92 fL (80-97); Mean Platelet Volume 7.2 fL (7.4-10.4); Nucleated Red Blood Cells % 0.2; Platelet Count 96 10^3/uL (150-450); Red Blood Count 3.04 10^6 /uL (3.70-4.87); Red Cell Distribution Width 19 % (10-15); White Blood Count 1.8 10^3/uL (3.5-10.8)
[2022-01-20] MEDS: Mometasone/Formoter 200/5 MDI INH SCH ×2 (07:33→19:08)
[2022-01-20 11:34] LABS: Magnesium 1.6 mg/dL (1.9-2.7)
[2022-01-20] MEDS: CMCS: Letrozole 2.5 MG TAB (NF) PO SCH (19:59)
[2022-01-20 21:15] LABS: Anaplasma phagocytophilum Negative (Negative); B. miyamotoi PCR, B Negative (Negative); Babesia divergens/MO-1 Negative (Negative); Babesia ducani Negative (Negative); Ehrlichia chaffeensis Negative (Negative); Ehrlichia ewingii/canis Negative (Negative); Ehrlichia muris eauclairensis Negative (Negative)
[2022-01-21] MEDS: Mometasone/Formoter 200/5 MDI INH SCH ×2 (07:08→19:59)
[2022-01-21 07:35] LABS: Hematocrit 27 % (35-47); Hemoglobin 9.3 g/dL (12.0-16.0); Mean Corpuscular HGB Conc 35 g/dL (31-36); Mean Corpuscular Hemoglobin 33 pg (27-31); Mean Corpuscular Volume 94 fL (80-97); Mean Platelet Volume 7.1 fL (7.4-10.4); Platelet Count 103 10^3/uL (150-450); Red Blood Count 2.86 10^6 /uL (3.70-4.87); Red Cell Distribution Width 19 % (10-15); White Blood Count 1.7 10^3/uL (3.5-10.8)
[2022-01-21 07:40] LABS: ABS Lymphocytes 0.6 10^3/ul (1.0-4.8); ABS Monocytes 0.2 10^3/ul (0-0.8); ABS Neutrophils 0.8 10^3/ul (1.5-7.7); Eosinophil % 1.2 %; Lymphocyte % 38.3 %
[2022-01-21 08:25] LABS: Calcium 8.1 mg/dL (8.6-10.3); Potassium 3.4 mmol/L (3.5-5.0); eGFR CKD-EPI 103.2 (>60)
[2022-01-21 08:47] LABS: Magnesium 1.6 mg/dL (1.9-2.7)
[2022-01-21] MEDS ORDERED: Magnesium Sulfate IV 3 GM in NS 0.9% 100 ml BAG 100 ML IVPB ONE (14:44)
[2022-01-21] MEDS ORDERED: Lactated Ringers 500 ml BAG 500 ML IV SCH (16:00)
[2022-01-21] MEDS: Potassium Chlor 20 meq TAB.ER PO SCH ×2 (16:16→20:36)
[2022-01-21] MEDS: CMCS: Letrozole 2.5 MG TAB (NF) PO SCH (20:35)
[2022-01-21] MEDS: Saline NASAL SPRAY 0.65% BTL BOTH NARES SCH (20:37)
[2022-01-22] MEDS: Mometasone/Formoter 200/5 MDI INH SCH ×2 (07:30→20:27)
[2022-01-22 07:37] LABS: ABS Lymphocytes 0.5 10^3/ul (1.0-4.8); ABS Monocytes 0.2 10^3/ul (0-0.8); ABS Neutrophils 1.2 10^3/ul (1.5-7.7); Hematocrit 29 % (35-47); Hemoglobin 9.5 g/dL (12.0-16.0); Lymphocyte % 26.8 %; Mean Corpuscular HGB Conc 33 g/dL (31-36); Mean Corpuscular Hemoglobin 31 pg (27-31); Mean Corpuscular Volume 94 fL (80-97); Mean Platelet Volume 7.1 fL (7.4-10.4); Nucleated Red Blood Cells % 0.1; Platelet Count 127 10^3/uL (150-450); Red Blood Count 3.07 10^6 /uL (3.70-4.87); Red Cell Distribution Width 19 % (10-15); White Blood Count 1.9 10^3/uL (3.5-10.8)
[2022-01-22 07:52] LABS: Potassium 3.7 mmol/L (3.5-5.0); eGFR CKD-EPI 106.2 (>60)
[2022-01-22 10:13] LABS: Magnesium 2.1 mg/dL (1.9-2.7)
[2022-01-22] MEDS: CMCS: Letrozole 2.5 MG TAB (NF) PO SCH (20:30)
[2022-01-22] MEDS: Saline NASAL SPRAY 0.65% BTL BOTH NARES SCH (20:30)
[2022-01-23 07:04] LABS: ABS Lymphocytes 0.6 10^3/ul (1.0-4.8); ABS Monocytes 0.2 10^3/ul (0-0.8); ABS Neutrophils 1.2 10^3/ul (1.5-7.7); Eosinophil % 1.1 %; Hematocrit 28 % (35-47); Hemoglobin 9.5 g/dL (12.0-16.0); Lymphocyte % 27.7 %; Mean Corpuscular HGB Conc 34 g/dL (31-36); Mean Corpuscular Hemoglobin 32 pg (27-31); Mean Corpuscular Volume 94 fL (80-97); Mean Platelet Volume 6.8 fL (7.4-10.4); Platelet Count 145 10^3/uL (150-450); Red Blood Count 2.96 10^6 /uL (3.70-4.87); Red Cell Distribution Width 20 % (10-15); White Blood Count 2.1 10^3/uL (3.5-10.8)
[2022-01-23] MEDS: Mometasone/Formoter 200/5 MDI INH SCH ×2 (07:10→20:09)
[2022-01-23 07:17] LABS: Calcium 8.1 mg/dL (8.6-10.3); Potassium 3.8 mmol/L (3.5-5.0); eGFR CKD-EPI 103.2 (>60)
[2022-01-23] MEDS: CMCS: Letrozole 2.5 MG TAB (NF) PO SCH (22:47)
[2022-01-23] MEDS: Saline NASAL SPRAY 0.65% BTL BOTH NARES SCH (22:48)
[2022-01-24] MEDS: Mometasone/Formoter 200/5 MDI INH SCH ×2 (07:43→20:59)
[2022-01-24] MEDS ORDERED: NS 0.9% 1000 ml BAG 1,000 ML IV SCH (12:30)
[2022-01-24] MEDS: CMCS: Letrozole 2.5 MG TAB (NF) PO SCH (21:11)
[2022-01-24] MEDS: Saline NASAL SPRAY 0.65% BTL BOTH NARES SCH (21:15)
[2022-01-25 06:18] LABS: ABS Lymphocytes 0.6 10^3/ul (1.0-4.8); ABS Monocytes 0.2 10^3/ul (0-0.8); ABS Neutrophils 1.3 10^3/ul (1.5-7.7); Eosinophil % 0.7 %; Hematocrit 28 % (35-47); Hemoglobin 9.4 g/dL (12.0-16.0); Lymphocyte % 28.3 %; Mean Corpuscular HGB Conc 33 g/dL (31-36); Mean Corpuscular Hemoglobin 31 pg (27-31); Mean Corpuscular Volume 94 fL (80-97); Mean Platelet Volume 6.3 fL (7.4-10.4); Platelet Count 204 10^3/uL (150-450); Red Cell Distribution Width 20 % (10-15); White Blood Count 2.2 10^3/uL (3.5-10.8)
[2022-01-25 06:48] LABS: Calcium 7.9 mg/dL (8.6-10.3); Potassium 3.3 mmol/L (3.5-5.0); eGFR CKD-EPI 97.8 (>60)
[2022-01-25] MEDS ORDERED: Potassium Chlor 20 meq TAB.ER PO ONE (07:16)
[2022-01-25 07:53] LABS: C Reactive Protein 227.38 mg/L (<8.01)
[2022-01-25] MEDS: Mometasone/Formoter 200/5 MDI INH SCH (08:02)
[2022-01-25 16:42] LABS: Rapid COVID-19 Molecular Undetected (Undetected)
[2022-01-25] MEDS: CMCS: Letrozole 2.5 MG TAB (NF) PO SCH (21:09)
[2022-01-25] MEDS: Saline NASAL SPRAY 0.65% BTL BOTH NARES SCH (21:16)
[2022-01-26] MEDS: Mometasone/Formoter 200/5 MDI INH SCH ×3 (07:19→20:20)
[2022-01-26] MEDS: CMCS: Letrozole 2.5 MG TAB (NF) PO SCH (20:36)
[2022-01-26] MEDS: Saline NASAL SPRAY 0.65% BTL BOTH NARES SCH (20:36)
[2022-01-27 06:43] LABS: ABS Lymphocytes 0.6 10^3/ul (1.0-4.8); ABS Monocytes 0.2 10^3/ul (0-0.8); Eosinophil % 1.8 %; Hematocrit 27 % (35-47); Lymphocyte % 32.3 %; Mean Corpuscular HGB Conc 34 g/dL (31-36); Mean Corpuscular Hemoglobin 32 pg (27-31); Mean Corpuscular Volume 94 fL (80-97); Mean Platelet Volume 6.4 fL (7.4-10.4); Nucleated Red Blood Cells % 0.1; Platelet Count 240 10^3/uL (150-450); Red Blood Count 2.81 10^6 /uL (3.70-4.87); Red Cell Distribution Width 19 % (10-15)
[2022-01-27 07:10] LABS: Calcium 8.2 mg/dL (8.6-10.3); Magnesium 1.8 mg/dL (1.9-2.7); Potassium 3.5 mmol/L (3.5-5.0); eGFR CKD-EPI 99.4 (>60)
[2022-01-27] MEDS: Mometasone/Formoter 200/5 MDI INH SCH ×2 (07:56→19:25)
[2022-01-27] MEDS: Ondansetron 4 mg VIAL 2 MG/ML 2 ml VIAL IV PRN (16:04)
[2022-01-27] MEDS: Saline NASAL SPRAY 0.65% BTL BOTH NARES SCH (21:31)
[2022-01-27] MEDS: CMCS: Letrozole 2.5 MG TAB (NF) PO SCH (21:31)
[2022-01-28] MEDS: Ondansetron 4 mg VIAL 2 MG/ML 2 ml VIAL IV PRN (05:50)
[2022-01-28] MEDS: Mometasone/Formoter 200/5 MDI INH SCH ×2 (09:56→20:31)
[2022-01-28] MEDS ORDERED: Senna TAB 8.6 mg TAB PO PRN (11:26)
[2022-01-28] MEDS: CMCS: Letrozole 2.5 MG TAB (NF) PO SCH (21:13)
[2022-01-28] MEDS: Saline NASAL SPRAY 0.65% BTL BOTH NARES SCH (21:13)
[2022-01-29] MEDS: Mometasone/Formoter 200/5 MDI INH SCH ×2 (08:47→20:48)
[2022-01-29] MEDS: Ondansetron 4 mg VIAL 2 MG/ML 2 ml VIAL IV PRN (16:58)
[2022-01-29] MEDS: Saline NASAL SPRAY 0.65% BTL BOTH NARES SCH (22:27)
[2022-01-29] MEDS: CMCS: Letrozole 2.5 MG TAB (NF) PO SCH (22:27)
[2022-01-30 07:55] VITALS: BP 104/66
[2022-01-30] MEDS: Mometasone/Formoter 200/5 MDI INH SCH (08:36)
[2022-01-30 08:44] LABS: Rapid COVID-19 Molecular Undetected (Undetected)
== END 2022-01-30 11:28 | DRG 871 ==
LOC: ED 13:24 → EDHOLD 22:11 → SUATTDRO 22:11 → MEDTELE 01-13 02:57 → SSU 01-25 22:07
PROVIDERS: ADMIT Internal Medicine; ATTEND Internal Medicine

== ENCOUNTER 2023-07-06 15:51 | Inpatient (IN) ==
[2023-07-06] MEDS ORDERED: ceFAZolin 2 GM in NS PREMIX 2 GM/100 ML BAG IVPB ONE (16:07)
[2023-07-06 16:33] LABS: ABS Lymphocytes 0.5 10^3/uL (1.0-4.8); ABS Monocytes 0.2 10^3/uL (0.0-0.9); ABS Neutrophils 1.7 10^3/uL (1.5-7.6); Eosinophil % 1.9 %; Hematocrit 28.4 % (35-45); Hemoglobin 9.9 g/dL (11.5-14.3); Lymphocyte % 21.3 %; Mean Corpuscular Hemoglobin 34.5 pg (27-33); Mean Corpuscular Hgb Conc 34.7 g/dL (31-36); Mean Corpuscular Volume 99.4 fL (80-97); Mean Platelet Volume 7.3 fL (7.5-11.2); Nucleated Red Blood Cells % 0.1 %/100WBC (0.0-0.8); Platelet Count 144 10^3/uL (150-450); Red Blood Count 2.86 10^6/uL (3.63-4.92); Red Cell Distribution Width 17.2 % (12-17); White Blood Count 2.5 10^3/uL (3.8-11.8)
[2023-07-06 16:41] LABS: INR 2.28 (0.83-1.13)
[2023-07-06] MEDS: ceFAZolin 2 GM/50 ML BAG IV ONE (16:41)
[2023-07-06 16:59] LABS: Urine Appearance Clear; Urine Bilirubin Negative (Negative); Urine Blood Negative (Negative); Urine Color Colorless; Urine Glucose Negative (Negative); Urine Ketones Negative (Negative); Urine Nitrite Negative (Negative); Urine Protein Negative (Negative); Urine Specific Gravity 1.007 (1.002-1.030); Urine Urobilinogen Negative (Negative)
[2023-07-06 17:07] LABS: Albumin 3.3 g/dL (3.2-5.2); Albumin/Globulin Ratio 1.1 (1-3); Calcium 8.5 mg/dL (8.6-10.3); Creatinine, Serum 0.95 mg/dL (0.51-0.95); Potassium 3.2 mmol/L (3.5-5.0); Total Bilirubin 0.5 mg/dL (0.2-1.0); Total Protein 6.3 g/dL (6.4-8.9); eGFR CKD-EPI 60.6 (>60)
[2023-07-06 18:06] LABS: High Sensitivity Troponin 1 Hr 13 pg/mL (<15)
[2023-07-06] MEDS ORDERED: Albuterol HFA INHALER 8 gm MDI INH PRN (19:46)
[2023-07-06 19:53] LABS: C Reactive Protein 407.9 mg/L (<8.01)
[2023-07-06] MEDS ORDERED: Letrozole 2.5 MG TAB (NF) PO SCH (21:00)
[2023-07-06] MEDS: Potassium Chlor 20 meq TAB.ER PO ONE (21:58)
[2023-07-06] MEDS: cefTRIAXone 1 gm/50 mL D5W 1 GM/50 ML BAG IV SCH (23:14)
[2023-07-06] MEDS: ABEMACICLIB 100 MG PO SCH (23:57)
[2023-07-07] MEDS: Ondansetron ODT 4 mg TAB 4 MG TAB PO PRN (05:36)
[2023-07-07 06:25] LABS: Hemoglobin 8.1 g/dL (11.5-14.3); Mean Corpuscular Hemoglobin 35.3 pg (27-33); Mean Corpuscular Hgb Conc 35.1 g/dL (31-36); Mean Corpuscular Volume 100.3 fL (80-97); Mean Platelet Volume 7.2 fL (7.5-11.2); Platelet Count 108 10^3/uL (150-450); White Blood Count 1.6 10^3/uL (3.8-11.8)
[2023-07-07 07:05] LABS: ABS Eosinophils 0.1 10^3/uL (0.0-0.5); ABS Lymphocytes 0.4 10^3/uL (1.0-4.8); ABS Monocytes 0.1 10^3/uL (0.0-0.9); ABS Neutrophils 0.9 10^3/uL (1.5-7.6); Eosinophil % 3.5 %; Lymphocyte % 25.7 %; Nucleated Red Blood Cells % 0.1 %/100WBC (0.0-0.8)
[2023-07-07 07:06] LABS: Calcium 7.8 mg/dL (8.6-10.3); Creatinine, Serum 0.97 mg/dL (0.51-0.95); Magnesium 1.7 mg/dL (1.9-2.7); eGFR CKD-EPI 59.1 (>60)
[2023-07-07] MEDS: Magnesium Sulfate 2 gm BAG 2 GM/50 ML BAG IVPB ONE (09:00)
[2023-07-07] MEDS: Potassium Chloride LIQUID 20 MEQ/15 ML LIQUID PO SCH (09:35)
[2023-07-07] MEDS: Mometasone/Formoter 200/5 MDI INH SCH (09:39)
[2023-07-07] MEDS: KCL 10 MEQ/50 ML IVPREMIX 10 MEQ/50 ML BAG IV SCH (10:38)
[2023-07-07] MEDS: KCL 10 MEQ/50 ML IVPREMIX 10 MEQ/50 ML BAG ONE (16:04)
[2023-07-08 08:23] LABS: ABS Eosinophils 0.1 10^3/uL (0.0-0.5); ABS Lymphocytes 0.4 10^3/uL (1.0-4.8); ABS Monocytes 0.1 10^3/uL (0.0-0.9); ABS Neutrophils 1.4 10^3/uL (1.5-7.6); Eosinophil % 3.4 %; Hematocrit 27.7 % (35-45); Hemoglobin 9.6 g/dL (11.5-14.3); Lymphocyte % 19.1 %; Mean Corpuscular Hemoglobin 35.5 pg (27-33); Mean Corpuscular Hgb Conc 34.7 g/dL (31-36); Mean Corpuscular Volume 102.3 fL (80-97); Mean Platelet Volume 7.9 fL (7.5-11.2); Nucleated Red Blood Cells % 0.1 %/100WBC (0.0-0.8); Platelet Count 136 10^3/uL (150-450); Red Blood Count 2.71 10^6/uL (3.63-4.92); Red Cell Distribution Width 17.8 % (12-17)
[2023-07-08 08:43] LABS: Calcium 8.5 mg/dL (8.6-10.3); Creatinine, Serum 0.85 mg/dL (0.51-0.95); eGFR CKD-EPI 69.2 (>60)
[2023-07-09 06:00] LABS: Hematocrit 24.2 % (35-45); Hemoglobin 8.6 g/dL (11.5-14.3); Mean Corpuscular Hemoglobin 36.8 pg (27-33); Mean Corpuscular Hgb Conc 35.5 g/dL (31-36); Mean Corpuscular Volume 103.5 fL (80-97); Mean Platelet Volume 7.4 fL (7.5-11.2); Platelet Count 118 10^3/uL (150-450); Red Blood Count 2.34 10^6/uL (3.63-4.92); Red Cell Distribution Width 17.3 % (12-17); White Blood Count 1.7 10^3/uL (3.8-11.8)
[2023-07-09 06:03] LABS: ABS Eosinophils 0.1 10^3/uL (0.0-0.5); ABS Lymphocytes 0.4 10^3/uL (1.0-4.8); ABS Monocytes 0.2 10^3/uL (0.0-0.9); Eosinophil % 4.5 %; Lymphocyte % 25.6 %; Nucleated Red Blood Cells % 0.2 %/100WBC (0.0-0.8)
[2023-07-09 06:16] LABS: Anion Gap 4 mmol/L (2-16); Blood Urea Nitrogen 11 mg/dL (6-24); CO2 Carbon Dioxide 27 mmol/L (22-32); Calcium 7.8 mg/dL (8.6-10.3); Chloride 106 mmol/L (101-111); Creatinine, Serum 0.94 mg/dL (0.51-0.95); Glucose 87 mg/dL (70-100); Potassium 3.9 mmol/L (3.5-5.0); Sodium 137 mmol/L (135-145); eGFR CKD-EPI 61.3 (>60)
[2023-07-09 11:29] LABS: C Reactive Protein > 480.00 mg/L (<8.01)
[2023-07-10 05:40] LABS: ABS Eosinophils 0.1 10^3/uL (0.0-0.5); ABS Lymphocytes 0.5 10^3/uL (1.0-4.8); ABS Monocytes 0.2 10^3/uL (0.0-0.9); Eosinophil % 4.7 %; Hematocrit 26.7 % (35-45); Hemoglobin 9.4 g/dL (11.5-14.3); Lymphocyte % 26.2 %; Mean Corpuscular Hemoglobin 37.4 pg (27-33); Mean Corpuscular Hgb Conc 35.2 g/dL (31-36); Mean Corpuscular Volume 106.4 fL (80-97); Mean Platelet Volume 7.2 fL (7.5-11.2); Nucleated Red Blood Cells % 0.2 %/100WBC (0.0-0.8); Platelet Count 126 10^3/uL (150-450); Red Blood Count 2.51 10^6/uL (3.63-4.92); Red Cell Distribution Width 17.7 % (12-17); White Blood Count 1.8 10^3/uL (3.8-11.8)
[2023-07-10 05:50] LABS: Calcium 7.9 mg/dL (8.6-10.3); Creatinine, Serum 0.72 mg/dL (0.51-0.95); Magnesium 1.8 mg/dL (1.9-2.7); eGFR CKD-EPI 84.5 (>60)
[2023-07-10] MEDS: Magnesium Sulfate 2 gm BAG 2 GM/50 ML BAG IVPB ONE (10:40)
[2023-07-10] MEDS: Nystatin TOP POWDER 15 GM BTL TOPICAL PRN (22:08)
[2023-07-11 10:15] LABS: ABS Eosinophils 0.1 10^3/uL (0.0-0.5); ABS Lymphocytes 0.4 10^3/uL (1.0-4.8); ABS Monocytes 0.2 10^3/uL (0.0-0.9); ABS Neutrophils 1.2 10^3/uL (1.5-7.6); Eosinophil % 3.8 %; Hematocrit 27.3 % (35-45); Hemoglobin 9.3 g/dL (11.5-14.3); Mean Corpuscular Hemoglobin 35.1 pg (27-33); Mean Corpuscular Hgb Conc 34.1 g/dL (31-36); Mean Corpuscular Volume 102.8 fL (80-97); Nucleated Red Blood Cells % 0.1 %/100WBC (0.0-0.8); Platelet Count 153 10^3/uL (150-450); Red Blood Count 2.66 10^6/uL (3.63-4.92); Red Cell Distribution Width 17.4 % (12-17); White Blood Count 1.8 10^3/uL (3.8-11.8)
[2023-07-11 10:41] VITALS: BP 97/38
== END 2023-07-11 14:55 | disposition home or self-care (01) | DRG 603 ==
LOC: EDHOLD 15:51 → ED 15:51 → SUATTDRO 18:01 → MED 19:37 → SUATTDRO 07-07 12:33
PROVIDERS: ADMIT Internal Medicine; ATTEND Internal Medicine

== ENCOUNTER 2023-11-30 14:10 | Inpatient (IN) ==
[2023-11-30 15:28] LABS: Hematocrit 35.1 % (35-45); Hemoglobin 11.8 g/dL (11.5-14.3); Mean Corpuscular Hemoglobin 31.5 pg (27-33); Mean Corpuscular Hgb Conc 33.7 g/dL (31-36); Mean Corpuscular Volume 93.4 fL (80-97); Mean Platelet Volume 7.4 fL (7.5-11.2); Platelet Count 399 10^3/uL (150-450); Red Blood Count 3.76 10^6/uL (3.63-4.92); Red Cell Distribution Width 14.7 % (12-17); White Blood Count 16.5 10^3/uL (3.8-11.8)
[2023-11-30] MEDS: NS 0.9% 1000 ml BAG 1,000 ML IV ONE (15:34)
[2023-11-30 15:37] LABS: INR 1.3 (0.85-1.14)
[2023-11-30 15:44] LABS: High Sens Troponin Baseline 90 pg/mL (<15)
[2023-11-30 15:51] LABS: ALT 37 U/L (7-52); AST 43 U/L (13-39); Albumin 3.1 g/dL (3.2-5.2); Albumin/Globulin Ratio 0.9 (1-3); Alkaline Phosphatase 357 U/L (35-149); Anion Gap 13 mmol/L (2-16); Blood Urea Nitrogen 33 mg/dL (6-24); CO2 Carbon Dioxide 21 mmol/L (22-32); Chloride 91 mmol/L (101-111); Creatinine, Serum 1.64 mg/dL (0.51-0.95); Globulin 3.6 g/dL (2-4); Glucose 111 mg/dL (70-100); Lipase < 10 U/L (11.0-82.0); Magnesium 1.8 mg/dL (1.9-2.7); Potassium 4.6 mmol/L (3.5-5.0); Sodium 125 mmol/L (135-145); Total Bilirubin 1.1 mg/dL (0.2-1.0); Total Protein 6.7 g/dL (6.4-8.9); eGFR CKD-EPI 31.3 (>60)
[2023-11-30 16:38] LABS: ABS Lymphocytes 0.5 10^3/uL (1.0-4.8); ABS Monocytes 1.1 10^3/uL (0.0-0.9); ABS Neutrophils 14.8 10^3/uL (1.5-7.6); Lymphocyte % 3.1 %
[2023-11-30 16:49] LABS: C Reactive Protein 857.96 mg/L (<8.01)
[2023-11-30 16:56] LABS: High Sensitivity Troponin 1 Hr 88 pg/mL (<15)
[2023-11-30] MEDS: Piperacillin/Tazobac 3.375 BAG 3.375 GM/100 ML BAG IV ONE (18:14)
[2023-11-30] MEDS ORDERED: Fluticasone-Salmeterol 100-50 DISKUS NF INH PRN (18:21)
[2023-11-30 19:04] LABS: Urine Appearance Turbid; Urine Bilirubin Negative (Negative); Urine Blood 1+ (Negative); Urine Color Yellow; Urine Glucose Negative (Negative); Urine Ketones Negative (Negative); Urine Nitrite Negative (Negative); Urine Protein 1+ (>=30 mg/dL) (Negative); Urine Specific Gravity 1.023 (1.002-1.030); Urine Urobilinogen 1+ (Negative); Urine pH 5.5 (5.0-8.0)
[2023-11-30 19:16] LABS: Osmolality Serum 279 mOsm/kg (275-295)
[2023-11-30 19:54] LABS: Urine Bacteria Absent /HPF (Absent); Urine Red Blood Cell 3+(>10/hpf) /HPF (0-Trace); Urine Squamous Epithelial Cell Present /HPF (Absent); Urine White Blood Cell Trace(0-5/hpf) /HPF (0-Trace)
[2023-11-30] MEDS: Lactated Ringers 1000 ml BAG 1,000 ML IV ONE ×2 (20:02→21:14)
[2023-11-30] MEDS: Magnesium Sulfate 2 gm BAG 2 GM/50 ML BAG IVPB ONE (20:45)
[2023-11-30] MEDS: cefTRIAXone 1 gm/50 mL D5W 1 GM/50 ML BAG IV SCH (22:13)
[2023-12-01] MEDS: Lactated Ringers 1000 ml BAG 1,000 ML IV ONE (00:26)
[2023-12-01] MEDS: Norepinephrine 4 MG/250mL D5W 4,000 MCG/250 ML BAG IV SCH (00:29)
[2023-12-01 05:30] LABS: Hematocrit 30.5 % (35-45); Hemoglobin 10.4 g/dL (11.5-14.3); Mean Corpuscular Hemoglobin 31.5 pg (27-33); Mean Corpuscular Volume 92.7 fL (80-97); Mean Platelet Volume 6.9 fL (7.5-11.2); Platelet Count 286 10^3/uL (150-450); Red Blood Count 3.29 10^6/uL (3.63-4.92); Red Cell Distribution Width 14.7 % (12-17); White Blood Count 13.8 10^3/uL (3.8-11.8)
[2023-12-01 06:03] LABS: Calcium 8.2 mg/dL (8.6-10.3); Creatinine, Serum 0.84 mg/dL (0.51-0.95); Magnesium 2.3 mg/dL (1.9-2.7); eGFR CKD-EPI 69.8 (>60)
[2023-12-01 08:54] LABS: ABS Lymphocytes 0.4 10^3/uL (1.0-4.8); ABS Monocytes 0.5 10^3/uL (0.0-0.9); ABS Neutrophils 12.9 10^3/uL (1.5-7.6); Lymphocyte % 3.1 %; RBC Morphology Normal (Normal); Toxic Granulation 2+
[2023-12-01] MEDS: cefTRIAXone 2 gm/50 mL D5W 2 GM/50 ML BAG IV SCH ×2 (17:28→17:39)
[2023-12-02 06:36] LABS: Hematocrit 28.9 % (35-45); Hemoglobin 9.9 g/dL (11.5-14.3); Mean Corpuscular Hemoglobin 32.1 pg (27-33); Mean Corpuscular Hgb Conc 34.3 g/dL (31-36); Mean Corpuscular Volume 93.4 fL (80-97); Mean Platelet Volume 7.1 fL (7.5-11.2); Platelet Count 262 10^3/uL (150-450); Red Cell Distribution Width 14.7 % (12-17); White Blood Count 15.8 10^3/uL (3.8-11.8)
[2023-12-02 08:33] LABS: Calcium 7.8 mg/dL (8.6-10.3); Creatinine, Serum 0.45 mg/dL (0.51-0.95); Potassium 3.3 mmol/L (3.5-5.0); eGFR CKD-EPI 96.6 (>60)
[2023-12-02 10:38] LABS: ABS Lymphocytes 0.4 10^3/uL (1.0-4.8); ABS Monocytes 0.7 10^3/uL (0.0-0.9); ABS Neutrophils 14.7 10^3/uL (1.5-7.6); Eosinophil % 0.2 %; Lymphocyte % 2.5 %
[2023-12-02] MEDS: KCL 20 MEQ/100 ML IVPREMIX 20 MEQ/100 ML BAG IV ONE (11:58)
[2023-12-03 10:00] LABS: Hemoglobin 10.5 g/dL (11.5-14.3); Mean Corpuscular Hemoglobin 31.9 pg (27-33); Mean Platelet Volume 7.1 fL (7.5-11.2); Platelet Count 281 10^3/uL (150-450); Red Blood Count 3.29 10^6/uL (3.63-4.92); White Blood Count 17.1 10^3/uL (3.8-11.8)
[2023-12-03 10:37] LABS: ABS Eosinophils 0.1 10^3/uL (0.0-0.5); ABS Lymphocytes 0.7 10^3/uL (1.0-4.8); ABS Monocytes 0.7 10^3/uL (0.0-0.9); ABS Neutrophils 15.5 10^3/uL (1.5-7.6); ABS Nucleated RBC 0.01 10^3/ul; Eosinophil % 0.8 %; Lymphocyte % 4.4 %; RBC Morphology Normal (Normal)
[2023-12-03 11:59] LABS: Calcium 8.3 mg/dL (8.6-10.3); Creatinine, Serum 0.47 mg/dL (0.51-0.95); Magnesium 1.9 mg/dL (1.9-2.7); Potassium 3.5 mmol/L (3.5-5.0); eGFR CKD-EPI 95.6 (>60)
[2023-12-04] MEDS: Ondansetron ODT 4 mg TAB 4 MG TAB PO PRN (05:57)
[2023-12-04 06:47] LABS: Hematocrit 30.7 % (35-45); Hemoglobin 10.4 g/dL (11.5-14.3); Mean Corpuscular Hemoglobin 32.4 pg (27-33); Mean Corpuscular Volume 95.3 fL (80-97); Mean Platelet Volume 7.1 fL (7.5-11.2); Platelet Count 228 10^3/uL (150-450); Red Blood Count 3.22 10^6/uL (3.63-4.92); Red Cell Distribution Width 15.4 % (12-17); White Blood Count 16.7 10^3/uL (3.8-11.8)
[2023-12-04 07:59] LABS: ABS Eosinophils 0.2 10^3/uL (0.0-0.5); ABS Lymphocytes 1.5 10^3/uL (1.0-4.8); ABS Neutrophils 13.9 10^3/uL (1.5-7.6); Eosinophil % 1.3 %; Lymphocyte % 9.2 %
[2023-12-04] MEDS: Metoprolol Tartrate 5 mg VIAL 5 ml VIAL (1 mg/ml) IV ONE (09:47)
[2023-12-04] MEDS: Metoprolol Tartrate 5 mg VIAL 5 ml VIAL (1 mg/ml) ONE (09:53)
[2023-12-05] MEDS: Polyethylene Glycol 3350 17 GM PACKET PO PRN (05:54)
[2023-12-06 09:43] LABS: Hematocrit 30.2 % (35-45); Hemoglobin 10.2 g/dL (11.5-14.3); Mean Corpuscular Hemoglobin 31.8 pg (27-33); Mean Corpuscular Hgb Conc 33.6 g/dL (31-36); Mean Corpuscular Volume 94.8 fL (80-97); Platelet Count 272 10^3/uL (150-450); Red Blood Count 3.19 10^6/uL (3.63-4.92); Red Cell Distribution Width 15.6 % (12-17); White Blood Count 16.5 10^3/uL (3.8-11.8)
[2023-12-06 10:14] LABS: Rapid COVID-19 Molecular Undetected (Undetected)
[2023-12-06 10:22] LABS: ABS Basophils 0.1 10^3/uL (0.0-0.1); ABS Eosinophils 0.1 10^3/uL (0.0-0.5); ABS Monocytes 0.8 10^3/uL (0.0-0.9); ABS Neutrophils 14.4 10^3/uL (1.5-7.6); ABS Nucleated RBC 0.02 10^3/ul; Eosinophil % 0.6 %; Lymphocyte % 6.2 %; Nucleated Red Blood Cells % 0.1 %/100WBC (0.0-0.8); RBC Morphology Normal (Normal); Toxic Granulation 1+
[2023-12-06 11:00] VITALS: BP 94/58
== END 2023-12-06 12:14 | DRG 871 ==
LOC: EDHOLD 14:10 → ED 14:10 → SUATTDRO 18:16 → OBSVTOIN 18:16 → MED 12-01 15:08
PROVIDERS: ADMIT Internal Medicine; ATTEND Hospitalist